=== PATIENT | male | born 1935 | race Caucasian/White ===

== ENCOUNTER → 2016-09-22 | Outpatient (CLI) | payer MEDICARE ==
[~2016-09-22] MED LIST: AMOX500C2 PO; COLE1TAB PO; ENAL10TA PO; GLIP5TAB26 PO; HCT25T PO; HYDR-2856 PO; HYDR-3812 PO; INSU100I14 BC; INSU100I14 SC; INSU100I29 SC; INSU100I29 SQ; INSU100I5 SQ; LORA10TA76 PO; METF-380 PO; MULT-35 PO; NAPR220T66 PO; PGLT30T PO; TR1C15 TOP
--- NOTE | 2016-09-22 14:14 | Diagnostic Imaging Report ---
EXAMINATION: PET-CT TECHNIQUE: Serum glucose level at the time of the study is: 99 mg/dL. 11.8 mCi of FDG was administered intravenously followed by obtaining PET images with corresponding noncontrast CT scan images. The CT scan was performed for anatomic correlation and attenuation correction and was not performed according to the diagnostic protocol of the areas covered. The scan was performed from the head to mid thighs. INDICATION: Esophageal cancer. FINDINGS: There is symmetric FDG uptake seen in the brain. There is no significant hypermetabolic activity noted in the neck. No suspicious mass. Deformities in the upper left chest wall seen. There is a hypermetabolic mass noted in the distal esophagus with maximum SUV of 14.5. This appears to involve a segment, about 5 cm in length in the distal aspect of the esophagus just proximal to the gastroesophageal junction. No hypermetabolic mediastinal lymph nodes are seen. A nonspecific mildly enlarged infracarinal lymph node and right paraesophageal mildly prominent lymph node is also seen higher than the level of the esophageal mass of uncertain etiology. IN THE ABDOMEN AND PELVIS: There is expected urinary tract excretion and some nonspecific bowel activity likely physiologic. IMPRESSION: Intensely hypermetabolic distal esophageal mass is seen with associated mildly prominent infracarinal and right paraesophageal lymph nodes higher than the level of the primary esophageal mass of uncertain etiology. No PET evidence of distant metastasis. Dictated by: Dictated on workstation # [id number]
== END ==
LOC: RAD 08:36
PROVIDERS: ATTEND Internal Medicine Gastroenterology
DX: C15.9 Malignant neoplasm of esophagus, unspecified (principal); R59.0 Localized enlarged lymph nodes

== ENCOUNTER → 2016-09-22 | Outpatient (CLI) | payer MEDICARE ==
--- NOTE | 2016-09-22 12:35 | Diagnostic Imaging Report ---
PROCEDURE: CT chest without contrast. TECHNIQUE: Multiple contiguous axial images were obtained through the chest without the use of intravenous contrast. INDICATION: Dyspnea. Lung nodules followup. COMPARISON: 03/11/16 FINDINGS: When compared to 03/11/2016, there is internal near complete resolution of multiple irregular nodular densities that were seen on the previous exam with morphology favored to be related to an atypical pneumonitis. At this point, there is minimal residual interstitial thickening in a scattered pattern likely related to post pneumonitis scarring. There is no significant consolidation or mass seen. There is evidence of old rib fractures in the upper left rib cage with deformities noted. There are mild centrilobular emphysema changes seen in the apices. The heart size is normal. Coronary artery calcifications are seen. The thoracic aorta is normal in caliber. There is no lymphadenopathy in the axilla. There is a nonspecific mildly prominent infracarinal lymph node measuring 1.3 cm in short axis similar to the previous exam. Sections in the upper abdomen surgical clips near the common bile duct probably related to prior cholecystectomy. The osseous structures demonstrate degenerative changes with an old mid thoracic spine compression fracture. IMPRESSION: No acute process. Dictated by: Dictated on workstation # [id number]
== END ==
LOC: RAD 08:40
PROVIDERS: ATTEND Nurse Practitioner Family
DX: R06.00 Dyspnea, unspecified (principal); R91.1 Solitary pulmonary nodule
CPT/HCPCS: 71250

== ENCOUNTER 2016-10-01 05:36 | Outpatient (CLI) | payer MEDICARE ==
[~2016-10-01] VITALS: Ht 188 cm; Wt 108.9 kg
[~2016-10-01 05:36] MED LIST changes: -ENAL10TA PO; -HYDR-3812 PO
[2016-10-01] MEDS ORDERED: ENAL10TA PO (12:40)
[2016-10-02] MEDS ORDERED: HYDR-3812 PO (13:59)
== END 2016-10-01 12:41 ==
LOC: PREOP 05:36
PROVIDERS: ATTEND Surgery
DX: Z01.818 Encounter for other preprocedural examination (principal); C16.0 Malignant neoplasm of cardia

== ENCOUNTER 2016-10-02 12:19 | Day surgery (SDC) | payer MEDICARE ==
[~2016-10-02] VITALS: Ht 188 cm; Wt 108.9 kg
[~2016-10-02 12:19] MED LIST changes: +ENAL10TA PO
[2016-10-02] MEDS ORDERED: HEParin (CENTRAL IV FLUSH) 500 UNIT/5 ML SYR ONE (12:24)
[2016-10-02] MEDS ORDERED: BUP/EPI 0.25% 1:200,000 (MARCAINE) 30 ML VIAL ONE (12:24)
--- OUTSIDE RECORDS SUMMARY | 2016-10-02 12:24 | XMS REPORT | Continuity of Care Document ---
Author Author [facility] Organization [facility] Address Unknown Phone Unavailable Care Team Providers Care Painter And Paperhanger Apprentice Name Role Phone DARYL BURKETT MD PCP Insurance Providers Payer Name Policy Number Subscriber Name Relationship [employer] Gold Choice [id number] Alexis Carpio V 18 Self / Same As Patient Advance Directives Directive Response Recorded Date/Time Advance Directives No 10/01/16 12:22pm Health Care Power of Distribution Superintendent No 10/01/16 12:22pm Organ Donor Yes 10/01/16 12:22pm Resuscitation Status Full Code 10/01/16 12:22pm Problems Active Problems Medical Problem Onset Date Status Pneumonia Unknown Acute Medications Current Home Medications Medication Dose Units Route Directions Days/Qty Instructions Start Date Insulin Detemir 100 Unit/1 Ml 25 Unit Sub-Q Bedtime 01/29/16 Insulin Aspart 300 Units/3 Ml Subcutaneously Before Meals for Sliding Scale 01/29/16 Insulin Detemir 100 Unit/1 Ml 17 Units Subcutaneously Daily 01/29/16 Enalapril Maleate 10 Mg 10 Mg Oral Daily 10/01/16 Past Home Medications Medication Directions Ordered Status Metformin Hcl (Glucophage) 1,000 Mg Tablet, 1 Each Oral Twice A Day 10/27/10 Discontinued Hydrochlorothiazide 25 Mg Tablet, 1 Each Oral Daily 10/27/10 Discontinued Glipizide 5 Mg Tab.er.24, 10 Mg Oral Daily 10/27/10 Discontinued Pioglitazone Hcl 30 Mg Tab, 30 Mg Oral Daily 10/27/10 Discontinued Hydroxyzine Hcl 25 Mg Tablet, 25 Mg Oral Bedtime 10/27/10 Discontinued Colestipol Hcl 1 Gm Tablet, 1 Gm Oral Bedtime as needed 10/27/10 Discontinued Insulin Determir 100 Unit/1 Ml Insuln.pen, 12 Unit Sub-Q Bedtime 10/30/10 Discontinued Insulin Aspart 100 Unit/1 Ml Insuln.pen, 100 Unit Buccal After Meals Discontinued Multivitamin 1 Each Tablet, 1 Tab Oral Daily 01/29/16 Discontinued Naproxen Sodium 220 Mg Tablet, 220 Mg Oral Daily 01/29/16 Discontinued Loratadine 10 Mg Tablet, 10 Mg Oral Bedtime 01/29/16 Discontinued Amoxicillin 500 Mg Capsule, 500 Mg Oral Three Times A Day 01/29/16 Discontinued Triamcinolone Acet 15 Gm Cr, Topically Bedtime 01/29/16 Discontinued Social History Social History Problem Response Recorded Date/Time Alcohol Use Denies Use 01/29/2016 1:22pm Recreational Drug Use No 01/29/2016 1:22pm Recent Foreign Travel No 10/01/2016 12:21pm Recent Infectious Disease Exposure No 10/01/2016 12:21pm Smoking Status Former Smoker 10/01/2016 12:22pm Type Used Cigarettes 10/01/2016 12:22pm Recent Hopitalizations No 10/01/2016 12:22pm Query Response Start Date Stop Date Smoking Status Former Smoker Hospital Discharge Instructions No hospital discharge instructions. Plan of Care Discharge Date 10/01/16 12:41pm Prescriptions See Medication Section Functional Status No functional status results. Allergies, Adverse Reactions, Alerts Allergen Type Severity Reaction Status Last Updated NKANo Known Allergies Allergy Unknown Active 07/26/06 Immunizations No immunization records. Vital Signs Acute Vital Signs Vital Response Date/Time Height (Feet) 6 feet 10/01/2016 12:16pm Height (Inches) 2.00 inches 10/01/2016 12:16pm Height (Calculated Centimeters) 187.592095 cm 10/01/2016 12:16pm Weight (Pounds) 240 pounds 10/01/2016 12:16pm Weight (Ounces) 3.0 oz 10/01/2016 12:16pm Weight (Calculated Grams) 218967.22 gm 10/01/2016 12:16pm Weight (Calculated Kilograms) 108.394812 kilograms 10/01/2016 12:16pm Calculated BMI 30.8 10/01/2016 12:16pm Results Pending Laboratory Results Test Name Collection Date/Time Procedures No known history of procedures. Encounters Encounter Location Arrival/Admit Date Discharge/Depart Date Attending Provider Departed Clinic [facility] 10/01/16 5:36am 10/01/16 12: 41pm JOHN AHUMADA MD Registered Recurring [facility] 09/30/16 1:01pm CLEVE JOHNSON Registered Clinic [facility] 09/22/16 11:19am NIKOLAS MOLINA APRN Registered Clinic [facility] 09/22/16 8:36am LILLIAN POLLOCK MD
--- OUTSIDE RECORDS SUMMARY | 2016-10-02 12:24 | XMS REPORT | Continuity of Care Document ---
Author Author [facility] Organization [facility] Address Unknown Phone Unavailable Care Team Providers Care Peoplesoft Taleo Manager Name Role Phone DARYL BURKETT MD PCP Insurance Providers Payer Name Policy Number Subscriber Name Relationship [employer] Gold Choice [id number] Alexis Carpio V 18 Self / Same As Patient Advance Directives Directive Response Recorded Date/Time Advance Directives No 10/01/16 12:22pm Health Care Power of Retail Store Assistant No 10/01/16 12:22pm Organ Donor Yes 10/01/16 [...] 2.00 inches 10/01/2016 12:16pm Height (Calculated Centimeters) 187.828591 cm 10/01/2016 12:16pm Weight (Pounds) 240 pounds 10/01/2016 12:16pm Weight (Ounces) 3.0 oz 10/01/2016 12:16pm Weight (Calculated Grams) 560562.22 gm 10/01/2016 12:16pm Weight (Calculated Kilograms) 108.184550 kilograms 10/01/2016 12:16pm Calculated BMI 30.8 10/01/2016 12:16pm Results Pending Laboratory Results Test Name Collection Date/Time Procedures No known history of procedures. Encounters Encounter Location Arrival/Admit Date Discharge/Depart Date Attending Provider Departed Clinic [facility] 10/01/16 5:36am 10/01/16 12: 41pm JOHN AHUMADA MD Registered Recurring [facility] 09/30/16 1:01pm CLEVE JOHNSON Registered Clinic [facility] 09/22/16 11:19am NIKOLAS MOLINA APRN Registered Clinic [facility] 09/22/16 8:36am LILLIAN POLLOCK MD
--- NOTE | 2016-10-02 12:36 | Progress Note-Pre Operative ---
Pre-Operative Progress Note H&P Reviewed The H&P was reviewed, patient examined and no changes noted. 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
[2016-10-02] MEDS ORDERED: fentaNYL INJECTION 100 MCG/2 ML AMP ONE (12:39)
[2016-10-02] MEDS ORDERED: MIDAZOLAM 2 MG/2 ML (VERSED) VIAL ONE (12:39)
[2016-10-02] MEDS ORDERED: ROCURONIUM 50 MG/5 ML (ZEMURON) VIAL IV ONE (12:39)
[2016-10-02] MEDS ORDERED: ONDANSETRON 4 MG/2 ML (SDV) Z0FRAN ONE (12:39)
[2016-10-02] MEDS ORDERED: proPOfol 200 MG/20 ML (DIPRIVAN) VIAL IV ONE (12:39)
[2016-10-02] MEDS ORDERED: LIDOCAINE PF 2% 10 ML (XYLOCAINE) AMP ONE (12:39)
[2016-10-02] MEDS ORDERED: LIDOCAINE JELLY 2% (XYLOCAINE) 5 ML TUBE ONE (12:39)
[2016-10-02] MEDS ORDERED: LACTATED RINGERS 1,000 ML IV ONE ×2 (12:39→14:07)
[2016-10-02] MEDS ORDERED: ceFAZolin 2 GM IV (SDC ONLY) 50 ML ONE (12:42)
[2016-10-02] MEDS ORDERED: LACTATED RINGERS 1,000 ML IV PRN (12:44)
[2016-10-02] MEDS ORDERED: FAMOTIDINE 20MG/2ML IV (PEPCID) IV ONE (12:45)
[2016-10-02] MEDS ORDERED: ceFAZolin 2 GM/NS 50 ML IVPB IV ONE ×2 (13:00)
[2016-10-02 13:10] VITALS: BP 179/96
[2016-10-02] MEDS ORDERED: HYDR-3812 PO (13:59)
[2016-10-02] MEDS ORDERED: SEVOFLURANE (ULTANE) 15 ML INHAL SOLN ONE (13:59)
--- NOTE | 2016-10-02 13:59 | Progress Note-Post Operative ---
Post-Operative Progess Note Pre-Operative Diagnosis carcinoma of the GE junction Post-Operative Diagnosis Same Post-Op Procedure Note Date of Procedure: Oct 02, 2016 Name of Procedure: Zajbbp-o-Rdoh placement PEG tube placed Anesthesia Type Gen. Estimated blood loss (mL): Minimal JOHN AHUMADA MD Oct 02, 2016 1:59 pm
--- NOTE | 2016-10-02 14:00 | Discharge Inst-Simple/Standard ---
Discharge Inst-Standard Discharge Medications New, Converted or Re-Newed RX: RX on Chart Patient Instructions/Follow Up Plan of Care/Instructions/FU: Dressings off in 48 hours. Incentive spirometry. May use the port. Flush the PEG tube with 10 mL of water 3 times a day starting tomorrow Activity as Tolerated: Yes Discharge Diet: No Restrictions JOHN AHUMADA MD Oct 02, 2016 2:00 pm
[2016-10-02] MEDS ORDERED: ONDANSETRON 4 MG/2 ML (SDV) Z0FRAN IVP PRN (14:15)
[2016-10-02] MEDS ORDERED: MEPERIDINE (DEMEROL) INJ 50 MG/ML IVP PRN (14:15)
[2016-10-02] MEDS ORDERED: morphine INJ 10 MG/ML 1ML (SYR OR VIAL) IVP PRN (14:15)
[2016-10-02 15:05] VITALS: BP 176/85
[2016-10-02 15:35] VITALS: BP 183/91
--- NOTE | 2016-10-02 16:45 | Diagnostic Imaging Report ---
INDICATION: Need for central venous access. DISCUSSION: Fluoroscopic support was provided during intraoperative placement of a right-sided chest central venous catheter. Please see the operative report for full detail. Fluoroscopy time: 35 seconds. IMPRESSION: 1. Intraoperative central venous catheter placement. Dictated by: Dictated on workstation # [id number]
[2016-10-02 17:10] VITALS: BP 183/91
--- NOTE | 2016-10-03 22:19 | OPERATIVE REPORT ---
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 POSTOPERATIVE DIAGNOSIS: Adenocarcinoma of gastroesophageal junction. OPERATION: 1. Ultrasound localization of right internal jugular vein. 2. Intraoperative fluoroscopy. 3. Ukmqwl-b-Houw placement. 4. PEG tube placement. SURGEON: Dr. Ahumada. ANESTHESIA: General anesthesia. BLOOD LOSS: Minimal. FLUIDS: 1200 mL of crystalloids. TYPE OF WOUND: 1. Nqcuqg-f-Bowm - clean wound. 2. PEG tube type III (contaminant wound) INDICATIONS FOR THE PROCEDURE: This gentleman is due to receive chemoradiation to manage an inoperable carcinoma of the gastroesophageal junction. In anticipation of this, an Ndmslo-j-Dxmv and PEG tube were felt to be appropriate. Informed consent was obtained after reviewing the operative details and complications of bacteremia, malfunction of catheter requiring replacement and displacement of the PEG tube. DESCRIPTION OF PROCEDURE: XSFFVC-[id number]-[id number] PLACEMENT: He was placed supine on the operating table and general anesthesia induced using an endotracheal tube. 2 grams of Ancef were administered intravenously as prophylaxis against wound infection. Sequential compression devices were placed around his legs, to minimize the risk of venous thrombosis. His neck and upper chest were prepared and draped in the usual sterile manner. Right internal jugular vein was localized using a 10 MHz ultrasound probe and a floppy guidewire introduced into the heart, under fluoroscopy. A subcutaneous pocket was created over the infraclavicular fossa and the Albert catheter brought into the neck, in a retrograde fashion. It was then advanced into the heart, under fluoroscopy using the peel-away sheath. The catheter was then pulled back to the superior vena cava and connected to the Fbohhz-a-Qvex, that had been primed with heparinized saline. I was able to aspirate and flush the system without difficulty. The port was then secured to the pectoralis muscle using 2-0 Prolene sutures. The incision was closed using 3-0 Vicryl for the subcutaneous tissue and 4-0 Vicryl for skin, in a subcuticular fashion. Preemptive analgesia was established using 0.25% Marcaine with epinephrine. PEG TUBE PLACEMENT: Anterior abdominal wall was prepared and draped in the usual sterile manner. The flexible gastroscope was introduced into the stomach and by transillumination on the anterior abdominal wall, the area below the left costal margin was identified. A guidewire was introduced into the stomach under direct view using an access needle. This was then snared using standard technique and the wire brought out of the oral cavity. A 20-Mohawk standard PEG tube was connected to the guidewire and rail-roaded back into the stomach. Gastroscopy was repeated to conform satisfactory position of the flange of the device. The connecting devices were attached to the PEG tube and a dressing applied. He tolerated both procedures well, was extubated in the operating room and taken to the recovery room in a stable condition. Hawkeye, sponges, and instruments were correct at the end of the operation. Job ID: [id number] Dictated Date: 10/02/2016 13:58:39 Auto Repair Shop Manager Date: 10/03/2016 22:11:05 / coby PAIGE
== END 2016-10-02 17:10 | disposition home or self-care (01) ==
LOC: SDC 12:19
PROVIDERS: ATTEND Surgery
DX: C16.0 Malignant neoplasm of cardia (principal); E11.9 Type 2 diabetes mellitus without complications; Z79.4 Long term (current) use of insulin
CPT/HCPCS: 82962; 87081; 94664

== ENCOUNTER → 2016-12-24 | Outpatient (RCR) | payer MEDICARE ==
[2016-09-25 12:11] LABS: BASOPHILS % (AUTO) 0 % (0-10); EOSINOPHILS # (AUTO) 0.2 10^3/uL (0.0-0.3); EOSINOPHILS % (AUTO) 3 % (0-10); LYMPHOCYTES # (AUTO) 1.9 X 10^3 (1.0-4.0); LYMPHOCYTES % (AUTO) 27 % (12-44); MEAN CORPUSCULAR HEMOGLOBIN 31 PG (25-34); MEAN CORPUSCULAR HGB CONC 35 G/DL (32-36); MEAN CORPUSCULAR VOLUME 90 FL (80-99); MEAN PLATELET VOLUME 10.4 FL (7.4-10.4); MONOCYTES # (AUTO) 0.5 X 10^3 (0.0-1.0); MONOCYTES % (AUTO) 8 % (0-12); NEUTROPHILS # (AUTO) 4.5 X 10^3 (1.8-7.8); NEUTROPHILS % (AUTO) 62 % (42-75); PLATELET COUNT 263 10^3/uL (130-400); RED BLOOD COUNT 5.09 10^6/uL (4.35-5.85); RED CELL DISTRIBUTION WIDTH 12.7 % (10.0-14.5); WHITE BLOOD COUNT 7.2 10^3/uL (4.3-11.0)
[2016-09-25 12:29] LABS: ALANINE AMINOTRANSFERASE 31 U/L (0-55); ALBUMIN 3.9 G/DL (3.2-4.5); ANION GAP 9 MMOL/L (5-14); ASPARTATE AMINO TRANSFERASE 18 U/L (5-34); BILIRUBIN,TOTAL 0.7 MG/DL (0.1-1.0); BLOOD UREA NITROGEN 17 MG/DL (7-18); BUN/CREATININE RATIO 15; CALCIUM 9.3 MG/DL (8.5-10.1); CARBON DIOXIDE 25 MMOL/L (21-32); CHLORIDE 108 MMOL/L (98-107); CREATININE SERUM 1.15 MG/DL (0.60-1.30); GFR ESTIMATED > 60; GLUCOSE 120 MG/DL (70-105); POTASSIUM 4.2 MMOL/L (3.6-5.0); SODIUM 142 MMOL/L (135-145); TOTAL PROTEIN 6.3 G/DL (6.4-8.2)
[2016-10-06 13:33] LABS: BASOPHILS % (AUTO) 0 % (0-10); EOSINOPHILS # (AUTO) 0.2 10^3/uL (0.0-0.3); EOSINOPHILS % (AUTO) 4 % (0-10); LYMPHOCYTES # (AUTO) 1.4 X 10^3 (1.0-4.0); LYMPHOCYTES % (AUTO) 23 % (12-44); MEAN CORPUSCULAR HEMOGLOBIN 31 PG (25-34); MEAN CORPUSCULAR HGB CONC 34 G/DL (32-36); MEAN CORPUSCULAR VOLUME 90 FL (80-99); MEAN PLATELET VOLUME 10.3 FL (7.4-10.4); MONOCYTES # (AUTO) 0.4 X 10^3 (0.0-1.0); MONOCYTES % (AUTO) 7 % (0-12); NEUTROPHILS % (AUTO) 66 % (42-75); PLATELET COUNT 230 10^3/uL (130-400); RED BLOOD COUNT 4.56 10^6/uL (4.35-5.85); RED CELL DISTRIBUTION WIDTH 12.8 % (10.0-14.5); WHITE BLOOD COUNT 6.1 10^3/uL (4.3-11.0)
[2016-10-06 13:54] LABS: ALBUMIN 3.5 G/DL (3.2-4.5); BILIRUBIN,TOTAL 0.6 MG/DL (0.1-1.0); CALCIUM 8.6 MG/DL (8.5-10.1); CREATININE SERUM 1.19 MG/DL (0.60-1.30); POTASSIUM 4.1 MMOL/L (3.6-5.0); TOTAL PROTEIN 5.7 G/DL (6.4-8.2)
[2016-10-12 13:26] LABS: BASOPHILS % (AUTO) 0 % (0-10); EOSINOPHILS # (AUTO) 0.4 10^3/uL (0.0-0.3); EOSINOPHILS % (AUTO) 6 % (0-10); LYMPHOCYTES # (AUTO) 1.5 X 10^3 (1.0-4.0); LYMPHOCYTES % (AUTO) 21 % (12-44); MEAN CORPUSCULAR HEMOGLOBIN 31 PG (25-34); MEAN CORPUSCULAR HGB CONC 34 G/DL (32-36); MEAN CORPUSCULAR VOLUME 90 FL (80-99); MEAN PLATELET VOLUME 10.1 FL (7.4-10.4); MONOCYTES # (AUTO) 0.5 X 10^3 (0.0-1.0); MONOCYTES % (AUTO) 6 % (0-12); NEUTROPHILS # (AUTO) 4.7 X 10^3 (1.8-7.8); NEUTROPHILS % (AUTO) 67 % (42-75); PLATELET COUNT 259 10^3/uL (130-400); RED BLOOD COUNT 4.98 10^6/uL (4.35-5.85); RED CELL DISTRIBUTION WIDTH 12.7 % (10.0-14.5); WHITE BLOOD COUNT 7.1 10^3/uL (4.3-11.0)
[2016-10-12 14:25] LABS: CREATININE SERUM 1.39 MG/DL (0.60-1.30); POTASSIUM 4.4 MMOL/L (3.6-5.0)
[2016-10-20 13:16] LABS: BASOPHILS % (AUTO) 1 % (0-10); EOSINOPHILS # (AUTO) 0.3 10^3/uL (0.0-0.3); EOSINOPHILS % (AUTO) 4 % (0-10); LYMPHOCYTES # (AUTO) 0.9 X 10^3 (1.0-4.0); LYMPHOCYTES % (AUTO) 16 % (12-44); MEAN CORPUSCULAR HEMOGLOBIN 31 PG (25-34); MEAN CORPUSCULAR HGB CONC 34 G/DL (32-36); MEAN CORPUSCULAR VOLUME 91 FL (80-99); MEAN PLATELET VOLUME 9.5 FL (7.4-10.4); MONOCYTES # (AUTO) 0.7 X 10^3 (0.0-1.0); MONOCYTES % (AUTO) 12 % (0-12); NEUTROPHILS # (AUTO) 3.8 X 10^3 (1.8-7.8); NEUTROPHILS % (AUTO) 67 % (42-75); PLATELET COUNT 232 10^3/uL (130-400); RED BLOOD COUNT 4.74 10^6/uL (4.35-5.85); WHITE BLOOD COUNT 5.7 10^3/uL (4.3-11.0)
[2016-10-20 13:46] LABS: ALBUMIN 3.7 G/DL (3.2-4.5); BILIRUBIN,TOTAL 0.9 MG/DL (0.1-1.0); CALCIUM 8.8 MG/DL (8.5-10.1); CREATININE SERUM 1.18 MG/DL (0.60-1.30); POTASSIUM 4.1 MMOL/L (3.6-5.0)
[2016-10-26 13:10] LABS: BASOPHILS % (AUTO) 0 % (0-10); EOSINOPHILS # (AUTO) 0.3 10^3/uL (0.0-0.3); EOSINOPHILS % (AUTO) 7 % (0-10); LYMPHOCYTES # (AUTO) 0.6 X 10^3 (1.0-4.0); LYMPHOCYTES % (AUTO) 13 % (12-44); MEAN CORPUSCULAR HEMOGLOBIN 31 PG (25-34); MEAN CORPUSCULAR HGB CONC 34 G/DL (32-36); MEAN CORPUSCULAR VOLUME 90 FL (80-99); MONOCYTES # (AUTO) 0.5 X 10^3 (0.0-1.0); MONOCYTES % (AUTO) 11 % (0-12); NEUTROPHILS # (AUTO) 3.4 X 10^3 (1.8-7.8); NEUTROPHILS % (AUTO) 69 % (42-75); PLATELET COUNT 215 10^3/uL (130-400); RED BLOOD COUNT 4.88 10^6/uL (4.35-5.85); RED CELL DISTRIBUTION WIDTH 12.6 % (10.0-14.5); WHITE BLOOD COUNT 4.8 10^3/uL (4.3-11.0)
[2016-10-26 13:38] LABS: CALCIUM 9.1 MG/DL (8.5-10.1); CREATININE SERUM 1.22 MG/DL (0.60-1.30); POTASSIUM 3.8 MMOL/L (3.6-5.0)
[2016-11-02 11:11] LABS: BASOPHILS % (AUTO) 0 % (0-10); EOSINOPHILS # (AUTO) 0.2 10^3/uL (0.0-0.3); EOSINOPHILS % (AUTO) 2 % (0-10); LYMPHOCYTES # (AUTO) 0.5 X 10^3 (1.0-4.0); LYMPHOCYTES % (AUTO) 8 % (12-44); MEAN CORPUSCULAR HEMOGLOBIN 31 PG (25-34); MEAN CORPUSCULAR HGB CONC 34 G/DL (32-36); MEAN CORPUSCULAR VOLUME 90 FL (80-99); MEAN PLATELET VOLUME 10.4 FL (7.4-10.4); MONOCYTES # (AUTO) 0.8 X 10^3 (0.0-1.0); MONOCYTES % (AUTO) 11 % (0-12); NEUTROPHILS # (AUTO) 5.4 X 10^3 (1.8-7.8); NEUTROPHILS % (AUTO) 79 % (42-75); PLATELET COUNT 148 10^3/uL (130-400); RED CELL DISTRIBUTION WIDTH 13.3 % (10.0-14.5); WHITE BLOOD COUNT 6.8 10^3/uL (4.3-11.0)
[2016-11-02 11:41] LABS: ALBUMIN 3.6 G/DL (3.2-4.5); BILIRUBIN,TOTAL 0.8 MG/DL (0.1-1.0); CALCIUM 8.8 MG/DL (8.5-10.1); CREATININE SERUM 1.21 MG/DL (0.60-1.30); MAGNESIUM 2.2 MG/DL (1.8-2.4); POTASSIUM 3.8 MMOL/L (3.6-5.0); TOTAL PROTEIN 6.1 G/DL (6.4-8.2)
[2016-11-09 13:08] LABS: BASOPHILS % (AUTO) 1 % (0-10); EOSINOPHILS # (AUTO) 0.4 10^3/uL (0.0-0.3); EOSINOPHILS % (AUTO) 10 % (0-10); LYMPHOCYTES # (AUTO) 0.4 X 10^3 (1.0-4.0); LYMPHOCYTES % (AUTO) 9 % (12-44); MEAN CORPUSCULAR HEMOGLOBIN 31 PG (25-34); MEAN CORPUSCULAR HGB CONC 34 G/DL (32-36); MEAN CORPUSCULAR VOLUME 90 FL (80-99); MEAN PLATELET VOLUME 9.7 FL (7.4-10.4); MONOCYTES # (AUTO) 0.8 X 10^3 (0.0-1.0); MONOCYTES % (AUTO) 18 % (0-12); NEUTROPHILS # (AUTO) 2.8 X 10^3 (1.8-7.8); NEUTROPHILS % (AUTO) 63 % (42-75); PLATELET COUNT 138 10^3/uL (130-400); RED BLOOD COUNT 4.83 10^6/uL (4.35-5.85); RED CELL DISTRIBUTION WIDTH 13.1 % (10.0-14.5); WHITE BLOOD COUNT 4.4 10^3/uL (4.3-11.0)
[2016-11-09 13:40] LABS: ANION GAP 12 MMOL/L (5-14); BLOOD UREA NITROGEN 17 MG/DL (7-18); BUN/CREATININE RATIO 15; CALCIUM 8.9 MG/DL (8.5-10.1); CARBON DIOXIDE 24 MMOL/L (21-32); CHLORIDE 105 MMOL/L (98-107); CREATININE SERUM 1.16 MG/DL (0.60-1.30); GFR ESTIMATED > 60; GLUCOSE 114 MG/DL (70-105); POTASSIUM 4.2 MMOL/L (3.6-5.0); SODIUM 141 MMOL/L (135-145)
[2016-11-16 10:42] LABS: BASOPHILS % (AUTO) 1 % (0-10); EOSINOPHILS # (AUTO) 0.1 10^3/uL (0.0-0.3); EOSINOPHILS % (AUTO) 2 % (0-10); LYMPHOCYTES # (AUTO) 0.3 X 10^3 (1.0-4.0); LYMPHOCYTES % (AUTO) 7 % (12-44); MEAN CORPUSCULAR HEMOGLOBIN 31 PG (25-34); MEAN CORPUSCULAR HGB CONC 35 G/DL (32-36); MEAN CORPUSCULAR VOLUME 90 FL (80-99); MEAN PLATELET VOLUME 9.4 FL (7.4-10.4); MONOCYTES # (AUTO) 1.1 X 10^3 (0.0-1.0); MONOCYTES % (AUTO) 28 % (0-12); NEUTROPHILS # (AUTO) 2.4 X 10^3 (1.8-7.8); NEUTROPHILS % (AUTO) 63 % (42-75); PLATELET COUNT 133 10^3/uL (130-400); RED BLOOD COUNT 4.72 10^6/uL (4.35-5.85); RED CELL DISTRIBUTION WIDTH 14.4 % (10.0-14.5); WHITE BLOOD COUNT 3.9 10^3/uL (4.3-11.0)
[2016-11-16 11:09] LABS: ALBUMIN 3.4 G/DL (3.2-4.5); BILIRUBIN,TOTAL 0.6 MG/DL (0.1-1.0); CALCIUM 8.7 MG/DL (8.5-10.1); CREATININE SERUM 1.18 MG/DL (0.60-1.30); MAGNESIUM 2.1 MG/DL (1.8-2.4); POTASSIUM 4.5 MMOL/L (3.6-5.0); TOTAL PROTEIN 5.7 G/DL (6.4-8.2)
[2016-12-08 15:05] LABS: BASOPHILS % (AUTO) 0 % (0-10); EOSINOPHILS # (AUTO) 0.1 10^3/uL (0.0-0.3); EOSINOPHILS % (AUTO) 2 % (0-10); LYMPHOCYTES # (AUTO) 1.9 X 10^3 (1.0-4.0); LYMPHOCYTES % (AUTO) 35 % (12-44); MEAN CORPUSCULAR HEMOGLOBIN 32 PG (25-34); MEAN CORPUSCULAR HGB CONC 35 G/DL (32-36); MEAN CORPUSCULAR VOLUME 91 FL (80-99); MEAN PLATELET VOLUME 9.1 FL (7.4-10.4); MONOCYTES % (AUTO) 18 % (0-12); NEUTROPHILS # (AUTO) 2.4 X 10^3 (1.8-7.8); NEUTROPHILS % (AUTO) 44 % (42-75); PLATELET COUNT 210 10^3/uL (130-400); RED BLOOD COUNT 4.49 10^6/uL (4.35-5.85); RED CELL DISTRIBUTION WIDTH 14.9 % (10.0-14.5); WHITE BLOOD COUNT 5.3 10^3/uL (4.3-11.0)
[2016-12-08 15:31] LABS: ALANINE AMINOTRANSFERASE 40 U/L (0-55); ALBUMIN 3.3 G/DL (3.2-4.5); ANION GAP 8 MMOL/L (5-14); ASPARTATE AMINO TRANSFERASE 50 U/L (5-34); BILIRUBIN,TOTAL 0.5 MG/DL (0.1-1.0); BLOOD UREA NITROGEN 15 MG/DL (7-18); BUN/CREATININE RATIO 16; CALCIUM 8.9 MG/DL (8.5-10.1); CARBON DIOXIDE 26 MMOL/L (21-32); CHLORIDE 108 MMOL/L (98-107); CREATININE SERUM 0.94 MG/DL (0.60-1.30); GFR ESTIMATED > 60; MAGNESIUM 2.2 MG/DL (1.8-2.4); POTASSIUM 3.9 MMOL/L (3.6-5.0); SODIUM 142 MMOL/L (135-145); TOTAL PROTEIN 5.9 G/DL (6.4-8.2)
[2016-12-08 15:33] LABS: GLUCOSE 46 MG/DL (70-105)
[~2016-12-24] VITALS: Ht 182.9 cm; Wt 105.7 kg
[~2016-12-24] MED LIST changes: +D5W 500 ML IV (CANCER CTR) 500 ML IV SCH; +FAMOTIDINE 20MG/2ML IV (CANCER CTR) IV SCH; +FLUOROURACIL 400 MG in SYRINGE-IVPB 1 SYRINGE IV SCH; +FOSAPREPITANT 150 MG/NS 150 MG IVPB (CANCER CTR) IV PRN; +HYDR-3812 PO; +LEUCOVORIN CALCIUM 350 MG, LEUCOVORIN CALCIUM 50 MG in D5W 250 ML IVPB (CANCER CTR) 250 ML IV SCH; +NS (IVPB) CANCER CENTER 250 ML IV SCH; +NS IV 1000 ML (CANCER CTR) 1,000 ML ONE; +OXALIPLATIN 100 MG, OXALIPLATIN (GENERIC) 30 MG in D5W 250 ML IVPB (CANCER CTR) 250 ML IV SCH; +PALONOSETRON 0.25 MG, DEXAMETHASONE 10 MG/NS 50 ML IVPB IV PRN
== END | disposition home or self-care (01) ==
LOC: ONC 09-25 10:07
PROVIDERS: ATTEND Internal Medicine Hematology & Oncology
DX: Z51.0 Encounter for antineoplastic radiation therapy (principal); Z51.11 Encounter for antineoplastic chemotherapy; C16.0 Malignant neoplasm of cardia; R91.1 Solitary pulmonary nodule; E11.319 Type 2 diabetes mellitus with unspecified diabetic retinopathy without macular edema; I10 Essential (primary) hypertension; Z87.891 Personal history of nicotine dependence; Z79.4 Long term (current) use of insulin; Z79.899 Other long term (current) drug therapy
CPT/HCPCS: 36415; 36591; 77300; 77301; 77332; 77334; 77336; 77338; 77386; 77470; 80048; 80053; 82378; 83735; 85025; 96360; 96361; 96367; 96368; 96375; 96411; 96413; 96416; 96521; 99213; 99214

== ENCOUNTER → 2017-02-04 | Outpatient (CLI) | payer MEDICARE ==
[~2017-02-04] MED LIST changes: +BARIUM SUSPENSION 2.1% (VANILLA SILQ) 450 ML PO ONE; +CATHETER FLUSH 10 ML SYR IV PRN; -D5W 500 ML IV (CANCER CTR) 500 ML IV SCH; -FAMOTIDINE 20MG/2ML IV (CANCER CTR) IV SCH; -FLUOROURACIL 400 MG in SYRINGE-IVPB 1 SYRINGE IV SCH; -FOSAPREPITANT 150 MG/NS 150 MG IVPB (CANCER CTR) IV PRN; +IOHEXOL 350 MG/ML 100 ML (OMNIPAQUE 350) VIAL IV ONE; -LEUCOVORIN CALCIUM 350 MG, LEUCOVORIN CALCIUM 50 MG in D5W 250 ML IVPB (CANCER CTR) 250 ML IV SCH; -NS (IVPB) CANCER CENTER 250 ML IV SCH; +NS 100 ML (IVPB) BAG IV ONE; -NS IV 1000 ML (CANCER CTR) 1,000 ML ONE; -OXALIPLATIN 100 MG, OXALIPLATIN (GENERIC) 30 MG in D5W 250 ML IVPB (CANCER CTR) 250 ML IV SCH; -PALONOSETRON 0.25 MG, DEXAMETHASONE 10 MG/NS 50 ML IVPB IV PRN
--- NOTE | 2017-02-04 15:27 | Diagnostic Imaging Report ---
PROCEDURE: CT chest and abdomen with contrast. TECHNIQUE: Multiple contiguous axial images were obtained through the chest and abdomen after the administration of intravenous contrast. INDICATION: Esophageal cancer. CONTRAST: 100 mL of Omnipaque 350 was administered. COMPARISON: Correlation is made with the PET/CT and CT scan of 09/22/2016. FINDINGS: CT CHEST: There is focal thickening in the distal aspect of the esophagus which may correlate with the known esophageal cancer and is similar to 09/22/2016. There is an infracarinal lymph node measuring 1.3 cm abutting the right side aspect of the esophagus. This is similar to the prior exam. There is no new lymphadenopathy in the elaine, mediastinum, or axilla. The pulmonary arteries demonstrate large filling defects, nearly occlusive, at the distal aspect of the right main pulmonary artery extending to the upper, lower, and middle lobes. There is nonocclusive embolus seen in the left main pulmonary artery and bifurcation of the pulmonary trunk with nonocclusive thrombus also in the lobar and several segmental branches. The heart size is normal. No pericardial or pleural effusion. The lungs demonstrate emphysematous changes. There is no significant consolidation, mass, or suspicious nodule. There are areas of scarring seen. There is also deformity along the left rib cage related to an old injury. This is unchanged from the previous study. No suspicious osseous lesion is seen otherwise to suggest metastasis. There is a right internal jugular port with the tip in the upper SVC. CT ABDOMEN: There is a gastrostomy tube in place within the proximal antrum. The filling defect in the stomach surrounded by oral contrast is probably related to luminal feeding contents rather than a gastric mass. The liver demonstrates mild intrahepatic biliary dilatation and mild CBD dilatation is also seen, similar to the prior study, probably related to prior cholecystectomy. No hepatic mass is identified. The spleen is not enlarged. The pancreas and adrenal glands appear unremarkable. The abdominal aorta is normal in caliber. No periaortic significantly enlarged lymph node is seen. There is a tiny fat-containing umbilical hernia. Moderate amounts of fecal material in the colon is seen. The osseous structures demonstrate a sclerotic focus measuring 1.1 cm in the L2 vertebral body. The correlating bone scan demonstrates no associated increased uptake and this appears unchanged from the localizer CT of the PET from 2017, suggestive of a bony island. IMPRESSION: CT CHEST: 1. There is a relatively large burden of pulmonary embolism, mostly on the right side, along the branch point of the main right pulmonary artery with nonocclusive emboli involving the left pulmonary artery branches as well. 2. Nonspecific stable thickening in the distal esophagus, probably correlating with the known primary esophageal carcinoma. 3. Nonspecific infracarinal 1.3 cm lymph node abutting the right side of the esophagus. This is unchanged from the previous exam. The etiology is indeterminate. CT ABDOMEN: 1. Tiny fat-containing umbilical hernia. 2. A 1.1 cm sclerotic focus in the L2 vertebral body is stable from the prior exam and is favored to be a bony island. The findings of pulmonary embolism were discussed with Dr. Valera at the time of dictation. Dictated by: Dictated on workstation # [id number]
--- NOTE | 2017-02-04 16:02 | Diagnostic Imaging Report ---
EXAMINATION: Whole body bone scan. TECHNIQUE: After the intravenous administration of 27 mCi of Technetium 99m MDP, whole body delayed phase bone scan images were obtained with lateral views of the head and neck and the chest regions. INDICATION: Esophageal cancer FINDINGS: There is no intense increased radiotracer uptake seen, in the axial skeleton in particular, to suggest metastasis. Degenerative pattern of increased activity is seen in joints including the shoulders, sternoclavicular joints and the knees, more on the left side. Urinary tract activity related to excretion is seen. IMPRESSION: No scintigraphic evidence of osseous metastasis. Dictated by: Dictated on workstation # [id number]
== END ==
LOC: CARD 10:34
PROVIDERS: ATTEND Internal Medicine Hematology & Oncology
DX: Z01.89 Encounter for other specified special examinations (principal); C15.5 Malignant neoplasm of lower third of esophagus; K42.9 Umbilical hernia without obstruction or gangrene; I26.99 Other pulmonary embolism without acute cor pulmonale
CPT/HCPCS: 71260; 74160; 78306

== ENCOUNTER 2017-03-18 13:46 | Outpatient (RCR) | payer MEDICARE ==
[2016-12-29 13:56] LABS: BASOPHILS % (AUTO) 1 % (0-10); EOSINOPHILS # (AUTO) 0.4 10^3/uL (0.0-0.3); EOSINOPHILS % (AUTO) 7 % (0-10); LYMPHOCYTES # (AUTO) 1.5 X 10^3 (1.0-4.0); LYMPHOCYTES % (AUTO) 26 % (12-44); MEAN CORPUSCULAR HEMOGLOBIN 32 PG (25-34); MEAN CORPUSCULAR HGB CONC 34 G/DL (32-36); MEAN CORPUSCULAR VOLUME 92 FL (80-99); MEAN PLATELET VOLUME 9.2 FL (7.4-10.4); MONOCYTES # (AUTO) 0.4 X 10^3 (0.0-1.0); MONOCYTES % (AUTO) 7 % (0-12); NEUTROPHILS # (AUTO) 3.4 X 10^3 (1.8-7.8); NEUTROPHILS % (AUTO) 60 % (42-75); PLATELET COUNT 171 10^3/uL (130-400); RED BLOOD COUNT 4.35 10^6/uL (4.35-5.85); RED CELL DISTRIBUTION WIDTH 13.3 % (10.0-14.5); WHITE BLOOD COUNT 5.7 10^3/uL (4.3-11.0)
[2016-12-29 14:29] LABS: ANION GAP 10 MMOL/L (5-14); BLOOD UREA NITROGEN 17 MG/DL (7-18); BUN/CREATININE RATIO 17; CALCIUM 8.9 MG/DL (8.5-10.1); CARBON DIOXIDE 25 MMOL/L (21-32); CHLORIDE 105 MMOL/L (98-107); CREATININE SERUM 1.03 MG/DL (0.60-1.30); GFR ESTIMATED > 60; GLUCOSE 175 MG/DL (70-105); POTASSIUM 3.8 MMOL/L (3.6-5.0); SODIUM 140 MMOL/L (135-145)
[2017-01-06 13:50] LABS: BASOPHILS % (AUTO) 0 % (0-10); EOSINOPHILS # (AUTO) 0.4 10^3/uL (0.0-0.3); EOSINOPHILS % (AUTO) 9 % (0-10); LYMPHOCYTES # (AUTO) 2.4 X 10^3 (1.0-4.0); LYMPHOCYTES % (AUTO) 50 % (12-44); MEAN CORPUSCULAR HEMOGLOBIN 31 PG (25-34); MEAN CORPUSCULAR HGB CONC 34 G/DL (32-36); MEAN CORPUSCULAR VOLUME 91 FL (80-99); MEAN PLATELET VOLUME 9.7 FL (7.4-10.4); MONOCYTES % (AUTO) 21 % (0-12); NEUTROPHILS % (AUTO) 20 % (42-75); PLATELET COUNT 199 10^3/uL (130-400); RED BLOOD COUNT 4.43 10^6/uL (4.35-5.85); RED CELL DISTRIBUTION WIDTH 13.5 % (10.0-14.5); WHITE BLOOD COUNT 4.8 10^3/uL (4.3-11.0)
[2017-01-06 14:14] LABS: ALANINE AMINOTRANSFERASE 31 U/L (0-55); ALBUMIN 3.4 G/DL (3.2-4.5); ANION GAP 10 MMOL/L (5-14); ASPARTATE AMINO TRANSFERASE 31 U/L (5-34); BILIRUBIN,TOTAL 0.8 MG/DL (0.1-1.0); BLOOD UREA NITROGEN 11 MG/DL (7-18); BUN/CREATININE RATIO 11; CARBON DIOXIDE 24 MMOL/L (21-32); CHLORIDE 107 MMOL/L (98-107); CREATININE SERUM 0.97 MG/DL (0.60-1.30); GFR ESTIMATED > 60; GLUCOSE 130 MG/DL (70-105); POTASSIUM 3.9 MMOL/L (3.6-5.0); SODIUM 141 MMOL/L (135-145); TOTAL PROTEIN 6.1 G/DL (6.4-8.2)
[2017-01-13 14:16] LABS: BASOPHILS % (AUTO) 0 % (0-10); EOSINOPHILS # (AUTO) 0.3 10^3/uL (0.0-0.3); EOSINOPHILS % (AUTO) 6 % (0-10); LYMPHOCYTES # (AUTO) 1.5 X 10^3 (1.0-4.0); LYMPHOCYTES % (AUTO) 30 % (12-44); MEAN CORPUSCULAR HEMOGLOBIN 31 PG (25-34); MEAN CORPUSCULAR HGB CONC 34 G/DL (32-36); MEAN CORPUSCULAR VOLUME 91 FL (80-99); MEAN PLATELET VOLUME 8.7 FL (7.4-10.4); MONOCYTES # (AUTO) 0.4 X 10^3 (0.0-1.0); MONOCYTES % (AUTO) 8 % (0-12); NEUTROPHILS # (AUTO) 2.9 X 10^3 (1.8-7.8); NEUTROPHILS % (AUTO) 56 % (42-75); PLATELET COUNT 199 10^3/uL (130-400); RED BLOOD COUNT 4.33 10^6/uL (4.35-5.85); RED CELL DISTRIBUTION WIDTH 13.2 % (10.0-14.5); WHITE BLOOD COUNT 5.2 10^3/uL (4.3-11.0)
[2017-01-13 14:58] LABS: ANION GAP 9 MMOL/L (5-14); BLOOD UREA NITROGEN 10 MG/DL (7-18); BUN/CREATININE RATIO 10; CALCIUM 9.1 MG/DL (8.5-10.1); CARBON DIOXIDE 26 MMOL/L (21-32); CHLORIDE 107 MMOL/L (98-107); CREATININE SERUM 0.97 MG/DL (0.60-1.30); GFR ESTIMATED > 60; GLUCOSE 154 MG/DL (70-105); POTASSIUM 3.8 MMOL/L (3.6-5.0); SODIUM 142 MMOL/L (135-145)
[2017-01-20 13:06] LABS: BASOPHILS % (AUTO) 1 % (0-10); EOSINOPHILS # (AUTO) 0.2 10^3/uL (0.0-0.3); EOSINOPHILS % (AUTO) 5 % (0-10); LYMPHOCYTES # (AUTO) 1.1 X 10^3 (1.0-4.0); LYMPHOCYTES % (AUTO) 31 % (12-44); MEAN CORPUSCULAR HEMOGLOBIN 32 PG (25-34); MEAN CORPUSCULAR HGB CONC 34 G/DL (32-36); MEAN CORPUSCULAR VOLUME 92 FL (80-99); MEAN PLATELET VOLUME 9.9 FL (7.4-10.4); MONOCYTES # (AUTO) 0.7 X 10^3 (0.0-1.0); MONOCYTES % (AUTO) 20 % (0-12); NEUTROPHILS # (AUTO) 1.5 X 10^3 (1.8-7.8); NEUTROPHILS % (AUTO) 44 % (42-75); PLATELET COUNT 147 10^3/uL (130-400); RED BLOOD COUNT 4.14 10^6/uL (4.35-5.85); RED CELL DISTRIBUTION WIDTH 14.3 % (10.0-14.5); WHITE BLOOD COUNT 3.5 10^3/uL (4.3-11.0)
[2017-01-20 13:25] LABS: ALANINE AMINOTRANSFERASE 35 U/L (0-55); ALBUMIN 3.4 G/DL (3.2-4.5); ANION GAP 9 MMOL/L (5-14); ASPARTATE AMINO TRANSFERASE 28 U/L (5-34); BILIRUBIN,TOTAL 0.7 MG/DL (0.1-1.0); BLOOD UREA NITROGEN 12 MG/DL (7-18); BUN/CREATININE RATIO 13; CALCIUM 8.9 MG/DL (8.5-10.1); CARBON DIOXIDE 25 MMOL/L (21-32); CHLORIDE 110 MMOL/L (98-107); CREATININE SERUM 0.95 MG/DL (0.60-1.30); GFR ESTIMATED > 60; GLUCOSE 199 MG/DL (70-105); MAGNESIUM 1.7 MG/DL (1.8-2.4); POTASSIUM 3.5 MMOL/L (3.6-5.0); SODIUM 144 MMOL/L (135-145); TOTAL PROTEIN 5.9 G/DL (6.4-8.2)
[2017-02-03 13:34] LABS: BASOPHILS % (AUTO) 1 % (0-10); EOSINOPHILS # (AUTO) 0.1 10^3/uL (0.0-0.3); EOSINOPHILS % (AUTO) 3 % (0-10); LYMPHOCYTES # (AUTO) 1.2 X 10^3 (1.0-4.0); LYMPHOCYTES % (AUTO) 30 % (12-44); MEAN CORPUSCULAR HEMOGLOBIN 32 PG (25-34); MEAN CORPUSCULAR HGB CONC 34 G/DL (32-36); MEAN CORPUSCULAR VOLUME 95 FL (80-99); MEAN PLATELET VOLUME 9.5 FL (7.4-10.4); MONOCYTES # (AUTO) 0.9 X 10^3 (0.0-1.0); MONOCYTES % (AUTO) 21 % (0-12); NEUTROPHILS # (AUTO) 1.8 X 10^3 (1.8-7.8); NEUTROPHILS % (AUTO) 45 % (42-75); PLATELET COUNT 182 10^3/uL (130-400); RED BLOOD COUNT 4.09 10^6/uL (4.35-5.85); RED CELL DISTRIBUTION WIDTH 15.4 % (10.0-14.5); WHITE BLOOD COUNT 4.1 10^3/uL (4.3-11.0)
[2017-02-03 13:59] LABS: ANION GAP 8 MMOL/L (5-14); BLOOD UREA NITROGEN 16 MG/DL (7-18); BUN/CREATININE RATIO 16; CALCIUM 8.9 MG/DL (8.5-10.1); CARBON DIOXIDE 24 MMOL/L (21-32); CHLORIDE 111 MMOL/L (98-107); CREATININE SERUM 1.02 MG/DL (0.60-1.30); GFR ESTIMATED > 60; GLUCOSE 122 MG/DL (70-105); POTASSIUM 4.1 MMOL/L (3.6-5.0); SODIUM 143 MMOL/L (135-145)
[2017-02-10 13:11] LABS: BASOPHILS % (AUTO) 1 % (0-10); EOSINOPHILS # (AUTO) 0.1 10^3/uL (0.0-0.3); EOSINOPHILS % (AUTO) 2 % (0-10); LYMPHOCYTES # (AUTO) 1.3 X 10^3 (1.0-4.0); LYMPHOCYTES % (AUTO) 31 % (12-44); MEAN CORPUSCULAR HEMOGLOBIN 33 PG (25-34); MEAN CORPUSCULAR HGB CONC 34 G/DL (32-36); MEAN CORPUSCULAR VOLUME 96 FL (80-99); MEAN PLATELET VOLUME 9.1 FL (7.4-10.4); MONOCYTES # (AUTO) 0.9 X 10^3 (0.0-1.0); MONOCYTES % (AUTO) 21 % (0-12); NEUTROPHILS # (AUTO) 1.9 X 10^3 (1.8-7.8); NEUTROPHILS % (AUTO) 46 % (42-75); PLATELET COUNT 271 10^3/uL (130-400); RED BLOOD COUNT 4.02 10^6/uL (4.35-5.85); RED CELL DISTRIBUTION WIDTH 15.7 % (10.0-14.5); WHITE BLOOD COUNT 4.2 10^3/uL (4.3-11.0)
[2017-02-10 13:51] LABS: ALANINE AMINOTRANSFERASE 31 U/L (0-55); ALBUMIN 3.3 G/DL (3.2-4.5); ANION GAP 8 MMOL/L (5-14); ASPARTATE AMINO TRANSFERASE 27 U/L (5-34); BILIRUBIN,TOTAL 0.4 MG/DL (0.1-1.0); BLOOD UREA NITROGEN 14 MG/DL (7-18); BUN/CREATININE RATIO 17; CALCIUM 8.8 MG/DL (8.5-10.1); CARBON DIOXIDE 21 MMOL/L (21-32); CHLORIDE 112 MMOL/L (98-107); CREATININE SERUM 0.84 MG/DL (0.60-1.30); GFR ESTIMATED > 60; GLUCOSE 163 MG/DL (70-105); MAGNESIUM 1.7 MG/DL (1.8-2.4); POTASSIUM 4.1 MMOL/L (3.6-5.0); SODIUM 141 MMOL/L (135-145)
[~2017-03-18] VITALS: Ht 182.9 cm; Wt 93.9 kg
[~2017-03-18 13:46] MED LIST changes: -BARIUM SUSPENSION 2.1% (VANILLA SILQ) 450 ML PO ONE; -CATHETER FLUSH 10 ML SYR IV PRN; +D5W 500 ML IV (CANCER CTR) 500 ML IV SCH; +ENOXAPARIN 100 MG/1 ML (LOVENOX) SYR SC ONE; +FAMOTIDINE 20MG/2ML IV (CANCER CTR) IV SCH; +FLUOROURACIL 400 MG in SYRINGE-IVPB 1 SYRINGE IV SCH; +FOSAPREPITANT 150 MG/NS 150 MG IVPB (CANCER CTR) IV PRN; -IOHEXOL 350 MG/ML 100 ML (OMNIPAQUE 350) VIAL IV ONE; +LEUCOVORIN CALCIUM 350 MG, LEUCOVORIN CALCIUM 50 MG in D5W 250 ML IVPB (CANCER CTR) 250 ML IV SCH; -NS 100 ML (IVPB) BAG IV ONE; +OXALIPLATIN 100 MG, OXALIPLATIN (GENERIC) 30 MG in D5W 250 ML IVPB (CANCER CTR) 250 ML IV SCH; +PALONOSETRON 0.25 MG, DEXAMETHASONE 10 MG/NS 50 ML IVPB IV PRN
== END 2017-03-29 | disposition home or self-care (01) ==
LOC: ONC 13:46
PROVIDERS: ATTEND Internal Medicine Hematology & Oncology
DX: C16.0 Malignant neoplasm of cardia (principal); R91.1 Solitary pulmonary nodule; E11.319 Type 2 diabetes mellitus with unspecified diabetic retinopathy without macular edema; I10 Essential (primary) hypertension; Z87.891 Personal history of nicotine dependence; Z79.4 Long term (current) use of insulin; Z79.899 Other long term (current) drug therapy
CPT/HCPCS: 36415; 36591; 80048; 80053; 83735; 85025; 96367; 96368; 96372; 96375; 96411; 96413; 96521; 96523; 99213

== ENCOUNTER → 2017-05-18 | Outpatient (CLI) | payer MEDICARE ==
[~2017-05-18] MED LIST changes: -D5W 500 ML IV (CANCER CTR) 500 ML IV SCH; -ENOXAPARIN 100 MG/1 ML (LOVENOX) SYR SC ONE; -FAMOTIDINE 20MG/2ML IV (CANCER CTR) IV SCH; -FLUOROURACIL 400 MG in SYRINGE-IVPB 1 SYRINGE IV SCH; -FOSAPREPITANT 150 MG/NS 150 MG IVPB (CANCER CTR) IV PRN; -LEUCOVORIN CALCIUM 350 MG, LEUCOVORIN CALCIUM 50 MG in D5W 250 ML IVPB (CANCER CTR) 250 ML IV SCH; -OXALIPLATIN 100 MG, OXALIPLATIN (GENERIC) 30 MG in D5W 250 ML IVPB (CANCER CTR) 250 ML IV SCH; -PALONOSETRON 0.25 MG, DEXAMETHASONE 10 MG/NS 50 ML IVPB IV PRN
--- NOTE | 2017-05-19 09:40 | Diagnostic Imaging Report ---
PET/CT esophageal, subsequent. INDICATION: Esophageal carcinoma. TECHNIQUE: PET/CT imaging was obtained from the base of the skull through the pelvis after the administration of 13.34 mCi of F-[address] imaging was utilized for localization and attenuation correction purposes. The low energy CT utilized for attenuation correction is not considered to be of high enough spatial resolution to allow in and of itself a separate anatomical analysis. The previous PET/CT exam performed on 09/22/2016, noted an intensely hypermetabolic distal esophageal mass. This mass had a maximum SUV of 14.45 and was felt to be related to the patient's diagnosis of esophageal carcinoma. On this exam there is only slightly increased metabolic activity involving the distal esophagus. The maximum SUV in this area is now only 3.3. The previous exam also noted nonspecific mildly enlarged infracarinal lymph nodes and a right paraesophageal lymph node. Those lymph nodes did not seem to show any significant hypermetabolic activity however. On this exam the lymph nodes are still present on the CT images and do not appear to have changed significantly in size. They are still not hypermetabolic. In the interval since the prior study a small focal area of increased hypermetabolic activity has developed in the pectoralis muscle on the left near its attachment to the left shoulder. This has a maximum SUV of 8.2 and consequently is worrisome for neoplasm. There is no other hypermetabolic activity to suggest metastatic disease. The CT images do show that in the interval since the prior study a small right pleural effusion has developed. The effusion measures 2.5 cm in depth. There is no acute abnormality identified otherwise. The prostate gland is enlarged but stable when compared to the prior study. IMPRESSION: 1. There are mixed results. The area of increased hypermetabolic activity involving the distal esophagus seen previously has diminished significantly. There is no hypermetabolic activity evident in this area. 2. In the interval since the prior study, however, a small focus of hypermetabolic activity has developed in the pectoralis muscle on the left. This finding has an elevated SUV and consequently is worrisome for metastatic disease. 3. There is no other hypermetabolic activity to suggest the presence of neoplasm. 4. A small right pleural effusion has developed in the interval since the prior exam. There is no acute cardiopulmonary abnormality noted otherwise. 5. These results were discussed with Hilah Valencia, AIRFIELD MANAGER. Dictated by: Dictated on workstation # [id number]
== END ==
LOC: RAD 08:13
PROVIDERS: ATTEND Nurse Practitioner Adult Health
DX: C15.5 Malignant neoplasm of lower third of esophagus (principal); J90 Pleural effusion, not elsewhere classified; M62.9 Disorder of muscle, unspecified

== ENCOUNTER 2017-05-20 12:50 | Outpatient (RCR) | payer MEDICARE ==
[2017-05-13 14:28] LABS: BASOPHILS % (AUTO) 0 % (0-10); EOSINOPHILS # (AUTO) 0.1 10^3/uL (0.0-0.3); EOSINOPHILS % (AUTO) 1 % (0-10); LYMPHOCYTES # (AUTO) 1.3 X 10^3 (1.0-4.0); LYMPHOCYTES % (AUTO) 21 % (12-44); MEAN CORPUSCULAR HEMOGLOBIN 31 PG (25-34); MEAN CORPUSCULAR HGB CONC 34 G/DL (32-36); MEAN CORPUSCULAR VOLUME 91 FL (80-99); MONOCYTES # (AUTO) 0.5 X 10^3 (0.0-1.0); MONOCYTES % (AUTO) 9 % (0-12); NEUTROPHILS % (AUTO) 68 % (42-75); PLATELET COUNT 209 10^3/uL (130-400); RED BLOOD COUNT 4.54 10^6/uL (4.35-5.85); WHITE BLOOD COUNT 5.9 10^3/uL (4.3-11.0)
[2017-05-13 14:50] LABS: ALANINE AMINOTRANSFERASE 25 U/L (0-55); ALBUMIN 3.3 GM/DL (3.2-4.5); ANION GAP 8 MMOL/L (5-14); ASPARTATE AMINO TRANSFERASE 18 U/L (5-34); BILIRUBIN,TOTAL 0.5 MG/DL (0.1-1.0); BLOOD UREA NITROGEN 22 MG/DL (7-18); BUN/CREATININE RATIO 20; CALCIUM 8.5 MG/DL (8.5-10.1); CARBON DIOXIDE 24 MMOL/L (21-32); CHLORIDE 108 MMOL/L (98-107); CREATININE SERUM 1.12 MG/DL (0.60-1.30); GFR ESTIMATED > 60; GLUCOSE 245 MG/DL (70-105); MAGNESIUM 1.8 MG/DL (1.8-2.4); POTASSIUM 4.3 MMOL/L (3.6-5.0); SODIUM 140 MMOL/L (135-145); TOTAL PROTEIN 5.9 GM/DL (6.4-8.2)
== END 2017-06-12 | disposition home or self-care (01) ==
LOC: ONC 12:50
PROVIDERS: ATTEND Internal Medicine Hematology & Oncology
DX: C16.0 Malignant neoplasm of cardia (principal); R91.1 Solitary pulmonary nodule; E11.319 Type 2 diabetes mellitus with unspecified diabetic retinopathy without macular edema; I10 Essential (primary) hypertension; Z87.891 Personal history of nicotine dependence; Z79.4 Long term (current) use of insulin; Z79.899 Other long term (current) drug therapy; Z45.2 Encounter for adjustment and management of vascular access device; R82.99 Other abnormal findings in urine
CPT/HCPCS: 36591; 80053; 83735; 85025; 96523; 99213

== ENCOUNTER → 2017-08-10 | Outpatient (CLI) | payer MEDICARE ==
[~2017-08-10] MED LIST changes: +BARIUM SUSPENSION 2.1% (VANILLA SILQ) 450 ML PO ONE; +CATHETER FLUSH 10 ML SYR IV PRN; +IOHEXOL 350 MG/ML 100 ML (OMNIPAQUE 350) VIAL IV ONE; +NS 100 ML (IVPB) BAG IV ONE
--- NOTE | 2017-08-10 17:22 | Diagnostic Imaging Report ---
PROCEDURE: CT chest with contrast, CT abdomen with and without contrast. TECHNIQUE: Precontrast acquisitions were acquired through the abdomen. Multiple contiguous axial images were obtained through the chest and abdomen after administration of intravenous contrast. INDICATION: History of esophageal cancer. COMPARISON: PET/CT of 05/18/2017 and 02/04/2017 CT scan are evaluated. FINDINGS: CT CHEST: There are generally mild fibrotic changes seen in the lungs and mild upper lobe predominant emphysema is seen. No significant consolidation or mass are noted. No suspicious pulmonary nodule. No significant pleural or pericardial effusion is seen at this time. Infracarinal lymph nodes measuring 1.1 cm in short axis is similar to previous exam with no change or significant lymphadenopathy seen in the mediastinum, elaine or axilla otherwise. On the PET/CT from 05/18/2017, a hypermetabolic focus seen along the upper lateral aspect of the left pectoralis major muscle demonstrates no definitive correlating lesion on this study. The upper lateral aspect of the pectoralis major however is not fully included on this exam as this area is higher than the pshbv-yr-tryz on routine protocol CT chest with the arm positioned above the head. Nonspecific thickening in the distal esophagus is again noted. The osseous structures demonstrate degenerative changes with an old compression fracture involving T7 vertebra. There is also evidence of old rib fractures mostly involving the upper left ribs. CT ABDOMEN: The liver demonstrates minimal intrahepatic biliary dilatation similar to the prior exams. There is evidence of prior cholecystectomy. The spleen, the adrenal glands, and the pancreas appear unremarkable. The unenhanced phase demonstrates no kidney stones. There is symmetric renal parenchymal enhancement and contrast excretion. The abdominal aorta is normal in caliber. No paraaortic significantly enlarged lymph nodes seen. Tiny fat-containing umbilical hernia is noted. There is a gastrostomy tube seen in the body/antrum junction. The osseous structures demonstrate degenerative changes and a 7 mm sclerotic focus in L2 vertebral body similar to previous exam probably an incidental bony island. IMPRESSION: CT CHEST: 1. Stable nonspecific thickening in the distal esophagus. 2. Stable 1.1 cm nonspecific infracarinal lymph node. 3. The previously seen area of hypermetabolic focus along the upper lateral aspect of the left pectoralis major demonstrates no definite abnormality on the current exam within the [id number]. If there is clinical concern of an intramuscular metastasis at this location, then MRI of the shoulder would be helpful. CT ABDOMEN: Tiny fat-containing umbilical hernia. No evidence of metastasis. Dictated by: Dictated on workstation # [id number]
== END ==
LOC: RAD 08:57
PROVIDERS: ATTEND Internal Medicine Hematology & Oncology
DX: C15.9 Malignant neoplasm of esophagus, unspecified (principal); K42.9 Umbilical hernia without obstruction or gangrene; R59.0 Localized enlarged lymph nodes
CPT/HCPCS: 71260; 74170

== ENCOUNTER 2017-09-09 10:56 | Outpatient (RCR) | payer MEDICARE ==
[2017-06-23 13:01] LABS: BASOPHILS % (AUTO) 0 % (0-10); EOSINOPHILS # (AUTO) 0.2 10^3/uL (0.0-0.3); EOSINOPHILS % (AUTO) 3 % (0-10); HEMATOCRIT 42 % (40-54); LYMPHOCYTES # (AUTO) 1.4 X 10^3 (1.0-4.0); LYMPHOCYTES % (AUTO) 25 % (12-44); MEAN CORPUSCULAR HEMOGLOBIN 31 PG (25-34); MEAN CORPUSCULAR HGB CONC 34 G/DL (32-36); MEAN CORPUSCULAR VOLUME 91 FL (80-99); MEAN PLATELET VOLUME 9.9 FL (7.4-10.4); MONOCYTES # (AUTO) 0.4 X 10^3 (0.0-1.0); MONOCYTES % (AUTO) 8 % (0-12); NEUTROPHILS # (AUTO) 3.5 X 10^3 (1.8-7.8); NEUTROPHILS % (AUTO) 64 % (42-75); PLATELET COUNT 201 10^3/uL (130-400); RED BLOOD COUNT 4.59 10^6/uL (4.35-5.85); RED CELL DISTRIBUTION WIDTH 12.7 % (10.0-14.5); WHITE BLOOD COUNT 5.5 10^3/uL (4.3-11.0)
[2017-06-23 13:16] LABS: CALCIUM 8.4 MG/DL (8.5-10.1); CREATININE SERUM 1.21 MG/DL (0.60-1.30)
[2017-07-29 11:15] LABS: BASOPHILS % (AUTO) 0 % (0-10); EOSINOPHILS # (AUTO) 0.2 10^3/uL (0.0-0.3); EOSINOPHILS % (AUTO) 3 % (0-10); HEMATOCRIT 43 % (40-54); HEMOGLOBIN 14.8 G/DL (13.3-17.7); LYMPHOCYTES # (AUTO) 1.5 X 10^3 (1.0-4.0); LYMPHOCYTES % (AUTO) 23 % (12-44); MEAN CORPUSCULAR HEMOGLOBIN 31 PG (25-34); MEAN CORPUSCULAR HGB CONC 34 G/DL (32-36); MEAN CORPUSCULAR VOLUME 89 FL (80-99); MEAN PLATELET VOLUME 9.6 FL (7.4-10.4); MONOCYTES # (AUTO) 0.6 X 10^3 (0.0-1.0); MONOCYTES % (AUTO) 9 % (0-12); NEUTROPHILS # (AUTO) 4.4 X 10^3 (1.8-7.8); NEUTROPHILS % (AUTO) 65 % (42-75); PLATELET COUNT 204 10^3/uL (130-400); RED BLOOD COUNT 4.83 10^6/uL (4.35-5.85); WHITE BLOOD COUNT 6.8 10^3/uL (4.3-11.0)
[2017-07-29 11:29] LABS: ALBUMIN 3.3 GM/DL (3.2-4.5); BILIRUBIN,TOTAL 0.5 MG/DL (0.1-1.0); CALCIUM 8.9 MG/DL (8.5-10.1); CREATININE SERUM 1.34 MG/DL (0.60-1.30); MAGNESIUM 1.8 MG/DL (1.8-2.4); POTASSIUM 3.9 MMOL/L (3.6-5.0)
[~2017-09-09 10:56] MED LIST changes: +ACHD5005 PO; -BARIUM SUSPENSION 2.1% (VANILLA SILQ) 450 ML PO ONE; -CATHETER FLUSH 10 ML SYR IV PRN; -HYDR-3812 PO; -IOHEXOL 350 MG/ML 100 ML (OMNIPAQUE 350) VIAL IV ONE; -NS 100 ML (IVPB) BAG IV ONE
[2017-09-15] MEDS ORDERED: CETI10TA17 PO (11:11)
== END 2017-09-21 | disposition home or self-care (01) ==
LOC: ONC 10:56
PROVIDERS: ATTEND Internal Medicine Hematology & Oncology
DX: C15.5 Malignant neoplasm of lower third of esophagus (principal); J90 Pleural effusion, not elsewhere classified; R91.1 Solitary pulmonary nodule; E11.319 Type 2 diabetes mellitus with unspecified diabetic retinopathy without macular edema; I10 Essential (primary) hypertension; Z87.891 Personal history of nicotine dependence; Z79.4 Long term (current) use of insulin; Z79.899 Other long term (current) drug therapy; Z45.2 Encounter for adjustment and management of vascular access device
CPT/HCPCS: 36591; 80048; 80053; 83735; 85025; 96523; 99213

== ENCOUNTER 2017-09-15 11:00 | Outpatient (CLI) | payer MEDICARE ==
[~2017-09-15] VITALS: Ht 188 cm; Wt 108.9 kg
[2017-09-15] MEDS ORDERED: CETI10TA17 PO (11:11)
== END 2017-09-15 12:32 ==
LOC: PREOP 11:00
PROVIDERS: ATTEND Surgery
DX: Z01.818 Encounter for other preprocedural examination (principal); C16.0 Malignant neoplasm of cardia

== ENCOUNTER 2017-09-20 06:55 | Day surgery (SDC) | payer MEDICARE ==
[~2017-09-20] VITALS: Ht 188 cm; Wt 108.9 kg
[~2017-09-20 06:55] MED LIST changes: +CETI10TA17 PO
[2017-09-20] MEDS ORDERED: NS IV 500 ML 500 ML ONE (07:14)
[2017-09-20] MEDS ORDERED: NS IV 500 ML 500 ML IV PRN (07:46)
[2017-09-20 07:52] VITALS: BP 195/94
[2017-09-20] MEDS ORDERED: HURRICAINE EXT TUBE (BENZOCAINE) XX PRN (08:00)
[2017-09-20] MEDS ORDERED: HURRICAINE EXT TUBE (BENZOCAINE) ONE (08:17)
[2017-09-20] MEDS ORDERED: fentaNYL INJECTION 100 MCG/2 ML AMP ONE (08:17)
[2017-09-20] MEDS ORDERED: MIDAZOLAM 2 MG/2 ML (VERSED) VIAL ONE ×2 (08:17→08:50)
[2017-09-20] MEDS: fentaNYL INJECTION 100 MCG/2 ML AMP IVP PRN ×2 (08:35→08:45)
--- NOTE | 2017-09-20 08:36 | Conscious Sedation/ASA ---
Conscious Sedation Pre-Proced Time Reviewed: 08:36 ASA Class: 3 Airway Mallampati Classification: ([place] appropriate class) I. II. III, IV Lungs Heart ASA score ASA 1: a normal healthy patient ASA 2: a patient with a mild systemic disease (mid diabetes, controlled hypertension, obesity ASA 3: a patient with a severe systemic disease that limits activity (angina , COPD, prior Myocardial infarction) ASA 4: a patient with an incapacitating disease that is a constant threat to life (CHF, renal failure) ASA 5: a moribund patient not expected to survive 24 hrs. (ruptured aneurysm) ASA 6: a declared brain patient whose organs are being harvested. For emergent operations, add the letter E after the classification Grade 2 Sedation Plan: Discussed options with patient/fam Note The patient is an appropriate candidate to undergo the planned procedure, sedation, and anesthesia. The patient immediately re-assessed prior to indication. JOHN AHUMADA MD Sep 20, 2017 8:36 am
--- NOTE | 2017-09-20 08:36 | History & Physicial ---
History of Present Illness History of Present Illness Reason for visit/HPI to undergo endoscopic removal of the PEG tube, that is not being used. 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 Date of Admission 09/20/17 Date Seen by Provider: Sep 20, 2017 Time Seen by Provider: 08:33 I consulted on this patient on 09/20/17 08:33 Attending Physician John Ahumada MD Admitting Physician Olman Carrillo MD Consult Allergies and Home Medications Allergies Coded Allergies: NKANo Known Allergies (Verified Allergy, Unknown, 07/26/06) Home Medications Cetirizine HCl 10 Mg Tablet, 10 MG PO HS, (Reported) Enalapril Maleate 10 Mg Tablet, 10 MG PO DAILY, (Reported) Insulin Aspart 300 Units/3 Ml Solution, SC AC, (Reported) Insulin Detemir 100 Unit/1 Ml Insuln.pen, 25 UNIT SQ HS, (Reported) Insulin Detemir 100 Unit/1 Ml Insuln.pen, 17 UNITS SC DAILY, (Reported) Past Fyoaunj-Xasnhb-Stwuyo Hx Patient Social History Marrital Status: Employed/Student: retired Alcohol Use: Denies Use Recreational Drug Use: No Smoking Status: Former Smoker Former Smoker, Quit: Sep 13, 2004 Type Used: Cigarettes Recent Foreign Travel: No Contact w/other who traveled: No Recent Hopitalizations: No Immunizations Up To Date Tetanus Booster (TDap): Unknown Date of Pneumonia Vaccine: Nov 01, 2014 Date of Influenza Vaccine: Jul 14, 2017 Seasonal Allergies Seasonal Allergies: No Respiratory Currently Using CPAP: No Currently Using BIPAP: No Cardiovascular Yes Hypertension Reproductive System Hx Reproductive Disorders: No Gastrointestinal Yes Gastroesophageal Reflux Musculoskeletal Yes Arthritis Endocrine History of Endocrine Disorders: Yes Endocrine Disorders: Diabetes, Insulin dep HEENT History of HEENT Disorders: Yes HEENT Disorders: Cataract Hearing Impairment: Hard of Hearing, Bilateral Hearing Aide Cancer Yes Esophageal Psychosocial History of Psychiatric Problem: No Family Medical History Family Hx: FH: lung cancer 19 FATHER, Onset:60 years & older Constitutional: no symptoms reported EENTM: no symptoms reported Respiratory: no symptoms reported Cardiovascular: no symptoms reported Gastrointestinal: no symptoms reported Genitourinary: no symptoms reported Musculoskeletal: no symptoms reported, joint pain Skin: no symptoms reported Psychiatric/Neurological: No Symptoms Reported Physical Exam Vital Signs Vital Sign - Last 12Hours 09/20/17 07:52 Temp 97.8 Pulse 72 Resp 18 B/P (MAP) 195/94 (127) Pulse Ox 98 O2 Delivery Room Air Capillary Refill : General Appearance: No Apparent Distress HEENT: Normal ENT Inspection Neck: Normal Inspection Respiratory: Lungs Clear Cardiovascular: Regular Rate, Rhythm Gastrointestinal: Non Tender Back: Normal Inspection Extremity: Normal Inspection Neurologic/Psychiatric: Alert, Oriented x3 Skin: Warm/Dry Assessment/Plan Assessment and Plan gentleman with adenocarcinoma of the gastroesophageal junction. Chemoradiation completed. PEG tube that is not being used. 4 endoscopic removal Problems: JOHN AHUMADA MD Sep 20, 2017 8:36 am
[2017-09-20] MEDS: MIDAZOLAM 2 MG/2 ML (VERSED) VIAL IVP PRN ×2 (08:40→08:50)
--- NOTE | 2017-09-20 09:06 | Endo Procedure Record ---
Endo Procedure Report Date of Procedure Sep 20, 2017 Surgeon (s) JOHN AHUMADA MD Post Procedure/Op Diagnosis No macroscopic tumor identified Procedure Performed EGD with removal of PEG tube Description of Procedure Anesthesia Type: Conscious Sedation Specimen(s) collected/removed none Description of the Procedure indication for the procedure: This gentleman has completed chemoradiation to manage adenocarcinoma the gastroesophageal junction. He has been able to eat normally and therefore the existing tube has become nonfunctional. He came in to have this removed endoscopically. Informed consent was obtained after reviewing the procedure in detail. Description of procedure: He was placed supine on the gurney and conscious sedation achieved using Versed and fentanyl. The flexible gastroscope was introduced down the esophagus into the stomach. The flange of the PEG tube was snared and the tube itself was excised outside the abdominal wall, being removed subsequently. There is no microscopic evidence of tumor at the gastroesophageal junction. He tolerated the procedure well and was taken back to the nursing area in a stable condition. Impression: Clinical response to chemoradiation regarding adenocarcinoma of the gastroesophageal junction. Endoscopic removal of PEG tube completed. Copies To: DARYL BURKETT MD Copies To: CLEVE JOHNSON XAVIER M MD Sep 20, 2017 9:05 am
--- NOTE | 2017-09-20 09:07 | Discharge Inst-Simple/Standard ---
Discharge Inst-Standard Discharge Medications New, Converted or Re-Newed RX: Other Patient Instructions/Follow Up Plan of Care/Instructions/FU: Follow-up with his oncologist Activity as Tolerated: Yes Discharge Diet: ADA Diet JOHN AHUMADA MD Sep 20, 2017 9:06 am
[2017-09-20 09:10] VITALS: BP 189/78
[2017-09-20 09:35] VITALS: BP 164/78
[2017-09-20] MEDS ORDERED: HEParin (CENTRAL IV FLUSH) 500 UNIT/5 ML SYR ONE (09:38)
[2017-09-20] MEDS ORDERED: HEParin (CENTRAL IV FLUSH) 500 UNIT/5 ML SYR IV ONE (10:00)
[2017-09-20 14:04] VITALS: BP 195/94
== END 2017-09-20 10:05 | disposition home or self-care (01) ==
LOC: ENDO 06:55
PROVIDERS: ATTEND Surgery
DX: Z43.1 Encounter for attention to gastrostomy (principal); C16.0 Malignant neoplasm of cardia; I10 Essential (primary) hypertension; E11.9 Type 2 diabetes mellitus without complications; K21.9 Gastro-esophageal reflux disease without esophagitis; Z79.899 Other long term (current) drug therapy; Z79.4 Long term (current) use of insulin; Z87.891 Personal history of nicotine dependence

== ENCOUNTER 2018-01-10 15:06 | Outpatient (RCR) | payer MEDICARE ==
[2017-11-23 10:55] LABS: BASOPHILS % (AUTO) 1 % (0-10); EOSINOPHILS # (AUTO) 0.4 10^3/uL (0.0-0.3); EOSINOPHILS % (AUTO) 6 % (0-10); HEMATOCRIT 43 % (40-54); LYMPHOCYTES # (AUTO) 1.5 X 10^3 (1.0-4.0); LYMPHOCYTES % (AUTO) 23 % (12-44); MEAN CORPUSCULAR HEMOGLOBIN 32 PG (25-34); MEAN CORPUSCULAR HGB CONC 35 G/DL (32-36); MEAN CORPUSCULAR VOLUME 91 FL (80-99); MEAN PLATELET VOLUME 9.4 FL (7.4-10.4); MONOCYTES # (AUTO) 0.8 X 10^3 (0.0-1.0); MONOCYTES % (AUTO) 12 % (0-12); NEUTROPHILS # (AUTO) 3.9 X 10^3 (1.8-7.8); NEUTROPHILS % (AUTO) 59 % (42-75); PLATELET COUNT 227 10^3/uL (130-400); RED BLOOD COUNT 4.76 10^6/uL (4.35-5.85); RED CELL DISTRIBUTION WIDTH 12.8 % (10.0-14.5); WHITE BLOOD COUNT 6.6 10^3/uL (4.3-11.0)
[2017-11-23 11:13] LABS: ALBUMIN 3.3 GM/DL (3.2-4.5); BILIRUBIN,TOTAL 0.6 MG/DL (0.1-1.0); CALCIUM 8.6 MG/DL (8.5-10.1); CREATININE SERUM 1.2 MG/DL (0.60-1.30); TOTAL PROTEIN 6.1 GM/DL (6.4-8.2)
[2018-01-10 15:47] LABS: BASOPHILS % (AUTO) 0 % (0-10); EOSINOPHILS # (AUTO) 0.2 10^3/uL (0.0-0.3); EOSINOPHILS % (AUTO) 3 % (0-10); HEMATOCRIT 44 % (40-54); HEMOGLOBIN 15.3 G/DL (13.3-17.7); LYMPHOCYTES # (AUTO) 1.2 X 10^3 (1.0-4.0); LYMPHOCYTES % (AUTO) 17 % (12-44); MEAN CORPUSCULAR HEMOGLOBIN 31 PG (25-34); MEAN CORPUSCULAR HGB CONC 35 G/DL (32-36); MEAN CORPUSCULAR VOLUME 90 FL (80-99); MONOCYTES # (AUTO) 0.8 X 10^3 (0.0-1.0); MONOCYTES % (AUTO) 11 % (0-12); NEUTROPHILS % (AUTO) 69 % (42-75); PLATELET COUNT 260 10^3/uL (130-400); RED BLOOD COUNT 4.91 10^6/uL (4.35-5.85); RED CELL DISTRIBUTION WIDTH 13.3 % (10.0-14.5); WHITE BLOOD COUNT 7.3 10^3/uL (4.3-11.0)
[2018-01-10 16:06] LABS: ALBUMIN 3.1 GM/DL (3.2-4.5); BILIRUBIN,TOTAL 0.5 MG/DL (0.1-1.0); CALCIUM 8.8 MG/DL (8.5-10.1); CREATININE SERUM 1.34 MG/DL (0.60-1.30); POTASSIUM 3.7 MMOL/L (3.6-5.0); TOTAL PROTEIN 6.1 GM/DL (6.4-8.2)
== END 2018-01-19 | disposition home or self-care (01) ==
LOC: ONC 15:06
PROVIDERS: ATTEND Internal Medicine Hematology & Oncology
DX: C15.5 Malignant neoplasm of lower third of esophagus (principal); Z45.2 Encounter for adjustment and management of vascular access device
CPT/HCPCS: 36591; 80053; 85025; 96523

== ENCOUNTER → 2018-02-08 | Outpatient (CLI) | payer MEDICARE ==
[~2018-02-08] MED LIST changes: +BARIUM SUSPENSION 2.1% (VANILLA SILQ) 450 ML PO ONE; +IOHEXOL 350 MG/ML 100 ML (OMNIPAQUE 350) VIAL IV ONE; +NS 250 ML (IVPB) BAG IV ONE
--- NOTE | 2018-02-08 10:15 | Diagnostic Imaging Report ---
PROCEDURE: CT chest and abdomen with contrast. TECHNIQUE: Multiple contiguous axial images were obtained through the chest and abdomen after the administration of intravenous contrast. INDICATION: Esophageal cancer. COMPARISON: Today's study compared with 08/10/2017. Exam also interpreted in correlation with CT fusion PET performed 05/18/2017. FINDINGS: Chest: Slight thickening of the garcia of the distal thoracic esophagus is less conspicuous than on previous exams. No proximal dilatation or obstruction. Elongated subcarinal lymph node has a short axis/AP thickness of 10 mm, previously 11 mm. Some tiny shotty subcentimeter AP window lymph nodes stable and benign. No new mass. No lung nodule. There is a tiny right pleural effusion not substantially changed. No abnormal pleural nodularity. No suspicious soft tissue or osseous chest wall abnormality. Old healed rib deformities chronic on the left. Abdomen: Liver is unremarkable. The gallbladder is surgically absent. The spleen is negative. The adrenals negative. The pancreas unremarkable. Kidneys unremarkable, a few tiny parapelvic cysts stable simple and benign unchanged. There is no adrenal mass. There is no mesenteric or retroperitoneal adenopathy. There is no ascites. No suspicious lytic or sclerotic bone lesion. IMPRESSION: Distal esophageal thickening improved, tiny right pleural effusion nonloculated and stable, subcarinal mediastinal node measures slightly smaller with no convincing evidence for metastatic disease. No adverse change. Abdomen: Stable abdomen. No evidence for abdominal metastasis. Dictated by: Dictated on workstation # [id number]
== END ==
LOC: RAD 09:01
PROVIDERS: ATTEND Nurse Practitioner Adult Health
DX: C15.5 Malignant neoplasm of lower third of esophagus (principal)
CPT/HCPCS: 71260; 74160

== ENCOUNTER 2018-03-28 14:34 | Outpatient (RCR) | payer MEDICARE ==
[2018-02-14 09:19] LABS: BASOPHILS % (AUTO) 1 % (0-10); EOSINOPHILS # (AUTO) 0.3 10^3/uL (0.0-0.3); EOSINOPHILS % (AUTO) 4 % (0-10); HEMATOCRIT 46 % (40-54); HEMOGLOBIN 16.2 G/DL (13.3-17.7); LYMPHOCYTES # (AUTO) 1.9 X 10^3 (1.0-4.0); LYMPHOCYTES % (AUTO) 28 % (12-44); MEAN CORPUSCULAR HEMOGLOBIN 31 PG (25-34); MEAN CORPUSCULAR HGB CONC 35 G/DL (32-36); MEAN CORPUSCULAR VOLUME 89 FL (80-99); MEAN PLATELET VOLUME 10.6 FL (7.4-10.4); MONOCYTES # (AUTO) 0.8 X 10^3 (0.0-1.0); MONOCYTES % (AUTO) 11 % (0-12); NEUTROPHILS # (AUTO) 3.9 X 10^3 (1.8-7.8); NEUTROPHILS % (AUTO) 57 % (42-75); PLATELET COUNT 230 10^3/uL (130-400); RED BLOOD COUNT 5.16 10^6/uL (4.35-5.85); RED CELL DISTRIBUTION WIDTH 13.1 % (10.0-14.5); WHITE BLOOD COUNT 6.9 10^3/uL (4.3-11.0)
[2018-02-14 09:39] LABS: ALBUMIN 3.2 GM/DL (3.2-4.5); BILIRUBIN,TOTAL 0.7 MG/DL (0.1-1.0); CALCIUM 8.8 MG/DL (8.5-10.1); CREATININE SERUM 1.31 MG/DL (0.60-1.30); POTASSIUM 3.9 MMOL/L (3.6-5.0)
[2018-02-14 09:57] LABS: SMEAR SCAN COMMENT YES
[~2018-03-28 14:34] MED LIST changes: -BARIUM SUSPENSION 2.1% (VANILLA SILQ) 450 ML PO ONE; -IOHEXOL 350 MG/ML 100 ML (OMNIPAQUE 350) VIAL IV ONE; -NS 250 ML (IVPB) BAG IV ONE
[2018-05-05] MEDS ORDERED: NAPR220T66 PO (17:06)
[2018-05-05] MEDS ORDERED: TR1C15 TOP (17:07)
[2018-05-06] MEDS ORDERED: OXYC-464 PO (13:36)
== END 2018-05-15 | disposition home or self-care (01) ==
LOC: ONC 14:34
PROVIDERS: ATTEND Internal Medicine Hematology & Oncology
DX: C15.5 Malignant neoplasm of lower third of esophagus (principal); Z45.2 Encounter for adjustment and management of vascular access device
CPT/HCPCS: 36591; 80053; 85025; 96523

== ENCOUNTER 2018-06-06 13:28 | Outpatient (RCR) | payer MEDICARE ==
[~2018-06-06 13:28] MED LIST changes: +OXYC-464 PO
[2018-06-06 13:57] LABS: BASOPHILS % (AUTO) 1 % (0-10); EOSINOPHILS # (AUTO) 0.2 10^3/uL (0.0-0.3); EOSINOPHILS % (AUTO) 3 % (0-10); HEMATOCRIT 40 % (40-54); LYMPHOCYTES # (AUTO) 1.6 X 10^3 (1.0-4.0); LYMPHOCYTES % (AUTO) 26 % (12-44); MEAN CORPUSCULAR HEMOGLOBIN 32 PG (25-34); MEAN CORPUSCULAR HGB CONC 35 G/DL (32-36); MEAN CORPUSCULAR VOLUME 91 FL (80-99); MEAN PLATELET VOLUME 10.1 FL (7.4-10.4); MONOCYTES # (AUTO) 0.6 X 10^3 (0.0-1.0); MONOCYTES % (AUTO) 9 % (0-12); NEUTROPHILS # (AUTO) 3.7 X 10^3 (1.8-7.8); NEUTROPHILS % (AUTO) 61 % (42-75); PLATELET COUNT 232 10^3/uL (130-400); RED BLOOD COUNT 4.38 10^6/uL (4.35-5.85); RED CELL DISTRIBUTION WIDTH 12.9 % (10.0-14.5)
[2018-06-06 14:21] LABS: ALBUMIN 2.9 GM/DL (3.2-4.5); BILIRUBIN,TOTAL 0.6 MG/DL (0.1-1.0); CALCIUM 8.5 MG/DL (8.5-10.1); CREATININE SERUM 1.24 MG/DL (0.60-1.30); POTASSIUM 4.4 MMOL/L (3.6-5.0); TOTAL PROTEIN 5.5 GM/DL (6.4-8.2)
== END 2018-06-12 | disposition home or self-care (01) ==
LOC: ONC 13:28
PROVIDERS: ATTEND Internal Medicine Hematology & Oncology
DX: C15.5 Malignant neoplasm of lower third of esophagus (principal); J90 Pleural effusion, not elsewhere classified; R91.1 Solitary pulmonary nodule; E11.319 Type 2 diabetes mellitus with unspecified diabetic retinopathy without macular edema; I10 Essential (primary) hypertension; Z87.891 Personal history of nicotine dependence; Z79.4 Long term (current) use of insulin; Z79.899 Other long term (current) drug therapy
CPT/HCPCS: 80053; 85025

== ENCOUNTER 2018-07-21 16:15 | Outpatient (RCR) | payer MEDICARE | END 2018-08-01 13:54 | disposition home or self-care (01) | PROVIDERS: ATTEND Orthopaedic Surgery | DX: S82.55XD Nondisplaced fracture of medial malleolus of left tibia, subsequent encounter for closed fracture with routine healing (principal) ==

== ENCOUNTER 2018-09-07 08:44 | Day surgery (SDC) | payer MEDICARE ==
[2018-09-07] VITALS (10 sets, daily range): BP systolic 126–183; BP diastolic 73–93
[~2018-09-07] VITALS: Ht 188 cm; Wt 107.1 kg
[2018-09-07] MEDS ORDERED: LIDOCAINE 1% INJ 20 ML 20 ML VIAL ONE (09:14)
[2018-09-07] MEDS ORDERED: NS IV 1000 ML 1,000 ML ONE (09:14)
[2018-09-07] MEDS ORDERED: HEParin (CATH LAB) 2,000 ML IV ONE (09:14)
[2018-09-07] MEDS ORDERED: NS IV 1000 ML 1,000 ML IV SCH (09:22)
[2018-09-07 09:55] LABS: HEMOGLOBIN 15.5 G/DL (13.3-17.7); MEAN PLATELET VOLUME 10.5 FL (7.4-10.4); RED BLOOD COUNT 5.07 10^6/uL (4.35-5.85); RED CELL DISTRIBUTION WIDTH 13.6 % (10.0-14.5); WHITE BLOOD COUNT 6.7 10^3/uL (4.3-11.0)
[2018-09-07 10:09] LABS: PROTHROMBIN TIME PATIENT 13.6 SEC (12.2-14.7)
--- NOTE | 2018-09-07 10:12 | Diagnostic Imaging Report ---
INDICATION: Peripheral vascular disease, hypertension. COMPARISON: 02/01/2016. FINDINGS: A single view of the chest demonstrates stable cardiac enlargement. The lungs are clear. There is no pneumothorax. There is a right IJ Port-A-Cath in place. IMPRESSION: Stable cardiac enlargement without pulmonary edema or infiltrate. Dictated by: Dictated on workstation # [id number]
[2018-09-07] MEDS ORDERED: FLU QUADRIvalent (5+ YOA) 2018-2019 (AFLURIA) 0.5 ML IM ONE (10:15)
[2018-09-07 10:19] LABS: ALANINE AMINOTRANSFERASE 28 U/L (0-55); ALKALINE PHOSPHATASE 113 U/L (40-136); BILIRUBIN,TOTAL 0.5 MG/DL (0.1-1.0); BUN/CREATININE RATIO 20; CALCIUM 8.5 MG/DL (8.5-10.1); CARBON DIOXIDE 24 MMOL/L (21-32); CHLORIDE 110 MMOL/L (98-107); CHOLESTEROL 265 MG/DL (< 200); CREATININE SERUM 1.03 MG/DL (0.60-1.30); GFR ESTIMATED > 60; GLUCOSE 146 MG/DL (70-105); HDL CHOLESTEROL 53 MG/DL (40-60); SODIUM 141 MMOL/L (135-145); TOTAL PROTEIN 5.7 GM/DL (6.4-8.2); TRIGLYCERIDES 139 MG/DL (<150); VLDL CHOLESTEROL 28 MG/DL (5-40)
--- NOTE | 2018-09-07 10:23 | Cardiac Procedure Note-CS/ASA ---
Pre-Procedure Note Pre-Op Procedure Note H&P Reviewed The H&P was reviewed, patient examined and no changes noted. Date H&P Reviewed: Sep 07, 2018 Time H&P Reviewed: 10:23 Conscious Sedation Pre-Proced Time 10:23 ASA Score 3 For ASA 3 and 4: Consider anesthesia and medical clearance. Also, for patients with a history of failed moderate sedation consider anesthesia. Airway Lungs Heart ASA score ASA 1: a normal healthy patient ASA 2: a patient with a mild systemic disease (mid diabetes, controlled hypertension, obesity x ASA 3: a patient with a severe systemic disease that limits activity (angina , COPD, prior Myocardial infarction) ASA 4: a patient with an incapacitating disease that is a constant threat to life (CHF, renal failure) ASA 5: a moribund patient not expected to survive 24 hrs. (ruptured aneurysm) ASA 6: a declared brain patient whose organs are being harvested. For emergent operations, add the letter E after the classification Mallampati Classification Grade 3 Sedation Plan Analgesia, Amnesia, Plan communicated to team members, Discussed options with patient/fam, Discussed risks with patient/fam The patient is an appropriate candidate to undergo the planned procedure, sedation, and anesthesia. The patient immediately re-assessed prior to indication. SAMANTHA CRAWLEY MD Sep 07, 2018 10:23
[2018-09-07] MEDS ORDERED: INSU100V16 SQ (10:26)
[2018-09-07] MEDS ORDERED: DIPH25CA79 PO (10:26)
[2018-09-07] MEDS ORDERED: NAPR220C11 PO (10:26)
[2018-09-07] MEDS ORDERED: ASPI-808 PO (10:28)
[2018-09-07] MEDS ORDERED: AMLO5TAB4 PO (10:28)
[2018-09-07] MEDS ORDERED: fentaNYL INJECTION 100 MCG/2 ML AMP ONE (10:32)
[2018-09-07] MEDS ORDERED: MIDAZOLAM 5 MG/5 ML (VERSED) VIAL ONE (10:32)
[2018-09-07] MEDS ORDERED: HEParin 1000 UNIT/ML (10ML VIAL) FOR BOLUS ONE (10:32)
[2018-09-07] MEDS ORDERED: NITRO DRIP 25000 MCG/D5W 250 ML IV ONE (11:28)
[2018-09-07] MEDS ORDERED: CLOPIDOGREL 300 MG (PLAVIX) TABLET PO ONE (13:02)
[2018-09-07] MEDS ORDERED: ASPIRIN 325 MG (5 GR) TABLET ONE (13:02)
[2018-09-07] MEDS ORDERED: TRIAMCINOLONE 0.1% CR (KENALOG) 15 GM TUBE TOP PRN (13:15)
[2018-09-07] MEDS ORDERED: PATIENT MAY USE OWN MEDS, ALL PO SCH (13:15)
--- NOTE | 2018-09-07 13:25 | Peripheral Report ---
Peripheral Report Physician (s)/Final Inspector Motorcyles (s) Physician SAMANTHA CRAWLEY MD Pre-Procedure Diagnosis Pre-Procedure Diagnosis: Peripheral arterial disease, non healing wound Post-Procedure Note Procedure Start Date: Sep 07, 2018 Name of Procedure: Abdominal aortogram Bilateral runoff Stent to left SFA Balloon angioplasty to the left tibial peroneal trunk and peroneal artery Findings/Procedure Note PROCEDURE NOTE: After explaining the procedure to the patient, all pros and cons were explained , all questions were answered. The patient signed the consent and then he was placed on the cardiac catheterization laboratory. The patient was placed on the cardiac catheterization laboratory. Groin was prepped SL fashion local anesthesia was used. Sheath placed in the right femoral artery. 5 rim catheter was advanced to the bifurcation, angiogram was done then stork wire was advanced and the rim catheter was advanced then exchanged into a straight catheter was placed at the common femoral artery and runoff to the left lower extremity was done at that point patient was noted to have severe stenosis at multiple segment of the SFA and popliteal and occlusion below the trifurcation. Patient was given heparin boluses then I exchanged the sheath into 6 [place] sheath 45, proceeded with balloon angioplasty to the left SFA and popliteal artery I used initially 5200 balloon with multiple inflation then used [place] 6 x 50 balloon with multiple inflation, then I advanced a straight catheter down to the distal popliteal artery and angiogram was done to the trifurcation I was able to advance command wire, I exchanged the catheter into a mini catheter and with the support of the mini catheter I was able to cross the total occlusion of the tibial peroneal trunk then advanced the wire to the peroneal artery and advanced mini catheter to the peroneal artery removed the wire and injected manually and the peroneal artery angiogram showed that the catheter is within the true lumen I proceeded with balloon angioplasty using 3 x 120 [place] 35 with multiple inflation then angiogram showed improvement in the peroneal artery but severe stenosis at the tibial peroneal trunk I proceeded with balloon angioplasty using 4 x 100 . Angiogram showed improvement , repeat angiogram showed recoil distal peroneal artery which was ballooned with a 30 balloon again with good results then there was significant recoiling in the SFA after prepping the artery with 60 balloon I proceeded with deployment of Supera 5.5 x 100 at the SFA artery just above the Chris canal, then in the mid SFA I used Supera 6 x 150 then postdilated with a 60 balloon at the overlap area. Excellent results. The recoil at the popliteal artery was ballooned with a 30 balloon again then patient was given nitroglycerin and angiogram showed excellent result down to the foot. The posterior tibial artery was occluded and getting collaterals, the anterior tibial artery has distal disease and receiving collaterals. Then the sheath was pulled up to the common iliac artery and runoff was done then exchanged into short 6 [place] sheath and pigtail catheter was advanced the abdominal aorta and abdominal aortogram was done. Then I did runoff through the pigtail catheter placed in the right common iliac artery down to the trifurcation. Sheath was removed, closure device was used, no complication noted FINDINGS: Abdominal aortogram was done pre-and postprocedure showed mild atherosclerotic disease in the abdominal aorta above the renal arteries appeared normal, the inferior mesenteric artery is normal, bifurcation is normal. Nonobstructive disease Left lower extremity: Complex disease, severe stenosis at multiple segment of the left SFA at the mid and distal portion balloon angioplasty with multiple balloon inflation then deployment of 2 SUPERA stents midportion 6 X 150 overlapping with 5.5 X 100 with excellent results. Total occlusion of the tibial peroneal trunk with successful balloon angioplasty using 4 time 100 balloon, total occlusion of the anterior tibial artery distally, occlusion of the origin of the peroneal artery and posterior tibial artery, successful balloon angioplasty to the peroneal artery using 3 x 120 with excellent results , the posterior tibial artery was getting filled by collateral from the peroneal artery. Right lower extremity: Mild to moderate disease diffusely, couplets segment at the mid SFA showed moderate to severe stenosis. Below the trifurcation the artery was not well visualized. CONCLUSIONS: 1. Total occlusion of the tibial peroneal trunk on the left with successful balloon angioplasty and reestablishing flow down through the peroneal artery to the foot, the posterior tibial artery is receiving collaterals from the peroneal artery and anterior tibial artery has severe disease distally receiving collaterals. 2. Severe stenosis at multiple segment with heavy calcification at the SFA successful balloon angioplasty then deployment of 2 overlapping SUPERA 6 X150 and 5.5 X 100 with excellent results 3. Moderate to moderately severe stenosis at multiple segment of the right SFA , below the trifurcation arteries were not well visualized 4. Atherosclerotic disease in the abdominal aorta with no dissection or aneurysm DISCUSSION AND RECOMMENDATIONS: Continue to maximize medical therapy, Start Aspirin and Plavix, continue to monitor, will consider intervention on the posterior tibial artery and anterior tibial artery if needed in the future Anesthesia Type: Conscious Sedation Estimated blood loss (mL): 25 ml Contrast Amount: 120 ml Total Radiation Dose: 294 mGy Post-Procedure Diagnosis Post-operative diagnosis: Ischemic foot ulcer Peripheral arterial disease Hypertension Hyperlipidemia SAMANTHA CRAWLEY MD Sep 07, 2018 13:25
--- OUTSIDE RECORDS SUMMARY | 2018-09-07 13:48 | XMS REPORT | Continuity of Care Document ---
Author Author [facility] Organization [facility] Address Unknown Phone Unavailable Allergies Active Description Code Type Severity Reaction Onset Reported/Identified Relationship to Patient Clinical Status Yes NKANo Known Allergies NKA Miscellaneous Allergy Unknown N/A 05/05/2018 Medications There is no data. 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 [place], 10/30/2010 Ot 250.02 DIAB [place] WO COMPL, TYPE II OR UNSPEC TY 10/30/2010 Ot 401.9 HYPERTENSION NOS 06/09/2013 HUNTER DO NARENDRA K Ot 250.80 DIAB W OTH SPEC MANIFEST, TYPE II OR UNS 06/09/2013 HUNTER WHITMORE NARENDRA K Ot V58.67 LONG-TERM (CURRENT) USE OF INSULIN 03/20/2015 DEISI CARTER MD Ot 784.99 03/20/2015 DEISI CARTER MD Ot 787.20 04/02/2015 DEISI CARTER MD Ot 784.99 04/02/2015 DEISI CARTER MD Ot 787.20 01/29/2016 DEISI CARTER MD Ot 784.99 OTHER SYMPTOMS INVOLVING HEAD AND NECK 01/29/2016 DEISI CARTER MD Ot 787.20 DYSPHAGIA, UNSPECIFIED 01/31/2016 DEISI CARTER MD Ot 784.99 OTHER SYMPTOMS INVOLVING HEAD AND NECK 01/31/2016 DEISI CARTER MD Ot 787.20 DYSPHAGIA, UNSPECIFIED 02/03/2016 KWADWO MORAN, DARYL R Ot E11.9 TYPE 2 DIABETES MELLITUS WITHOUT COMPLIC 02/03/2016 KWADWO MORAN, DARYL Alicea Ot J18.9 PNEUMONIA, UNSPECIFIED ORGANISM 02/03/2016 KWADWO MORAN, DARYL R Ot R91.8 OTHER NONSPECIFIC ABNORMAL FINDING OF FREYA 02/03/2016 DARYL BURKETT MD Ot Z79.4 CORRECTION (CURRENT) USE OF INSULIN 02/03/2016 KWADWO MORAN, DARYL R Ot Z86.718 PERSONAL HISTORY OF OTHER VENOUS THROMBO 02/03/2016 KWADWO MORAN, DARYL R Ot 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 HISTORY OF NICOTINE DEPENDENCE 03/12/2016 RAJNI MARINELLI DO Ot J18.1 LOBAR PNEUMONIA, UNSPECIFIED ORGANISM 03/12/2016 RAJNI MARINELLI DO M Ot R06.00 DYSPNEA, UNSPECIFIED 03/17/2016 RAJNI MARINELLI DO Ot J18.1 LOBAR PNEUMONIA, UNSPECIFIED ORGANISM 03/17/2016 RAJNI MARINELLI DO M Ot R06.00 DYSPNEA, UNSPECIFIED 03/23/2016 RAJNI MARINELLI DO M Ot J18.1 LOBAR PNEUMONIA, UNSPECIFIED ORGANISM 03/23/2016 RAJNI MARINELLI DO M Ot R06.00 DYSPNEA, UNSPECIFIED 05/29/2016 ZITA MORAN, JOHN Grier Ot R13.10 DYSPHAGIA, UNSPECIFIED 05/29/2016 ZITA MORAN, JOHN M Ot Z01.818 ENCOUNTER FOR OTHER PREPROCEDURAL EXAMIN 05/29/2016 ZITA MORAN, JOHN M Ot R13.10 DYSPHAGIA, UNSPECIFIED 05/29/2016 ZITA MORAN, JOHN M Ot Z01.818 ENCOUNTER FOR OTHER PREPROCEDURAL EXAMIN 06/02/2016 ZITA MORAN, JOHN M Ot I85.00 ESOPHAGEAL VARICES WITHOUT BLEEDING 06/02/2016 ZITA MORAN, JOHN M Ot R13.10 DYSPHAGIA, UNSPECIFIED 06/09/2016 ZITA MORAN, JOHN M Ot I85.00 ESOPHAGEAL VARICES WITHOUT BLEEDING 06/09/2016 ZITA MORAN, JOHN M Ot R13.10 DYSPHAGIA, UNSPECIFIED 06/12/2016 ZITA MORAN, JOHN M Ot I85.00 ESOPHAGEAL VARICES WITHOUT BLEEDING 06/12/2016 ZITA MORAN, JOHN M Ot R13.10 DYSPHAGIA, UNSPECIFIED 09/22/2016 RAUL MORAN, DEISI P Ot 784.99 OTHER SYMPTOMS INVOLVING HEAD AND NECK 09/22/2016 RAUL MORAN, DEISI Shafer Ot 787.20 DYSPHAGIA, UNSPECIFIED 09/22/2016 RAJNI MARINELLI DO M Ot J18.1 LOBAR PNEUMONIA, UNSPECIFIED ORGANISM 09/22/2016 RAJNI MARINELLI DO M Ot R06.00 DYSPNEA, UNSPECIFIED 09/22/2016 ZITA MORAN, JOHN Grier Ot I85.00 ESOPHAGEAL VARICES WITHOUT BLEEDING 09/22/2016 ZITA MORAN, JOHN Grier Ot R13.10 DYSPHAGIA, UNSPECIFIED 09/22/2016 RAUL MORAN, DEISI Shafer Ot 784.99 OTHER SYMPTOMS INVOLVING HEAD AND NECK 09/22/2016 DEISI CARTER MD Ot 787.20 DYSPHAGIA, UNSPECIFIED 09/22/2016 RAJNI MARINELLI DO Ot J18.1 LOBAR PNEUMONIA, UNSPECIFIED ORGANISM 09/22/2016 RAJNI MARINELLI DO Ot R06.00 DYSPNEA, UNSPECIFIED 09/22/2016 ZITA MORAN, JOHN Grier Ot I85.00 ESOPHAGEAL VARICES WITHOUT BLEEDING 09/22/2016 ZITA MORAN, JOHN Grier Ot R13.10 DYSPHAGIA, UNSPECIFIED 09/22/2016 PHILL MORAN, LILLIAN P Ot 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, UNSPECI 09/23/2016 PHILL MORAN, LILLIAN P Ot 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, UNSPECI 09/23/2016 LILLIAN POLLOCK MD P Ot R59.0 LOCALIZED ENLARGED LYMPH NODES 09/23/2016 NIKOLAS MOLINA ACCOUNTS PAYABLE PAYROLL COORDINATOR Ot R06.00 DYSPNEA, UNSPECIFIED 09/23/2016 NIKOLAS MOLINA ACCOUNTS PAYABLE PAYROLL COORDINATOR Ot R91.1 SOLITARY PULMONARY NODULE 09/25/2016 RAUL MORAN, DEISI Shafer Ot 784.99 OTHER SYMPTOMS INVOLVING HEAD AND NECK 09/25/2016 RAUL MORAN, DEISI Shafer Ot 787.20 DYSPHAGIA, UNSPECIFIED 09/25/2016 RAJNI MARINELLI DO Ot J18.1 LOBAR PNEUMONIA, UNSPECIFIED ORGANISM 09/25/2016 RAJNI MARINELLI DO Ot R06.00 DYSPNEA, UNSPECIFIED 09/25/2016 NIKOLAS MOLINA ACCOUNTS PAYABLE PAYROLL COORDINATOR Ot R06.00 DYSPNEA, UNSPECIFIED 09/25/2016 NIKOLAS MOLINA ACCOUNTS PAYABLE PAYROLL COORDINATOR Ot R91.1 SOLITARY PULMONARY NODULE 09/25/2016 ZITA MORAN, JOHN Grier Ot I85.00 ESOPHAGEAL VARICES WITHOUT BLEEDING 09/25/2016 JOHN AHUMADA MD Ot R13.10 DYSPHAGIA, UNSPECIFIED 09/25/2016 LILLIAN POLLOCK MD P Ot 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, UNSPECI 09/25/2016 LILLIAN POLLOCK MD P Ot R59.0 LOCALIZED ENLARGED LYMPH NODES 09/28/2016 LILLIAN POLLOCK MD P Ot 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, UNSPECI 09/28/2016 PHILL MORAN, LILLIAN P Ot R59.0 LOCALIZED ENLARGED LYMPH NODES 10/01/2016 ZITA MORAN, JOHN M Ot C16.0 MALIGNANT NEOPLASM OF CARDIA 10/01/2016 ZITA MORAN, JOHN M Ot Z01.818 ENCOUNTER FOR OTHER PREPROCEDURAL EXAMIN 10/01/2016 CLEVE JOHNSON N Ot C16.0 MALIGNANT NEOPLASM OF CARDIA 10/01/2016 ALEX BOBAN N Ot 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 W10/01/2016 ALEX BOBAN N Ot I10 ESSENTIAL (PRIMARY) HYPERTENSION 10/01/2016 ALEX, BOBAN N Ot R91.1 SOLITARY PULMONARY NODULE 10/01/2016 ALEX, BOBAN N Ot Z79.4 SECURITY 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 10/01/2016 ALEX BOBAN N Ot Z79.899 OTHER SECURITY SYSTEMS ENGINEER (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 THERAPY 10/01/2016 ALEX BOBAN N Ot 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 HISTORY OF NICOTINE DEPENDENCE 10/01/2016 ALEX BOBAN N Ot C16.0 MALIGNANT NEOPLASM OF CARDIA 10/01/2016 ALEX BOBAN N Ot 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 W10/01/2016 ALEX BOBAN N Ot I10 ESSENTIAL (PRIMARY) HYPERTENSION 10/01/2016 ALEX BOBAN N Ot R91.1 SOLITARY PULMONARY NODULE 10/01/2016 ALEX BOBAN N Ot Z79.4 SECURITY 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 10/01/2016 ALFREDA JOHNSONAN N Ot Z79.899 OTHER CORRECTION (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 THERAPY 10/01/2016 ALEX BOBAN N Ot 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 HISTORY OF NICOTINE DEPENDENCE 10/02/2016 ZITA MORAN, JOHN M Ot C16.0 MALIGNANT NEOPLASM OF CARDIA 10/02/2016 ZITA MORAN, JOHN M Ot Z01.818 ENCOUNTER FOR OTHER PREPROCEDURAL EXAMIN 10/02/2016 JOHN AHUMADA MD M Ot C16.0 MALIGNANT NEOPLASM OF CARDIA 10/02/2016 ZITA MORAN, JOHN M Ot E11.9 TYPE 2 DIABETES MELLITUS WITHOUT COMPLIC 10/02/2016 ZITA MORAN, JOHN Grier Ot Z79.4 SECURITY 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 10/09/2016 NIKOLAS MOLINA APRN Ot R06.00 DYSPNEA, UNSPECIFIED 10/09/2016 NIKOLAS MOLINA APRN Ot R91.1 SOLITARY PULMONARY NODULE 10/09/2016 PHILL MORAN, LILLIAN Shafer Ot 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, UNSPECI 10/09/2016 LILLIAN POLLOCK MD Ot R59.0 LOCALIZED ENLARGED LYMPH NODES 10/20/2016 CLEVE JOHNSON Ot C16.0 MALIGNANT NEOPLASM OF CARDIA 10/20/2016 CLEVE JOHNSON Ot 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 W/ 10/20/2016 CLEVE JOHNSON Ot I10 ESSENTIAL (PRIMARY) HYPERTENSION 10/20/2016 CLEVE JOHNSON Ot R91.1 SOLITARY PULMONARY NODULE 10/20/2016 CLEVE JOHNSON Ot Z79.4 SECURITY 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 10/20/2016 CLEVE JOHNSON Ot Z79.899 OTHER CORRECTION (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 THERAPY 10/20/2016 CLEVE JOHNSON Ot 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 HISTORY OF NICOTINE DEPENDENCE 11/09/2016 RAUL MORAN, DEISI P Ot 784.99 OTHER SYMPTOMS INVOLVING HEAD AND NECK 11/09/2016 RAUL MORAN, DEISI P Ot 787.20 DYSPHAGIA, UNSPECIFIED 11/09/2016 RAJNI MARINELLI DO Ot J18.1 LOBAR PNEUMONIA, UNSPECIFIED ORGANISM 11/09/2016 RAJNI MARINELLI DO Ot R06.00 DYSPNEA, UNSPECIFIED 11/09/2016 NIKOLAS MOLINA APRN Ot R06.00 DYSPNEA, UNSPECIFIED 11/09/2016 NIKOLAS MOLINA APRN Ot R91.1 SOLITARY PULMONARY NODULE 11/09/2016 ZITA MORAN, JOHN Grier Ot I85.00 ESOPHAGEAL VARICES WITHOUT BLEEDING 11/09/2016 ZITA MORAN, JOHN Grier Ot R13.10 DYSPHAGIA, UNSPECIFIED 11/09/2016 PHILL MORAN, LILLIAN Shafer Ot 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, UNSPECI 11/09/2016 PHILL MORAN, LILLIAN Shafer Ot R59.0 LOCALIZED ENLARGED LYMPH NODES 11/09/2016 CLEVE JOHNSON Ot C16.0 MALIGNANT NEOPLASM OF CARDIA 11/09/2016 ALEX, BOBAN N Ot 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 W11/09/2016 CLEVE JOHNSON N Ot I10 ESSENTIAL (PRIMARY) HYPERTENSION 11/09/2016 CLEVE JOHNSON N Ot R91.1 SOLITARY PULMONARY NODULE 11/09/2016 CLEVE JOHNSON N Ot Z79.4 CORRECTION (CURRENT) USE OF INSULIN 11/09/2016 ALEX ALFREDAMARY ANN N Ot Z79.899 OTHER CORRECTION (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 THERAPY 11/09/2016 ALEX ALFREDAMARY ANN N Ot 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 HISTORY OF NICOTINE DEPENDENCE 11/10/2016 CLEVE JOHNSON N Ot C16.0 MALIGNANT NEOPLASM OF CARDIA 11/10/2016 CLEVE JOHNSON N Ot 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 11/10/2016 CLEVE JOHNSON N Ot I10 ESSENTIAL (PRIMARY) HYPERTENSION 11/10/2016 CLEVE JOHNSON N Ot R91.1 SOLITARY PULMONARY NODULE 11/10/2016 ALEX ALFREDAMARY ANN N Ot Z79.4 SECURITY 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 11/10/2016 CLEVE JOHNSON N Ot Z79.899 OTHER CORRECTION (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 THERAPY 11/10/2016 CLEVE JOHNSON N Ot 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 HISTORY OF NICOTINE DEPENDENCE 12/10/2016 ALEX ALFREDAMARY ANN N Ot C16.0 MALIGNANT NEOPLASM OF CARDIA 12/10/2016 CLEVE JOHNSON N Ot 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 W12/10/2016 ALEX CLEVE N Ot I10 ESSENTIAL (PRIMARY) HYPERTENSION 12/10/2016 ALEX CLEVE N Ot R91.1 SOLITARY PULMONARY NODULE 12/10/2016 CLEVE JOHNSON N Ot Z79.4 CORRECTION (CURRENT) USE OF INSULIN 12/10/2016 CLEVE JOHNSON N Ot Z79.899 OTHER CORRECTION (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 THERAPY 12/10/2016 ALEX CLEVE N Ot 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 HISTORY OF NICOTINE DEPENDENCE 12/24/2016 ALEX ALFREDAMARY ANN N Ot C16.0 MALIGNANT NEOPLASM OF CARDIA 12/24/2016 CLEVE JOHNSON N Ot 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 W12/24/2016 ALEX CLEVE N Ot I10 ESSENTIAL (PRIMARY) HYPERTENSION 12/24/2016 CLEVE JOHNSON N Ot R91.1 SOLITARY PULMONARY NODULE 12/24/2016 CLEVE JOHNSON Sade Ot Z51.0 ENCOUNTER FOR ANTINEOPLASTIC RADIATION T 12/24/2016 CLEVE JOHNSON Sade Ot Z51.11 ENCOUNTER FOR ANTINEOPLASTIC CHEMOTHERAP 12/24/2016 CLEEV JOHNSON N Ot Z79.4 SECURITY 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 12/24/2016 ALEX CLEVE N Ot Z79.899 OTHER CORRECTION (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 THERAPY 12/24/2016 CLEVE JOHNSON N Ot 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 HISTORY OF NICOTINE DEPENDENCE 12/30/2016 ALEX ALFREDAMARY ANN N Ot C16.0 MALIGNANT NEOPLASM OF CARDIA 12/30/2016 ALEX CLEVE N Ot 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 W12/30/2016 ALEX ALFREDAMARY ANN N Ot I10 ESSENTIAL (PRIMARY) HYPERTENSION 12/30/2016 ALEX ALFREDAMARY ANN Sade Ot R91.1 SOLITARY PULMONARY NODULE 12/30/2016 ALEX ALFREDAMARY ANN N Ot Z79.4 CORRECTION (CURRENT) USE OF INSULIN 12/30/2016 CLEVE JOHNSON N Ot Z79.899 OTHER CORRECTION (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 THERAPY 12/30/2016 ALEX ALFREDAMARY ANN N Ot 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 HISTORY OF NICOTINE DEPENDENCE 01/20/2017 ALEX ALFREDAMARY ANN N Ot C16.0 MALIGNANT NEOPLASM OF CARDIA 01/20/2017 ALEX CLEVE N Ot 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 01/20/2017 ALEX CLEVE Stuart Ot I10 ESSENTIAL (PRIMARY) HYPERTENSION 01/20/2017 ALEX ALFREDAMARY ANN N Ot R91.1 SOLITARY PULMONARY NODULE 01/20/2017 ALEX ALFREDAMARY ANN N Ot Z79.4 SECURITY 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 01/20/2017 ALEX CLEVE N Ot Z79.899 OTHER SECURITY SYSTEMS ENGINEER (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 THERAPY 01/20/2017 ALEX CLEVE N Ot 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 HISTORY OF NICOTINE DEPENDENCE 01/22/2017 ALEX CLEVE N Ot C16.0 MALIGNANT NEOPLASM OF CARDIA 01/22/2017 ALEXCLEVE N Ot 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 01/22/2017 CLEVE JOHNSON Ot I10 ESSENTIAL (PRIMARY) HYPERTENSION 01/22/2017 ALEXCLEVE Ot R91.1 SOLITARY PULMONARY NODULE 01/22/2017 CLEVE JOHNSON Ot Z79.4 SECURITY 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 01/22/2017 ALEXCLEVE Ot Z79.899 OTHER SECURITY SYSTEMS ENGINEER (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 THERAPY 01/22/2017 ALEXCLEVE Ot 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 HISTORY OF NICOTINE DEPENDENCE 01/28/2017 RAUL MORAN, DEISI Shafer Ot 784.99 OTHER SYMPTOMS INVOLVING HEAD AND NECK 01/28/2017 RAUL MORAN, DEISI Shafer Ot 787.20 DYSPHAGIA, UNSPECIFIED 01/28/2017 RAJNI MARINELLI DO Ot J18.1 LOBAR PNEUMONIA, UNSPECIFIED ORGANISM 01/28/2017 RAJNI MARINELLI DO Ot R06.00 DYSPNEA, UNSPECIFIED 01/28/2017 NIKOLAS MOLINA APRN Ot R06.00 DYSPNEA, UNSPECIFIED 01/28/2017 NIKOLAS MOLINA APRN Ot R91.1 SOLITARY PULMONARY NODULE 01/28/2017 ZITA MORAN, JOHN Grier Ot I85.00 ESOPHAGEAL VARICES WITHOUT BLEEDING 01/28/2017 ZITA MORAN, JOHN Grier Ot R13.10 DYSPHAGIA, UNSPECIFIED 01/28/2017 PHILL MORAN, LILLIAN Shafer Ot 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, UNSPECI 01/28/2017 PHILL MORAN, LILLIAN Shafer Ot R59.0 LOCALIZED ENLARGED LYMPH NODES 01/28/2017 CLEVE JOHNSON Ot C16.0 MALIGNANT NEOPLASM OF CARDIA 01/28/2017 CLEVE JOHNSON Ot 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 W/ 01/28/2017 CLEVE JOHNSON Ot I10 ESSENTIAL (PRIMARY) HYPERTENSION 01/28/2017 CLEVE JOHNSON Ot R91.1 SOLITARY PULMONARY NODULE 01/28/2017 CLEVE JOHNSON Ot Z79.4 SECURITY 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 01/28/2017 CLEVE JOHNSON Ot Z79.899 OTHER CORRECTION (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 THERAPY 01/28/2017 CLEVE JOHNSON Ot 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 HISTORY OF NICOTINE DEPENDENCE 02/05/2017 CLEVE JOHNSON Ot 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 02/05/2017 ALEXCLEVE Ot I26.99 OTHER PULMONARY EMBOLISM WITHOUT ACUTE C 02/05/2017 ALEXCLEVE Ot K42.9 UMBILICAL HERNIA WITHOUT OBSTRUCTION OR 02/05/2017 CLEVE JOHNSON Ot Z01.89 ENCOUNTER FOR OTHER SPECIFIED SPECIAL EX 02/16/2017 CLEVE JOHNSON Ot 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 02/16/2017 CLEVE JOHNSON Ot I26.99 OTHER PULMONARY EMBOLISM WITHOUT ACUTE C 02/16/2017 ALEXCLEVE Ot K42.9 UMBILICAL HERNIA WITHOUT OBSTRUCTION OR 02/16/2017 CLEVE JOHNSON Ot Z01.89 ENCOUNTER FOR OTHER SPECIFIED SPECIAL EX 03/05/2017 CLEVE JOHNSON Ot C16.0 MALIGNANT NEOPLASM OF CARDIA 03/05/2017 CLEVE JOHNSON Ot 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 W03/05/2017 CLEVE JOHNSON Ot I10 ESSENTIAL (PRIMARY) HYPERTENSION 03/05/2017 CLEVE JOHNSON Ot R91.1 SOLITARY PULMONARY NODULE 03/05/2017 CLEVE JOHNSON Ot Z51.0 ENCOUNTER FOR ANTINEOPLASTIC RADIATION T 03/05/2017 CLEVE JOHNSON Ot Z51.11 ENCOUNTER FOR ANTINEOPLASTIC CHEMOTHERAP 03/05/2017 CLEVE JOHNSON Ot Z79.4 SECURITY 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 03/05/2017 CLEVE JOHNSON Ot Z79.899 OTHER CORRECTION (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 THERAPY 03/05/2017 CLEVE JOHNSON Ot 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 HISTORY OF NICOTINE DEPENDENCE 03/17/2017 CLEVE JOHNSON Ot C16.0 MALIGNANT NEOPLASM OF CARDIA 03/17/2017 CLEVE JOHNSON Ot 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 W/ 03/17/2017 CLEVE JOHNSON Ot I10 ESSENTIAL (PRIMARY) HYPERTENSION 03/17/2017 CLEVE JOHNSON Ot R91.1 SOLITARY PULMONARY NODULE 03/17/2017 CLEVE JOHNSON Ot Z79.4 SECURITY 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 03/17/2017 CLEVE JOHNSON Ot Z79.899 OTHER CORRECTION (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 THERAPY 03/17/2017 ALEX, BOBAN N Ot 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 HISTORY OF NICOTINE DEPENDENCE 03/29/2017 CLEVE JOHNSON Sade Ot C16.0 MALIGNANT NEOPLASM OF CARDIA 03/29/2017 CLEVE JOHNSON Sade Ot 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 W03/29/2017 CLEVE JOHNSON N Ot I10 ESSENTIAL (PRIMARY) HYPERTENSION 03/29/2017 CLEVE JOHNSON N Ot R91.1 SOLITARY PULMONARY NODULE 03/29/2017 CLEVE JOHNSON Sade Ot Z79.4 CORRECTION (CURRENT) USE OF INSULIN 03/29/2017 CLEVE JOHNSON N Ot Z79.899 OTHER SECURITY SYSTEMS ENGINEER (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 THERAPY 03/29/2017 CLEVE JOHNSON N Ot 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 HISTORY OF NICOTINE DEPENDENCE 04/16/2017 ALEX ALFREDAMARY ANN Sade Ot C16.0 MALIGNANT NEOPLASM OF CARDIA 04/16/2017 CLEVE JOHNSON N Ot 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 04/16/2017 ALEX ALFREDAMARY ANN Sade Ot I10 ESSENTIAL (PRIMARY) HYPERTENSION 04/16/2017 ALEX ALFREDAMARY ANN Sade Ot R91.1 SOLITARY PULMONARY NODULE 04/16/2017 CLEVE JOHNSON Sade Ot Z45.2 ENCOUNTER FOR ADJUSTMENT AND MANAGEMENT 04/16/2017 CLEVE JOHNSON Sade Ot Z79.4 SECURITY 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 04/16/2017 CLEVE JOHNSON N Ot Z79.899 OTHER CORRECTION (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 THERAPY 04/16/2017 CLEVE JOHNSON N Ot 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 HISTORY OF NICOTINE DEPENDENCE 05/24/2017 SEYMOUR DONOHUE DOUGH SCALER AND MIXER Ot 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 05/24/2017 SEYMOUR DONOHUE DOUGH SCALER AND MIXER Ot J90 PLEURAL EFFUSION, NOT ELSEWHERE CLASSIFI 05/24/2017 SEYMOUR DONOHUE DOUGH SCALER AND MIXER Ot M62.9 DISORDER OF MUSCLE, UNSPECIFIED 05/24/2017 ALEX CLEVE N Ot C16.0 MALIGNANT NEOPLASM OF CARDIA 05/24/2017 CLEVE JOHNSON N Ot 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 W05/24/2017 ALEX CLEVE N Ot I10 ESSENTIAL (PRIMARY) HYPERTENSION 05/24/2017 ALEX CLEVE N Ot R91.1 SOLITARY PULMONARY NODULE 05/24/2017 CLEVE JOHNSON N Ot Z45.2 ENCOUNTER FOR ADJUSTMENT AND MANAGEMENT 05/24/2017 CLEVE JOHNSON N Ot Z79.4 CORRECTION (CURRENT) USE OF INSULIN 05/24/2017 CLEVE JOHNSON N Ot Z79.899 OTHER SECURITY SYSTEMS ENGINEER (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 THERAPY 05/24/2017 CLEVE JOHNSON N Ot 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 HISTORY OF NICOTINE DEPENDENCE 05/31/2017 DONOHUEJUNOMERLENE Lopez DOUGH SCALER AND MIXER Ot 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 05/31/2017 JUNO DONOHUEMERLENE Lopez DOUGH SCALER AND MIXER Ot J90 PLEURAL EFFUSION, NOT ELSEWHERE CLASSIFI 05/31/2017 JUNO DONOHUEMERLENE Lopez DOUGH SCALER AND MIXER Ot M62.9 DISORDER OF MUSCLE, UNSPECIFIED 06/12/2017 CLEVE JOHNSON N Ot C16.0 MALIGNANT NEOPLASM OF CARDIA 06/12/2017 CLEVE JOHNSON N Ot 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 W/ 06/12/2017 ALEX ALFREDAMARY ANN N Ot I10 ESSENTIAL (PRIMARY) HYPERTENSION 06/12/2017 CLEVE JOHNSON N Ot R82.99 OTHER ABNORMAL FINDINGS IN URINE 06/12/2017 CLEVE JOHNSON N Ot R91.1 SOLITARY PULMONARY NODULE 06/12/2017 CLEVE JOHNSON Sade Ot Z45.2 ENCOUNTER FOR ADJUSTMENT AND MANAGEMENT 06/12/2017 CLEVE JOHNSON N Ot Z79.4 CORRECTION (CURRENT) USE OF INSULIN 06/12/2017 CLEVE JOHNSON N Ot Z79.899 OTHER CORRECTION (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 THERAPY 06/12/2017 CLEVE JOHNSON N Ot 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 HISTORY OF NICOTINE DEPENDENCE 06/24/2017 CLEVE JOHNSON N Ot 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 06/24/2017 ALEX ALFREDAMARY ANN N Ot 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 W06/24/2017 ALEX CLEVE N Ot I10 ESSENTIAL (PRIMARY) HYPERTENSION 06/24/2017 CLEVE JOHNSON N Ot J90 PLEURAL EFFUSION, NOT ELSEWHERE CLASSIFI 06/24/2017 CLEVE JOHNSON N Ot R91.1 SOLITARY PULMONARY NODULE 06/24/2017 ALEX ALFREDAMARY ANN N Ot Z79.4 SECURITY 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 06/24/2017 CLEVE JOHNSON Ot Z79.899 OTHER CORRECTION (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 THERAPY 06/24/2017 CLEVE JOHNSON Sade Ot 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 HISTORY OF NICOTINE DEPENDENCE 07/26/2017 CLEVE JOHNSON Ot 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 07/26/2017 CLEVE JOHNSNO Sade Ot 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 W/ 07/26/2017 CLEVE JOHNSON Sade Ot I10 ESSENTIAL (PRIMARY) HYPERTENSION 07/26/2017 CLEVE JOHNSON Ot J90 PLEURAL EFFUSION, NOT ELSEWHERE CLASSIFI 07/26/2017 CLEVE JOHNSON Sade Ot R91.1 SOLITARY PULMONARY NODULE 07/26/2017 CLEVE JOHNSON Sade Ot Z79.4 SECURITY 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 07/26/2017 CLEVE JOHNSON N Ot Z79.899 OTHER CORRECTION (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 THERAPY 07/26/2017 CLEVE JOHNSON Sade Ot 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 HISTORY OF NICOTINE DEPENDENCE 08/20/2017 CLEVE JOHNSON Ot 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, UNSPECI 08/20/2017 CLEVE JOHNSON Sade Ot K42.9 UMBILICAL HERNIA WITHOUT OBSTRUCTION OR 08/20/2017 CLEVE JOHNSON Ot R59.0 LOCALIZED ENLARGED LYMPH NODES 09/15/2017 ZITA MORAN, JOHN Grier Ot C16.0 MALIGNANT NEOPLASM OF CARDIA 09/15/2017 ZITA MORAN, JOHN Grier Ot Z01.818 ENCOUNTER FOR OTHER PREPROCEDURAL EXAMIN 09/20/2017 ZITA MORAN, JOHN Grier Ot C16.0 MALIGNANT NEOPLASM OF CARDIA 09/20/2017 ZITA MORAN, JOHN Grier Ot E11.9 TYPE 2 DIABETES MELLITUS WITHOUT COMPLIC 09/20/2017 ZITA MORAN, JOHN Grier Ot I10 ESSENTIAL (PRIMARY) HYPERTENSION 09/20/2017 ZITA MORAN, JOHN Grier Ot K21.9 GASTRO-ESOPHAGEAL REFLUX DISEASE WITHOUT 09/20/2017 ZITA MORAN, JOHN Greir Ot Z43.1 ENCOUNTER FOR ATTENTION TO GASTROSTOMY 09/20/2017 ZITA MORAN, JOHN Grier Ot Z79.4 CORRECTION (CURRENT) USE OF INSULIN 09/20/2017 JOHN AHUMADA MD Ot Z79.899 OTHER CORRECTION (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 THERAPY 09/20/2017 ZITA MORAN, JOHN Grier Ot 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 HISTORY OF NICOTINE DEPENDENCE 09/21/2017 CLEVE JOHNSON Sade Ot 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 09/21/2017 ALEX ALFREDAMARY ANN Sade Ot 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 W/ 09/21/2017 ALEXALFREDAMARY ANN N Ot I10 ESSENTIAL (PRIMARY) HYPERTENSION 09/21/2017 ALEX CLEVE Stuart Ot J90 PLEURAL EFFUSION, NOT ELSEWHERE CLASSIFI 09/21/2017 ALEXCLEVE N Ot R91.1 SOLITARY PULMONARY NODULE 09/21/2017 ALEX ALFREDAMARY ANN Sade Ot Z45.2 ENCOUNTER FOR ADJUSTMENT AND MANAGEMENT 09/21/2017 ALEXALFREDAMARY ANN Sade Ot Z79.4 SECURITY 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 09/21/2017 ALEXCLEVE N Ot Z79.899 OTHER CORRECTION (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 THERAPY 09/21/2017 ALEXCLEVE N Ot 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 HISTORY OF NICOTINE DEPENDENCE 09/23/2017 ZITA MORAN, JOHN Grier Ot C16.0 MALIGNANT NEOPLASM OF CARDIA 09/23/2017 JOHN AHUMADA MD Ot E11.9 TYPE 2 DIABETES MELLITUS WITHOUT COMPLIC 09/23/2017 JOHN AHUMADA MD Ot I10 ESSENTIAL (PRIMARY) HYPERTENSION 09/23/2017 JOHN AHUMADA MD Ot K21.9 GASTRO-ESOPHAGEAL REFLUX DISEASE WITHOUT 09/23/2017 JOHN AHUMADA MD Ot Z43.1 ENCOUNTER FOR ATTENTION TO GASTROSTOMY 09/23/2017 JOHN AHUMADA MD Ot Z79.4 CORRECTION (CURRENT) USE OF INSULIN 09/23/2017 JOHN AHUMADA MD Ot Z79.899 OTHER SECURITY SYSTEMS ENGINEER (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 THERAPY 09/23/2017 JOHN AHUMADA MD M Ot 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 HISTORY OF NICOTINE DEPENDENCE 11/23/2017 ALEXCLEVE Ot 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 11/23/2017 ALEXCLEVE N Ot Z45.2 ENCOUNTER FOR ADJUSTMENT AND MANAGEMENT 01/19/2018 ALEXCLEVE Ot 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 01/19/2018 LAEXCLEVE N Ot Z45.2 ENCOUNTER FOR ADJUSTMENT AND MANAGEMENT 01/20/2018 CLEVE JOHNSON N Ot 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 01/20/2018 CLEVE JOHNSON N Ot Z45.2 ENCOUNTER FOR ADJUSTMENT AND MANAGEMENT 01/26/2018 CLEVE JOHNSON N Ot 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 01/26/2018 CLEVE JOHNSON Ot I26.99 OTHER PULMONARY EMBOLISM WITHOUT ACUTE C 01/26/2018 CLEVE JOHNSON N Ot K42.9 UMBILICAL HERNIA WITHOUT OBSTRUCTION OR 01/26/2018 CLEVE JOHNOSN N Ot Z01.89 ENCOUNTER FOR OTHER SPECIFIED SPECIAL EX 01/26/2018 DONOHUESEYMOUR DOUGH SCALER AND MIXER Ot 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 01/26/2018 SEYMOUR DONOHUE DOUGH SCALER AND MIXER Ot J90 PLEURAL EFFUSION, NOT ELSEWHERE CLASSIFI 01/26/2018 SEYMOUR DONOHUE DOUGH SCALER AND MIXER Ot M62.9 DISORDER OF MUSCLE, UNSPECIFIED 01/26/2018 CLEVE JOHNSON N Ot 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, UNSPECI 01/26/2018 CLEVE JOHNSON N Ot K42.9 UMBILICAL HERNIA WITHOUT OBSTRUCTION OR 01/26/2018 CLEVE JOHNSON Ot R59.0 LOCALIZED ENLARGED LYMPH NODES 01/26/2018 CLEVE JOHNSON N Ot 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 01/26/2018 CLEVE JOHNSON Ot Z45.2 ENCOUNTER FOR ADJUSTMENT AND MANAGEMENT 02/09/2018 SEYMOUR DONOHUE DOUGH SCALER AND MIXER Ot 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 02/21/2018 SEYMOUR DONOHUE S DOUGH SCALER AND MIXER Ot 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 03/22/2018 CLEVE JOHNSON N Ot 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 05/09/2018 GROVER MORAN, ARTIS Grier Ot B35.3 TINEA PEDIS 05/09/2018 GROVER MORAN, ARTIS Grier Ot E10.649 TYPE 1 DIABETES MELLITUS WITH HYPOGLYCEM 05/09/2018 ARTIS NESS MD Ot E10.9 TYPE 1 DIABETES MELLITUS WITHOUT COMPLIC 05/09/2018 GROVER MORAN, ARTIS Grier Ot F03.90 UNSPECIFIED DEMENTIA WITHOUT BEHAVIORAL 05/09/2018 ARTIS NESS MD Ot H91.93 UNSPECIFIED HEARING LOSS, BILATERAL 05/09/2018 ARTIS NESS MD Ot I10 ESSENTIAL (PRIMARY) HYPERTENSION 05/09/2018 ARTIS NESS MD Ot K21.9 GASTRO-ESOPHAGEAL REFLUX DISEASE WITHOUT 05/09/2018 ARTIS NESS MD, Ot M19.91 PRIMARY OSTEOARTHRITIS, UNSPECIFIED SITE 05/09/2018 ARTIS NESS MD, Ot S00.83XA CONTUSION OF OTHER PART OF HEAD, INITIAL 05/09/2018 ARTIS NESS MD Ot S82.845A NONDISPLACED BIMALLEOLAR FRACTURE OF LEF 05/09/2018 ARTIS NESS MD, Ot W19.XXXA UNSPECIFIED FALL, INITIAL ENCOUNTER 05/09/2018 ARTIS NESS MD Ot Y92.[address] 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 05/18/2018 CLEVE JOHNSON Ot 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 05/18/2018 CLEEV JOHNSON Ot Z45.2 ENCOUNTER FOR ADJUSTMENT AND MANAGEMENT 06/06/2018 CLEVE JOHNSON Ot 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 06/07/2018 CLEVE JOHNSON Ot 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 06/12/2018 CLEVE JOHNSON Ot 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 06/12/2018 CLEVE JOHNSON Ot 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 W/ 06/12/2018 ALEX, BOBAN N Ot I10 ESSENTIAL (PRIMARY) HYPERTENSION 06/12/2018 CLEVE JOHNSON Ot J90 PLEURAL EFFUSION, NOT ELSEWHERE CLASSIFI 06/12/2018 CLEVE JOHNSON Ot R91.1 SOLITARY PULMONARY NODULE 06/12/2018 CLEVE JOHNSON Ot Z79.4 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 06/12/2018 CLEVE JOHNSON Ot Z79.899 OTHER SECURITY SYSTEMS ENGINEER (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 THERAPY 06/12/2018 CLEVE JOHNSON N Ot 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 HISTORY OF NICOTINE DEPENDENCE 06/15/2018 CLEVE JOHNSON Ot 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 06/15/2018 CLEVE JOHNSON Ot 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 W/ 06/15/2018 CLEVE JOHNSON Ot I10 ESSENTIAL (PRIMARY) HYPERTENSION 06/15/2018 CLEVE JOHNSON Ot J90 PLEURAL EFFUSION, NOT ELSEWHERE CLASSIFI 06/15/2018 CLEVE JOHNSON Ot R91.1 SOLITARY PULMONARY NODULE 06/15/2018 CLEVE JOHNSON Ot Z79.4 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 Results Test Result Range Methicillin resistant Staphylococcus aureus (MRSA) screening culture - 12:30 Methicillin resistant Staphylococcus aureus (MRSA) screening culture NEG NRG Capillary blood glucose measurement by glucometer (mass/volume) - 10/02/16 12: 40 Capillary blood glucose measurement by glucometer (mass/volume) 101 mg/dL 70-110 Capillary blood glucose measurement by glucometer (mass/volume) - 05/06/18 11: 18 Capillary blood glucose measurement by glucometer (mass/volume) 225 mg/dL 70-110 Capillary blood glucose measurement by glucometer (mass/volume) - 05/06/18 16: 26 Capillary blood glucose measurement by glucometer (mass/volume) 41 mg/dL 70-110 Capillary blood glucose measurement by glucometer (mass/volume) - 05/06/18 16: 59 Capillary blood glucose measurement by glucometer (mass/volume) 45 mg/dL 70-110 Capillary blood glucose measurement by glucometer (mass/volume) - 05/06/18 17: 17 Capillary blood glucose measurement by glucometer (mass/volume) > mg /dL 70-110 Serum or plasma glucose measurement (mass/volume) - 05/06/18 17:49 Serum or plasma glucose measurement (mass/volume) 67 mg/dL 70-105 Capillary blood glucose measurement by glucometer (mass/volume) - 05/06/18 19: 45 Capillary blood glucose measurement by glucometer (mass/volume) 125 mg/dL 70-110 Capillary blood glucose measurement by glucometer (mass/volume) - 05/06/18 21: 15 Capillary blood glucose measurement by glucometer (mass/volume) 233 mg/dL 70-110 Capillary blood glucose measurement by glucometer (mass/volume) - 05/07/18 06: 02 Capillary blood glucose measurement by glucometer (mass/volume) 216 mg/dL 70-110 Capillary blood glucose measurement by glucometer (mass/volume) - 05/07/18 10: 55 Capillary blood glucose measurement by glucometer (mass/volume) 106 mg/dL 70-110 Capillary blood glucose measurement by glucometer (mass/volume) - 05/07/18 16: 05 Capillary blood glucose measurement by glucometer (mass/volume) 89 mg/dL 70-110 Capillary blood glucose measurement by glucometer (mass/volume) - 05/07/18 20: 39 Capillary blood glucose measurement by glucometer (mass/volume) 213 mg/dL 70-110 Capillary blood glucose measurement by glucometer (mass/volume) - 05/08/18 05: 56 Capillary blood glucose measurement by glucometer (mass/volume) 165 mg/dL 70-110 Capillary blood glucose measurement by glucometer (mass/volume) - 05/08/18 10: 57 Capillary blood glucose measurement by glucometer (mass/volume) 397 mg/dL 70-110 Complete urinalysis with reflex to culture - 05/08/18 14:40 Urine color determination YELLOW NRG Urine clarity determination CLEAR NRG Urine pH measurement by test strip 5 5-9 Specific gravity of urine by test strip 1.020 1.016- 1.022 Urine protein assay by test strip, semi-quantitative 4+ NEGATIVE Urine glucose detection by automated test strip 4+ NEGATIVE Erythrocytes detection in urine sediment by light microscopy 1+ NEGATIVE Urine ketones detection by automated test strip NEGATIVE NEGATIVE Urine nitrite detection by test strip NEGATIVE NEGATIVE Urine total bilirubin detection by test strip NEGATIVE NEGATIVE Urine urobilinogen measurement by automated test strip (mass/volume) 4 mg/dL NORMAL Urine leukocyte esterase detection by dipstick NEGATIVE NEGATIVE Automated urine sediment erythrocyte count by microscopy (number/high power field) NONE NRG Automated urine sediment leukocyte count by microscopy (number/high power field ) RARE NRG Bacteria detection in urine sediment by light microscopy TRACE NRG Squamous epithelial cells detection in urine sediment by light microscopy RARE NRG Crystals detection in urine sediment by light microscopy NONE NRG Casts detection in urine sediment by light microscopy NONE NRG Mucus detection in urine sediment by light microscopy NEGATIVE NRG Complete urinalysis with reflex to culture NO NRG Capillary blood glucose measurement by glucometer (mass/volume) - 05/08/18 15: 38 Capillary blood glucose measurement by glucometer (mass/volume) 363 mg/dL 70-110 Capillary blood glucose measurement by glucometer (mass/volume) - 05/08/18 20: 29 Capillary blood glucose measurement by glucometer (mass/volume) 340 mg/dL 70-110 Capillary blood glucose measurement by glucometer (mass/volume) - 05/09/18 05: 48 Capillary blood glucose measurement by glucometer (mass/volume) 79 mg/dL 70-110 Complete blood count (CBC) with automated white blood cell (WBC) differential - 05/09/18 06:19 Blood leukocytes automated count (number/volume) 9.0 10*3/uL 4.3-11.0 Blood erythrocytes automated count (number/volume) 4.50 10*6/uL 4.35-5.85 Venous blood hemoglobin measurement (mass/volume) 14.1 g/dL 13.3-17.7 Blood hematocrit (volume fraction) 41 % 40-54 Automated erythrocyte mean corpuscular volume 91 [foz_us] 80-99 Automated erythrocyte mean corpuscular hemoglobin (mass per erythrocyte) 31 pg 25-34 Automated erythrocyte mean corpuscular hemoglobin concentration measurement ( mass/volume) 34 g/dL 32-36 Automated erythrocyte distribution width ratio 14.0 % 10.0-14.5 Automated blood platelet count (count/volume) 238 10*3/uL 130-400 Automated blood platelet mean volume measurement 10.4 [foz_us] 7.4-10.4 Automated blood neutrophils/100 leukocytes 63 % 42-75 Automated blood lymphocytes/100 leukocytes 21 % 12-44 Blood monocytes/100 leukocytes 12 % 0-12 Automated blood eosinophils/100 leukocytes 4 % 0-10 Automated blood basophils/100 leukocytes 0 % 0-10 Blood neutrophils automated count (number/volume) 5.6 10*3 1.8-7.8 Blood lymphocytes automated count (number/volume) 1.9 10*3 1.0-4.0 Blood monocytes automated count (number/volume) 1.1 10*3 0.0-1.0 Automated eosinophil count 0.4 10*3/uL 0.0-0.3 Automated blood basophil count (count/volume) 0.0 10*3/uL 0.0-0.1 Whole blood basic metabolic panel - 05/09/18 06:19 Serum or plasma sodium measurement (moles/volume) 141 mmol/L 135-145 Serum or plasma potassium measurement (moles/volume) 4.2 mmol/L 3.6-5.0 Serum or plasma chloride measurement (moles/volume) 109 mmol/L 98-107 Carbon dioxide 24 mmol/L 21-32 Serum or plasma anion gap determination (moles/volume) 8 mmol/L 5-14 Serum or plasma urea nitrogen measurement (mass/volume) 23 mg/dL 7-18 Serum or plasma creatinine measurement (mass/volume) 1.09 mg/dL 0.60-1.30 Serum or plasma urea nitrogen/creatinine mass ratio 21 NRG Serum or plasma creatinine measurement with calculation of estimated glomerular filtration rate > NRG Serum or plasma glucose measurement (mass/volume) 110 mg/dL 70-105 Serum or plasma calcium measurement (mass/volume) 8.8 mg/dL 8.5-10.1 Capillary blood glucose measurement by glucometer (mass/volume) - 05/09/18 11: 12 Capillary blood glucose measurement by glucometer (mass/volume) 223 mg/dL 70-110 Gram stain microscopy - 05/09/18 13:38 Gram stain microscopy No bacteria seen NRG Bacteria identification in wound by culture - 05/09/18 13:38 Bacteria identification in wound by culture SEE COMMEN NRG QUANTITY OF GROWTH . NRG C FUNGUS SPUTUM FLUID TISSUE - 05/09/18 13:38 QUANTITY OF GROWTH Isolated NRG C FUNGUS SPUTUM FLUID TISSUE [id number] NRG Encounters ACCT No. Visit Date/Time Discharge Status Pt. Type Provider Facility Loc./Unit Complaint [id number] 09/01/2018 15:19:00 09/01/2018 23:59:59 CLS Preadmit MISBAH MORAN, SAMANTHA Reeves [facility] RAD INSULIN DEPENDENT DIABETES MELLITUS,FERGUSON [id number] 08/30/2018 14:52:00 08/30/2018 23:59:59 CLS Outpatient CLEVE JOHNSON [facility] ONC [id number] 07/21/2018 16:15:00 08/01/2018 13:54:00 DIS Outpatient TIM MORAN, DEISI Shafer [facility] REHAB L ANKLE FX [id number] 06/06/2018 13:28:00 06/12/2018 00:01:00 DIS Outpatient CLEVE JOHNSON [facility] ONC [id number] 03/28/2018 14:34:00 05/15/2018 00:01:00 DIS Outpatient CLEVE JOHNSON [facility] ONC [id number] 05/05/2018 15:45:00 05/09/2018 15:49:00 DIS Inpatient GROVER MORAN, ARTIS Grier [facility] 4TH BIMALLEOLAR ANKLE FRACTURE; INABILITY TO BEAR- [id number] 02/08/2018 09:01:00 02/08/2018 23:59:59 CLS Outpatient SEYMOUR DONOHUE [facility] RAD PRIMARY CA OF ESOPHAGUS [id number] 01/10/2018 15:06:00 01/19/2018 00:01:00 DIS Outpatient LCEVE JOHNSON [facility] ONC [id number] 09/09/2017 10:56:00 09/21/2017 00:01:00 DIS Outpatient CLEVE JOHNSON [facility] ONC [id number] 09/20/2017 06:55:00 09/20/2017 10:05:00 DIS Outpatient JOHN AHUMADA MD [facility] ENDO GE JUNCTION ADENOCARCINOMA [id number] 09/15/2017 11:00:00 09/15/2017 12:32:00 DIS Outpatient OJHN AHUMADA MD [facility] PREOP EGD [id number] 08/10/2017 08:57:00 08/10/2017 23:59:59 CLS Outpatient CLEVE JOHNSON [facility] RAD PRIMARY CANCER OF ESOPHAGUS C15.5 [id number] 05/20/2017 12:50:00 06/12/2017 00:01:00 DIS Outpatient CLEVE JOHNSON N [facility] ONC [id number] 05/18/2017 08:13:00 05/18/2017 23:59:59 CLS Outpatient SEYMOUR DONOHUE [facility] RAD PRIMARY CANCER OF ESOPHAGUS [id number] 03/18/2017 13:46:00 03/29/2017 00:01:00 DIS Outpatient CLEVE JOHNSON N [facility] ONC [id number] 02/04/2017 10:34:00 02/04/2017 23:59:59 CLS Outpatient CLEVE JOHNSON N [facility] CARD Z01.89,C15.5 [id number] 12/24/2016 13:07:00 12/24/2016 00:01:00 DIS Outpatient CLEVE JOHNSON [facility] ONC [id number] 10/02/2016 12:19:00 10/02/2016 17:10:00 DIS Outpatient JOHN AHUMADA MD [facility] SDC GASTRO CARCINOMA [id number] 10/01/2016 05:36:00 10/01/2016 12:41:00 DIS Outpatient JOHN AHUMADA MD [facility] PREOP GASTRO CARCINOMA [id number] 09/22/2016 11:19:00 09/22/2016 23:59:59 CLS Outpatient NIKOLAS MOLINA APRN [facility] RAD DYSPNEA,LUNG NODULE [id number] 09/22/2016 08:36:00 09/22/2016 23:59:59 CLS Outpatient PHILL MORAN, LILLIAN Shafer [facility] RAD ESOPHAGIAL CANCER [id number] 06/01/2016 06:48:00 06/01/2016 23:59:59 CLS Outpatient JOHN AHUMADA MD [facility] SDC DYSPHAGIA [id number] 05/28/2016 05:55:00 05/29/2016 09:16:00 DIS Outpatient JOHN AHUMADA MD [facility] PREOP DYSPHAGIA [id number] 03/11/2016 09:58:00 03/11/2016 23:59:59 CLS Outpatient RAJNI MARINELLI DO [facility] RAD DYSPNEA,OBESITY [id number] 01/29/2016 16:47:00 02/03/2016 13:40:00 DIS Inpatient KWADWO MORAN, DARYL R [facility] 4TH CONFUSION [id number] 03/18/2015 08:59:00 03/18/2015 23:59:59 CLS Outpatient RAUL MORAN, DEISI Shafer [facility] RAD GLOBIS SENSATION, TROUBLE SWALLOWING [id number] 06/09/2013 17:35:00 06/09/2013 20:00:00 DIS Emergency HUNTER NARENDRA WHITMORE K [facility] ER LOC [id number] 09/07/2018 11:00:00 PEN Preadmit MISBAH MORAN, SAMANTHA Reeves [facility] CATH PVD,ABN FROY,HTN [id number] 01/29/2016 10:19:00 Document Registration [id number] 10/27/2010 11:33:00 Document Registration [id number] 02/06/2016 13:37:48 02/06/2016 23:59:59 CLS Outpatient [id number] 03/18/2015 09:00:33 ACT Document Registration
[2018-09-07] MEDS: NS IV 1000 ML 1,000 ML IV SCH (16:00)
[2018-09-07] MEDS: inSUlin ASPART (NovoLOG) 1 UNIT/0.01 ML (CHARGE PER UNIT) SC SCH (19:33)
[2018-09-07] MEDS ORDERED: inSUlin DETERMIR 1 UNIT/0.01 ML (LEVEMIR) CHARGE PER UNIT SQ SCH (21:00)
[2018-09-07] MEDS ORDERED: diphenhydrAMINE 25 MG TAB (BENADRYL) PO PRN (21:00)
[2018-09-08 00:56] VITALS: BP 198/98
[2018-09-08] MEDS ORDERED: amLODIPine 5 MG (NORVASC) TAB ONE (01:25)
[2018-09-08] MEDS ORDERED: ENALAPRIL 10 MG (VASOTEC) TAB ONE (01:26)
[2018-09-08] MEDS: NS IV 1000 ML 1,000 ML IV SCH (01:31)
[2018-09-08 03:59] VITALS: BP 169/88
[2018-09-08 04:09] VITALS: BP 168/59
[2018-09-08 04:18] LABS: HEMOGLOBIN 14.9 G/DL (13.3-17.7); MEAN PLATELET VOLUME 10.7 FL (7.4-10.4); RED BLOOD COUNT 4.8 10^6/uL (4.35-5.85); RED CELL DISTRIBUTION WIDTH 13.6 % (10.0-14.5); WHITE BLOOD COUNT 8.4 10^3/uL (4.3-11.0)
[2018-09-08 05:00] LABS: BUN/CREATININE RATIO 16; CALCIUM 8.4 MG/DL (8.5-10.1); CARBON DIOXIDE 19 MMOL/L (21-32); CHLORIDE 109 MMOL/L (98-107); CREATININE SERUM 1.04 MG/DL (0.60-1.30); GFR ESTIMATED > 60; GLUCOSE 107 MG/DL (70-105); SODIUM 138 MMOL/L (135-145)
[2018-09-08] MEDS: inSUlin ASPART (NovoLOG) 1 UNIT/0.01 ML (CHARGE PER UNIT) SC SCH (06:30)
[2018-09-08 08:00] VITALS: BP 146/76
--- NOTE | 2018-09-08 08:24 | Cardiology Progress Note ---
Subjective Date Seen by Provider: Sep 08, 2018 Time Seen by Provider: 08:21 Subjective/Events-last exam Patient is sitting in bed, feeling better. Groin is healing well. Pedal pulse is palpable. Review of Systems General: No Chills, No Night Sweats, No Fatigue, No Malaise, No Appetite, No Other HEENT: No Head Aches, No Visual Changes, No Eye Pain, No Ear Pain, No Dysphasia , No Sinus Congestion, No Post Nasal Drip, No Sore Throat, No Other Pulmonary: No Dyspnea, No Cough, No Pleuritic Chest Pain, No Other Cardiovascular: No: Chest Pain, Palpitations, Orthopnea, Paroxysmal Noc. Dyspnea, Edema, Lt Headedness, Other Objective-Cardiology Exam Last Set of Vital Signs Vital Signs 09/08/18 09/08/18 09/08/18 03:59 04:00 04:09 Temp 97.7 Pulse 62 Resp 16 B/P (MAP) 168/59 (95) Pulse Ox 95 O2 Delivery Room Air Capillary Refill : Less Than 3 SecondsLess Than 3 Seconds I&O Intake and Output 09/08/18 00:00 Output Total 600 ml Balance -600 ml Output Urine Total 600 ml General: Alert, Oriented X3, Cooperative HEENT: Atraumatic, PERRLA Neck: Supple, No JVD, No Thyromegaly Lungs: Clear to Auscultation, Normal Air Movement Heart: Normal S1, Normal S2, No Murmurs, Other (irregular) Abdomen: Normal Bowel Sounds, Soft, No Tenderness, No Hepatosplenomegaly, No Masses Extremities: No Cyanosis, No Edema, No Tenderness/Swelling, Other (diminished pulse) Skin: No Rashes, No Breakdown, No Significant Lesion Neuro: Normal Gait, Normal Speech, Strength at 5/5 X4 Ext, Normal Tone, Sensation Intact Psych/Mental Status: Mental Status NL, Mood NL Results Lab Laboratory Tests 09/07/18 09:45 09/08/18 03:50 A/P-Cardiology Admission Diagnosis Peripheral arterial disease Nonhealing foot ulcer Paroxysmal atrial fibrillation Hypertension Hyperlipidemia Assessment/Plan Peripheral arterial disease status post angiogram 1. Total occlusion of the tibial peroneal trunk on the left with successful balloon angioplasty and reestablishing flow down through the peroneal artery to the foot, the posterior tibial artery is receiving collaterals from the peroneal artery and anterior tibial artery has severe disease distally receiving collaterals. 2. Severe stenosis at multiple segment with heavy calcification at the SFA successful balloon angioplasty then deployment of 2 overlapping SUPERA 6 X150 and 5.5 X 100 with excellent results 3. Moderate to moderately severe stenosis at multiple segment of the right SFA , below the trifurcation arteries were not well visualized 4. 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 Hypertension, on multiple medication, continue to monitor blood pressure Hyperlipidemia, LDL 191, started on Lipitor. Nonhealing foot ulcer. 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 Gonzalez Diabetes mellitus. SAMANTHA CRAWLEY MD Sep 08, 2018 08:24
[2018-09-08] MEDS ORDERED: ATOR10TA PO (08:27)
[2018-09-08] MEDS ORDERED: CLOP75TA28 PO (08:27)
[2018-09-08] MEDS ORDERED: METO-351 PO (08:27)
[2018-09-08] MEDS ORDERED: PANT40SU PO (08:27)
[2018-09-08] MEDS ORDERED: RIVA20TA PO (08:27)
[2018-09-08] MEDS ORDERED: ASPIRIN E.C. 81 MG (ECOTRIN) TAB PO ONE (08:27)
--- NOTE | 2018-09-08 08:28 | Discharge Inst-Post CATH ---
Discharge Inst-CATH/EP Post Cardiac Cath/EP D/C Inst Follow Up/Plan Appointment with Dr Paula's office in 2 weeks CARDIAC CATH DISCHARGE INSTRUCTIONS *Hold Metformin for 48 hours post heart cath. ACTIVITY * Go Home directly and rest. * Limit activity of the leg (or wrist if it was used) for 7 days including aerobics, swimming, jogging, bicycling, etc. * Restrict stair-climbing for 7 days if possible, if not, climb up with your non -cath leg, then bring together on the same step. * Avoid lifting, pushing, pulling or excessive movement of the affected extremity for 7 days. * Customary sexual activity may be resumed after 2 days-use caution not to use a position that strains or causes pain to the affected extremity. * No driving for 24 hours. * NO SMOKING. * Avoid straining for bowel movements for 7 days. * Gentle walking on level ground is allowed. * Returning to work will depend on the type of procedure and the results. Your doctor will discuss this with you. CALL YOUR DOCTOR FOR ANY OF THE FOLLOWING: *If bleeding from the puncture site occurs- Apply gentle pressure to site with clean cloth and call your doctor or EMS. * If a knot or lump forms under the skin, increases in size, or causes pain. * If bruising appears to be worsening or moving further down your leg instead of disappearing. * Temperature above 101 F. CARE OF YOUR GROIN INCISION; * Bruising or purple discoloration of the skin near the puncture site is common. * You may shower only, no bathtub bathing for 5 days. Be careful to avoid slipping as your leg may feel stiff. * If a closure device was used on your femoral artery, please see the attached guide regarding care of the device and your leg. * Leave the dressing on, until removed by office staff. CARE OF YOUR WRIST INCISION; * Bruising or purple discoloration of the skin near the puncture site is common. * You may shower. * DO NOT submerge wrist. * Leave dressing on, until removed by office staff.. SAMANTHA PAULA MD Sep 08, 2018 08:28
[2018-09-08 09:00] VITALS: BP 146/76
[2018-09-08] MEDS ORDERED: ENALAPRIL 10 MG (VASOTEC) TAB PO SCH (09:00)
[2018-09-08] MEDS ORDERED: amLODIPine 5 MG (NORVASC) TAB PO SCH (09:00)
[2018-09-08] MEDS ORDERED: CLOPIDOGREL 75 MG (PLAVIX) TABLET PO SCH (09:00)
[2018-09-08] MEDS ORDERED: ASPIRIN E.C. 81 MG (ECOTRIN) TAB PO SCH (09:00)
[2018-09-08] MEDS ORDERED: HEParin (CENTRAL IV FLUSH) 500 UNIT/5 ML SYR ONE (09:05)
[2018-09-08] MEDS ORDERED: FLU QUADRIvalent (5+ YOA) 2018-2019 (AFLURIA) 0.5 ML IM ONE (09:06)
[2018-09-08] MEDS ORDERED: RIVAROXABAN 20 MG TABLET (XARELTO) PO SCH (17:00)
== END 2018-09-08 09:50 ==
LOC: CATH 08:44 → ICU 13:32 → CATH 09-08 09:50
PROVIDERS: ATTEND Internal Medicine Cardiovascular Disease
DX: I70.232 Atherosclerosis of native arteries of right leg with ulceration of calf (principal); L97.219 Non-pressure chronic ulcer of right calf with unspecified severity; I70.242 Atherosclerosis of native arteries of left leg with ulceration of calf; L97.229 Non-pressure chronic ulcer of left calf with unspecified severity; I70.245 Atherosclerosis of native arteries of left leg with ulceration of other part of foot; L97.529 Non-pressure chronic ulcer of other part of left foot with unspecified severity; E11.621 Type 2 diabetes mellitus with foot ulcer; E11.622 Type 2 diabetes mellitus with other skin ulcer; I70.92 Chronic total occlusion of artery of the extremities; I70.0 Atherosclerosis of aorta; I10 Essential (primary) hypertension; E78.5 Hyperlipidemia, unspecified; E11.319 Type 2 diabetes mellitus with unspecified diabetic retinopathy without macular edema; C16.0 Malignant neoplasm of cardia; R91.1 Solitary pulmonary nodule; E66.9 Obesity, unspecified; Z68.30 Body mass index [BMI] 30.0-30.9, adult; Z79.4 Long term (current) use of insulin; Z92.21 Personal history of antineoplastic chemotherapy; Z92.3 Personal history of irradiation; Z87.891 Personal history of nicotine dependence
CPT/HCPCS: 36415; 37226; 71045; 75625; 75716; 80048; 80053; 80061; 82962; 85027; 85347; 85610; 85730; 87081; 90686; 93005

== ENCOUNTER 2018-09-15 12:21 | Outpatient (RCR) | payer MEDICARE ==
[~2018-09-15 12:21] MED LIST changes: +AMLO5TAB4 PO; +ASPI-808 PO; +ATOR10TA PO; +CLOP75TA28 PO; +DIPH25CA79 PO; +INSU100V16 SQ; +METO-351 PO; +NAPR220C11 PO; +PANT40SU PO; +RIVA20TA PO
[2018-09-15 13:03] LABS: BASOPHILS % (AUTO) 0 % (0-10); EOSINOPHILS # (AUTO) 0.3 10^3/uL (0.0-0.3); EOSINOPHILS % (AUTO) 3 % (0-10); HEMATOCRIT 45 % (40-54); HEMOGLOBIN 15.2 G/DL (13.3-17.7); LYMPHOCYTES % (AUTO) 24 % (12-44); MEAN CORPUSCULAR HEMOGLOBIN 31 PG (25-34); MEAN CORPUSCULAR HGB CONC 34 G/DL (32-36); MEAN CORPUSCULAR VOLUME 90 FL (80-99); MEAN PLATELET VOLUME 10.2 FL (7.4-10.4); MONOCYTES # (AUTO) 0.8 X 10^3 (0.0-1.0); MONOCYTES % (AUTO) 9 % (0-12); NEUTROPHILS # (AUTO) 5.3 X 10^3 (1.8-7.8); NEUTROPHILS % (AUTO) 63 % (42-75); PLATELET COUNT 282 10^3/uL (130-400); RED CELL DISTRIBUTION WIDTH 13.3 % (10.0-14.5); WHITE BLOOD COUNT 8.4 10^3/uL (4.3-11.0)
[2018-09-15 13:20] LABS: ALBUMIN 2.9 GM/DL (3.2-4.5); BILIRUBIN,TOTAL 0.5 MG/DL (0.1-1.0); CALCIUM 8.4 MG/DL (8.5-10.1); CREATININE SERUM 1.31 MG/DL (0.60-1.30); POTASSIUM 4.2 MMOL/L (3.6-5.0); TOTAL PROTEIN 5.8 GM/DL (6.4-8.2)
== END 2018-10-16 | disposition home or self-care (01) ==
LOC: ONC 12:21
PROVIDERS: ATTEND Internal Medicine Hematology & Oncology
DX: C15.5 Malignant neoplasm of lower third of esophagus (principal); J90 Pleural effusion, not elsewhere classified; R91.1 Solitary pulmonary nodule; E11.319 Type 2 diabetes mellitus with unspecified diabetic retinopathy without macular edema; I10 Essential (primary) hypertension; Z87.891 Personal history of nicotine dependence; Z79.4 Long term (current) use of insulin; Z79.899 Other long term (current) drug therapy; Z45.2 Encounter for adjustment and management of vascular access device
CPT/HCPCS: 36591; 80053; 82378; 85025; 96523

== ENCOUNTER → 2018-10-10 | Outpatient (CLI) | payer MEDICARE | LOC: WOUNDCARE 13:38 | PROVIDERS: ATTEND Surgery | DX: E11.622 Type 2 diabetes mellitus with other skin ulcer (principal); I70.242 Atherosclerosis of native arteries of left leg with ulceration of calf; L97.221 Non-pressure chronic ulcer of left calf limited to breakdown of skin; I87.332 Chronic venous hypertension (idiopathic) with ulcer and inflammation of left lower extremity | CPT/HCPCS: 99213 ==

== ENCOUNTER → 2018-10-12 | Outpatient (CLI) | payer MEDICARE ==
[~2018-10-12] VITALS: Ht 188 cm; Wt 106.6 kg
[~2018-10-12] MED LIST changes: +CATHETER FLUSH 10 ML SYR IV PRN; +REGADENOSON 0.4 MG/5 ML SYR (LEXISCAN) IV ONE
[2018-10-12 09:42] VITALS: BP 159/87
--- NOTE | 2018-10-12 15:07 | STRESS TEST ---
DATE OF SERVICE: 10/12/2018 LEXISCAN MYOVIEW STRESS TEST REPORT REFERRING PHYSICIAN: Dr. Carrillo. Baseline heart rate is 62, baseline blood pressure 159/87. Baseline EKG is atrial fibrillation with right bundle branch block. In summary, the patient was injected with 10.72 mCi of technetium-99 Myoview and the resting images were obtained. Then, the patient received 0.4 mg of Lexiscan followed by 32.0 mCi of technetium-99 Myoview. Throughout the test, there were no EKG changes. The resting and stress images were reviewed and compared in the short axis, horizontal long axis, and vertical long axis views. Review of the images showed increased intestinal uptake affecting the quality of the images with questionable ischemia involving the mid to apical inferior wall and inferolateral wall. SSS is 7, SDS 3, and TID value 1.05. On the gated images, the left ventricle appeared to be in normal size with normal contractility. Calculated ejection fraction is 57%. CONCLUSION: 1. The patient tolerated Lexiscan well. 2. Baseline atrial fibrillation with right bundle branch block. 3. Increased intestinal uptake with questionable ischemia involving the mid to apical inferior wall and inferolateral wall. 4. Normal left ventricular size with normal contractility. Calculated ejection fraction is 57%, gated images are unreliable due to underlying atrial fibrillation. Job ID: [id number] DocumentID: [id number] Dictated Date: 10/12/2018 14:30:23 Score Caller Date: 10/12/2018 15:06:38 Dictated By: SAMANTHA CRAWLEY MD
== END ==
LOC: CARD 07:48
PROVIDERS: ATTEND Internal Medicine Cardiovascular Disease
DX: R06.09 Other forms of dyspnea (principal); I73.9 Peripheral vascular disease, unspecified; I10 Essential (primary) hypertension; I26.99 Other pulmonary embolism without acute cor pulmonale; E11.9 Type 2 diabetes mellitus without complications
CPT/HCPCS: 78452; 93017

== ENCOUNTER 2018-10-19 06:55 | Day surgery (SDC) | payer MEDICARE ==
[2018-10-19] VITALS (13 sets, daily range): BP systolic 129–184; BP diastolic 59–104
[~2018-10-19] VITALS: Ht 188 cm; Wt 108.9 kg
[~2018-10-19 06:55] MED LIST changes: -CATHETER FLUSH 10 ML SYR IV PRN; -REGADENOSON 0.4 MG/5 ML SYR (LEXISCAN) IV ONE
[2018-10-19] MEDS ORDERED: HEParin (CATH LAB) 2,000 ML IV ONE (06:59)
[2018-10-19] MEDS ORDERED: LIDOCAINE 1% INJ 20 ML 20 ML VIAL ONE (06:59)
[2018-10-19] MEDS ORDERED: NS IV 1000 ML 1,000 ML IV SCH (07:00)
--- NOTE | 2018-10-19 07:37 | Diagnostic Imaging Report ---
INDICATION: Preop screening. Comparison with 09/07/2018. FINDINGS: Portable chest. The lungs are well-aerated and clear. Heart is upper limits of normal. There is no evidence of pulmonary edema. Port-A-Cath on the right remains in good position. No pneumothorax or pleural effusions. IMPRESSION: No acute changes have occurred since previous exam. Dictated by: Dictated on workstation # [id number]
[2018-10-19 07:47] LABS: HEMOGLOBIN 14.2 G/DL (13.3-17.7); MEAN PLATELET VOLUME 9.9 FL (7.4-10.4); RED CELL DISTRIBUTION WIDTH 13.1 % (10.0-14.5); WHITE BLOOD COUNT 7.4 10^3/uL (4.3-11.0)
[2018-10-19] MEDS ORDERED: CLOP75TA69 PO (07:49)
[2018-10-19] MEDS ORDERED: ATOR10TA PO (07:49)
[2018-10-19] MEDS ORDERED: PANT40TA2 PO (07:49)
[2018-10-19] MEDS ORDERED: RIVA20TA PO (07:49)
[2018-10-19] MEDS ORDERED: METO-351 PO (07:49)
[2018-10-19 07:57] LABS: INR 1.2 (0.8-1.4); PROTHROMBIN TIME PATIENT 14.7 SEC (12.2-14.7)
[2018-10-19 08:06] LABS: ALBUMIN 3.1 GM/DL (3.2-4.5); BILIRUBIN,TOTAL 0.4 MG/DL (0.1-1.0); CALCIUM 8.7 MG/DL (8.5-10.1); CREATININE SERUM 1.42 MG/DL (0.60-1.30); POTASSIUM 4.3 MMOL/L (3.6-5.0); TOTAL PROTEIN 5.8 GM/DL (6.4-8.2)
[2018-10-19] MEDS ORDERED: MIDAZOLAM 5 MG/5 ML (VERSED) VIAL ONE (08:49)
[2018-10-19] MEDS ORDERED: fentaNYL INJECTION 100 MCG/2 ML AMP ONE (08:49)
[2018-10-19] MEDS ORDERED: FLU QUADRIvalent (5+ YOA) 2018-2019 (AFLURIA) 0.5 ML IM ONE (09:00)
--- NOTE | 2018-10-19 09:06 | Cardiac Procedure Note-CS/ASA ---
Pre-Procedure Note Pre-Op Procedure Note H&P Reviewed The H&P was reviewed, patient examined and no changes noted. Date H&P Reviewed: Oct 19, 2018 Time H&P Reviewed: 09:06 Conscious Sedation Pre-Proced Time 09:06 ASA Score 3 For ASA 3 and 4: Consider anesthesia and medical clearance. Also, for patients with a history of failed moderate sedation consider anesthesia. Airway Lungs Heart ASA score ASA 1: a normal healthy patient ASA 2: a patient with a mild systemic disease (mid diabetes, controlled hypertension, obesity X ASA 3: a patient with a severe systemic disease that limits activity (angina , COPD, prior Myocardial infarction) ASA 4: a patient with an incapacitating disease that is a constant threat to life (CHF, renal failure) ASA 5: a moribund patient not expected to survive 24 hrs. (ruptured aneurysm) ASA 6: a declared brain- patient whose organs are being harvested. For emergent operations, add the letter E after the classification Mallampati Classification Grade 3 Sedation Plan Analgesia, Amnesia, Plan communicated to team members, Discussed options with patient/fam, Discussed risks with patient/fam The patient is an appropriate candidate to undergo the planned procedure, sedation, and anesthesia. The patient immediately re-assessed prior to indication. SAMANTHA CRAWLEY MD Oct 19, 2018 09:06
[2018-10-19] MEDS ORDERED: PATIENT MAY USE OWN MEDS, ALL PO SCH (10:00)
[2018-10-19] MEDS ORDERED: TRIAMCINOLONE 0.1% CR (KENALOG) 15 GM TUBE TOP PRN (10:00)
--- NOTE | 2018-10-19 10:02 | Cardiac Cath Report ---
Cardiac Cath Report Physician (s)/Transmission Operator (s) Physician SAMANTHA CRAWLEY MD Pre-Procedure Diagnosis Pre-Procedure Diagnosis: coronary artery disease, peripheral arterial disease Post-Procedure Note Procedure Start Date: Oct 19, 2018 Name of Procedure: left heart catheterization Right lower extremity runoff Findings/Procedure Note PROCEDURE NOTE: 82 years old gentleman with extensive peripheral arterial disease, had an abnormal stress test, scheduled for cardiac catheterization possible PTCA. Patient has been complaining of claudication and cramps in his right calf, known to have extensive disease and stent in the past. After doing his coronary angiogram I did runoff through the sheath with 5 mL contrast and identified significant lesions in the right SFA. After explaining the procedure to the patient, all pros and cons were explained , all questions were answered. The patient signed the consent and then he was placed on the cardiac catheterization laboratory. Groin was prepped SL fashion local anesthesia was used. Sheath placed in the right femoral artery. Jordin right and left catheter were used to access the coronary system. Pigtail was used to access the left ventricular cavity. Left ventriculogram was not done, pressure was measured Pullback LV to aorta was done Runoff through this sheath using 5 mm of contrast to the right lower extremity was done. At the end of the procedure the sheath was removed. Closure device was used FINDINGS: Hemodynamics LV 147/14, end-diastolic pressure of 15 Aorta 153/57 mean of 89 ANATOMY: Left Main is free of obstructive disease Left Anterior Descending has 50 percent stenosis proximally, 60-70 percent stenosis at the midportion about 2 mm diameter artery at that point, 70 percent stenosis distally. Left Circumflex it is moderate in size, the second obtuse marginal branch has severe disease distally, fairly small artery not amendable to intervention Right Coronory Artery is moderate in size with 60 percent stenosis at the midportion, severe stenosis distally at the right PDA, fairly small artery LV Gram was not done, pressure was measured Right lower extremity runoff showed severe disease at multiple segment at the proximal and midright SFA, severe stenosis at the trifurcation with very slow flow below the trifurcation CONCLUSION: 1. Multivessel coronary artery disease including calcified arteries with moderate to severe stenosis at the mid LAD, moderate to severe so that the distal LAD, severe stenosis at the distal circumflex artery and moderate stenosis at the midright coronary artery with severe stenosis at the distal right coronary artery 2. Normal left ventricular end-diastolic pressure 3. Severe stenosis at multiple segment of the right SFA, total occlusion below the trifurcation with some trickling of contrast below the trifurcation DISCUSSION AND RECOMMENDATION: Regarding his coronaries I recommend medical therapy due to the extensive multivessel coronary artery disease, continue to monitor the LAD and consideration for intervention to the mid LAD if needed, I will hydrate him well and perform angioplasty and stenting to the right SFA due to the claudication Anesthesia Type: Conscious Sedation Estimated blood loss (mL): 15 ml Contrast Amount: 37 ml Total Radiation Dose: 664 mGy Post-Procedure Diagnosis Post-operative diagnosis: Coronary artery disease Claudication Peripheral arterial disease Hypertension Hyperlipidemia SAMANTHA CRAWLEY MD Oct 19, 2018 10:02
[2018-10-19] MEDS ORDERED: CLOPIDOGREL 75 MG (PLAVIX) TABLET ONE (10:12)
[2018-10-19] MEDS ORDERED: ASPIRIN 81 MG CHEW (CHILDREN'S ASA) ONE (10:13)
[2018-10-19] MEDS: NS IV 1000 ML 1,000 ML IV SCH ×2 (11:31→20:43)
[2018-10-19] MEDS: inSUlin ASPART (NovoLOG) 1 UNIT/0.01 ML (CHARGE PER UNIT) SC SCH (18:17)
[2018-10-19] MEDS ORDERED: inSUlin DETERMIR 1 UNIT/0.01 ML (LEVEMIR) CHARGE PER UNIT SQ SCH (21:00)
[2018-10-19] MEDS ORDERED: diphenhydrAMINE 25 MG TAB (BENADRYL) PO PRN (21:00)
[2018-10-20] VITALS (12 sets, daily range): BP systolic 137–196; BP diastolic 63–103
[2018-10-20 04:29] LABS: HEMOGLOBIN 13.6 G/DL (13.3-17.7); MEAN PLATELET VOLUME 10.1 FL (7.4-10.4); RED CELL DISTRIBUTION WIDTH 13.4 % (10.0-14.5); WHITE BLOOD COUNT 11.2 10^3/uL (4.3-11.0)
[2018-10-20 04:59] LABS: BUN/CREATININE RATIO 17; CALCIUM 8.3 MG/DL (8.5-10.1); CARBON DIOXIDE 19 MMOL/L (21-32); CHLORIDE 112 MMOL/L (98-107); CREATININE SERUM 1.15 MG/DL (0.60-1.30); GFR ESTIMATED > 60; POTASSIUM 3.4 MMOL/L (3.6-5.0); SODIUM 141 MMOL/L (135-145)
[2018-10-20 05:05] LABS: GLUCOSE 44 MG/DL (70-105)
[2018-10-20] MEDS: inSUlin ASPART (NovoLOG) 1 UNIT/0.01 ML (CHARGE PER UNIT) SC SCH ×3 (05:23→15:43)
[2018-10-20] MEDS ORDERED: DEXTROSE 50% 50 ML (IMS) SYR ONE (05:49)
--- NOTE | 2018-10-20 05:50 | NUR ---
Pt with hypoglycemia at 44 per a.m. labs. 240 mL orange juice et protein snack administered per hypoglycemia protocol. Pt rechecked; blood sugar 49. This RN administered 25 mL d 50 IV per hypoglycemia protocol.
[2018-10-20] MEDS ORDERED: DEXTROSE 50% 50 ML (IMS) SYR IV ONE (06:00)
--- NOTE | 2018-10-20 07:43 | NUR ---
NOTE THAT DR CRAWLEY WAS CALLED ABOUT AM MEDS -- YES GIVE AND FEED THE LIGHT BKFT -- GAVE AM MEDS AND HAD NA ORDER BKFT FOR PT --
--- NOTE | 2018-10-20 08:39 | Cardiology History & Physical ---
HPI-Cardiology Cardiology Consultation Date of Consultation 10/20/18 Date of Admission Time Seen by Provider: 08:37 Indication: coronary artery disease HPI 82 years old gentleman with history of nonhealing foot ulcer underwent intervention late in August 2018, the ulcer is healed well, had an abnormal stress test and was scheduled for cardiac catheterization yesterday, procedure was carried out showing small vessel disease at the distal right coronary artery and circumflex artery, medical therapy is recommended due to the small arteries, he has been having claudication has severe stenosis in the right SFA, severe disease below the trifurcation, I decided to proceed with intervention while patient is holding Xarelto, I hydrated him overnight and renal function appeared to be significantly better, planning to proceed with the procedure today. 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) Gastroesophageal Reflux Musculoskeletal Yes Arthritis Endocrine Yes Diabetes, Insulin dep HEENT Yes Cataract Hearing Impairment: Hard of Hearing, Bilateral Hearing Aide Cancer Yes Stomach Did You Recieve Any Treatments: Yes Type of Treatment: Chemotherapy, Radiation Psychosocial No Integumentary No Blood Transfusions No Adverse Rxn to Transfusion: No Social History Patient Social History Marrital Status: Employed/Student: retired Alcohol Use: Occasionally Uses Recreational Drug Use: No Smoking: Former smoker Recent Foreign Travel: No Contact w/other who traveled: No Recent Infectious Disease Expo: No Family Hx Family History: BONE CAN 19 FATHER Completed stroke 19 MOTHER G8 SISTER Dementia 19 MOTHER FH: lung cancer FH: malignant neoplasm of bone Myocardial infarction G8 BROTHER ROS-Cardiology Review of Systems General: Chills; No Night Sweats; Fatigue, Malaise; No Appetite HEENT: No Head Aches, No Visual Changes, No Eye Pain, No Ear Pain, No Dysphasia , No Sinus Congestion, No Post Nasal Drip, No Sore Throat Pulmonary: Dyspnea; No Cough, No Pleuritic Chest Pain Cardiovascular: Edema; No: Chest Pain, Palpitations, Orthopnea, Paroxysmal Noc. Dyspnea, Lt Headedness Gastrointestinal: No: Nausea, Vomiting, Abdominal Pain, Diarrhea, Constipation , Melena, Hematochezia Genitourinary: Dysuria; No Frequency, No Incontinence, No Hematuria, No Retention Musculoskeletal: No: neck pain, shoulder pain, arm pain, back pain, hand pain, leg pain, foot pain Neurological: No: Weakness, Numbness, Incoordination, Change in speech, Confusion, Seizures Home Medications & Allergies Allergies: Coded Allergies: latex (Verified Allergy, Unknown, 10/19/18) oxycodone (Verified Allergy, Unknown, 10/19/18) Home Medication List Reviewed: Yes Exam-Cardiology Vital Signs Vital Signs Date Time Temp Pulse Resp B/P (MAP) Pulse Ox O2 Delivery O2 Flow Rate FiO2 10/20/18 07:00 56 10/20/18 04:00 98.3 20 138/63 (88) 95 Room Air Exam General Appearance: Alert, Oriented X3, Cooperative, No Acute Distress HEENT: Atraumatic, PERRLA Respiratory: Clear to Auscultation, Normal Air Movement Cardiovascular: Normal S1, Normal S2, No Murmurs, Other (irregular, S3 is present) Abdominal: Normal Bowel Sounds, Soft, No Tenderness, No Hepatosplenomegaly, No Masses Extremities: No Clubbing, No Cyanosis, No Tenderness/Swelling, Other ( diminished pulse) Skin: No Rashes, No Breakdown, No Significant Lesion Neuro: Normal Gait, Normal Speech, Strength at 5/5 X4 Ext, Normal Tone, Sensation Intact Psych/Mental Status: Mental Status NL, Mood NL Results Labs Labs Laboratory Tests 10/20/18 04:15: White Blood Count 11.2H, Red Blood Count 4.38, Hemoglobin 13.6, Hematocrit 39L, Mean Corpuscular Volume 90, Mean Corpuscular Hemoglobin 31, Mean Corpuscular Hemoglobin Concent 35, Red Cell Distribution Width 13.4, Platelet Count 264, Mean Platelet Volume 10.1, Sodium Level 141, Potassium Level 3.4L, Chloride Level 112H, Carbon Dioxide Level 19L, Anion Gap 10, Blood Urea Nitrogen 20H, Creatinine 1.15, Estimat Glomerular Filtration Rate > 60, BUN/Creatinine Ratio 17, Glucose Level 44*L, Calcium Level 8.3L 10/20/18 05:49: Glucometer 49*L 10/20/18 06:40: Glucometer 106 10/20/18 08:19: A/P-Cardiology Admission Diagnosis coronary artery disease Peripheral arterial disease Chronic renal insufficiency Chronic atrial fibrillation Admission Status: Observation Assessment/Plan Coronary artery disease, status post cardiac catheterization done yesterday showed multivessel coronary artery disease, small vessel disease, had significant stenosis and smaller branches, medical therapy is recommended at this time. 1. Multivessel coronary artery disease including calcified arteries with moderate to severe stenosis at the mid LAD, moderate to severe so that the distal LAD, severe stenosis at the distal circumflex artery and moderate stenosis at the midright coronary artery with severe stenosis at the distal right coronary artery 2. Normal left ventricular end-diastolic pressure 3. Severe stenosis at multiple segment of the right SFA, total occlusion below the trifurcation with some trickling of contrast below the trifurcation Extensive peripheral arterial disease, had nonhealing foot ulcer and angiogram done in September 07, 2018 with intervention to the left lower extremity, having claudication on the right lower extremity and appear to have severe stenosis in the right SFA, staged intervention due to underlying renal insufficiency, received IV fluid and creatinine is better today, planning to proceed with intervention today Paroxysmal atrial fibrillation noted during hospitalization in August 2018 and started on Xarelto and tolerating it well, will restart Xarelto after the intervention Hypertension, continue to monitor blood pressure Hyperlipidemia, LDL 191, started on Lipitor 10 mg daily. Continue to monitor Dyspnea on exertion, history of syncope secondary to hypoglycemia, multiple risk factors for coronary artery disease. No recent chronic workup was done. Bilateral carotid stenosis, ultrasound showed mild bilateral disease nonobstructive disease in August 2018. 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 Gonzalez. Diabetes mellitus, labile blood sugar and history of syncope secondary to hypoglycemia. SAMANTHA CRAWLEY MD Oct 20, 2018 08:39
--- NOTE | 2018-10-20 08:55 | Cardiac Procedure Note-CS/ASA ---
Pre-Procedure Note Pre-Op Procedure Note H&P Reviewed The H&P was reviewed, patient examined and no changes noted. Date H&P Reviewed: Oct 20, 2018 Time H&P Reviewed: 08:54 Conscious Sedation Pre-Proced Time 08:55 ASA Score 3 For ASA 3 and 4: Consider anesthesia and medical clearance. Also, for patients with a history of failed moderate sedation consider anesthesia. Airway Lungs Heart ASA score ASA 1: a normal healthy patient ASA 2: a patient with a mild systemic disease (mid diabetes, controlled hypertension, obesity x ASA 3: a patient with a severe systemic disease that limits activity (angina , COPD, prior Myocardial infarction) ASA 4: a patient with an incapacitating disease that is a constant threat to life (CHF, renal failure) ASA 5: a moribund patient not expected to survive 24 hrs. (ruptured aneurysm) ASA 6: a declared brain- patient whose organs are being harvested. For emergent operations, add the letter E after the classification Mallampati Classification Grade 3 Sedation Plan Analgesia, Amnesia, Plan communicated to team members, Discussed options with patient/fam, Discussed risks with patient/fam The patient is an appropriate candidate to undergo the planned procedure, sedation, and anesthesia. The patient immediately re-assessed prior to indication. SAMANTHA CRAWLEY MD Oct 20, 2018 08:55
[2018-10-20] MEDS ORDERED: CLOPIDOGREL 75 MG (PLAVIX) TABLET PO SCH (09:00)
[2018-10-20] MEDS ORDERED: ATORVASTATIN 10 MG (LIPITOR) TABLET PO SCH ×2 (09:00→21:00)
[2018-10-20] MEDS ORDERED: amLODIPine 10 MG (NORVASC) TAB PO SCH (09:00)
[2018-10-20] MEDS ORDERED: ENALAPRIL 10 MG (VASOTEC) TAB PO SCH (09:00)
[2018-10-20] MEDS ORDERED: PANTOPRAZOLE 40 MG (PROTONIX) TAB PO SCH (09:00)
[2018-10-20] MEDS ORDERED: LIDOCAINE 1% INJ 20 ML 20 ML VIAL ONE (09:31)
[2018-10-20] MEDS ORDERED: HEParin (CATH LAB) 2,000 ML IV ONE (09:32)
[2018-10-20] MEDS ORDERED: MIDAZOLAM 5 MG/5 ML (VERSED) VIAL ONE (10:17)
[2018-10-20] MEDS ORDERED: fentaNYL INJECTION 100 MCG/2 ML AMP ONE (10:18)
[2018-10-20] MEDS ORDERED: HEParin 1000 UNIT/ML (10ML VIAL) FOR BOLUS ONE (10:18)
[2018-10-20] MEDS ORDERED: NITRO DRIP 25000 MCG/D5W 250 ML IV ONE (10:18)
[2018-10-20] MEDS ORDERED: PATIENT MAY USE OWN MEDS, ALL PO SCH (11:45)
--- NOTE | 2018-10-20 11:51 | Peripheral Report ---
Peripheral Report Physician (s)/Supervisor Dock (s) Physician SAMANTHA CRAWLEY MD Pre-Procedure Diagnosis Pre-Procedure Diagnosis: coronary artery disease, peripheral arterial disease Post-Procedure Note Procedure Start Date: Oct 20, 2018 Name of Procedure: Bilateral lower extremity runoff Balloon angioplasty to the right SFA Findings/Procedure Note PROCEDURE NOTE: 82 years old gentleman with known extensive peripheral arterial disease, had stents to the left SFA and balloon angioplasty below the knee due to nonhealing foot ulcer which has healed, has been having claudication and pain in his right leg, had a cardiac catheterization yesterday showed severe stenosis in the SFA and occlusion below the trifurcation, scheduled for bilateral angiogram and angioplasty possible stent to the right SFA After explaining the procedure to the patient, all pros and cons were explained , all questions were answered. The patient signed the consent and then he was placed on the cardiac catheterization laboratory. The patient was placed on the cardiac catheterization laboratory. Groin was prepped SL fashion local anesthesia was used. Sheath placed in the left femoral artery, using a rim catheter I crossed over then advanced this straight catheter to the right SFA and did angiogram to the right lower extremity then advanced the catheter down to the popliteal artery and did angiogram to the trifurcation and evaluated the trifurcation then patient was given 5000 units of heparin I advanced a stork wire and remove the straight catheter exchanged the sheath into 6 Armenian 45 mm sheath, advanced command 18 wire then did balloon angioplasty to the SFA at multiple segment using Hodges 5 time 100 then I upgraded to Hodges 6 x 150 , angiogram showed significant improvement, patient has total occlusion of the arteries below the trifurcation, reconstructed by collaterals. Decision was made to treated conservatively due to the fact that he does not have any acute ischemic foot FINDINGS: Right lower extremity: severe stenosis at multiple segment of the right SFA successful balloon angioplasty using our mod 5 time 100 then six-time 150 with excellent results, total occlusion below the trifurcation of all 3 arteries reconstructed by collaterals with slow flow that improved after the balloon angioplasty to the SFA. Left lower extremity: patent stents in the left SFA with good flow down to the trifurcation, single artery ran below the trifurcation CONCLUSIONS: 1. Successful balloon angioplasty for the right SFA using Hodges 5 x100 and 6 x150 with excellent results 2. Total occlusion of the right popliteal artery at the trifurcation, reconstruction by collaterals with slow flow that improved after nitroglycerin injection 3. Angiogram to the left leg showed patent stents in the SFA with single- vessel flow below the trifurcation DISCUSSION AND RECOMMENDATIONS: Continue to maximize medical therapy, I did not do intervention below the trifurcation on the right lower extremity due to the fact that the restenosis rate is really high and patient has no ischemic ulcers or gangrene, flow has improved after the balloon angioplasty and I will keep monitoring him closely, I will consider placement of a stent in the right SFA if needed in the future Anesthesia Type: Conscious Sedation Estimated blood loss (mL): 15 ml Contrast Amount: 42 ml Total Radiation Dose: 2791 mGy Post-Procedure Diagnosis Post-operative diagnosis: claudication Peripheral arterial disease Coronary artery disease Hypertension SAMANTHA CRAWLEY MD Oct 20, 2018 11:51
--- NOTE | 2018-10-20 11:55 | NUR ---
PT TRANSFERRED TO [facility] VIA BED W/ LOGISTICS SUPERVISOR STAFF. VSS. LEFT GROIN DRESSING C/D/I. CALL LIGHT W/IN REACH. WILL CONT TO MONITOR.
--- NOTE | 2018-10-20 11:55 | NUR ---
NOTE THAT [facility] CALLED AND PT HAD INTERVENTIONS AND WILL BE GOING TO ICU
--- NOTE | 2018-10-20 12:21 | Consultation-Hospitalist ---
HPI History of Present Illness: HPI/Chief Complaint CC: Hypoglycemia HPI: This is an 82-year-old white male with history of peripheral vascular disease along with coronary artery disease that underwent a cardiac catheterization for diagnostic purposes showing multivessel disease and medical treatment was recommended but needed a procedure on the right SFA due to claudication symptoms he was admitted to the ICU following the procedure. He had a hypoglycemic episode this morning of 44 of which she reports that happens about once a week. He takes a dose of Levemir and rapid acting before meals. I updated him on the need to hold the long-acting to allow his body to recover from a hypoglycemic episode and decrease the amount of rapid acting before meals in order to aid that recovery. I will follow along and monitor blood sugar closely. Source: patient, RN/MD Exam Limitations: no limitations Date Seen 10/20/18 Attending Physician Leonard Paula MD PCP Olman Carrillo MD Referring Physician Date of Admission Home Medications & Allergies Home Medications Reviewed patient Home Medication Reconciliation performed by pharmacy medication reconciliations hazardous waste material technician and/or nursing. Patients Allergies have been reviewed. Allergies Allergies Coded Allergies latex (Verified Allergy, Unknown, 10/19/18) oxycodone (Verified Allergy, Unknown, 10/19/18) Past Csaloml-Lnlfpm-Jdlpnx Hx Past Med/Social Hx: Reviewed Nursing Past Med/Soc Hx, Reviewed and Corrections made Patient Social History Marrital Status: Employed/Student: retired ([employer]) Alcohol Use: Occasionally Uses Recreational Drug Use: No Smoking Status: Former Smoker Former Smoker, Quit: Sep 07, 1984 Type Used: Cigarettes 2nd Hand Smoke Exposure: No Recent Foreign Travel: No Contact w/other who traveled: No Recent Hopitalizations: No Recent Infectious Disease Expo: No Immunizations Up To Date Tetanus Booster (TDap): Unknown Date of Pneumonia Vaccine: Nov 01, 2014 Date of Influenza Vaccine: Jul 14, 2017 Seasonal Allergies Seasonal Allergies: No Past Medical History port Currently Using CPAP: No Currently Using BIPAP: No Cardiac: Hypertension, Peripheral Vascular Reproductive: No Sexually Transmitted Disease: No HIV/AIDS: No Genitourinary: Kidney Stones Gastrointestinal: Gastroesophageal Reflux Musculoskeletal: Arthritis Endocrine: Diabetes, Insulin dep HEENT: Cataract Hearing Impairment: Hard of Hearing, Bilateral Hearing Aide Cancer: Stomach Did You Recieve Any Treatments: Yes What Type of Treatment Did You: Chemotherapy, Radiation History of Blood Disorders: No Adverse Reaction to Blood Ace: No Family History BONE CAN 19 FATHER Completed stroke 19 MOTHER G8 SISTER Dementia 19 MOTHER FH: lung cancer FH: malignant neoplasm of bone Myocardial infarction G8 BROTHER Review of Systems Constitutional: see HPI, diaphoresis (during hypoglycemia) EENTM: no symptoms reported Respiratory: no symptoms reported Cardiovascular: no symptoms reported Gastrointestinal: no symptoms reported Genitourinary: no symptoms reported Musculoskeletal: no symptoms reported Skin: no symptoms reported Psychiatric/Neurological: No Symptoms Reported All Other Systems Reviewed Negative Unless Noted: Yes Physical Exam Physical Exam Vital Signs Vital Signs - First Documented 10/19/18 07:24 Temp 98.6 Pulse 57 Resp 16 B/P (MAP) 183/104 (130) Pulse Ox 100 O2 Delivery Room Air Capillary Refill : Less Than 3 Seconds Height, Weight, BMI Height: 6'2.00" Weight: 240lbs. 0.0oz. 108.020539xq; 30.8 BMI Method:Stated General Appearance: No Apparent Distress, WD/WN, Chronically ill, Obese Eyes: Bilateral Eye Normal Inspection, Bilateral Eye PERRL HEENT: PERRL/EOMI, Normal ENT Inspection, Pharynx Normal Neck: Full Range of Motion, Normal Inspection, Non Tender, Supple, Carotid Bruit Respiratory: Chest Non Tender, Lungs Clear, Normal Breath Sounds, No Accessory Muscle Use, No Respiratory Distress Cardiovascular: Regular Rate, Rhythm, No Edema, No Gallop, No JVD, No Murmur, Normal Peripheral Pulses Gastrointestinal: Normal Bowel Sounds, No Organomegaly, No Pulsatile Mass, Non Tender, Soft Back: Normal Inspection, No CVA Tenderness, No Vertebral Tenderness Extremity: Normal Capillary Refill, Normal Inspection, Normal Range of Motion, Non Tender, No Calf Tenderness, Pedal Edema Neurologic/Psychiatric: Alert, Oriented x3, No Motor/Sensory Deficits, Normal Mood/Affect Skin: Normal Color, Warm/Dry Lymphatic: No Adenopathy Results Results/Procedures Labs Laboratory Tests 10/19/18 07:38 10/20/18 04:15 Patient resulted labs reviewed. Assessment/Plan Assessment and Plan Assess & Plan/Chief Complaint Assessment: Hypoglycemia due to insulin administration but occurs once weekly at home CAD multivessel disease Claudication in need of vascular procedure Hypertension Plan: Hold long-acting insulin Lower dose of rapid acting before meals to allow glycogen store recovery Monitor closely Diagnosis/Problems Diagnosis/Problems (1) Hypoglycemia Status: Acute (2) Essential (primary) hypertension Status: Chronic (3) PVD (peripheral vascular disease) Status: Chronic (4) Insulin dependent diabetes mellitus Status: Chronic KADY PAZ DO Oct 20, 2018 12:21
[2018-10-20] MEDS: NS IV 1000 ML 1,000 ML IV SCH ×3 (12:22→14:44)
--- NOTE | 2018-10-20 16:32 | NUR ---
Initial visit with pt and his . Pt is from [facility]. 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 Raised in a [employer] household, he attended [facility] later in life. Pt said, "I never did become a [employer], but I do enjoy Mass." Pt expressed respect for Fr. Dimitri Martinez, whom he came to know while visiting [facility]. Pt and his began attending [facility] because the people were warm and receptive. Pt shared about the struggles of his health in the past year, about his brief stay at [facility] from a foot injury, and the challenges of managing Diabetes.
[2018-10-20] MEDS ORDERED: ATORVASTATIN 20 MG (LIPITOR) TABLET PO SCH (21:00)
[2018-10-21] VITALS: BP 183/77
[2018-10-21] MEDS: NS IV 1000 ML 1,000 ML IV SCH ×3 (00:39→05:54)
--- NOTE | 2018-10-21 01:30 | NUR ---
ASSUMED CARE OF PT AT THIS TIME. PT TRANSFERRED FROM [facility] VIA BED W/ HOUSE SUP. VSS. LEFT GROIN DRESSING C/D/I. CALL LIGHT W/IN REACH. WILL CONT TO MONITOR.
[2018-10-21 04:00] VITALS: BP 182/70
[2018-10-21 05:02] LABS: HEMOGLOBIN 12.8 G/DL (13.3-17.7); MEAN PLATELET VOLUME 10.1 FL (7.4-10.4); RED CELL DISTRIBUTION WIDTH 13.4 % (10.0-14.5); WHITE BLOOD COUNT 8.2 10^3/uL (4.3-11.0)
[2018-10-21 05:32] LABS: CALCIUM 8.3 MG/DL (8.5-10.1); CREATININE SERUM 1.16 MG/DL (0.60-1.30); POTASSIUM 4.2 MMOL/L (3.6-5.0)
[2018-10-21] MEDS: inSUlin ASPART (NovoLOG) 1 UNIT/0.01 ML (CHARGE PER UNIT) SC SCH (06:26)
[2018-10-21] MEDS ORDERED: PANTOPRAZOLE 40 MG (PROTONIX) TAB PO SCH (07:00)
[2018-10-21 08:46] VITALS: BP 170/63
[2018-10-21] MEDS ORDERED: ENALAPRIL 10 MG (VASOTEC) TAB PO SCH (09:00)
[2018-10-21] MEDS ORDERED: CLOPIDOGREL 75 MG (PLAVIX) TABLET PO SCH (09:00)
[2018-10-21] MEDS ORDERED: RIVAROXABAN 20 MG TABLET (XARELTO) PO SCH (09:00)
[2018-10-21] MEDS ORDERED: amLODIPine 5 MG (NORVASC) TAB PO SCH (09:00)
--- NOTE | 2018-10-21 09:29 | Cardiology Discharge Summary ---
Diagnosis/Chief Complaint Date of Admission October 19, 2018 Date of Discharge October 21, 2018 Admission Diagnosis coronary artery disease Peripheral arterial disease Chronic renal insufficiency Chronic atrial fibrillation Discharge Diagnosis Coronary artery disease Peripheral arterial disease Chronic atrial fibrillation Chronic kidney disease stage III Chief Complaint/HPI Chief Complaint/HPI 82 years old gentleman with history of peripheral arterial disease, had an abnormal stress test, admitted for cardiac catheterization, had an abnormal creatinine level, procedure was carried out, he has been having claudication and had significant stenosis in the right femoral artery, had a recent stent to the left SFA. I kept him overnight and hydrated him well then proceeded with intervention with the left groin access to the right SFA with limited amount of contrast, balloon angioplasty was done with excellent results, had total occlusion below the trifurcation which was treated conservatively due to the extensive disease. This morning is feeling well. Planning to discharge Discharge Summary Hospital Course Hospital Course Coronary artery disease, status post cardiac catheterization done yesterday showed multivessel coronary artery disease, small vessel disease, had significant stenosis and smaller branches, medical therapy is recommended at this time. 1. Multivessel coronary artery disease including calcified arteries with moderate to severe stenosis at the mid LAD, moderate to severe so that the distal LAD, severe stenosis at the distal circumflex artery and moderate stenosis at the midright coronary artery with severe stenosis at the distal right coronary artery 2. Normal left ventricular end-diastolic pressure 3. Severe stenosis at multiple segment of the right SFA, total occlusion below the trifurcation with some trickling of contrast below the trifurcation Extensive peripheral arterial disease, had nonhealing foot ulcer and angiogram done in September 07, 2018 with intervention to the left lower extremity, having claudication on the right lower extremity and appear to have severe stenosis in the right SFA, staged intervention due to underlying renal insufficiency, received IV fluid and creatinine is better today, then balloon angioplasty to the right SFA was done with excellent results 1. Successful balloon angioplasty for the right SFA using [place] 5 x100 and 6 x150 with excellent results 2. Total occlusion of the right popliteal artery at the trifurcation, reconstruction by collaterals with slow flow that improved after nitroglycerin injection 3. Angiogram to the left leg showed patent stents in the SFA with single- vessel flow below the trifurcation Paroxysmal atrial fibrillation noted during hospitalization in August 2018 and started on Xarelto and tolerating it well, will restart Xarelto after the intervention Hypertension, continue to monitor blood pressure Hyperlipidemia, LDL 191, started on Lipitor 10 mg daily. Continue to monitor Dyspnea on exertion, history of syncope secondary to hypoglycemia, multiple risk factors for coronary artery disease. No recent chronic workup was done. Bilateral carotid stenosis, ultrasound showed mild bilateral disease nonobstructive disease in August 2018. 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 Gonzalez. Diabetes mellitus, labile blood sugar and history of syncope secondary to hypoglycemia, Dr. Hylton was consulted for diabetic management, I instructed him to called Dr. Carrillo to adjust his diabetic medication Labs Laboratory Tests 10/19/18 07:38: Activated Partial Thromboplast Time 74H, Chloride Level 109H, Blood Urea Nitrogen 25H, Creatinine 1.42H, Glucose Level 204H, Alkaline Phosphatase 138H, Total Protein 5.8L, Albumin 3.1L 10/20/18 04:15: Chloride Level 112H, Blood Urea Nitrogen 20H, Glucose Level 44*L, White Blood Count 11.2H, Hematocrit 39L, Potassium Level 3.4L, Carbon Dioxide Level 19L, Calcium Level 8.3L 10/20/18 05:49: Glucometer 49*L 10/20/18 06:40: 10/20/18 08:19: Glucometer 148H 10/20/18 15:42: Glucometer 220H 10/21/18 04:54: Glucometer 221H 10/21/18 04:55: Red Blood Count 4.16L, Hemoglobin 12.8L, Hematocrit 38L, Chloride Level 111H, Carbon Dioxide Level 19L, Blood Urea Nitrogen 20H, Glucose Level 250H, Calcium Level 8.3L Procedures None. Discharge Physical Examination Allergies: Coded Allergies: latex (Verified Allergy, Unknown, 10/19/18) oxycodone (Verified Allergy, Unknown, 10/19/18) Vitals & I&Os Vital Signs Date Time Temp Pulse Resp B/P (MAP) Pulse Ox O2 Delivery O2 Flow Rate FiO2 10/21/18 08:46 98.0 54 20 170/63 (98) 96 Room Air General Appearance: Alert, Oriented X3, Cooperative, No Acute Distress HEENT: Atraumatic, PERRLA Respiratory: Clear to Auscultation, Normal Air Movement Cardiovascular: Regular Rate, Normal S1, Normal S2, No Murmurs Abdominal: Normal Bowel Sounds, Soft, No Tenderness, No Hepatosplenomegaly, No Masses Extremities: No Clubbing, No Cyanosis, No Edema, Normal Pulses, No Tenderness/ Swelling Skin: No Rashes, No Breakdown, No Significant Lesion Neuro: Normal Gait, Normal Speech, Strength at 5/5 X4 Ext, Normal Tone, Sensation Intact, Cranial Nerves 3-12 NL, Reflexes 2+ Psych/Mental Status: Mental Status NL, Mood NL Discharge Home Medications Reviewed and agree with Discharge Medication list on patient's Discharge Instruction sheet Instructions to Patient/Family Please see electronic discharge instructions given to patient. Clinical Quality Measures Admission Status Admission Status: Observation SAMANTHA CRAWLEY MD Oct 21, 2018 09:29
--- NOTE | 2018-10-21 09:31 | Discharge Inst-Post CATH ---
Discharge Inst-CATH/EP Post Cardiac Cath/EP D/C Inst Follow Up/Plan Appointment with Dr. Carrillo's office next week Appointment with Dr. Castaneda's office in 2 weeks CARDIAC CATH DISCHARGE INSTRUCTIONS *Hold Metformin for 48 hours post heart cath. ACTIVITY * Go Home directly and rest. * Limit activity of the leg (or wrist if it was used) for 7 days including aerobics, swimming, jogging, bicycling, etc. * Restrict stair-climbing for 7 days if possible, if not, climb up with your non -cath leg, then bring together on the same step. * Avoid lifting, pushing, pulling or excessive movement of the affected extremity for 7 days. * Customary sexual activity may be resumed after 2 days-use caution not to use a position that strains or causes pain to the affected extremity. * No driving for 24 hours. * NO SMOKING. * Avoid straining for bowel movements for 7 days. * Gentle walking on level ground is allowed. * Returning to work will depend on the type of procedure and the results. Your doctor will discuss this with you. CALL YOUR DOCTOR FOR ANY OF THE FOLLOWING: *If bleeding from the puncture site occurs- Apply gentle pressure to site with clean cloth and call your doctor or EMS. * If a knot or lump forms under the skin, increases in size, or causes pain. * If bruising appears to be worsening or moving further down your leg instead of disappearing. * Temperature above 101 F. CARE OF YOUR GROIN INCISION; * Bruising or purple discoloration of the skin near the puncture site is common. * You may shower only, no bathtub bathing for 5 days. Be careful to avoid slipping as your leg may feel stiff. * If a closure device was used on your femoral artery, please see the attached guide regarding care of the device and your leg. * Leave the dressing on, until removed by office staff. CARE OF YOUR WRIST INCISION; * Bruising or purple discoloration of the skin near the puncture site is common. * You may shower. * DO NOT submerge wrist. * Leave dressing on, until removed by office staff.. SAMANTHA CRAWLEY MD Oct 21, 2018 09:31
--- NOTE | 2018-10-21 10:29 | NUR ---
CM/SS spoke with patient for any possible discharge needs. He did not know of any discharge needs going home. He discussed how displeased he was with his stay at [facility] and that he is now home and grateful to be there.
[2018-10-21 10:30] VITALS: BP 170/63
--- NOTE | 2018-10-21 10:30 | NUR ---
ALEXIS CARPIO JR demonstrates understanding of discharge instructions and accurately returns instructions upon questioning. Copy of Post-Discharge Instructions given to PT. ALEXIS CARPIO JR is able to manage continuing needs after discharge. Patients belongings returned to PT. Patient discharged from [facility] on 10/21/18 at 1030. ALEXIS CARPIO JR left floor via W/C, accompanied by STAFF AND PER AUTO.
--- NOTE | 2018-10-21 10:37 | Progress Note-Hospitalist ---
Subjective HPI/CC On Admission Date Seen by Provider: Oct 21, 2018 Time Seen by Provider: 10:00 CC: Hypoglycemia HPI: This is an 82-year-old white male with history of peripheral vascular disease along with coronary artery disease that underwent a cardiac catheterization for diagnostic purposes showing multivessel disease and medical treatment was recommended but needed a procedure on the right SFA due to claudication symptoms he was admitted to the ICU following the procedure. He had a hypoglycemic episode this morning of 44 of which she reports that happens about once a week. He takes a dose of Levemir and rapid acting before meals. I updated him on the need to hold the long-acting to allow his body to recover from a hypoglycemic episode and decrease the amount of rapid acting before meals in order to aid that recovery. I will follow along and monitor blood sugar closely. Subjective/Events-last exam Patient had a good night last night Blood sugars were allowed to be elevated to allow glycogen-storage increase Adjusted discharge insulin home meds and he will have close follow-up with primary care provider next week Objective Exam Vital Signs Vital Signs Date Time Temp Pulse Resp B/P (MAP) Pulse Ox O2 Delivery O2 Flow Rate FiO2 10/21/18 08:46 98.0 54 20 170/63 (98) 96 Room Air Capillary Refill : Less Than 3 Seconds General Appearance: No Apparent Distress, WD/WN, Chronically ill, Obese HEENT: PERRL/EOMI, Normal ENT Inspection, Pharynx Normal Neck: Full Range of Motion, Normal Inspection, Non Tender, Supple, Carotid Bruit Respiratory: Chest Non Tender, Lungs Clear, Normal Breath Sounds, No Accessory Muscle Use, No Respiratory Distress Cardiovascular: Regular Rate, Rhythm, No Edema, No Gallop, No JVD, No Murmur, Normal Peripheral Pulses Gastrointestinal: Normal Bowel Sounds, No Organomegaly, No Pulsatile Mass, Non Tender, Soft Back: Normal Inspection, No CVA Tenderness, No Vertebral Tenderness Extremity: Normal Capillary Refill, Normal Inspection, Normal Range of Motion, Non Tender, No Calf Tenderness, Pedal Edema Neurologic/Psychiatric: Alert, Oriented x3, No Motor/Sensory Deficits, Normal Mood/Affect Skin: Normal Color, Warm/Dry Lymphatic: No Adenopathy Results/Procedures Lab Laboratory Tests 10/21/18 04:55 Patient resulted labs reviewed. Assessment/Plan Assessment and Plan Assess & Plan/Chief Complaint Assessment: Hypoglycemia due to insulin administration but occurs once weekly at home now resolved with decreased insulin dose CAD multivessel disease Claudication in need of vascular procedure Hypertension Plan: Restart long-acting insulin at lower dose Lower dose of rapid acting before meals to allow glycogen store recovery Monitor closely Diagnosis/Problems Diagnosis/Problems (1) Hypoglycemia Status: Acute (2) Essential (primary) hypertension Status: Chronic (3) PVD (peripheral vascular disease) Status: Chronic (4) Insulin dependent diabetes mellitus Status: Chronic KADY PAZ DO Oct 21, 2018 10:37
[2018-10-21] MEDS ORDERED: INSU100I29 SQ (10:38)
[2018-10-21] MEDS ORDERED: INSU100V16 SQ (10:38)
== END 2018-10-21 10:30 | disposition home or self-care (01) ==
LOC: CATH 06:55 → 4TH 10:20 → ICU 10-20 11:55 → 4TH 10-21 02:04 → CATH 10-21 10:30
PROVIDERS: ATTEND Internal Medicine Cardiovascular Disease
DX: I70.245 Atherosclerosis of native arteries of left leg with ulceration of other part of foot (principal); E11.621 Type 2 diabetes mellitus with foot ulcer; L97.529 Non-pressure chronic ulcer of other part of left foot with unspecified severity; I70.232 Atherosclerosis of native arteries of right leg with ulceration of calf; E11.622 Type 2 diabetes mellitus with other skin ulcer; L97.219 Non-pressure chronic ulcer of right calf with unspecified severity; I70.242 Atherosclerosis of native arteries of left leg with ulceration of calf; L97.229 Non-pressure chronic ulcer of left calf with unspecified severity; E11.319 Type 2 diabetes mellitus with unspecified diabetic retinopathy without macular edema; I70.213 Atherosclerosis of native arteries of extremities with intermittent claudication, bilateral legs; I25.10 Atherosclerotic heart disease of native coronary artery without angina pectoris; I25.82 Chronic total occlusion of coronary artery; E11.649 Type 2 diabetes mellitus with hypoglycemia without coma; I48.0 Paroxysmal atrial fibrillation; I10 Essential (primary) hypertension; E78.5 Hyperlipidemia, unspecified; I65.23 Occlusion and stenosis of bilateral carotid arteries; C16.0 Malignant neoplasm of cardia; E66.9 Obesity, unspecified; Z68.30 Body mass index [BMI] 30.0-30.9, adult; Z79.01 Long term (current) use of anticoagulants; Z79.4 Long term (current) use of insulin; Z79.899 Other long term (current) drug therapy
CPT/HCPCS: 36415; 71045; 80048; 80053; 80061; 82962; 85027; 85610; 85730; 87081; 93458

== ENCOUNTER → 2018-10-26 | Outpatient (CLI) | payer MEDICARE ==
[~2018-10-26] MED LIST changes: +CLOP75TA69 PO; +PANT40TA2 PO
== END ==
LOC: WOUNDCARE 14:03
PROVIDERS: ATTEND Surgery
DX: E11.622 Type 2 diabetes mellitus with other skin ulcer (principal); I70.242 Atherosclerosis of native arteries of left leg with ulceration of calf; I87.332 Chronic venous hypertension (idiopathic) with ulcer and inflammation of left lower extremity; L97.221 Non-pressure chronic ulcer of left calf limited to breakdown of skin
CPT/HCPCS: 99212

== ENCOUNTER → 2018-11-02 | Outpatient (CLI) | payer MEDICARE | LOC: WOUNDCARE 14:21 | PROVIDERS: ATTEND Surgery | DX: E11.622 Type 2 diabetes mellitus with other skin ulcer (principal); I70.242 Atherosclerosis of native arteries of left leg with ulceration of calf; I87.332 Chronic venous hypertension (idiopathic) with ulcer and inflammation of left lower extremity; L97.221 Non-pressure chronic ulcer of left calf limited to breakdown of skin | CPT/HCPCS: 99212 ==

== ENCOUNTER 2018-12-19 12:56 | Outpatient (RCR) | payer MEDICARE ==
[~2018-12-19 12:56] MED LIST changes: -RIVA20TA PO; +RIVA20TA2 PO
[2018-12-19 13:39] LABS: BASOPHILS % (AUTO) 0 % (0-10); EOSINOPHILS # (AUTO) 0.3 10^3/uL (0.0-0.3); EOSINOPHILS % (AUTO) 4 % (0-10); HEMATOCRIT 40 % (40-54); HEMOGLOBIN 13.6 G/DL (13.3-17.7); LYMPHOCYTES % (AUTO) 26 % (12-44); MEAN CORPUSCULAR HEMOGLOBIN 31 PG (25-34); MEAN CORPUSCULAR HGB CONC 34 G/DL (32-36); MEAN CORPUSCULAR VOLUME 91 FL (80-99); MEAN PLATELET VOLUME 10.3 FL (7.4-10.4); MONOCYTES # (AUTO) 0.9 X 10^3 (0.0-1.0); MONOCYTES % (AUTO) 12 % (0-12); NEUTROPHILS # (AUTO) 4.4 X 10^3 (1.8-7.8); NEUTROPHILS % (AUTO) 58 % (42-75); PLATELET COUNT 247 10^3/uL (130-400); RED CELL DISTRIBUTION WIDTH 13.4 % (10.0-14.5); WHITE BLOOD COUNT 7.5 10^3/uL (4.3-11.0)
[2018-12-19 14:05] LABS: ALBUMIN 3.2 GM/DL (3.2-4.5); BILIRUBIN,TOTAL 0.5 MG/DL (0.1-1.0); CALCIUM 8.7 MG/DL (8.5-10.1); CREATININE SERUM 1.35 MG/DL (0.60-1.30); POTASSIUM 4.2 MMOL/L (3.6-5.0); TOTAL PROTEIN 5.9 GM/DL (6.4-8.2)
== END 2019-01-25 | disposition home or self-care (01) ==
LOC: ONC 12:56
PROVIDERS: ATTEND Internal Medicine Hematology & Oncology
DX: Z45.2 Encounter for adjustment and management of vascular access device (principal); C15.5 Malignant neoplasm of lower third of esophagus; J90 Pleural effusion, not elsewhere classified; R91.1 Solitary pulmonary nodule; E11.319 Type 2 diabetes mellitus with unspecified diabetic retinopathy without macular edema; I10 Essential (primary) hypertension; Z87.891 Personal history of nicotine dependence; Z79.4 Long term (current) use of insulin; Z79.899 Other long term (current) drug therapy
CPT/HCPCS: 36591; 80053; 82378; 85025; 96523

== ENCOUNTER → 2018-12-23 | Outpatient (CLI) | payer MEDICARE ==
[~2018-12-23] MED LIST changes: +BARIUM SUSPENSION 2.1% (VANILLA SILQ) 450 ML PO ONE; +CATHETER FLUSH 10 ML SYR IV PRN; +HOLD METFORMIN - RECEIVED CONTRAST 20 ML VIAL IV SCH; +IOHEXOL 350 MG/ML 100 ML (OMNIPAQUE 350) VIAL IV ONE
--- NOTE | 2018-12-23 13:59 | Diagnostic Imaging Report ---
PROCEDURE: CT chest and abdomen with contrast. TECHNIQUE: Multiple contiguous axial images were obtained through the chest and abdomen after the administration of intravenous contrast. Auto Exposure Controls were utilized during the CT exam to meet ALARA standards for radiation dose reduction. INDICATION: Esophageal cancer. COMPARISON: Study compared to 08/10/2017. FINDINGS: Chest: A new unilateral right-sided pleural effusion is nonloculated layering to a depth of 3.5 cm. No appreciable pleural nodularity or thickening. Left pleural space negative. There is no pneumothorax. Changes of centrilobular emphysema with some subpleural scarring, greatest in the apices and upper lobes, are chronic. An old left rib traumatic deformity is chronic. No acute bony pathology. Upper limits sized subcarinal lymph node, chronic. No new or suspicious hilar or mediastinal lymph nodes found. No soft tissue density lung mass. No evidence for esophageal obstruction or perforation. There is a small hiatal hernia associated with some mild thickening of the esophagus just above, unchanged. No discrete or measurable mass. Abdomen and pelvis: The liver is stable and negative. There is no bile duct dilatation in this patient with previous cholecystectomy. Spleen, adrenals, and pancreas are unremarkable. The kidneys are nonacute with some left renal scarring, chronic, and few chronic left-sided parapelvic cysts. No periaortic or other retroperitoneal adenopathy. No mesenteric mass or omental infiltration. There is no evidence for an ileus or bowel obstruction. No ascites, abscess, hematoma, or fluid collection. No adenopathy or mass. The osseous structures appeared nonacute. IMPRESSION: 1. Chest: New unilateral right pleural effusion without loculation or pleural nodularity. 2. No lung mass. Stable infracarinal lymph node. No suspicious baudilio mass. Background COPD, chronic. 3. Abdomen: No evidence for abdominal metastatic disease, small hiatal hernia, and slight thickening of the distal thoracic esophagus, stable. Benign renal cysts, chronic. No acute finding. Dictated by: Dictated on workstation # [id number]
--- NOTE | 2018-12-23 16:22 | Diagnostic Imaging Report ---
INDICATION: Esophageal cancer. COMPARISON: Bone scan from 02/04/[address] chest, abdomen and pelvis from 12/23/2018. TECHNIQUE: Anterior and posterior scintigraphic images of the whole body were obtained 3 hours after the intravenous injection of 27 mCi of Tc-99m MDP. FINDINGS: There is normal distribution of tracer throughout the skeleton. No abnormal focal area of increased or decreased tracer accumulation is present that would suggest metastatic disease. Mild increased uptake within the cervical spine is likely degenerative in nature. Normal activity within the kidneys and urinary bladder is identified. IMPRESSION: No features of skeletal metastases. Dictated by: Dictated on workstation # [id number]
== END ==
LOC: CARD 10:53
PROVIDERS: ATTEND Internal Medicine Hematology & Oncology
DX: Z01.89 Encounter for other specified special examinations (principal); C15.5 Malignant neoplasm of lower third of esophagus; J90 Pleural effusion, not elsewhere classified; J44.9 Chronic obstructive pulmonary disease, unspecified; K44.9 Diaphragmatic hernia without obstruction or gangrene; N28.1 Cyst of kidney, acquired
CPT/HCPCS: 71260; 74160; 78306

== ENCOUNTER 2019-04-24 14:12 | Outpatient (RCR) | payer MEDICARE ==
[2019-03-13 15:31] LABS: BASOPHILS % (AUTO) 0 % (0-10); EOSINOPHILS # (AUTO) 0.2 10^3/uL (0.0-0.3); EOSINOPHILS % (AUTO) 2 % (0-10); HEMATOCRIT 42 % (40-54); HEMOGLOBIN 14.1 G/DL (13.3-17.7); LYMPHOCYTES # (AUTO) 2.3 X 10^3 (1.0-4.0); LYMPHOCYTES % (AUTO) 27 % (12-44); MEAN CORPUSCULAR HEMOGLOBIN 30 PG (25-34); MEAN CORPUSCULAR HGB CONC 34 G/DL (32-36); MEAN CORPUSCULAR VOLUME 89 FL (80-99); MEAN PLATELET VOLUME 10.6 FL (7.4-10.4); MONOCYTES # (AUTO) 0.7 X 10^3 (0.0-1.0); MONOCYTES % (AUTO) 9 % (0-12); NEUTROPHILS # (AUTO) 5.2 X 10^3 (1.8-7.8); NEUTROPHILS % (AUTO) 62 % (42-75); PLATELET COUNT 253 10^3/uL (130-400); RED CELL DISTRIBUTION WIDTH 13.5 % (10.0-14.5); WHITE BLOOD COUNT 8.4 10^3/uL (4.3-11.0)
[2019-03-13 15:45] LABS: ALBUMIN 3.1 GM/DL (3.2-4.5); BILIRUBIN,TOTAL 0.5 MG/DL (0.1-1.0); CALCIUM 8.3 MG/DL (8.5-10.1); CREATININE SERUM 1.36 MG/DL (0.60-1.30); POTASSIUM 4.4 MMOL/L (3.6-5.0); TOTAL PROTEIN 5.9 GM/DL (6.4-8.2)
[~2019-04-24 14:12] MED LIST changes: -BARIUM SUSPENSION 2.1% (VANILLA SILQ) 450 ML PO ONE; -CATHETER FLUSH 10 ML SYR IV PRN; -HOLD METFORMIN - RECEIVED CONTRAST 20 ML VIAL IV SCH; -IOHEXOL 350 MG/ML 100 ML (OMNIPAQUE 350) VIAL IV ONE
== END 2019-04-30 | disposition home or self-care (01) ==
LOC: ONC 14:12
PROVIDERS: ATTEND Internal Medicine Hematology & Oncology
DX: C15.5 Malignant neoplasm of lower third of esophagus (principal); J90 Pleural effusion, not elsewhere classified; R91.1 Solitary pulmonary nodule; E11.319 Type 2 diabetes mellitus with unspecified diabetic retinopathy without macular edema; I10 Essential (primary) hypertension; Z87.891 Personal history of nicotine dependence; Z79.4 Long term (current) use of insulin; Z79.899 Other long term (current) drug therapy; Z45.2 Encounter for adjustment and management of vascular access device
CPT/HCPCS: 36591; 80053; 82378; 85025; 96523

== ENCOUNTER 2019-08-30 15:17 | Outpatient (RCR) | payer MEDICARE ==
[2019-06-05 13:08] LABS: BASOPHILS % (AUTO) 0 % (0-10); EOSINOPHILS # (AUTO) 0.2 10^3/uL (0.0-0.3); EOSINOPHILS % (AUTO) 3 % (0-10); HEMATOCRIT 39 % (40-54); HEMOGLOBIN 13.1 G/DL (13.3-17.7); LYMPHOCYTES # (AUTO) 2.2 X 10^3 (1.0-4.0); LYMPHOCYTES % (AUTO) 27 % (12-44); MEAN CORPUSCULAR HEMOGLOBIN 30 PG (25-34); MEAN CORPUSCULAR HGB CONC 33 G/DL (32-36); MEAN CORPUSCULAR VOLUME 91 FL (80-99); MEAN PLATELET VOLUME 10.3 FL (7.4-10.4); MONOCYTES % (AUTO) 13 % (0-12); NEUTROPHILS # (AUTO) 4.6 X 10^3 (1.8-7.8); NEUTROPHILS % (AUTO) 57 % (42-75); PLATELET COUNT 261 10^3/uL (130-400); RED CELL DISTRIBUTION WIDTH 14.2 % (10.0-14.5)
[2019-06-05 13:35] LABS: ALBUMIN 3.3 GM/DL (3.2-4.5); CALCIUM 8.3 MG/DL (8.5-10.1); CREATININE SERUM 1.32 MG/DL (0.60-1.30); POTASSIUM 3.9 MMOL/L (3.6-5.0); TOTAL PROTEIN 6.2 GM/DL (6.4-8.2)
== END 2019-09-03 | disposition home or self-care (01) ==
LOC: ONC 15:17
PROVIDERS: ATTEND Internal Medicine Hematology & Oncology
DX: C15.5 Malignant neoplasm of lower third of esophagus (principal); J90 Pleural effusion, not elsewhere classified; R91.1 Solitary pulmonary nodule; E11.319 Type 2 diabetes mellitus with unspecified diabetic retinopathy without macular edema; I10 Essential (primary) hypertension; Z87.891 Personal history of nicotine dependence; Z79.4 Long term (current) use of insulin; Z79.899 Other long term (current) drug therapy; Z45.2 Encounter for adjustment and management of vascular access device
CPT/HCPCS: 36591; 80053; 82378; 85025; 96523

== ENCOUNTER 2019-11-20 15:39 | Outpatient (RCR) | payer MEDICARE ==
[2019-11-20 15:35] LABS: BASOPHILS % (AUTO) 0 % (0-10); EOSINOPHILS # (AUTO) 0.2 10^3/uL (0.0-0.3); EOSINOPHILS % (AUTO) 2 % (0-10); HEMATOCRIT 45 % (40-54); HEMOGLOBIN 14.9 G/DL (13.3-17.7); LYMPHOCYTES # (AUTO) 2.4 X 10^3 (1.0-4.0); LYMPHOCYTES % (AUTO) 28 % (12-44); MEAN CORPUSCULAR HEMOGLOBIN 30 PG (25-34); MEAN CORPUSCULAR HGB CONC 33 G/DL (32-36); MEAN CORPUSCULAR VOLUME 89 FL (80-99); MEAN PLATELET VOLUME 10.7 FL (7.4-10.4); MONOCYTES # (AUTO) 0.9 X 10^3 (0.0-1.0); MONOCYTES % (AUTO) 10 % (0-12); NEUTROPHILS # (AUTO) 5.1 X 10^3 (1.8-7.8); NEUTROPHILS % (AUTO) 59 % (42-75); PLATELET COUNT 259 10^3/uL (130-400); RED CELL DISTRIBUTION WIDTH 14.2 % (10.0-14.5); WHITE BLOOD COUNT 8.6 10^3/uL (4.3-11.0)
[2019-11-20 15:56] LABS: ALBUMIN 3.1 GM/DL (3.2-4.5); BILIRUBIN,TOTAL 0.6 MG/DL (0.1-1.0); CALCIUM 8.2 MG/DL (8.5-10.1); CREATININE SERUM 1.46 MG/DL (0.60-1.30); TOTAL PROTEIN 6.2 GM/DL (6.4-8.2)
[2020-01-08 13:57] LABS: BASOPHILS % (AUTO) 0 % (0-10); EOSINOPHILS # (AUTO) 0.8 10^3/uL (0.0-0.3); EOSINOPHILS % (AUTO) 8 % (0-10); HEMATOCRIT 45 % (40-54); LYMPHOCYTES # (AUTO) 2.2 X 10^3 (1.0-4.0); LYMPHOCYTES % (AUTO) 25 % (12-44); MEAN CORPUSCULAR HEMOGLOBIN 30 PG (25-34); MEAN CORPUSCULAR HGB CONC 34 G/DL (32-36); MEAN CORPUSCULAR VOLUME 90 FL (80-99); MEAN PLATELET VOLUME 9.9 FL (7.4-10.4); MONOCYTES # (AUTO) 0.7 X 10^3 (0.0-1.0); MONOCYTES % (AUTO) 8 % (0-12); NEUTROPHILS # (AUTO) 5.3 X 10^3 (1.8-7.8); NEUTROPHILS % (AUTO) 59 % (42-75); PLATELET COUNT 351 10^3/uL (130-400); RED CELL DISTRIBUTION WIDTH 13.5 % (10.0-14.5)
[2020-01-08 14:20] LABS: ALBUMIN 2.6 GM/DL (3.2-4.5); BILIRUBIN,TOTAL 0.5 MG/DL (0.1-1.0); CREATININE SERUM 1.22 MG/DL (0.60-1.30); POTASSIUM 4.1 MMOL/L (3.6-5.0); TOTAL PROTEIN 5.6 GM/DL (6.4-8.2)
== END 2020-01-07 | disposition home or self-care (01) ==
LOC: ONC 15:39
PROVIDERS: ATTEND Internal Medicine Hematology & Oncology
DX: Z45.2 Encounter for adjustment and management of vascular access device (principal); C15.5 Malignant neoplasm of lower third of esophagus; R91.1 Solitary pulmonary nodule; E11.319 Type 2 diabetes mellitus with unspecified diabetic retinopathy without macular edema; I10 Essential (primary) hypertension; Z87.891 Personal history of nicotine dependence; Z79.4 Long term (current) use of insulin; Z79.899 Other long term (current) drug therapy; J90 Pleural effusion, not elsewhere classified
CPT/HCPCS: 36591; 80053; 85025; 96523; 99213

== ENCOUNTER → 2020-01-15 | Outpatient (CLI) | payer MEDICARE ==
[~2020-01-15] MED LIST changes: +CATHETER FLUSH 10 ML SYR IV PRN; +HOLD METFORMIN - RECEIVED CONTRAST 20 ML VIAL IV SCH; +IOHEXOL 350 MG/ML 100 ML (OMNIPAQUE 350) VIAL IV ONE; +NS 100 ML (IVPB) BAG IV ONE
--- NOTE | 2020-01-15 12:20 | Diagnostic Imaging Report ---
PROCEDURE: CT head with and without contrast. TECHNIQUE: Multiple contiguous axial images were obtained through the brain before and after the administration of intravenous contrast. Auto Exposure Controls were utilized during the CT exam to meet ALARA standards for radiation dose reduction. DATE: January 15, 2020. COMPARISON: CT head and cervical spine May 05, 2018. INDICATION: 84-year-old male, dizziness. History of esophageal cancer. FINDINGS: MRI brain without and with intravenous contrast is more sensitive for detection of metastatic disease to brain and should be considered if there are no contraindications to MRI. The ventricles and cerebral spinal fluid spaces are of normal size and configuration for the patient's age. There is no mass effect or midline shift. There is no acute intracranial hemorrhage. There is no abnormal extra-axial fluid collection. There is no identified abnormal intracranial enhancement. There is partial opacification in the left maxillary sinus. IMPRESSION: 1. No identified acute intracranial abnormality. 2. MRI brain without and with intravenous contrast would be more sensitive for detection of brain metastasis if there are no contraindications to MRI. Dictated by: Dictated on workstation # [id number]
--- NOTE | 2020-01-15 12:20 | Diagnostic Imaging Report ---
PROCEDURE: CT chest with contrast, CT abdomen with and without contrast. TECHNIQUE: Precontrast acquisitions were acquired through the abdomen. Multiple contiguous axial images were obtained through the chest and abdomen after administration of intravenous contrast. Auto Exposure Controls were utilized during the CT exam to meet ALARA standards for radiation dose reduction. INDICATION: Primary cancer of the esophagus. COMPARISON: December 23, 2018. FINDINGS: Right-sided Port-A-Cath is again identified. No significant adenopathy within the chest. Scattered vascular calcifications without aneurysmal dilatation of the thoracic aorta. The heart is within normal limits in size. No significant pericardial effusion. No left pleural effusion. Moderate-sized right-sided pleural effusion is present, increased in size since the prior examination. This is associated with mild adjacent atelectasis. Mild background emphysematous changes are again noted, particularly paraseptal in nature. Mild scarring and/or atelectasis within the right lung base. The lungs are otherwise clear. No pneumothorax. Chronic ununited left mid clavicular shaft fracture. Chronic left-sided rib fractures. Scattered osseous degenerative changes without acute osseous abnormality within the chest. The liver is unremarkable. Cholecystectomy. The spleen is unremarkable. The adrenal glands are unremarkable. The pancreas is unremarkable. Scarring within the left mid kidney. The kidneys are otherwise unremarkable. Advanced vascular calcifications within the abdominal aorta and its branch vessels without aneurysmal dilatation of the abdominal aorta. The appendix is unremarkable. No evidence of bowel obstruction within the [id number]. Moderate amount of stool throughout the visualized colon. No pneumatosis. Tiny fat-containing umbilical hernia. No significant adenopathy, free air, or free fluid within the abdomen. Scattered osseous degenerative changes without acute osseous abnormality. IMPRESSION: 1. Moderate-sized dependently layering right-sided pleural effusion with adjacent minimal atelectasis. The pleural effusion has significantly increased since exam one year prior. 2. Background chronic obstructive pulmonary disease. 3. Moderate amount of stool throughout the colon, which can be seen with constipation. 4. Additional stable findings as described above without new suspicious mass lesion or adenopathy. Dictated by: Dictated on workstation # [id number]
--- NOTE | 2020-01-15 14:20 | Diagnostic Imaging Report ---
INDICATION: Carcinoma of the esophagus This patient received 26.2 mCi technetium 99 MDP 3 hours after injection. Whole-body planar imaging performed FINDINGS: There were no findings felt suggestive of bone scan evidence for a pattern of bony metastasis. Left paramedian mandibular uptake is likely on an odontogenic bases. Faint uptake in the distal left lower rib is most likely posttraumatic. No suspicious distribution of the radiopharmacy. IMPRESSION: No suspicious sonographic findings. Dictated by: Dictated on workstation # [id number]
== END ==
LOC: CARD 11:11
PROVIDERS: ATTEND Nurse Practitioner Adult Health
DX: C15.5 Malignant neoplasm of lower third of esophagus (principal); R42 Dizziness and giddiness; J90 Pleural effusion, not elsewhere classified; J44.9 Chronic obstructive pulmonary disease, unspecified
CPT/HCPCS: 70470; 71260; 74170; 78306

== ENCOUNTER 2020-01-17 14:54 | Outpatient (RCR) | payer MEDICARE ==
[2020-01-08 13:57] LABS: BASOPHILS % (AUTO) 0 % (0-10); EOSINOPHILS # (AUTO) 0.8 10^3/uL (0.0-0.3); EOSINOPHILS % (AUTO) 8 % (0-10); HEMATOCRIT 45 % (40-54); LYMPHOCYTES # (AUTO) 2.2 X 10^3 (1.0-4.0); LYMPHOCYTES % (AUTO) 25 % (12-44); MEAN CORPUSCULAR HEMOGLOBIN 30 PG (25-34); MEAN CORPUSCULAR HGB CONC 34 G/DL (32-36); MEAN CORPUSCULAR VOLUME 90 FL (80-99); MEAN PLATELET VOLUME 9.9 FL (7.4-10.4); MONOCYTES # (AUTO) 0.7 X 10^3 (0.0-1.0); MONOCYTES % (AUTO) 8 % (0-12); NEUTROPHILS # (AUTO) 5.3 X 10^3 (1.8-7.8); NEUTROPHILS % (AUTO) 59 % (42-75); PLATELET COUNT 351 10^3/uL (130-400); RED CELL DISTRIBUTION WIDTH 13.5 % (10.0-14.5)
[2020-01-08 14:20] LABS: ALBUMIN 2.6 GM/DL (3.2-4.5); BILIRUBIN,TOTAL 0.5 MG/DL (0.1-1.0); CREATININE SERUM 1.22 MG/DL (0.60-1.30); POTASSIUM 4.1 MMOL/L (3.6-5.0); TOTAL PROTEIN 5.6 GM/DL (6.4-8.2)
[~2020-01-17 14:54] MED LIST changes: -CATHETER FLUSH 10 ML SYR IV PRN; -HOLD METFORMIN - RECEIVED CONTRAST 20 ML VIAL IV SCH; -IOHEXOL 350 MG/ML 100 ML (OMNIPAQUE 350) VIAL IV ONE; -NS 100 ML (IVPB) BAG IV ONE
[2020-01-22] MEDS ORDERED: AMLO10TA7 PO (15:41)
[2020-01-22] MEDS ORDERED: LOSA25TA41 PO (15:41)
[2020-01-22] MEDS ORDERED: ATOR10TA66 PO (15:41)
[2020-01-22] MEDS ORDERED: RIVA20TA PO (15:41)
[2020-01-22] MEDS ORDERED: BETA15OI3 TOP (15:41)
[2020-01-22] MEDS ORDERED: INSU100I14 SC (15:41)
[2020-01-22] MEDS ORDERED: INSU100I29 SQ (15:42)
[2020-01-27] MEDS ORDERED: CEFU500T63 PO (10:03)
[2020-01-27] MEDS ORDERED: METO-351 PO (10:03)
[2020-01-31] MEDS ORDERED: POTA10TA6 PO (08:47)
[2020-01-31] MEDS ORDERED: FURO-125 PO (08:47)
[2020-01-31] MEDS ORDERED: MTP25TSR PO (08:47)
[2020-01-31] MEDS ORDERED: FAMO20TA5 PO (08:47)
[2020-01-31] MEDS ORDERED: ONDA4TAB11 PO (08:47)
== END 2020-04-07 | disposition home or self-care (01) ==
LOC: ONC 14:54
PROVIDERS: ATTEND Internal Medicine Hematology & Oncology
DX: C15.5 Malignant neoplasm of lower third of esophagus (principal); R91.1 Solitary pulmonary nodule; E11.319 Type 2 diabetes mellitus with unspecified diabetic retinopathy without macular edema; I10 Essential (primary) hypertension; Z87.891 Personal history of nicotine dependence; Z79.4 Long term (current) use of insulin; Z79.899 Other long term (current) drug therapy; J90 Pleural effusion, not elsewhere classified
CPT/HCPCS: 36591; 80053; 85025; 99213

== ENCOUNTER 2020-01-22 14:10 | Inpatient (IN) | payer MEDICARE ==
[~2020-01-22] VITALS: Ht 185.4 cm; Wt 99.2 kg
--- NOTE | 2020-01-22 14:32 | History & Physical ---
History of Present Illness History of Present Illness Reason for visit/HPI PT IS AN 84 Y/O MALE WHO IS A NEW PATIENT IN MY PRACTICE. HE HAS HISTORY OF ESOPHAGEAL CARCINOMA, HAS BEEN TREATED BY DR. JOHNSON. THE PATIENT PRESENTED TO CLINIC TODAY WITH SIGNIFICANT SHORTNESS OF BREATH - HE HAD A CT SCAN WHICH SHOWED PLEURAL EFFUSION - MODERATE PER RADIOLOGY REPORT ON 01/15/2020. THE PT REPORTS PROGRESSIVE SHORTNESS OF BREATH. ON EVAL IN THE OFFICE, NOTE WAS MADE OF SEVERE BRADYCARDIA WELL DOWN IN THE 30'S. PT WAS ADMITTED FOR SHORTNESS OF BREATH DUE TO PLEURAL EFFUSION, BRADYCARDIA. Date of Admission 01/22/2020 Date Seen by a Provider: January 22, 2020 Time Seen by a Provider: 13:00 Attending Physician Lillian Santacruz MD Admitting Physician Lillian Santacruz MD Consult DR. CRAWLEY RADIOLOGY Allergies and Home Medications Allergies Coded Allergies: latex (Verified Allergy, Unknown, 10/19/18) oxycodone (Verified Allergy, Unknown, 10/19/18) Home Medications Amlodipine Besylate 10 Mg Tablet, 10 MG PO DAILY, (Reported) Betamethasone Dipropionate 15 Gm Oint...g., 1 APPLIC TOP TID PRN for ITCHING, (Reported) Insulin Aspart 300 Units/3 Ml Solution, 5 UNITS SC TIDAC, (Reported) Insulin Detemir 100 Unit/1 Ml Insuln.pen, 15 UNIT SQ HS, (Reported) Losartan Potassium 25 Mg Tablet, 25 MG PO DAILY, (Reported) Rivaroxaban 20 Mg Tablet, 20 MG PO DAILY W/ DINNER, (Reported) TAKES IN THE EVENING WITH A MEAL Patient Home Medication List Home Medication List Reviewed: Yes Past Uampgyx-Bjgtuv-Vyslls Hx Past Med/Social Hx: Reviewed Nursing Past Med/Soc Hx, Reviewed and Corrections made Patient Social History Marrital Status: Living Status: LIVES AT HOME WITH SPOUSE Employed/Student: retired (WORKED IN [employer]) Alcohol Use: Occasionally Uses Recreational Drug Use: No Smoking Status: Former Smoker Former Smoker, Quit: Sep 07, 1984 Type Used: Cigarettes 2nd Hand Smoke Exposure: No Physical Abuse Screen: No Sexual Abuse: No Recent Foreign Travel: No Contact w/other who traveled: No Recent Hopitalizations: No Recent Infectious Disease Expo: No Immunizations Up To Date Tetanus Booster (TDap): Unknown Date of Pneumonia Vaccine: Nov 01, 2014 Date of Influenza Vaccine: Jul 14, 2017 Seasonal Allergies Seasonal Allergies: No Past Medical History port Currently Using CPAP: No Currently Using BIPAP: No Cardiac: Hypertension, Peripheral Vascular Reproductive: No Sexually Transmitted Disease: No HIV/AIDS: No Genitourinary: Kidney Stones Gastrointestinal: Gastroesophageal Reflux Musculoskeletal: Arthritis Endocrine: Diabetes, Insulin dep HEENT: Cataract Hearing Impairment: Hard of Hearing, Bilateral Hearing Aide Cancer: Esophageal Did You Recieve Any Treatments: Yes What Type of Treatment Did You: Chemotherapy, Radiation History of Blood Disorders: No Adverse Reaction to Blood Ace: No Family History Reviewed Nursing Family Hx BONE CAN 19 FATHER Completed stroke 19 MOTHER G8 SISTER Dementia 19 MOTHER FH: lung cancer FH: malignant neoplasm of bone Myocardial infarction G8 BROTHER Heart Disease, Cancer, CAD Over 55 Years Old, Stroke Review of Systems Constitutional: No chills, No fever; malaise, weakness EENTM: hearing loss; No hoarseness, No throat pain Respiratory: cough, dyspnea on exertion, short of breath; No wheezing Cardiovascular: No chest pain, No edema, No palpitations, No syncope Gastrointestinal: No abdominal pain, No constipation, No diarrhea, No nausea, No vomiting Genitourinary: no symptoms reported Musculoskeletal: muscle weakness Skin: no symptoms reported Psychiatric/Neurological: Denies Anxiety, Denies Depressed; Weakness All Other Systems Reviewed Negative Unless Noted: Yes Physical Exam Vital Signs Vital Signs - First Documented 01/22/20 01/22/20 15:00 16:00 Temp 36.8 Pulse 39 Resp 20 B/P (MAP) 132/59 (83) Pulse Ox 99 O2 Delivery Nasal Cannula O2 Flow Rate 2.00 Capillary Refill : Height, Weight, BMI Height: 6'2.00" Weight: 240lbs. 0.0oz. [id number]; 30.8 BMI Method:Stated General Appearance: WD/WN, Moderate Distress (ON AMBULATION PT VERY SHORT OF BREATH) HEENT: PERRL/EOMI, Normal ENT Inspection, Pharynx Normal Neck: Full Range of Motion, Non Tender, Supple Respiratory: Chest Non Tender, Decreased Breath Sounds (NO BREATH SOUNDS ON RIGHT, NORMAL ON LEFT); No Wheezing Cardiovascular: Bradycardia Gastrointestinal: Normal Bowel Sounds, No Pulsatile Mass, Non Tender, Soft Rectal: Deferred Back: Normal Inspection, No Vertebral Tenderness Extremity: Normal Capillary Refill, Normal Range of Motion, Non Tender, No Calf Tenderness, No Pedal Edema Neurologic/Psychiatric: Alert, Oriented x3, No Motor/Sensory Deficits, Normal Mood/Affect, client care consultant II-XII Norm as Tested Skin: Normal Color, Warm/Dry Lymphatic: No Adenopathy Assessment/Plan Assessment and Plan MODERATE TO LARGE RIGHT PLEURAL EFFUSION BRADYCARDIA ATRIAL FIBRILLATION HX OF ESOPHAGEAL CARCINOMA HYPERTENSION DIABETES MELLITUS MODERATE TO LARGE RIGHT PLEURAL EFFUSION WITH HX OF ESOPHAGEAL CARCINOMA - DISCUSSED WITH PATIENT AND HIS - WE WILL CONSULT DR. DALEY IN RADIOLOGY FOR THORACENTESIS AND WILL SEND FLUID FOR CHEMISTRIES WELL MICRO FOR BACTERIA, FUNGAL ORGANISMS AND ALSO FOR CYTOLOGICAL EVALUATION. - OXYGEN VIA NASAL CANNULA BRADYCARDIA NEW ONSET WITH CHRONIC ATRIAL FIBRILLATION AND HYPERTENSION - CONSULT TO DR. CRAWLEY - MEDICATIONS WILL NEED ADJUSTED WELL MAY NEED PACEMAKER PLACEMENT. DIABETES MELLITUS - RESTARTED LEVEMIR - INCREASE NEEDED AND STARTED SLIDING SCALE B ADVANCED AGE - PT REPORTED IN THE OFFICE THAT HE WANTS TO BE FULL CODE STATUS. DVT PROPHYLAXIS WITH LOVENOX AND SCD'S GI PROPHYLAXIS WITH PEPCID Admission Diagnosis MODERATE TO LARGE RIGHT PLEURAL EFFUSION BRADYCARDIA ATRIAL FIBRILLATION HX OF ESOPHAGEAL CARCINOMA HYPERTENSION DIABETES MELLITUS Admission Status: Inpatient Order (span 2 midnights) Reason for Inpatient Admission: INPATIENT ADMISSION FOR PLEURAL EFFUSION AND BRADYCARDIA - WILL NEED AT LEAST 72+ HOURS IN HOSPITAL FOR STABILIZATION AND FURTHER PROCEDURES Clinical Quality Measures DVT/VTE Risk/Contraindication: Contraindications-Pharm: Other *list below* Other: planning on procedure on 01/23/2020 - holding lovenox until after procedure is done scd's have been ordered LILLIAN SANTACRUZ MD January 22, 2020 14:32
[2020-01-22 15:00] VITALS: BP 132/59
--- NOTE | 2020-01-22 15:28 | NUR ---
PATIENT ADMITTED TO ICU 9 CSD STATUS. PATIENT ORIENTED TO ROOM. CHEST PORT ACCESSED BY RICHARDSON RN WITH GOOD BLOOD RETURN. PATIENT PERSONAL BELONGINGS SET ASIDE, ON COUNTER. NO QUESTIONS AT THIS TIME FROM PATIENT. ASSESSMENTS COMPLETED. PATIENT CALL LIGHT IN REACH.
[2020-01-22 15:31] LABS: BASOPHILS % (AUTO) 0 % (0-10); EOSINOPHILS # (AUTO) 0.3 10^3/uL (0.0-0.3); EOSINOPHILS % (AUTO) 3 % (0-10); HEMATOCRIT 42 % (40-54); HEMOGLOBIN 14.4 G/DL (13.3-17.7); LYMPHOCYTES # (AUTO) 1.5 X 10^3 (1.0-4.0); LYMPHOCYTES % (AUTO) 16 % (12-44); MEAN CORPUSCULAR HEMOGLOBIN 31 PG (25-34); MEAN CORPUSCULAR HGB CONC 35 G/DL (32-36); MEAN CORPUSCULAR VOLUME 89 FL (80-99); MEAN PLATELET VOLUME 10.2 FL (7.4-10.4); MONOCYTES % (AUTO) 10 % (0-12); NEUTROPHILS # (AUTO) 6.6 X 10^3 (1.8-7.8); NEUTROPHILS % (AUTO) 71 % (42-75); PLATELET COUNT 265 10^3/uL (130-400); RED CELL DISTRIBUTION WIDTH 14.2 % (10.0-14.5); WHITE BLOOD COUNT 9.4 10^3/uL (4.3-11.0)
[2020-01-22 15:38] LABS: ALBUMIN 2.8 GM/DL (3.2-4.5); POTASSIUM 4.2 MMOL/L (3.6-5.0)
[2020-01-22 15:39] LABS: CALCIUM 8.1 MG/DL (8.5-10.1)
[2020-01-22 15:40] LABS: TOTAL PROTEIN 5.6 GM/DL (6.4-8.2)
[2020-01-22 15:41] LABS: INR 2.5 (0.8-1.4); PROTHROMBIN TIME PATIENT 27.9 SEC (12.2-14.7)
[2020-01-22] MEDS ORDERED: RIVA20TA PO (15:41)
[2020-01-22] MEDS ORDERED: BETA15OI3 TOP (15:41)
[2020-01-22] MEDS ORDERED: INSU100I14 SC (15:41)
[2020-01-22] MEDS ORDERED: LOSA25TA41 PO (15:41)
[2020-01-22] MEDS ORDERED: AMLO10TA7 PO (15:41)
[2020-01-22] MEDS ORDERED: ATOR10TA66 PO (15:41)
[2020-01-22 15:42] LABS: BILIRUBIN,TOTAL 0.5 MG/DL (0.1-1.0)
[2020-01-22] MEDS ORDERED: INSU100I29 SQ (15:42)
--- NOTE | 2020-01-22 15:43 | NUR ---
SPOKE WITH THE PT- HE RECOMMENDED THAT I CALL HIS DAVIS TO GET A MED LIST HE WAS NOT SURE WHAT HE TAKES. I SPOKE WITH DAVIS AND WENT THRU THE EXT MED HISTORY TO COMPLETE THE MED REC METOPROLOL HAS BEEN DISCONTINUED AND SWITCHED TO LOSARTAN 25MG ALL OTHER MEDICATIONS ARE LISTED ON THE EXT MED HISTORY OTC MEDS: NONE
[2020-01-22 15:44] LABS: CREATININE SERUM 1.37 MG/DL (0.60-1.30)
--- NOTE | 2020-01-22 15:46 | NUR ---
responded to referral related to Advance Directives. He has no yarsanism preference. When asked who he would want making decisions for him if he could not make them he responded, "Dr Santacruz". We talked a little more about the role of his and his own desired related to healthcare. educated pt on 2 forms of Advance Directives, DPOA and Living Will. He is not ready right now to appoint a DPOA. Materials were left with him for his review. Prayer and blessing were provided and pt expressed appreciation.
--- NOTE | 2020-01-22 15:49 | Consultation-Cardiology ---
HPI-Cardiology Cardiology Consultation Date of Consultation 01/22/20 Date of Admission Time Seen by Provider: 17:00 Indication: Bradycardia HPI 84 years old male with history of atrial fibrillation, peripheral vascular disease and stage IIIa GE cancer, admitted directly from Dr Santacruz office for increasing fatigue and dyspnea, loss of energy, bradycardia and pleural effusion. he is in bed, complaining of fatigue, no chest pain, no syncope, noted to have HR as low as 30, his blood pressure is stable Home Medications & Allergies Allergies: Coded Allergies: latex (Verified Allergy, Unknown, 10/19/18) oxycodone (Verified Allergy, Unknown, 10/19/18) Home Medication List Reviewed: Yes FLG-Divlcp-Ldxarj Hx Patient Social History Employed/Student: retired Alcohol Use: Denies Use Recreational Drug Use: No Smoking Status: Former Smoker Type Used: Cigarettes 2nd Hand Smoke Exposure: No Recent Foreign Travel: No Recent Infectious Disease Expo: No Recent Hopitalizations: No Physical Abuse Screen: No Sexual Abuse: No Immunizations Up To Date Tetanus Booster (TDap): Unknown Date of Pneumonia Vaccine: Nov 01, 2014 Date of Influenza Vaccine: Jul 14, 2017 Past Medical History Discussed below Family Medical History Family History: BONE CAN 19 FATHER Completed stroke 19 MOTHER G8 SISTER Dementia 19 MOTHER FH: lung cancer FH: malignant neoplasm of bone Myocardial infarction G8 BROTHER Review of Systems-General Review of Systems Constitutional: see HPI, dizziness, malaise, weakness EENTM: see HPI, no symptoms reported Respiratory: see HPI, dyspnea on exertion, phlegm, short of breath Cardiovascular: see HPI; No chest pain; edema; No Hx of Intervention, No palpitations, No syncope, No vascular heart diseas, No other Gastrointestinal: no symptoms reported, see HPI Genitourinary: no symptoms reported, see HPI Musculoskeletal: no symptoms reported, see HPI Skin: no symptoms reported, see HPI Psychiatric/Neurological: No Symptoms Reported, See HPI Reviewed Test Results Reviewed Test Results Lab Laboratory Tests Test 01/22/20 15:20 01/22/20 15:33 Range/Units White Blood Count 9.4 4.3-11.0 10^3/uL Red Blood Count 4.70 4.35-5.85 10^6/uL Hemoglobin 14.4 13.3-17.7 G/DL Hematocrit 42 40-54 % Mean Corpuscular Volume 89 80-99 FL Mean Corpuscular Hemoglobin 31 25-34 PG Mean Corpuscular Hemoglobin Concent 35 32-36 G/DL Red Cell Distribution Width 14.2 10.0-14.5 % Platelet Count 265 130-400 10^3/uL Mean Platelet Volume 10.2 7.4-10.4 FL Neutrophils (%) (Auto) 71 42-75 % Lymphocytes (%) (Auto) 16 12-44 % Monocytes (%) (Auto) 10 0-12 % Eosinophils (%) (Auto) 3 0-10 % Basophils (%) (Auto) 0 0-10 % Neutrophils # (Auto) 6.6 1.8-7.8 X 10^3 Lymphocytes # (Auto) 1.5 1.0-4.0 X 10^3 Monocytes # (Auto) 1.0 0.0-1.0 X 10^3 Eosinophils # (Auto) 0.3 0.0-0.3 10^3/uL Basophils # (Auto) 0.0 0.0-0.1 10^3/uL Prothrombin Time 27.9 H 12.2-14.7 SEC INR Comment 2.5 H 0.8-1.4 Sodium Level 140 135-145 MMOL/L Potassium Level 4.2 3.6-5.0 MMOL/L Chloride Level 113 H 98-107 MMOL/L Carbon Dioxide Level 18 L 21-32 MMOL/L Anion Gap 9 5-14 MMOL/L Blood Urea Nitrogen 24 H 7-18 MG/DL Creatinine 1.37 H 0.60-1.30 MG/DL Estimat Glomerular Filtration Rate 50 BUN/Creatinine Ratio 18 Glucose Level 182 H 70-105 MG/DL Calcium Level 8.1 L 8.5-10.1 MG/DL Corrected Calcium 9.1 8.5-10.1 MG/DL Total Bilirubin 0.5 0.1-1.0 MG/DL Aspartate Amino Transf (AST/SGOT) 23 5-34 U/L Alanine Aminotransferase (ALT/SGPT) 19 0-55 U/L Alkaline Phosphatase 145 H 40-136 U/L Total Protein 5.6 L 6.4-8.2 GM/DL Albumin 2.8 L 3.2-4.5 GM/DL Glucometer 187 H 70-110 MG/DL Physical Exam Physical Exam Vital Signs Vital Signs - First Documented 01/22/20 01/22/20 15:00 16:00 Temp 36.8 Pulse 39 Resp 20 B/P (MAP) 132/59 (83) Pulse Ox 99 O2 Delivery Nasal Cannula O2 Flow Rate 2.00 Capillary Refill : Height, Weight, BMI Height: 6'2.00" Weight: 240lbs. 0.0oz. 108.115435fm; 28.80 BMI Method:Stated General Appearance: No Apparent Distress, WD/WN Eyes: Bilateral Eye Normal Inspection, Bilateral Eye PERRL, Bilateral Eye EOMI HEENT: PERRL/EOMI, TMs Normal, Normal ENT Inspection, Pharynx Normal, Moist Mucous Membranes Neck: Full Range of Motion, Normal Inspection, Non Tender, Supple, Carotid Bruit Respiratory: Chest Non Tender, Normal Breath Sounds, No Accessory Muscle Use, Crackles, Decreased Breath Sounds Cardiovascular: Normal Peripheral Pulses, Bradycardia, Systolic Murmur, Irregularly Irregular Gastrointestinal: Normal Bowel Sounds, No Organomegaly, No Pulsatile Mass, Non Tender, Soft Back: Normal Inspection, No CVA Tenderness, No Vertebral Tenderness Extremity: Normal Capillary Refill, Normal Inspection, Normal Range of Motion, Non Tender, No Calf Tenderness, Pedal Edema Neurologic/Psychiatric: Alert, Oriented x3, No Motor/Sensory Deficits, Normal Mood/Affect Skin: Normal Color, Warm/Dry Lymphatic: No Adenopathy A/P-Cardiology Admission Diagnosis Bradycardia Chronic atrial fibrillation Hypertension Peripheral arterial disease Assessment/Plan Bradycardia, asymptomatic, underlying atrial fibrillation, I will stop Norvasc, monitor HR and will consider pacemaker if needed Dyspnea, fatigue, pleural effusion, for possible thoracenthesis History of Peripheral arterial disease, currently asymptomatic, angiogram was done on September 07, 2018 showed total occlusion of the tibial peroneal trunk on the left with successful balloon angioplasty and reestablishing flow through the peroneal artery down to the foot, the posterior tibial artery is receiving collaterals and the anterior tibial artery has severe disease distally also receiving collateral from the peroneal artery. The SFA has severe stenosis at multiple segment underwent deployment of 2 overlapping SUPERA 6 x 150 and 5.5 x 100 with excellent results and excellent flow. Patient was noted to have on the right SFA multiple segment of moderate to moderately severe stenosis and disease below the trifurcation. Repeat FROY showed normal FROY on the right abnormal TBI. On the left FROY was abnormal and TBI was nondiagnostic, angiogram was done on October 20, 2018 and balloon angioplasty to the right SFA with [place] 5 and 6 mm balloon with excellent results, the right popliteal artery is totally occluded at the trifurcation with reconstruction by collateral with slow flow that improved after nitroglycerin injection, the wound has healed, his legs are feeling better, I will repeat FROY Cardiac catheterization done on October 19, 2018 showing multivessel coronary artery disease including calcified artery with moderate to severe stenosis at the mid LAD, moderate to severe stenosis at the distal LAD with severe stenosis at the distal circumflex artery and moderate stenosis at the midright coronary artery with severe stenosis at the distal right coronary artery, normal left ventricular size, he is currently asymptomatic. I will continue monitoring with consideration for high risk intervention on the LAD if needed in the future Paroxysmal atrial fibrillation, asymptomatic, still in atrial fibrillation, EKG was done today showing atrial fibrillation with occasional PVCs and right bundle branch block. Continue on Xarelto and continue to monitor Hypertension, blood pressure is stable. I am holding Norvasc and losartan at this time and monitor blood pressure Hyperlipidemia, continue to monitor lipids Exercise ability is limited using a walker Bilateral carotid stenosis, ultrasound showed mild bilateral disease nonobstructive disease in August 2018. 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 Gonzalez. Diabetes mellitus, labile blood sugar and history of syncope secondary to hypoglycemia. Clinical Quality Measures DVT/VTE Risk/Contraindication: Risk Factor Score Per Nursin RFS Level Per Nursing on Admit: 3=High Contraindications-Pharm: Other *list below* Other: planning on procedure on 01/23/2020 - holding lovenox until after procedure is done scd's have been ordered SAMANTHA CRAWLEY MD January 22, 2020 3:49 pm
[2020-01-22 16:00] VITALS: BP 156/59
--- NOTE | 2020-01-22 16:08 | NUR ---
DR. CRAWLEY TO SEE PATIENT AT THIS TIME. ORDER TO HOLD AMLODIPINE, HOLD XARLETO, HOLD LOSARTIN ET D/C LIPITOR AT THIS TIME. UPDATED PT MED REC SHEET PER PHYSICIAN REQUEST.
[2020-01-22] MEDS: NS IV 1000 ML 1,000 ML IV SCH (17:10)
--- NOTE | 2020-01-22 17:19 | NUR ---
SPOKE WITH DR. LISA AT THIS TIME, NEW MEDICATIONS ORDERS RECEIVED, SEE EMAR.
--- NOTE | 2020-01-22 17:23 | NUR ---
THIS RN NOTIFIED DR. CRAWLEY OF PATIENT HR GETTING TO 30 ET 32. PATIENT IS ASYMPTOMATIC AT THIS TIME. DR STATED TO CONTINUE TO WATCH PATIENT, NO NEW ORDERS RECEIVED.
[2020-01-22] MEDS ORDERED: CATHETER FLUSH 10 ML SYR IV PRN (17:30)
--- OUTSIDE RECORDS SUMMARY | 2020-01-22 18:49 | XMS REPORT | Continuity of Care Document ---
Author Organization Unknown Address Unknown Phone Unavailable Allergies Active Description Code Type Severity Reaction Onset Reported/Identified Relationship to Patient Clinical Status Yes NKANo Known Allergies NKA Miscellaneous Allergy Unknown N/A 05/05/2018 Yes latex [id number] Drug Allergy Unknown N/A 10/19/2018 Yes oxycodone [id number] Drug Allergy Unknown N/A 10/19/2018 Medications There is no data. 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 9 TYPE 2 DIABETES MELLITUS WITHOUT COMPLIC 02/03/2016 KWADWO MORAN, DARYL R Ot J18. 9 PNEUMONIA, UNSPECIFIED ORGANISM 02/03/2016 KWADWO MORAN, DARYL R Ot R91. 8 OTHER NONSPECIFIC ABNORMAL FINDING OF FREYA 02/03/2016 KWADWO MORAN, DARYL Alicea Ot Z79. 4 [facility] (CURRENT) USE OF INSULIN 02/03/2016 KWADWO MORAN, DARYL Alicea Ot Z86.718 PERSONAL HISTORY OF OTHER VENOUS THROMBO 02/03/2016 DARYL BURKETT MD Ot 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 HISTORY OF NICOTINE DEPENDENCE 03/12/2016 RAJNI MARINELLI DO Ot J18. 1 LOBAR PNEUMONIA, UNSPECIFIED ORGANISM 03/12/2016 RAJNI MARINELLI DO M Ot R06. 00 DYSPNEA, UNSPECIFIED 03/17/2016 RAJNI MARINELLI DO M Ot J18. 1 LOBAR PNEUMONIA, UNSPECIFIED ORGANISM 03/17/2016 RAJNI MARINELLI DO Ot R06. 00 DYSPNEA, UNSPECIFIED 03/23/2016 RAJNI MARINELLI DO Ot J18. 1 LOBAR PNEUMONIA, UNSPECIFIED ORGANISM 03/23/2016 RAJNI MARINELLI DO M Ot R06. 00 DYSPNEA, UNSPECIFIED 05/29/2016 ZITA MORAN, JOHN Grier Ot R13.10 DYSPHAGIA, UNSPECIFIED 05/29/2016 ZITA MORAN, JOHN M Ot Z01.818 ENCOUNTER FOR OTHER PREPROCEDURAL EXAMIN 05/29/2016 ZITA MORAN, JOHN Grier Ot R13.10 [...] DYSPHAGIA, UNSPECIFIED 09/22/2016 RAJNI MARINELLI DO Ot J18. 1 LOBAR PNEUMONIA, UNSPECIFIED ORGANISM 09/22/2016 RAJNI MARINELLI DO Ot R06. 00 DYSPNEA, UNSPECIFIED 09/22/2016 ZITA MORAN, JOHN Grier Ot I85.00 ESOPHAGEAL VARICES WITHOUT BLEEDING 09/22/2016 ZITA MORAN, JOHN Grier Ot R13.10 DYSPHAGIA, UNSPECIFIED 09/22/2016 RAUL MORAN, DEISI P Ot 784.99 OTHER SYMPTOMS INVOLVING HEAD AND NECK 09/22/2016 RAUL MORAN, DEISI Shafer Ot 787.20 DYSPHAGIA, UNSPECIFIED 09/22/2016 RAJNI MARINELLI DO Ot J18. 1 LOBAR PNEUMONIA, UNSPECIFIED ORGANISM 09/22/2016 RAJNI MARINELLI DO Ot R06. 00 DYSPNEA, UNSPECIFIED 09/22/2016 ZITA MORAN, JOHN Grier Ot I85.00 ESOPHAGEAL VARICES WITHOUT BLEEDING 09/22/2016 ZITA MORAN, JOHN Grier Ot R13.10 DYSPHAGIA, UNSPECIFIED 09/22/2016 PHILL MORAN, LILLIAN P Ot C15. 9 MALIGNANT NEOPLASM OF ESOPHAGUS, UNSPECI 09/23/2016 PHILL MORAN, LILLIAN P Ot C15. 9 MALIGNANT NEOPLASM OF ESOPHAGUS, UNSPECI 09/23/2016 PHILL MORAN, LILLIAN P Ot R59. 0 LOCALIZED ENLARGED LYMPH NODES 09/23/2016 NIKOLAS MOLINA OCCUPATIONAL THERAPY SUPERVISOR Ot R06.00 DYSPNEA, UNSPECIFIED 09/23/2016 NIKOLAS MOLINA OCCUPATIONAL THERAPY SUPERVISOR Ot R91.1 SOLITARY PULMONARY NODULE 09/25/2016 RAUL MORAN, DEISI Shafer Ot 784.99 OTHER SYMPTOMS INVOLVING HEAD AND NECK 09/25/2016 RAUL MORAN, DEISI Shafer Ot 787.20 DYSPHAGIA, UNSPECIFIED 09/25/2016 RAJNI MARINELLI DO Ot J18. 1 LOBAR PNEUMONIA, UNSPECIFIED ORGANISM 09/25/2016 RAJNI MARINELLI DO Ot R06. 00 DYSPNEA, UNSPECIFIED 09/25/2016 NIKOLAS MOLINA OCCUPATIONAL THERAPY SUPERVISOR Ot R06.00 DYSPNEA, UNSPECIFIED 09/25/2016 NIKOLAS MOLINA OCCUPATIONAL THERAPY SUPERVISOR Ot R91.1 SOLITARY PULMONARY NODULE 09/25/2016 ZITA MORAN, JOHN Grier Ot I85.00 ESOPHAGEAL VARICES WITHOUT BLEEDING 09/25/2016 ZITA MORAN, JOHN Grier Ot R13.10 DYSPHAGIA, UNSPECIFIED 09/25/2016 PHILL MORAN, LILLIAN P Ot C15. 9 MALIGNANT NEOPLASM OF ESOPHAGUS, UNSPECI 09/25/2016 PHILL MORAN, LILLIAN P Ot R59. 0 LOCALIZED ENLARGED LYMPH NODES 09/28/2016 PHILL MORAN, LILLIAN P Ot C15. 9 MALIGNANT NEOPLASM OF ESOPHAGUS, UNSPECI 09/28/2016 PHILL MORAN, LILLIAN P Ot R59. 0 LOCALIZED ENLARGED LYMPH NODES 10/01/2016 ZITA MORAN, JOHN M Ot C16.0 MALIGNANT NEOPLASM OF CARDIA 10/01/2016 ZITA MORAN, JOHN M Ot Z01.818 ENCOUNTER FOR OTHER PREPROCEDURAL EXAMIN 10/01/2016 ALFREDA JOHNSONAN N Ot C16.0 MALIGNANT NEOPLASM OF CARDIA 10/01/2016 ALEX, BOBAN N Ot 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 W10/01/2016 ALEX, BOBAN N Ot I10 ESSENTIAL (PRIMARY) HYPERTENSION 10/01/2016 ALEX, BOBAN N Ot R91.1 SOLITARY PULMONARY NODULE 10/01/2016 ALEX, BOBAN N Ot 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 10/01/2016 ALEX BOBAN N Ot 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 10/01/2016 ALEX BOBAN N Ot 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 HISTORY OF NICOTINE DEPENDENCE 10/01/2016 ALEX BOBAN N Ot C16.0 MALIGNANT NEOPLASM OF CARDIA 10/01/2016 ALEX BOBAN N Ot 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 W10/01/2016 ALEX BOBAN N Ot I10 ESSENTIAL (PRIMARY) HYPERTENSION 10/01/2016 ALEX BOBAN N Ot R91.1 SOLITARY PULMONARY NODULE 10/01/2016 ALEXALFREDAAN N Ot 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 10/01/2016 ALEX BOBAN N Ot 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 10/01/2016 ALEX, BOBAN N Ot 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 HISTORY OF NICOTINE DEPENDENCE 10/02/2016 ZITA MORAN, JOHN M Ot C16.0 MALIGNANT NEOPLASM OF CARDIA 10/02/2016 ZITA MORAN, JOHN M Ot Z01.818 ENCOUNTER FOR OTHER PREPROCEDURAL EXAMIN 10/02/2016 ZITA MORAN, JOHN M Ot C16.0 MALIGNANT NEOPLASM OF CARDIA 10/02/2016 ZITA MORAN, JOHN M Ot E11.9 TYPE 2 DIABETES MELLITUS WITHOUT COMPLIC 10/02/2016 ZITA MORAN, JOHN Grier Ot 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 10/09/2016 NIKOLAS MOLINA OCCUPATIONAL THERAPY SUPERVISOR Ot R06.00 DYSPNEA, UNSPECIFIED 10/09/2016 NIKOLAS MOLINA APRN Ot R91.1 SOLITARY PULMONARY NODULE 10/09/2016 PHILL MORAN, LILLIAN Shafer Ot C15. 9 MALIGNANT NEOPLASM OF ESOPHAGUS, UNSPECI 10/09/2016 LILLIAN POLLOCK MD Ot R59. 0 LOCALIZED ENLARGED LYMPH NODES 10/20/2016 CLEVE JOHNSON Ot C16.0 MALIGNANT NEOPLASM OF CARDIA 10/20/2016 CLEVE JOHNSON Ot 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 W/ 10/20/2016 CLEVE JOHNSON Ot I10 ESSENTIAL (PRIMARY) HYPERTENSION 10/20/2016 CLEVE JOHNSON Ot R91.1 SOLITARY PULMONARY NODULE 10/20/2016 CLEVE JOHNSON Ot Z79.4 [facility] (CURRENT) USE OF INSULIN 10/20/2016 CLEVE JOHNSON Ot Z79.899 OTHER [facility] (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 THERAPY 10/20/2016 CLEVE JOHNSON Ot 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 HISTORY OF NICOTINE DEPENDENCE 11/09/2016 RAUL MORAN, DEISI P Ot 784.99 OTHER SYMPTOMS INVOLVING HEAD AND NECK 11/09/2016 RAUL MORAN, DEISI Shafer Ot 787.20 DYSPHAGIA, UNSPECIFIED 11/09/2016 RAJNI MARINELLI DO Ot J18. 1 LOBAR PNEUMONIA, UNSPECIFIED ORGANISM 11/09/2016 RAJNI MARINELLI DO Ot R06. 00 DYSPNEA, UNSPECIFIED 11/09/2016 NIKOLAS MOLINA APRN Ot R06.00 DYSPNEA, UNSPECIFIED 11/09/2016 NIKOLAS MOLINA APRN Ot R91.1 SOLITARY PULMONARY NODULE 11/09/2016 ZITA MORAN, JOHN Grier Ot I85.00 ESOPHAGEAL VARICES WITHOUT BLEEDING 11/09/2016 ZITA MORAN, JOHN Grier Ot R13.10 DYSPHAGIA, UNSPECIFIED 11/09/2016 LILLIAN POLLOCK MD Ot C15. 9 MALIGNANT NEOPLASM OF ESOPHAGUS, UNSPECI 11/09/2016 LILLIAN POLLOCK MD Ot R59. 0 LOCALIZED ENLARGED LYMPH NODES 11/09/2016 ALEX, BOBAN N Ot C16.0 MALIGNANT NEOPLASM OF CARDIA 11/09/2016 CLEVE JOHNSON N Ot 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 W11/09/2016 ALEX ALFREDAMARY ANN N Ot I10 ESSENTIAL (PRIMARY) HYPERTENSION 11/09/2016 CLEVE JOHNSON N Ot R91.1 SOLITARY PULMONARY NODULE 11/09/2016 ALEX ALFREDAMARY ANN N Ot Z79.4 [facility] (CURRENT) USE OF INSULIN 11/09/2016 ALEX CLEVE N Ot 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 11/09/2016 CLEVE JOHNSON N Ot 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 HISTORY OF NICOTINE DEPENDENCE 11/10/2016 ALEX ALFREDAMARY ANN N Ot C16.0 MALIGNANT NEOPLASM OF CARDIA 11/10/2016 CLEVE JOHNSON N Ot 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 W11/10/2016 ALEX ALFREDAMARY ANN N Ot I10 ESSENTIAL (PRIMARY) HYPERTENSION 11/10/2016 ALEX ALFREDAMARY ANN N Ot R91.1 SOLITARY PULMONARY NODULE 11/10/2016 CLEVE JOHNSON N Ot Z79.4 [facility] (CURRENT) USE OF INSULIN 11/10/2016 CLEVE JOHNSON N Ot Z79.899 OTHER [facility] (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 THERAPY 11/10/2016 ALEX CLEVE N Ot 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 HISTORY OF NICOTINE DEPENDENCE 12/10/2016 CLEVE JOHNSON N Ot C16.0 MALIGNANT NEOPLASM OF CARDIA 12/10/2016 ALEX ALFREDAMARY ANN N Ot 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 W12/10/2016 ALEX CLEVE N Ot I10 ESSENTIAL (PRIMARY) HYPERTENSION 12/10/2016 CLEVE JOHNSON N Ot R91.1 SOLITARY PULMONARY NODULE 12/10/2016 ALEX CLEVE N Ot 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 12/10/2016 ALEX CLEVE N Ot Z79.899 OTHER [facility] (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 THERAPY 12/10/2016 ALEX CLEVE N Ot 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 HISTORY OF NICOTINE DEPENDENCE 12/24/2016 ALEX CLEVE N Ot C16.0 MALIGNANT NEOPLASM OF CARDIA 12/24/2016 ALEX CLEVE N Ot 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 W12/24/2016 CLEVE JOHNSON N Ot I10 ESSENTIAL (PRIMARY) HYPERTENSION 12/24/2016 CLEVE JOHNSON N Ot R91.1 SOLITARY PULMONARY NODULE 12/24/2016 CLEVE JOHNSON N Ot Z51.0 ENCOUNTER FOR ANTINEOPLASTIC RADIATION T 12/24/2016 CLEVE JOHNSON N Ot Z51.11 ENCOUNTER FOR ANTINEOPLASTIC CHEMOTHERAP 12/24/2016 CLEVE JOHNSON N Ot Z79.4 [facility] (CURRENT) USE OF INSULIN 12/24/2016 CLEVE JOHNSON N Ot Z79.899 OTHER [facility] (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 THERAPY 12/24/2016 CLEVE JOHNSON N Ot 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 HISTORY OF NICOTINE DEPENDENCE 12/30/2016 ALEX ALFREDAMARY ANN N Ot C16.0 MALIGNANT NEOPLASM OF CARDIA 12/30/2016 CLEVE JOHNSON N Ot 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/30/2016 CLEVE JOHNSON N Ot I10 ESSENTIAL (PRIMARY) HYPERTENSION 12/30/2016 CLEVE JOHNSON N Ot R91.1 SOLITARY PULMONARY NODULE 12/30/2016 CLEVE JOHNSON N Ot Z79.4 [facility] (CURRENT) USE OF INSULIN 12/30/2016 CLEVE JOHNSON N Ot 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 12/30/2016 CLEVE JOHNSON N Ot 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 HISTORY OF NICOTINE DEPENDENCE 01/20/2017 CLEVE JOHNSON N Ot C16.0 MALIGNANT NEOPLASM OF CARDIA 01/20/2017 CLEVE JOHNSON N Ot 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 W/ 01/20/2017 CLEVE JOHNSON N Ot I10 ESSENTIAL (PRIMARY) HYPERTENSION 01/20/2017 CLEVE JOHNSON N Ot R91.1 SOLITARY PULMONARY NODULE 01/20/2017 CLEVE JOHNSON N Ot Z79.4 [facility] (CURRENT) USE OF INSULIN 01/20/2017 CLEVE JOHNSON N Ot 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 01/20/2017 CLEVE JOHNSON N Ot 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 HISTORY OF NICOTINE DEPENDENCE 01/22/2017 ALEX CLEVE N Ot C16.0 MALIGNANT NEOPLASM OF CARDIA 01/22/2017 ALEXCLEVE Ot 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 W/ 01/22/2017 ALEXCLEVE N Ot I10 ESSENTIAL (PRIMARY) HYPERTENSION 01/22/2017 ALEXCLEVE Ot R91.1 SOLITARY PULMONARY NODULE 01/22/2017 ALEX CLEVE Stuart Ot 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 01/22/2017 ALEXCLEVE Ot Z79.899 OTHER [facility] (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 THERAPY 01/22/2017 ALEXCLEVE Ot 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 HISTORY OF NICOTINE DEPENDENCE 01/28/2017 RAUL MORAN, DEISI Shafer Ot 784.99 OTHER SYMPTOMS INVOLVING HEAD AND NECK 01/28/2017 RAUL MORAN, DEISI Shafer Ot 787.20 DYSPHAGIA, UNSPECIFIED 01/28/2017 RAJNI MARINELLI DO Ot J18. 1 LOBAR PNEUMONIA, UNSPECIFIED ORGANISM 01/28/2017 RAJNI MARINELLI DO Ot R06. 00 DYSPNEA, UNSPECIFIED 01/28/2017 NIKOLAS MOLINA APRN Ot R06.00 DYSPNEA, UNSPECIFIED 01/28/2017 NIKOLAS MOLINA APRN Ot R91.1 SOLITARY PULMONARY NODULE 01/28/2017 ZITA MORAN, JOHN Grier Ot I85.00 ESOPHAGEAL VARICES WITHOUT BLEEDING 01/28/2017 ZITA MORAN, JOHN Grier Ot R13.10 DYSPHAGIA, UNSPECIFIED 01/28/2017 PHILL MORAN, LILLIAN Shafer Ot C15. 9 MALIGNANT NEOPLASM OF ESOPHAGUS, UNSPECI 01/28/2017 PHILL MORAN, LILLIAN Shafer Ot R59. 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 02/05/2017 CLEVE JOHNSON N Ot I26.99 OTHER PULMONARY EMBOLISM WITHOUT ACUTE C 02/05/2017 CLEVE JOHNSON N Ot K42.9 UMBILICAL HERNIA WITHOUT OBSTRUCTION OR 02/05/2017 CLEVE JOHNSON N Ot Z01.89 ENCOUNTER FOR OTHER SPECIFIED SPECIAL EX 02/16/2017 CLEVE JOHNSON Sade Ot 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 02/16/2017 CLEVE JOHNSON N Ot I26.99 OTHER PULMONARY EMBOLISM WITHOUT ACUTE C 02/16/2017 CLEVE JOHNSON N Ot K42.9 UMBILICAL HERNIA WITHOUT OBSTRUCTION OR 02/16/2017 ALEX ALFREDAMARY ANN N Ot Z01.89 ENCOUNTER FOR OTHER SPECIFIED SPECIAL EX 03/05/2017 CLEVE JOHNSON Sade Ot C16.0 MALIGNANT NEOPLASM OF CARDIA 03/05/2017 ALEX CLEVE N Ot 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 W03/05/2017 ALEXCLEVE N Ot I10 ESSENTIAL (PRIMARY) HYPERTENSION 03/05/2017 ALEXCLEVE N Ot R91.1 SOLITARY PULMONARY NODULE 03/05/2017 ALEXCLEVE Ot Z51.0 ENCOUNTER FOR ANTINEOPLASTIC RADIATION T 03/05/2017 ALEXCLEVE Ot Z51.11 ENCOUNTER FOR ANTINEOPLASTIC CHEMOTHERAP 03/05/2017 ALEXCLEVE N Ot Z79.4 [facility] (CURRENT) USE OF INSULIN 03/05/2017 CLEVE JOHNSON N Ot Z79.899 OTHER [facility] (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 THERAPY 03/05/2017 CLEVE JOHNSON Ot 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 HISTORY OF NICOTINE DEPENDENCE 03/17/2017 ALEX CLEVE Stuart Ot C16.0 MALIGNANT NEOPLASM OF CARDIA 03/17/2017 ALEXCLEVE N Ot 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 W/ 03/17/2017 CLEVE JOHNSON N Ot I10 ESSENTIAL (PRIMARY) HYPERTENSION 03/17/2017 ALEXCLEVE N Ot R91.1 SOLITARY PULMONARY NODULE 03/17/2017 CLEVE JOHNSON N Ot 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 03/17/2017 CLEVE JOHNSON N Ot Z79.899 OTHER [facility] (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 THERAPY 03/17/2017 CLEVE JOHNSON N Ot 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 HISTORY OF NICOTINE DEPENDENCE 03/29/2017 ALEX ALFREDAMARY ANN Sade Ot C16.0 MALIGNANT NEOPLASM OF CARDIA 03/29/2017 ALEX CLEVE N Ot 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 03/29/2017 ALEX CLEVE N Ot I10 ESSENTIAL (PRIMARY) HYPERTENSION 03/29/2017 ALEX ALFREDAMARY ANN N Ot R91.1 SOLITARY PULMONARY NODULE 03/29/2017 ALEX ALFREDAMARY ANN N Ot Z79.4 [facility] (CURRENT) USE OF INSULIN 03/29/2017 CLEVE JOHNSON N Ot Z79.899 OTHER [facility] (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 THERAPY 03/29/2017 CLEVE JOHNSON N Ot 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 HISTORY OF NICOTINE DEPENDENCE 04/16/2017 ALEX CLEVE Stuart Ot C16.0 MALIGNANT NEOPLASM OF CARDIA 04/16/2017 ALEX CLEVE Stuart Ot 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 04/16/2017 ALEX CLEVE N Ot I10 ESSENTIAL (PRIMARY) HYPERTENSION 04/16/2017 ALEX ALFREDAMARY ANN N Ot R91.1 SOLITARY PULMONARY NODULE 04/16/2017 ALEX ALFREDAMARY ANN Sade Ot Z45.2 ENCOUNTER FOR ADJUSTMENT AND MANAGEMENT 04/16/2017 CLEVE JOHNSON N Ot Z79.4 [facility] (CURRENT) USE OF INSULIN 04/16/2017 ALEX ALFREDAMARY ANN N Ot 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 04/16/2017 ALEX ALFREDAMARY ANN N Ot 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 HISTORY OF NICOTINE DEPENDENCE 05/24/2017 SEYMOUR DONOHUE Ot 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 05/24/2017 SEYMOUR DONOHUE Ot J 90 PLEURAL EFFUSION, NOT ELSEWHERE CLASSIFI 05/24/2017 SEYMOUR DONOHUE STEEL CHECKER Ot M62.9 DISORDER OF MUSCLE, UNSPECIFIED 05/24/2017 ALEX CLEVE N Ot C16.0 MALIGNANT NEOPLASM OF CARDIA 05/24/2017 ALEX, CLEVE N Ot 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 W05/24/2017 ALEXCLEVE N Ot I10 ESSENTIAL (PRIMARY) HYPERTENSION 05/24/2017 CLEVE JOHNSON N Ot R91.1 SOLITARY PULMONARY NODULE 05/24/2017 CLEVE JOHNSON N Ot Z45.2 ENCOUNTER FOR ADJUSTMENT AND MANAGEMENT 05/24/2017 CLEVE JOHNSON N Ot Z79.4 [facility] (CURRENT) USE OF INSULIN 05/24/2017 CLEVE JOHNSON N Ot Z79.899 OTHER [facility] (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 THERAPY 05/24/2017 CLEVE JOHNSON N Ot 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 HISTORY OF NICOTINE DEPENDENCE 05/31/2017 SEYMOUR DONOHUE STEEL CHECKER Ot 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 05/31/2017 SEYMOUR DONOHUE STEEL CHECKER Ot J 90 PLEURAL EFFUSION, NOT ELSEWHERE CLASSIFI 05/31/2017 SEYMOUR DONOHUE STEEL CHECKER Ot M62.9 DISORDER OF MUSCLE, UNSPECIFIED 06/12/2017 CLEVE JOHNSON N Ot C16.0 MALIGNANT NEOPLASM OF CARDIA 06/12/2017 CLEVE JOHNSON N Ot 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 W/ 06/12/2017 CLEVE JOHNSON N Ot I10 ESSENTIAL (PRIMARY) HYPERTENSION 06/12/2017 CLEVE JOHNSON N Ot R82.99 OTHER ABNORMAL FINDINGS IN URINE 06/12/2017 CLEVE JOHNSON N Ot R91.1 SOLITARY PULMONARY NODULE 06/12/2017 CLEVE JOHNSON N Ot Z45.2 ENCOUNTER FOR ADJUSTMENT AND MANAGEMENT 06/12/2017 CLEVE JOHNSON N Ot Z79.4 [facility] (CURRENT) USE OF INSULIN 06/12/2017 CLEVE JOHNSON N Ot Z79.899 OTHER [facility] (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 THERAPY 06/12/2017 CLEVE JOHNSON N Ot 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 HISTORY OF NICOTINE DEPENDENCE 06/24/2017 CLEVE JOHNSON N Ot 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 07/26/2017 CLEVE JOHNSON Sade Ot 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 W/ 07/26/2017 CLEVE JOHNSON N Ot I10 ESSENTIAL (PRIMARY) HYPERTENSION 07/26/2017 CLEVE JOHNSON N Ot J90 PLEURAL EFFUSION, NOT ELSEWHERE CLASSIFI 07/26/2017 CLEVE JOHNSON N Ot R91.1 SOLITARY PULMONARY NODULE 07/26/2017 CLEVE JOHNSON N Ot 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 07/26/2017 CLEVE OJHNSON N Ot 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 07/26/2017 CLEVE JOHNSON Ot 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 HISTORY OF NICOTINE DEPENDENCE 08/20/2017 CLEVE JOHNSON Ot 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, UNSPECI 08/20/2017 CLEVE JOHNSON N Ot K42.9 UMBILICAL HERNIA WITHOUT OBSTRUCTION OR 08/20/2017 CLEVE JOHNSON N Ot R59.0 LOCALIZED ENLARGED LYMPH NODES 09/15/2017 ZITA MORAN, JOHN Grier Ot C16.0 MALIGNANT NEOPLASM OF CARDIA 09/15/2017 ZITA MORAN, JOHN Grier Ot Z01.818 ENCOUNTER FOR OTHER PREPROCEDURAL EXAMIN 09/20/2017 ZITA MORAN, JOHN Grier Ot C16.0 MALIGNANT NEOPLASM OF CARDIA 09/20/2017 ZITA MORAN, JOHN Grier Ot E11.9 TYPE 2 DIABETES MELLITUS WITHOUT COMPLIC 09/20/2017 ZITA MORAN, JOHN Grier Ot I1 0 ESSENTIAL (PRIMARY) HYPERTENSION 09/20/2017 ZITA MORAN, JOHN Grier Ot K21.9 GASTRO-ESOPHAGEAL REFLUX DISEASE WITHOUT 09/20/2017 ZITA MORAN, JOHN Grier Ot Z43.1 ENCOUNTER FOR ATTENTION TO GASTROSTOMY 09/20/2017 ZITA MORAN, JOHN Grier Ot 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 09/20/2017 ZITA MORAN, JOHN Grier Ot Z79.899 OTHER [facility] (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 THERAPY 09/20/2017 JOHN AHUMADA MD Ot 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 HISTORY OF NICOTINE DEPENDENCE 09/21/2017 CLEVE JOHNSON Sade Ot 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 09/21/2017 ALEX ALFREDAMARY ANN Sade Ot 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 W/ 09/21/2017 ALEXCLEVE N Ot I10 ESSENTIAL (PRIMARY) HYPERTENSION 09/21/2017 ALEXCLEVE Ot J90 PLEURAL EFFUSION, NOT ELSEWHERE CLASSIFI 09/21/2017 ALEXCLEVE N Ot R91.1 SOLITARY PULMONARY NODULE 09/21/2017 ALEXCLEVE Ot Z45.2 ENCOUNTER FOR ADJUSTMENT AND MANAGEMENT 09/21/2017 ALEXCLEVE Ot Z79.4 [facility] (CURRENT) USE OF INSULIN 09/21/2017 ALEXCLEVE Ot Z79.899 OTHER [facility] (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 THERAPY 09/21/2017 ALEXCLEVE Ot 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 HISTORY OF NICOTINE DEPENDENCE 09/23/2017 ZITA MORAN, JOHN Grier Ot C16.0 MALIGNANT NEOPLASM OF CARDIA 09/23/2017 JOHN AHUMADA MD Ot E11.9 TYPE 2 DIABETES MELLITUS WITHOUT COMPLIC 09/23/2017 JOHN AHUMADA MD Ot I1 0 ESSENTIAL (PRIMARY) HYPERTENSION 09/23/2017 JOHN AHUMADA MD Ot K21.9 GASTRO-ESOPHAGEAL REFLUX DISEASE WITHOUT 09/23/2017 JOHN AHUMADA MD Ot Z43.1 ENCOUNTER FOR ATTENTION TO GASTROSTOMY 09/23/2017 JOHN AHUMADA MD Ot 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 09/23/2017 JOHN AHUMADA MD Ot 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 09/23/2017 JOHN AHUMADA MD Ot 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 HISTORY OF NICOTINE DEPENDENCE 11/23/2017 CLEVE JOHNSON Ot 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 11/23/2017 ALEXCLEVE Ot Z45.2 ENCOUNTER FOR ADJUSTMENT AND MANAGEMENT 01/19/2018 ALEXCLEVE Ot 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 01/19/2018 CLEVE JOHNSON N Ot Z45.2 ENCOUNTER FOR [...] HERNIA WITHOUT OBSTRUCTION OR 01/26/2018 CLEVE JOHNSON N Ot Z01.89 ENCOUNTER FOR OTHER SPECIFIED SPECIAL EX 01/26/2018 SEYMOUR DONOHUE STEEL CHECKER Ot 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 01/26/2018 SEYMOUR DONOHUE STEEL CHECKER Ot J 90 PLEURAL EFFUSION, NOT ELSEWHERE CLASSIFI 01/26/2018 SEYMOUR DONOHUE STEEL CHECKER Ot M62.9 DISORDER OF MUSCLE, UNSPECIFIED 01/26/2018 CLEVE JOHNSON N Ot 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, UNSPECI 01/26/2018 CLEVE JOHNSON N Ot K42.9 UMBILICAL HERNIA WITHOUT OBSTRUCTION OR 01/26/2018 CLEVE JOHNSON Ot R59.0 LOCALIZED ENLARGED LYMPH NODES 01/26/2018 CLEVE JOHNSON N Ot 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 01/26/2018 CLEVE JOHNSON Ot Z45.2 ENCOUNTER FOR ADJUSTMENT AND MANAGEMENT 02/09/2018 SEYMOUR DONOHUE STEEL CHECKER Ot 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 02/21/2018 SEYMOUR DONOHUE STEEL CHECKER Ot 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 03/22/2018 CLEVE JOHNSON N Ot 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 05/09/2018 GROVER MORAN, ARTIS Grier Ot B35. 3 TINEA PEDIS 05/09/2018 GROVER MORAN, ARTIS Grier Ot E10.649 TYPE 1 DIABETES MELLITUS WITH HYPOGLYCEM 05/09/2018 ARTIS NESS MD Ot E10. 9 TYPE 1 DIABETES MELLITUS WITHOUT COMPLIC 05/09/2018 GROVER MORAN, ARTIS Grier Ot F03. 90 UNSPECIFIED DEMENTIA WITHOUT BEHAVIORAL 05/09/2018 ARTIS NESS MD Ot H91. 93 UNSPECIFIED HEARING LOSS, BILATERAL 05/09/2018 ARTIS NESS MD Ot I10 ESSENTIAL (PRIMARY) HYPERTENSION 05/09/2018 ARTIS NESS MD Ot K21. 9 GASTRO-ESOPHAGEAL REFLUX DISEASE WITHOUT 05/09/2018 ARTIS NESS MD Ot M19. 91 PRIMARY OSTEOARTHRITIS, UNSPECIFIED SITE 05/09/2018 ARTIS NESS MD Ot S00.83XA CONTUSION OF OTHER PART OF HEAD, INITIAL 05/09/2018 ARTIS NESS MD, Ot S82.845A NONDISPLACED BIMALLEOLAR FRACTURE OF LEF 05/09/2018 ARTIS NESS MD, Ot W19.XXXA UNSPECIFIED FALL, INITIAL ENCOUNTER 05/09/2018 ARTIS NESS MD, Ot Y92.[address] IN [facility] NON-[facility] (PRIVATE 05/09/2018 ARTIS NESS MD, Ot Z79. 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 05/09/2018 ARTIS NESS MD Ot Z85. 01 PERSONAL HISTORY OF MALIGNANT NEOPLASM O 05/09/2018 ARTIS NESS MD, Ot 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 HISTORY OF NICOTINE DEPENDENCE 05/09/2018 ARTIS NESS MD Ot Z92. 21 PERSONAL HISTORY OF ANTINEOPLASTIC CHEMO 05/09/2018 ARTIS NESS MD Ot Z92. 3 PERSONAL HISTORY OF IRRADIATION 05/09/2018 ARTIS NESS MD Ot Z97. 4 PRESENCE OF EXTERNAL HEARING-AID 05/15/2018 CLEVE JOHNSON Ot 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 05/15/2018 CLEVE JOHNSON Ot Z45.2 ENCOUNTER FOR ADJUSTMENT AND MANAGEMENT 05/18/2018 CLEVE JOHNSON Ot 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 05/18/2018 CLEVE JOHNSON Ot Z45.2 ENCOUNTER FOR ADJUSTMENT AND MANAGEMENT 06/06/2018 CLEVE JOHNSON Ot 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 06/07/2018 CLEVE JOHNSON Ot 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 06/12/2018 ALEX, BOBAN N Ot 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 06/12/2018 CLEVE JOHNSON N Ot 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 W/ 06/12/2018 CLEVE JOHNSON N Ot I10 ESSENTIAL (PRIMARY) HYPERTENSION 06/12/2018 CLEVE JOHNSON N Ot J90 PLEURAL EFFUSION, NOT ELSEWHERE CLASSIFI 06/12/2018 CLEVE JOHNSON N Ot R91.1 SOLITARY PULMONARY NODULE 06/12/2018 CLEVE JOHNSON N Ot Z79.4 [facility] (CURRENT) USE OF INSULIN 06/12/2018 CLEVE JOHNSON N Ot 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 06/12/2018 CLEVE JOHNSON N Ot 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 HISTORY OF NICOTINE DEPENDENCE 06/15/2018 CLEVE JOHNSON N Ot 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 06/15/2018 CLEVE JOHNSON N Ot 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 W/ 06/15/2018 CLEVE JOHNSON N Ot I10 ESSENTIAL (PRIMARY) HYPERTENSION 06/15/2018 CLEVE JOHNSON N Ot J90 PLEURAL EFFUSION, NOT ELSEWHERE CLASSIFI 06/15/2018 CLEVE JOHNSON N Ot R91.1 SOLITARY PULMONARY NODULE 06/15/2018 CLEVE JOHNSON N Ot Z79.4 [facility] (CURRENT) USE OF INSULIN 06/15/2018 CLEVE JOHNSON N Ot Z79.899 OTHER [facility] (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 THERAPY 06/15/2018 CLEVE JOHNSON N Ot 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 HISTORY OF NICOTINE DEPENDENCE 07/26/2018 DEISI DUMONT MD Ot 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 0 MALIGNANT NEOPLASM OF CARDIA 09/08/2018 SAMANTHA CRAWLEY MD Ot 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 W09/08/2018 SAMANTHA CRAWLEY MD Ot E11.621 TYPE 2 DIABETES MELLITUS WITH FOOT ULCER 09/08/2018 SAMANTHA CRAWLEY MD Ot E11.622 TYPE 2 DIABETES MELLITUS WITH OTHER SKIN 09/08/2018 SAMANTHA CRAWLEY MD Ot E66. 9 OBESITY, UNSPECIFIED 09/08/2018 SAMANTHA CRAWLEY MD Ot E78. 5 HYPERLIPIDEMIA, UNSPECIFIED 09/08/2018 SAMANTHA CRAWLEY MD Ot I10 ESSENTIAL (PRIMARY) HYPERTENSION 09/08/2018 SAMANTHA CRAWLEY MD Ot I70. 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 1 SOLITARY PULMONARY NODULE 09/08/2018 SAMANTHA CRAWLEY MD Ot Z68. 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 21 PERSONAL HISTORY OF ANTINEOPLASTIC CHEMO 09/08/2018 SAMANTHA CRAWLEY MD Ot Z92. 3 PERSONAL HISTORY OF IRRADIATION 09/09/2018 SAMANTHA CRAWLEY MD Ot C16. 0 MALIGNANT NEOPLASM OF CARDIA 09/09/2018 SAMANTHA CRAWLEY MD Ot 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 W/ 09/09/2018 SAMANTHA CRAWLEY MD Ot E11.621 TYPE 2 DIABETES MELLITUS WITH FOOT ULCER 09/09/2018 SAMANTHA CRAWLEY MD Ot E11.622 TYPE 2 DIABETES MELLITUS WITH OTHER SKIN 09/09/2018 SAMANTHA CRAWLEY MD Ot E66. 9 OBESITY, UNSPECIFIED 09/09/2018 SAMANTHA CRAWLEY MD Ot E78. 5 HYPERLIPIDEMIA, UNSPECIFIED 09/09/2018 SAMANTHA CRAWLEY MD Ot I10 ESSENTIAL (PRIMARY) HYPERTENSION 09/09/2018 SAMANTHA CRAWLEY MD Ot I70. 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 1 SOLITARY PULMONARY NODULE 09/09/2018 SAMANTHA CRAWLEY MD Ot Z68. 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 21 PERSONAL HISTORY OF ANTINEOPLASTIC CHEMO 09/09/2018 SAMANTHA CRAWLEY MD, Ot Z92. 3 PERSONAL HISTORY OF IRRADIATION 09/13/2018 SAMANTHA CRAWLEY MD Ot C16. 0 MALIGNANT NEOPLASM OF CARDIA 09/13/2018 SAMANTHA CRAWLEY MD Ot 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 W/ 09/13/2018 SAMANTHA CRAWLEY MD Ot E11.621 TYPE 2 DIABETES MELLITUS WITH FOOT ULCER 09/13/2018 SAMANTHA CRAWLEY MD Ot E11.622 TYPE 2 DIABETES MELLITUS WITH OTHER SKIN 09/13/2018 SAMANTHA CRAWLEY MD, Ot E66. 9 OBESITY, UNSPECIFIED 09/13/2018 SAMANTHA CRAWLEY MD, Ot E78. 5 HYPERLIPIDEMIA, UNSPECIFIED 09/13/2018 SAMANTHA CRAWLEY MD Ot I10 ESSENTIAL (PRIMARY) HYPERTENSION 09/13/2018 SAMANTHA CRAWLEY MD Ot I70. 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 1 SOLITARY PULMONARY NODULE 09/13/2018 SAMANTHA CRAWLEY MD, Ot Z68. 30 BODY MASS INDEX (BMI) 30.0-30.9, ADULT 09/13/2018 SAMANTHA CRAWLEY MD, Ot Z79. 4 [facility] (CURRENT) USE OF INSULIN 09/13/2018 SAMANTHA CRAWLEY MD, Ot 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 HISTORY OF NICOTINE DEPENDENCE 09/13/2018 SAMANTHA CRAWLEY MD, Ot Z92. 21 PERSONAL HISTORY OF ANTINEOPLASTIC CHEMO 09/13/2018 SAMANTHA CRAWLEY MD, Ot Z92. 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 09/26/2018 CLEVE JOHNSON Ot 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 W/ 09/26/2018 CLEVE JOHNSON Ot I10 ESSENTIAL (PRIMARY) HYPERTENSION 09/26/2018 ALEX, CLEVE Stuart Ot J90 PLEURAL EFFUSION, NOT ELSEWHERE CLASSIFI 09/26/2018 ALEX, CLEVE Stuart Ot R91.1 SOLITARY PULMONARY NODULE 09/26/2018 ALEX, CLEVE Stuart Ot Z45.2 ENCOUNTER FOR ADJUSTMENT AND MANAGEMENT 09/26/2018 ALEX, CLEVE Stuart Ot Z79.4 [facility] (CURRENT) USE OF INSULIN 09/26/2018 ALEXCLEVE Ot Z79.899 OTHER [facility] (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 THERAPY 09/26/2018 ALEXCLEVE Ot 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 HISTORY OF NICOTINE DEPENDENCE 10/11/2018 TENISHA MORAN, DEISI [place] Ot E11.622 TYPE 2 DIABETES MELLITUS WITH OTHER SKIN 10/11/2018 DEISI STEVEN MD, Ot I70.242 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 9 TYPE 2 DIABETES MELLITUS WITHOUT COMPLIC 10/13/2018 SAMANTHA CRAWLEY MD Ot I10 ESSENTIAL (PRIMARY) HYPERTENSION 10/13/2018 SAMANTHA CRAWLEY MD Ot I26. 99 OTHER PULMONARY EMBOLISM WITHOUT ACUTE C 10/13/2018 SAMANTHA CRAWLEY MD Ot I73. 9 PERIPHERAL VASCULAR DISEASE, UNSPECIFIED 10/13/2018 SAMANTHA CRAWLEY MD Ot R06. 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 10/16/2018 CLEVE JOHNSON N Ot 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 HISTORY OF NICOTINE DEPENDENCE 10/18/2018 CLEVE JOHNSON N Ot 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 10/18/2018 CLEVE JOHNSON N Ot 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 W/ 10/18/2018 ALEX ALFREDAMARY ANN N Ot I10 ESSENTIAL (PRIMARY) HYPERTENSION 10/18/2018 CLEVE JOHNSON N Ot J90 PLEURAL EFFUSION, NOT ELSEWHERE CLASSIFI 10/18/2018 ALEX, ALFREDAMARY ANN N Ot R91.1 SOLITARY PULMONARY NODULE 10/18/2018 ALEX ALFREDAMARY ANN N Ot Z45.2 ENCOUNTER FOR ADJUSTMENT AND MANAGEMENT 10/18/2018 CLEVE JOHNSON N Ot Z79.4 [facility] (CURRENT) USE OF INSULIN 10/18/2018 CLEVE JOHNSON N Ot Z79.899 OTHER [facility] (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 THERAPY 10/18/2018 CLEVE JOHNSON N Ot 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 HISTORY OF NICOTINE DEPENDENCE 10/19/2018 CLEVE JOHNSON N Ot 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 10/19/2018 CLEVE JOHNSON N Ot 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 W/ 10/19/2018 CLEVE JOHNSON N Ot I10 ESSENTIAL (PRIMARY) HYPERTENSION 10/19/2018 CLEVE JOHNSON N Ot J90 PLEURAL EFFUSION, NOT ELSEWHERE CLASSIFI 10/19/2018 ALEX ALFREDAMARY ANN N Ot R91.1 SOLITARY PULMONARY NODULE 10/19/2018 ALEX ALFREDAMARY ANN N Ot Z45.2 ENCOUNTER FOR ADJUSTMENT AND MANAGEMENT 10/19/2018 CLEVE JOHNSON N Ot Z79.4 [facility] (CURRENT) USE OF INSULIN 10/19/2018 ALEX ALFREDAMARY ANN N Ot 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 10/19/2018 ALEX ALFREDAMARY ANN N Ot 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 HISTORY OF NICOTINE DEPENDENCE 10/20/2018 ALEX ALFREDAMARY ANN N Ot 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 10/20/2018 ALEX CLEVE N Ot 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 W/ 10/20/2018 ALEX, ALFREDAMARY ANN Sade Ot I10 ESSENTIAL (PRIMARY) HYPERTENSION 10/20/2018 ALEX, ALFREDAMARY ANN Sade Ot J90 PLEURAL EFFUSION, NOT ELSEWHERE CLASSIFI 10/20/2018 ALEX CLEVE Stuart Ot R91.1 SOLITARY PULMONARY NODULE 10/20/2018 ALEX, ALFREDAMARY ANN Sade Ot Z45.2 ENCOUNTER FOR ADJUSTMENT AND MANAGEMENT 10/20/2018 ALEX, ALFREDAMARY ANN Sade Ot Z79.4 [facility] (CURRENT) USE OF INSULIN 10/20/2018 ALEX ALFREDAMARY ANN Sade Ot Z79.899 OTHER [facility] (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 THERAPY 10/20/2018 ALEX ALFREDAMARY ANN Sade Ot 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 HISTORY OF NICOTINE DEPENDENCE 10/21/2018 SAMANTHA CRAWLEY MD Ot C16. 0 MALIGNANT NEOPLASM OF CARDIA 10/21/2018 SAMANTHA CRAWLEY MD Ot 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 W10/21/2018 SAMANTHA CRAWLEY MD Ot E11.621 TYPE 2 DIABETES MELLITUS WITH FOOT ULCER 10/21/2018 SAMANTHA CRAWLEY MD Ot E11.622 TYPE 2 DIABETES MELLITUS WITH OTHER SKIN 10/21/2018 SAMANTHA CRAWLEY MD Ot E11.649 TYPE 2 DIABETES MELLITUS WITH HYPOGLYCEM 10/21/2018 SAMANTHA CRAWLEY MD Ot E66. 9 OBESITY, UNSPECIFIED 10/21/2018 SAMANTHA CRAWLEY MD Ot E78. 5 HYPERLIPIDEMIA, UNSPECIFIED 10/21/2018 SAMANTHA CRAWLEY MD Ot I10 ESSENTIAL (PRIMARY) HYPERTENSION 10/21/2018 SAMANTHA CRAWLEY MD Ot I25. 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 [place] 10/21/2018 SAMANTHA CRAWLEY MD Ot I70.213 ATHSCL [place] ARTERIES OF EXTRM W INTRMT 10/21/2018 SAMANTHA CRAWLEY MD Ot I70.232 ATHSCL [place] ARTERIES OF RIGHT LEG W UL 10/21/2018 SAMANTHA CRAWLEY MD Ot I70.242 ATHSCL [place] ARTERIES OF LEFT LEG W C 10/21/2018 SAMANTHA CRAWLEY MD, Ot I70.245 ATHSCL [place] ARTERIES OF LEFT LEG W C 10/21/2018 SAMANTHA CRAWLEY MD, Ot L97.219 NON-PRESSURE CHRONIC ULCER OF RIGHT CALF 10/21/2018 SAMANTHA CRAWLEY MD, Ot L97.229 NON-PRESSURE CHRONIC ULCER OF LEFT CALF 10/21/2018 SAMANTHA CRAWLEY MD, Ot L97.529 NON-PRESSURE CHRONIC ULCER OTH PRT LEFT 10/21/2018 SAMANTHA CRAWLEY MD, Ot Z68. 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 10/22/2018 CLEVE JOHNSON Ot 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 W/ 10/22/2018 CLEVE JOHNSON Ot I10 ESSENTIAL (PRIMARY) HYPERTENSION 10/22/2018 CLEVE JOHNSON Ot J90 PLEURAL EFFUSION, NOT ELSEWHERE CLASSIFI 10/22/2018 CLEVE JOHNSON Ot R91.1 SOLITARY PULMONARY NODULE 10/22/2018 CLEVE JOHNSON Ot Z45.2 ENCOUNTER FOR ADJUSTMENT AND MANAGEMENT 10/22/2018 CLEVE JOHNSON Ot 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 0 MALIGNANT NEOPLASM OF CARDIA 10/24/2018 SAMANTHA CRAWLEY MD Ot 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 W/ 10/24/2018 SAMANTHA CRAWLEY MD Ot E11.621 TYPE 2 DIABETES MELLITUS WITH FOOT ULCER 10/24/2018 SAMANTHA CRAWLEY MD Ot E11.622 TYPE 2 DIABETES MELLITUS WITH OTHER SKIN 10/24/2018 SAMANTHA CRAWLEY MD Ot E11.649 TYPE 2 DIABETES MELLITUS WITH HYPOGLYCEM 10/24/2018 SAMANTHA CRAWLEY MD Ot E66. 9 OBESITY, UNSPECIFIED 10/24/2018 SAMANTHA CRAWLEY MD Ot E78. 5 HYPERLIPIDEMIA, UNSPECIFIED 10/24/2018 SAMANTHA CRAWLEY MD Ot I10 ESSENTIAL (PRIMARY) HYPERTENSION 10/24/2018 SAMANTHA CRAWLEY MD Ot I25. 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 0 PAROXYSMAL ATRIAL FIBRILLATION 10/24/2018 SAMANTHA CRAWLEY MD, Ot I65. 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 9 TYPE 2 DIABETES MELLITUS WITHOUT COMPLIC 10/25/2018 SAMANTHA CRAWLEY MD Ot I10 ESSENTIAL (PRIMARY) HYPERTENSION 10/25/2018 SAMANTHA CRAWLEY MD Ot I26. 99 OTHER PULMONARY EMBOLISM WITHOUT ACUTE C 10/25/2018 SAMANTHA CRAWLEY MD Ot I73. 9 PERIPHERAL VASCULAR DISEASE, UNSPECIFIED 10/25/2018 SAMANTHA CRAWLEY MD Ot R06. 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 9 OBESITY, UNSPECIFIED 10/29/2018 SAMANTHA CRAWLEY MD Ot E78. 5 HYPERLIPIDEMIA, UNSPECIFIED 10/29/2018 SAMANTHA CRAWLEY MD Ot I10 ESSENTIAL (PRIMARY) HYPERTENSION 10/29/2018 SAMANTHA CRAWLEY MD, Ot I25. 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 30 BODY MASS INDEX (BMI) 30.0-30.9, ADULT 10/29/2018 SAMANTHA CRAWLEY MD, Ot Z79. 01 [facility] (CURRENT) USE OF ANTICOAGULANT 10/29/2018 SAMANTHA CRAWLEY MD, Ot Z79. 4 [facility] (CURRENT) USE OF INSULIN 10/29/2018 SAMANTHA CRAWLEY MD, Ot Z79.899 OTHER [facility] (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 THERAPY 11/07/2018 DEISI STEVEN MD, Ot E11.622 TYPE 2 DIABETES MELLITUS WITH OTHER SKIN 11/07/2018 DEISI STEVEN MD, Ot I70.242 ATHSCL [place] ARTERIES OF LEFT LEG W ULC 11/07/2018 DEISI STEVEN MD Ot I87.332 CHRONIC VENOUS HTN W ULCER AND INFLAMMAT 11/07/2018 DEISI STEVEN MD, Ot L97.221 NON-PRS CHRONIC ULCER OF LEFT CALF LIMIT 11/10/2018 DEISI STEVEN MD Ot E11.622 TYPE 2 DIABETES MELLITUS WITH OTHER SKIN 11/10/2018 DEISI STEVEN MD Ot I70.242 ATHSCL [place] ARTERIES OF LEFT LEG [facility] 11/10/2018 DEISI STEVEN MD Ot I87.332 CHRONIC VENOUS HTN W ULCER AND INFLAMMAT 11/10/2018 DEISI STEVEN MD Ot L97.221 NON-PRS CHRONIC ULCER OF LEFT CALF LIMIT 11/16/2018 ALEXCLEVE N Ot 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 11/16/2018 CLEVE JOHNSON N Ot 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 W11/16/2018 CLEVE JOHNSON N Ot I10 ESSENTIAL (PRIMARY) HYPERTENSION 11/16/2018 CLEVE JOHNSON N Ot J90 PLEURAL EFFUSION, NOT ELSEWHERE CLASSIFI 11/16/2018 CLEVE JOHNSON Ot R91.1 SOLITARY PULMONARY NODULE 11/16/2018 CLEVE JOHNSON Ot Z45.2 ENCOUNTER FOR ADJUSTMENT AND MANAGEMENT 11/16/2018 CLEVE JOHNSON Ot 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 11/16/2018 CLEVE JOHNSON Ot 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 11/16/2018 CLEVE JOHNSON Ot 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 HISTORY OF NICOTINE DEPENDENCE 11/17/2018 DEISI STEVEN MD Ot E11.622 TYPE 2 DIABETES MELLITUS WITH OTHER SKIN 11/17/2018 DEISI STEVEN MD Ot I70.242 ATHSCL [place] ARTERIES OF LEFT LEG W [facility] 11/17/2018 DEISI STEVEN MD Ot I87.332 CHRONIC VENOUS HTN W ULCER AND INFLAMMAT 11/17/2018 DEISI STEVEN MD, Ot L97.221 NON-PRS CHRONIC ULCER OF LEFT CALF LIMIT 11/22/2018 CLEVE JOHNSON Ot 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 11/22/2018 CLEVE JOHNSON Ot 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 W11/22/2018 CLEVE JOHNSON N Ot I10 ESSENTIAL (PRIMARY) HYPERTENSION 11/22/2018 ALEXCLEVE CHEN N Ot J90 PLEURAL EFFUSION, NOT ELSEWHERE CLASSIFI 11/22/2018 CLEVE JOHNSON N Ot R91.1 SOLITARY PULMONARY NODULE 11/22/2018 CLEVE JOHNSON Ot Z45.2 ENCOUNTER FOR ADJUSTMENT AND MANAGEMENT 11/22/2018 CLEVE JOHNSON Ot Z79.4 [facility] (CURRENT) USE OF INSULIN 11/22/2018 CLEVE JOHNSON Ot 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 11/22/2018 CLEVE JOHNSON Ot 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 HISTORY OF NICOTINE DEPENDENCE 12/23/2018 CLEVE JOHNSON Ot 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 12/23/2018 CLEVE JOHNSON Ot I26.99 OTHER PULMONARY EMBOLISM WITHOUT ACUTE C 12/23/2018 CLEVE JOHNSON Ot K42.9 UMBILICAL HERNIA WITHOUT OBSTRUCTION OR 12/23/2018 CLEVE OJHNSON Ot Z01.89 ENCOUNTER FOR OTHER SPECIFIED SPECIAL EX 12/23/2018 SEYMOUR DONOHUE STEEL CHECKER Ot 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 12/23/2018 SEYMOUR DONOHUE STEEL CHECKER Ot J 90 PLEURAL EFFUSION, NOT ELSEWHERE CLASSIFI 12/23/2018 SEYMOUR DONOHUE STEEL CHECKER Ot M62.9 DISORDER OF MUSCLE, UNSPECIFIED 12/23/2018 CLEVE JOHNSON Sade Ot 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, UNSPECI 12/23/2018 CLEVE JOHNSON Ot K42.9 UMBILICAL HERNIA WITHOUT OBSTRUCTION OR 12/23/2018 CLEVE JOHNSON Ot R59.0 LOCALIZED ENLARGED LYMPH NODES 12/23/2018 SEYMOUR DONOHUE STEEL CHECKER Ot 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 9 TYPE 2 DIABETES MELLITUS WITHOUT COMPLIC 12/23/2018 SAMANTHA CRAWLEY MD Ot I10 ESSENTIAL (PRIMARY) HYPERTENSION 12/23/2018 SAMANTHA CRAWLEY MD, Ot I26. 99 OTHER PULMONARY EMBOLISM WITHOUT ACUTE C 12/23/2018 SAMANTHA CRAWLEY MD Ot I73. 9 PERIPHERAL VASCULAR DISEASE, UNSPECIFIED 12/23/2018 SAMANTHA CRAWLEY MD Ot R06. 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 12/23/2018 CLEVE JOHNSON Ot Z79.899 OTHER [facility] (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 THERAPY 12/23/2018 CLEVE JOHNSON Ot 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 HISTORY OF NICOTINE DEPENDENCE 12/23/2018 DEISI STEVEN MD Ot E11.622 TYPE 2 DIABETES MELLITUS WITH OTHER SKIN 12/23/2018 DEISI STEVEN MD Ot I70.242 ATHSCL [place] ARTERIES OF LEFT LEG [facility] 12/23/2018 DEISI STEVEN MD Ot I87.332 CHRONIC VENOUS HTN W ULCER AND INFLAMMAT 12/23/2018 DEISI STEVEN MD Ot L97.221 NON-PRS CHRONIC ULCER OF LEFT CALF LIMIT 12/23/2018 DEISI STEVEN MD, Ot E11.622 TYPE 2 DIABETES MELLITUS WITH OTHER SKIN 12/23/2018 DEISI STEVEN MD Ot I70.242 ATHSCL [place] ARTERIES OF LEFT LEG W C 12/23/2018 DEISI STEVEN MD, Ot I87.332 CHRONIC VENOUS HTN W ULCER AND INFLAMMAT 12/23/2018 DEISI STEVEN MD, Ot L97.221 NON-PRS CHRONIC ULCER OF LEFT CALF LIMIT 12/26/2018 CLEVE JOHNSON Ot 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 12/26/2018 CLEVE JOHNSON Ot J44.9 CHRONIC OBSTRUCTIVE PULMONARY DISEASE, U 12/26/2018 CLEVE JOHNSON Ot J90 PLEURAL EFFUSION, NOT ELSEWHERE CLASSIFI 12/26/2018 CLEVE JOHNSON N Ot K44.9 DIAPHRAGMATIC HERNIA WITHOUT OBSTRUCTION 12/26/2018 CLEVE JOHNSON N Ot N28.1 CYST OF KIDNEY, ACQUIRED 12/26/2018 ALEX ALFREDAMARY ANN N Ot Z01.89 ENCOUNTER FOR OTHER SPECIFIED SPECIAL EX 12/29/2018 CLEVE JOHNSON Sade Ot 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 12/29/2018 ALEX CLEVE N Ot J44.9 CHRONIC OBSTRUCTIVE PULMONARY DISEASE, U 12/29/2018 ALEXCLEVE N Ot J90 PLEURAL EFFUSION, NOT ELSEWHERE CLASSIFI 12/29/2018 ALEX ALFREDAMARY ANN N Ot K44.9 DIAPHRAGMATIC HERNIA WITHOUT OBSTRUCTION 12/29/2018 ALEX ALFREDAMARY NAN N Ot N28.1 CYST OF KIDNEY, ACQUIRED 12/29/2018 ALEX CLEVE N Ot Z01.89 ENCOUNTER FOR OTHER SPECIFIED SPECIAL EX 01/03/2019 ALEX ALFREDAMARY ANN Sade Ot 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 01/03/2019 ALEX CLEVE N Ot J44.9 CHRONIC OBSTRUCTIVE PULMONARY DISEASE, U 01/03/2019 CLEVE JOHNSON N Ot J90 PLEURAL EFFUSION, NOT ELSEWHERE CLASSIFI 01/03/2019 ALEX CLEVE Stuart Ot K44.9 DIAPHRAGMATIC HERNIA WITHOUT OBSTRUCTION 01/03/2019 ALEX ALFREDAMARY ANN N Ot N28.1 CYST OF KIDNEY, ACQUIRED 01/03/2019 ALEX CLEVE Stuart Ot Z01.89 ENCOUNTER FOR OTHER SPECIFIED SPECIAL EX 01/24/2019 ALEX CLEVE Stuart Ot 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 01/24/2019 ALEXCLEVE Ot 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 W/ 01/24/2019 CLEVE JOHNSON Ot I10 ESSENTIAL (PRIMARY) HYPERTENSION 01/24/2019 ALEXCLEVE N Ot J90 PLEURAL EFFUSION, NOT ELSEWHERE CLASSIFI 01/24/2019 CLEVE JOHNSON Ot R91.1 SOLITARY PULMONARY NODULE 01/24/2019 CLEVE JOHNSON Ot Z45.2 ENCOUNTER FOR ADJUSTMENT AND MANAGEMENT 01/24/2019 CLEVE JOHNSON Ot 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 01/24/2019 CLEVE JOHNSON Ot 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 01/24/2019 CLEVE JOHNSON N Ot 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 HISTORY OF NICOTINE DEPENDENCE 01/25/2019 CLEVE JOHNSON N Ot 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 01/25/2019 CLEVE JOHNSON N Ot 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 W/ 01/25/2019 CLEVE JOHNSON N Ot I10 ESSENTIAL (PRIMARY) HYPERTENSION 01/25/2019 CLEVE JOHNSON N Ot J90 PLEURAL EFFUSION, NOT ELSEWHERE CLASSIFI 01/25/2019 CLEVE JOHNSON N Ot R91.1 SOLITARY PULMONARY NODULE 01/25/2019 CLEVE JOHNSON N Ot Z45.2 ENCOUNTER FOR ADJUSTMENT AND MANAGEMENT 01/25/2019 CLEVE JOHNSON N Ot 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 01/25/2019 CLEVE JOHNSON N Ot 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 01/25/2019 CLEVE JOHNSON N Ot 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 HISTORY OF NICOTINE DEPENDENCE 01/30/2019 CLEVE JOHNSON N Ot 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 01/30/2019 CLEVE JOHNSON N Ot 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 W/ 01/30/2019 CLEVE JOHNSON N Ot I10 ESSENTIAL (PRIMARY) HYPERTENSION 01/30/2019 CLEVE JOHNSON N Ot J90 PLEURAL EFFUSION, NOT ELSEWHERE CLASSIFI 01/30/2019 CLEVE JOHNSON N Ot R91.1 SOLITARY PULMONARY NODULE 01/30/2019 CLEVE JOHNSON N Ot Z45.2 ENCOUNTER FOR ADJUSTMENT AND MANAGEMENT 01/30/2019 CLEVE JOHNSON N Ot Z79.4 [facility] (CURRENT) USE OF INSULIN 01/30/2019 CLEVE JOHNSON N Ot Z79.899 OTHER [facility] (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 THERAPY 01/30/2019 CLEVE JOHNSON N Ot 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 HISTORY OF NICOTINE DEPENDENCE 03/01/2019 CLEVE JOHNSON N Ot 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 03/01/2019 CLEVE JOHNSON N Ot 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 W03/01/2019 ALEX CLEVE N Ot I10 ESSENTIAL (PRIMARY) HYPERTENSION 03/01/2019 ALEXCLEVE CHEN N Ot J90 PLEURAL EFFUSION, NOT ELSEWHERE CLASSIFI 03/01/2019 ALEXCLEVE CHEN N Ot R91.1 SOLITARY PULMONARY NODULE 03/01/2019 ALEXCLEVE CHEN N Ot Z45.2 ENCOUNTER FOR ADJUSTMENT AND MANAGEMENT 03/01/2019 ALEXCLEVE CHEN N Ot Z79.4 [facility] (CURRENT) USE OF INSULIN 03/01/2019 ALEX, ALFREDAMARY ANN N Ot 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 03/01/2019 CLEVE JOHNSON N Ot 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 HISTORY OF NICOTINE DEPENDENCE 03/07/2019 ALEXCLEVE CHEN N Ot 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 03/07/2019 ALEX BOBMARY ANN N Ot 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 W/ 03/07/2019 CLEVE JOHNSON N Ot I10 ESSENTIAL (PRIMARY) HYPERTENSION 03/07/2019 ALEXCLEVE CHEN N Ot J90 PLEURAL EFFUSION, NOT ELSEWHERE CLASSIFI 03/07/2019 CLEVE JOHNSON N Ot R91.1 SOLITARY PULMONARY NODULE 03/07/2019 CLEVE JOHNSON N Ot Z45.2 ENCOUNTER FOR ADJUSTMENT AND MANAGEMENT 03/07/2019 CLEVE JOHNSON N Ot 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 03/07/2019 CLEVE JOHNSON N Ot Z79.899 OTHER [facility] (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 THERAPY 03/07/2019 CLEVE JOHNSON N Ot 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 HISTORY OF NICOTINE DEPENDENCE 04/30/2019 ALEX ALFREDAMARY ANN N Ot 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 04/30/2019 ALEXALFREDAAN N Ot 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 W04/30/2019 ALEXCLEVE N Ot I10 ESSENTIAL (PRIMARY) HYPERTENSION 04/30/2019 ALEXCLEVE N Ot J90 PLEURAL EFFUSION, NOT ELSEWHERE CLASSIFI 04/30/2019 ALEX BOBAN N Ot R91.1 SOLITARY PULMONARY NODULE 04/30/2019 ALEXCLEVE N Ot Z45.2 ENCOUNTER FOR ADJUSTMENT AND MANAGEMENT 04/30/2019 ALEX ALFREDAMARY ANN N Ot 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 04/30/2019 ALEXCLEVE CHEN N Ot Z79.899 OTHER [facility] (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 THERAPY 04/30/2019 ALEXALFREDA CHENAN N Ot 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 HISTORY OF NICOTINE DEPENDENCE 05/01/2019 ALEX, ALFREDAMARY ANN N Ot 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 05/01/2019 ALEX ALFREDAMARY ANN N Ot 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 W05/01/2019 ALEX BOBAN N Ot I10 ESSENTIAL (PRIMARY) HYPERTENSION 05/01/2019 ALEX BOBAN N Ot J90 PLEURAL EFFUSION, NOT ELSEWHERE CLASSIFI 05/01/2019 ALEX BOBAN N Ot R91.1 SOLITARY PULMONARY NODULE 05/01/2019 ALEX CLEVE N Ot Z45.2 ENCOUNTER FOR ADJUSTMENT AND MANAGEMENT 05/01/2019 ALEXCLEVE N Ot Z79.4 [facility] (CURRENT) USE OF INSULIN 05/01/2019 ALEXALFREDAAN N Ot Z79.899 OTHER [facility] (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 THERAPY 05/01/2019 ALEX CLEVE N Ot 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 HISTORY OF NICOTINE DEPENDENCE 06/21/2019 CLEVE JOHNSON N Ot 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 06/21/2019 ALEX CLEVE N Ot 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 06/21/2019 ALEX BOBMARY ANN N Ot I10 ESSENTIAL (PRIMARY) HYPERTENSION 06/21/2019 ALEXCLEVE N Ot J90 PLEURAL EFFUSION, NOT ELSEWHERE CLASSIFI 06/21/2019 ALEX ALFREDAMARY ANN N Ot R91.1 SOLITARY PULMONARY NODULE 06/21/2019 ALEX CLEVE N Ot Z45.2 ENCOUNTER FOR ADJUSTMENT AND MANAGEMENT 06/21/2019 ALEX CLEVE N Ot 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 06/21/2019 ALEXALFREDAAN N Ot Z79.899 OTHER [facility] (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 THERAPY 06/21/2019 ALEX BOBAN N Ot 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 HISTORY OF NICOTINE DEPENDENCE 07/11/2019 ALEX, ALFREDAMARY ANN N Ot 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 07/11/2019 ALEXCLEVE N Ot 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 07/11/2019 CLEVE JOHNSON N Ot I10 ESSENTIAL (PRIMARY) HYPERTENSION 07/11/2019 ALEX, ALFREDAMARY ANN N Ot J90 PLEURAL EFFUSION, NOT ELSEWHERE CLASSIFI 07/11/2019 ALEX, ALFREDAMARY ANN N Ot R91.1 SOLITARY PULMONARY NODULE 07/11/2019 ALEX, BOBMARY ANN N Ot Z45.2 ENCOUNTER FOR ADJUSTMENT AND MANAGEMENT 07/11/2019 ALEX, ALFREDAMARY ANN N Ot Z79.4 [facility] (CURRENT) USE OF INSULIN 07/11/2019 ALEX, CLEVE N Ot 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 07/11/2019 ALEXALFREDA CHENAN N Ot 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 HISTORY OF NICOTINE DEPENDENCE 09/03/2019 ALEX, CLEVE N Ot 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 09/03/2019 ALEX, CLEVE N Ot 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 W/ 09/03/2019 ALEX, BOBMARY ANN N Ot I10 ESSENTIAL (PRIMARY) HYPERTENSION 09/03/2019 ALEX, ALFREDAMARY ANN N Ot J90 PLEURAL EFFUSION, NOT ELSEWHERE CLASSIFI 09/03/2019 ALEXCLEVE CHEN N Ot R91.1 SOLITARY PULMONARY NODULE 09/03/2019 ALEXCLEVE CHEN N Ot Z45.2 ENCOUNTER FOR ADJUSTMENT AND MANAGEMENT 09/03/2019 ALEXCLEVE CHEN N Ot 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 09/03/2019 ALEX ALFREDAAN N Ot 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 09/03/2019 ALEX ALFREDAMARY ANN N Ot 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 HISTORY OF NICOTINE DEPENDENCE 09/04/2019 ALEXCLEVE N Ot 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 09/04/2019 ALEX CLEVE N Ot 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 W/ 09/04/2019 ALEX CLEVE N Ot I10 ESSENTIAL (PRIMARY) HYPERTENSION 09/04/2019 ALEX CLEVE N Ot J90 PLEURAL EFFUSION, NOT ELSEWHERE CLASSIFI 09/04/2019 ALEX, ALFREDAMARY ANN N Ot R91.1 SOLITARY PULMONARY NODULE 09/04/2019 ALEX, CLEVE N Ot Z45.2 ENCOUNTER FOR ADJUSTMENT AND MANAGEMENT 09/04/2019 ALEXCLEVE N Ot 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 09/04/2019 CLEVE JOHNSON N Ot 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 09/04/2019 ALEX ALFREDAMARY ANN N Ot 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 HISTORY OF NICOTINE DEPENDENCE 10/13/2019 ALEX CLEVE N Ot 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 10/13/2019 ALEX CLEVE N Ot 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 W/ 10/13/2019 ALEXCLEVE N Ot I10 ESSENTIAL (PRIMARY) HYPERTENSION 10/13/2019 ALEX CLEVE N Ot J90 PLEURAL EFFUSION, NOT ELSEWHERE CLASSIFI 10/13/2019 ALEXCLEVE N Ot R91.1 SOLITARY PULMONARY NODULE 10/13/2019 ALEXCLEVE N Ot Z45.2 ENCOUNTER FOR ADJUSTMENT AND MANAGEMENT 10/13/2019 ALEXCLEVE N Ot 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 10/13/2019 ALEXCLEVE N Ot 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 10/13/2019 ALEXCLEVE N Ot 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 HISTORY OF NICOTINE DEPENDENCE 11/01/2019 ALEX CLEVE N Ot 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 11/01/2019 ALEX CLEVE N Ot 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 W/ 11/01/2019 ALEX BOBMARY ANN N Ot I10 ESSENTIAL (PRIMARY) HYPERTENSION 11/01/2019 ALEX CLEVE N Ot J90 PLEURAL EFFUSION, NOT ELSEWHERE CLASSIFI 11/01/2019 ALEXCLEVE N Ot R91.1 SOLITARY PULMONARY NODULE 11/01/2019 ALEXCLEVE N Ot Z45.2 ENCOUNTER FOR ADJUSTMENT AND MANAGEMENT 11/01/2019 ALEXCLEVE N Ot 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 11/01/2019 ALEXCLEVE N Ot Z79.899 OTHER [facility] (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 THERAPY 11/01/2019 ALEX BOBAN N Ot 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 HISTORY OF NICOTINE DEPENDENCE 11/30/2019 ALEX CLEVE N Ot 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 11/30/2019 ALEXCLEVE N Ot 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 W/ 11/30/2019 ALEX, BOBMARY ANN N Ot I10 ESSENTIAL (PRIMARY) HYPERTENSION 11/30/2019 ALEXALFREDAAN N Ot J90 PLEURAL EFFUSION, NOT ELSEWHERE CLASSIFI 11/30/2019 ALEX, BOBAN N Ot R91.1 SOLITARY PULMONARY NODULE 11/30/2019 ALEX BOBAN N Ot Z45.2 ENCOUNTER FOR ADJUSTMENT AND MANAGEMENT 11/30/2019 ALEX ALFREDAMARY ANN N Ot 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 11/30/2019 ALEX BOBAN N Ot 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 11/30/2019 ALEX, BOBAN N Ot 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 HISTORY OF NICOTINE DEPENDENCE 12/25/2019 ALEX, BOBAN N Ot 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 12/25/2019 ALEX, BOBAN N Ot 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 W12/25/2019 ALEXALFREDAMARY ANN N Ot I10 ESSENTIAL (PRIMARY) HYPERTENSION 12/25/2019 ALEX ALFREDAAN N Ot J90 PLEURAL EFFUSION, NOT ELSEWHERE CLASSIFI 12/25/2019 ALEXALFREDAAN N Ot R91.1 SOLITARY PULMONARY NODULE 12/25/2019 ALEXALFREDAMARY ANN N Ot Z45.2 ENCOUNTER FOR ADJUSTMENT AND MANAGEMENT 12/25/2019 ALEXALFREDAMARY ANN N Ot Z79.4 [facility] (CURRENT) USE OF INSULIN 12/25/2019 ALEX ALFREDAMARY ANN N Ot Z79.899 OTHER [facility] (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 THERAPY 12/25/2019 ALEX ALFREDAMARY ANN N Ot 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 HISTORY OF NICOTINE DEPENDENCE 01/07/2020 ALEX, BOBAN N Ot 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 01/07/2020 ALEX, BOBAN N Ot 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 W/ 01/07/2020 ALEX, BOBAN N Ot I10 ESSENTIAL (PRIMARY) HYPERTENSION 01/07/2020 ALEX, BOBAN N Ot J90 PLEURAL EFFUSION, NOT ELSEWHERE CLASSIFI 01/07/2020 ALEX, BOBAN N Ot R91.1 SOLITARY PULMONARY NODULE 01/07/2020 ALEXALFREDAAN N Ot Z45.2 ENCOUNTER FOR ADJUSTMENT AND MANAGEMENT 01/07/2020 ALEX, BOBAN N Ot Z79.4 [facility] (CURRENT) USE OF INSULIN 01/07/2020 ALFREDA JOHNSONAN N Ot Z79.899 OTHER [facility] (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 THERAPY 01/07/2020 ALEX, BOBAN N Ot 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 HISTORY OF NICOTINE DEPENDENCE 01/08/2020 ALEX ALFREDAMARY ANN N Ot 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 01/08/2020 ALEX, BOBAN N Ot 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 W/ 01/08/2020 ALEX BOBAN N Ot I10 ESSENTIAL (PRIMARY) HYPERTENSION 01/08/2020 ALEX, BOBAN N Ot J90 PLEURAL EFFUSION, NOT ELSEWHERE CLASSIFI 01/08/2020 ALEX BOBMARY ANN N Ot R91.1 SOLITARY PULMONARY NODULE 01/08/2020 ALEXCLEVE N Ot Z45.2 ENCOUNTER FOR ADJUSTMENT AND MANAGEMENT 01/08/2020 CLEVE JOHNSON N Ot 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 01/08/2020 CLEVE JOHNSON N Ot Z79.899 OTHER [facility] (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 THERAPY 01/08/2020 CLEVE JOHNSON N Ot 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 HISTORY OF NICOTINE DEPENDENCE 01/08/2020 W 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 [facility] 01/08/2020 W E11.65 Typ e 2 diabetes mellitus with hyperglycemia [facility] 01/08/2020 W E78.2 Mixe d hyperlipidemia [facility] 01/08/2020 W I10 Essent ial (primary) hypertension [facility] 01/08/2020 W L29.9 Prur itic condition [facility] 01/16/2020 ALEXALFREDAMARY ANN N Ot 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 01/16/2020 ALEX CLEVE N Ot 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 W/ 01/16/2020 ALEX BOBMARY ANN N Ot I10 ESSENTIAL (PRIMARY) HYPERTENSION 01/16/2020 ALEX BOBAN N Ot J90 PLEURAL EFFUSION, NOT ELSEWHERE CLASSIFI 01/16/2020 ALFREDA JOHNSONAN N Ot R91.1 SOLITARY PULMONARY NODULE 01/16/2020 ALEX BOBAN N Ot Z45.2 ENCOUNTER FOR ADJUSTMENT AND MANAGEMENT 01/16/2020 CLEVE JOHNSON N Ot Z79.4 [facility] (CURRENT) USE OF INSULIN 01/16/2020 CLEVE JOHNSON N Ot 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 01/16/2020 CLEVE JOHNSON N Ot 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 HISTORY OF NICOTINE DEPENDENCE 01/16/2020 DONOHUE, HILAH S STEEL CHECKER Ot 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 01/16/2020 DONOHUE HILAH S STEEL CHECKER Ot J44.9 CHRONIC OBSTRUCTIVE PULMONARY DISEASE, U 01/16/2020 DONOHUE, HILAH S STEEL CHECKER Ot J 90 PLEURAL EFFUSION, NOT ELSEWHERE CLASSIFI 01/16/2020 DONOHUE HILAH S STEEL CHECKER Ot R 42 DIZZINESS AND GIDDINESS 01/16/2020 DONOHUE, HILAH S STEEL CHECKER Ot 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 01/16/2020 DONOHUE HILAH S STEEL CHECKER Ot J44.9 CHRONIC OBSTRUCTIVE PULMONARY DISEASE, U 01/16/2020 DONOHUE, HILAH S STEEL CHECKER Ot J 90 PLEURAL EFFUSION, NOT ELSEWHERE CLASSIFI 01/16/2020 DONOHUE, HILAH S STEEL CHECKER Ot R 42 DIZZINESS AND GIDDINESS 01/17/2020 CLEVE JOHNSON N Ot 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 01/17/2020 CLEVE JOHNSON Ot 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 W/ 01/17/2020 CLEVE JOHNSON N Ot I10 ESSENTIAL (PRIMARY) HYPERTENSION 01/17/2020 CLEVE JOHNSON N Ot J90 PLEURAL EFFUSION, NOT ELSEWHERE CLASSIFI 01/17/2020 CLEVE JOHNSON N Ot R91.1 SOLITARY PULMONARY NODULE 01/17/2020 CLEVE JOHNSON N Ot Z45.2 ENCOUNTER FOR ADJUSTMENT AND MANAGEMENT 01/17/2020 CLEVE JOHNSON Ot 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 01/17/2020 CLEVE JOHNSON N Ot 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 01/17/2020 CLEVE JOHNSON N Ot 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 HISTORY OF NICOTINE DEPENDENCE 01/22/2020 W R00.1 Lillian Glass Procedures There is no data. Results Test Result Range Methicillin resistant Staphylococcus aur eus (MRSA) screening culture - 10/02/16 12:30 Methicillin resistant Staphylococcus aureus (MRSA) scr eening culture NEG NRG Capillary blood glucose measurement by g lucometer (mass/volume) - 10/02/16 12:40 Capillary blood glucose measurement by glucometer (mas s/volume) 101 mg/dL 70-110 Capillary blood glucose measurement by g lucometer (mass/volume) - 05/06/18 11:18 Capillary blood glucose measurement by glucometer (mas s/volume) 225 mg/dL 70-110 Capillary blood glucose measurement by g lucometer (mass/volume) - 05/06/18 16:26 Capillary blood glucose measurement by glucometer (mas s/volume) 41 mg/dL 70-110 Capillary blood glucose measurement by g lucometer (mass/volume) - 05/06/18 16:59 Capillary blood glucose measurement by glucometer (mas s/volume) 45 mg/dL 70-110 Capillary blood glucose measurement by g lucometer (mass/volume) - 05/06/18 17:17 Capillary blood glucose measurement by glucometer (mas s/volume) > mg/dL 70-110 Serum or plasma glucose measurement (mas s/volume) - 05/06/18 17:49 Serum or plasma glucose measurement (mass/volume) 67 mg/dL 70-105 Capillary blood glucose measurement by g lucometer (mass/volume) - 05/06/18 19:45 Capillary blood glucose measurement by glucometer (mas s/volume) 125 mg/dL 70-110 Capillary blood glucose measurement by g lucometer (mass/volume) - 05/06/18 21:15 Capillary blood glucose measurement by glucometer (mas s/volume) 233 mg/dL 70-110 Capillary blood glucose measurement by g lucometer (mass/volume) - 05/07/18 06:02 Capillary blood glucose measurement by glucometer (mas s/volume) 216 mg/dL 70-110 Capillary blood glucose measurement by g lucometer (mass/volume) - 05/07/18 10:55 Capillary blood glucose measurement by glucometer (mas s/volume) 106 mg/dL 70-110 Capillary blood glucose measurement by g lucometer (mass/volume) - 05/07/18 16:05 Capillary blood glucose measurement by glucometer (mas s/volume) 89 mg/dL 70-110 Capillary blood glucose measurement by g lucometer (mass/volume) - 05/07/18 20:39 Capillary blood glucose measurement by glucometer (mas s/volume) 213 mg/dL 70-110 Capillary blood glucose measurement by g lucometer (mass/volume) - 05/08/18 05:56 Capillary blood glucose measurement by glucometer (mas s/volume) 165 mg/dL 70-110 Capillary blood glucose measurement by g lucometer (mass/volume) - 05/08/18 10:57 Capillary blood glucose measurement by glucometer (mas s/volume) 397 mg/dL 70-110 Complete urinalysis with reflex to cultu re - 05/08/18 14:40 Urine color determination YELLOW NRG Urine clarity determination CLEAR NR G Urine pH measurement by test strip 5 5-9 Specific gravity of urine by test strip 1.020 1.016-1.022 Urine protein assay by test strip, semi-quantitative 4+ NEGATIVE Urine glucose detection by automated test strip 4+ NEGATIVE Erythrocytes detection in urine sediment by light micr oscopy 1+ NEGATIVE Urine ketones detection by automated test strip NE GATIVE NEGATIVE Urine nitrite detection by test strip NEGATIVE NEGATIVE Urine total bilirubin detection by test strip NEGA TIVE NEGATIVE Urine urobilinogen measurement by automated test strip (mass/volume) 4 mg/dL NORMAL Urine leukocyte esterase detection by dipstick NEG ATIVE NEGATIVE Automated urine sediment erythrocyte cou nt by microscopy (number/high power field) NONE NRG Automated urine sediment leukocyte count by microscopy (number/high power field) RARE NRG Bacteria detection in urine sediment by light microsco py TRACE NRG Squamous epithelial cells detection in u rine sediment by light microscopy RARE NRG Crystals detection in urine sediment by light microsco py NONE NRG Casts detection in urine sediment by light microscopy NONE NRG Mucus detection in urine sediment by light microscopy NEGATIVE NRG Complete urinalysis with reflex to culture NO NRG Capillary blood glucose measurement by g lucometer (mass/volume) - 05/08/18 15:38 Capillary blood glucose measurement by glucometer (mas s/volume) 363 mg/dL 70-110 Capillary blood glucose measurement by g lucometer (mass/volume) - 05/08/18 20:29 Capillary blood glucose measurement by glucometer (mas s/volume) 340 mg/dL 70-110 Capillary blood glucose measurement by g lucometer (mass/volume) - 05/09/18 05:48 Capillary blood glucose measurement by glucometer (mas s/volume) 79 mg/dL 70-110 Complete blood count (CBC) with automate d white blood cell (WBC) differential - 05/09/18 06:19 Blood leukocytes automated count (number/volume) 9.0 10*3/uL 4.3-11.0 Blood erythrocytes automated count (number/volume) 4.50 10*6/uL 4.35-5.85 Venous blood hemoglobin measurement (mass/volume) 14.1 g/dL 13.3-17.7 Blood hematocrit (volume fraction) 41 % 40-54 Automated erythrocyte mean corpuscular volume 91 [ foz_us] 80-99 Automated erythrocyte mean corpuscular h emoglobin (mass per erythrocyte) 31 pg 25-34 Automated erythrocyte mean corpuscular h emoglobin concentration measurement (mass/volume) 34 g/dL 32-36 Automated erythrocyte distribution width ratio 14. 0 % 10.0- 14.5 Automated blood platelet count (count/volume) 238 10*3/uL [...] 10*3 1.0-4.0 Blood monocytes automated count (number/volume) 1. 1 10*3 0.0-1.0 Automated eosinophil count 0.4 10*3/uL 0 .0-0.3 Automated blood basophil count (count/volume) 0.0 10*3/uL 0.0-0.1 Whole blood basic metabolic panel - 04/14 03/30 06:19 Serum or plasma sodium measurement (moles/volume) 141 mmol/L 135-145 Serum or plasma potassium measurement (moles/volume) 4.2 mmol/L 3.6-5.0 Serum or plasma chloride measurement (moles/volume) 109 mmol/L 98-107 Carbon dioxide 24 mmol/L 21-32 Serum or plasma anion gap determination (moles/volume) 8 mmol/L 5-14 Serum or plasma urea nitrogen measurement (mass/volume ) 23 mg/dL 7-18 Serum or plasma creatinine measurement (mass/volume) 1.09 mg/dL 0.60-1.30 Serum or plasma urea nitrogen/creatinine mass ratio 21 NRG Serum or plasma creatinine measurement w ith calculation of estimated glomerular filtration rate > NRG Serum or plasma glucose measurement (mass/volume) 110 mg/dL 70-105 Serum or plasma calcium measurement (mass/volume) 8.8 mg/dL 8.5-10.1 Capillary blood glucose measurement by g lucometer (mass/volume) - 05/09/18 11:12 Capillary blood glucose measurement by glucometer (mas s/volume) 223 mg/dL 70-110 Gram stain microscopy - 05/09/18 13:38 Gram stain microscopy No bacteria seen NRG Bacteria identification in wound by cult ure - 05/09/18 13:38 Bacteria identification in wound by culture SEE CO MMEN NRG QUANTITY OF GROWTH . NRG C FUNGUS SPUTUM FLUID TISSUE - 05/09/18 13:38 QUANTITY OF GROWTH Isolated NRG C FUNGUS SPUTUM FLUID TISSUE [id number] N RG Automated blood complete blood count (he mogram) panel - 09/07/18 09:45 Blood leukocytes automated count (number/volume) 6.7 10*3/uL 4.3-11.0 Blood erythrocytes automated count (number/volume) 5.07 10*6/uL 4.35-5.85 Venous blood hemoglobin measurement (mass/volume) 15.5 g/dL 13.3-17.7 Blood hematocrit (volume fraction) 45 % 40-54 Automated erythrocyte mean corpuscular volume 89 [ foz_us] 80-99 Automated erythrocyte mean corpuscular h emoglobin (mass per erythrocyte) 31 pg 25-34 Automated erythrocyte mean corpuscular h emoglobin concentration measurement (mass/volume) 34 g/dL 32-36 Automated erythrocyte distribution width ratio 13. 6 % 10.0- 14.5 Automated blood platelet count (count/volume) 223 10*3/uL 130-400 Automated blood platelet mean volume measurement 10.5 [foz_us] 7.4-10.4 PT panel in platelet poor plasma by coag ulation assay - 09/07/18 09:45 Prothrombin time (PT) in platelet poor plasma by coagu lation assay 13.6 s 12.2-14.7 INR in platelet poor plasma or blood by coagulation as say 1.0 0.8-1.4 Activated partial thromboplastin time (a PTT) in platelet poor plasma bycoagulation assay - 09/07/18 09:45 Activated partial thromboplastin time (a PTT) in platelet poor plasma bycoagulation assay 77 s 24-35 Comprehensive metabolic panel - 09/07/18 09:45 Serum or plasma sodium measurement (moles/volume) 141 mmol/L 135-145 Serum or plasma potassium measurement (moles/volume) 4.0 mmol/L 3.6-5.0 Serum or plasma chloride measurement (moles/volume) 110 mmol/L 98-107 Carbon dioxide 24 mmol/L 21-32 Serum or plasma anion gap determination (moles/volume) 7 mmol/L 5-14 Serum or plasma urea nitrogen measurement (mass/volume ) 21 mg/dL 7-18 Serum or plasma creatinine measurement (mass/volume) 1.03 mg/dL 0.60-1.30 Serum or plasma urea nitrogen/creatinine mass ratio 20 NRG Serum or plasma creatinine measurement w ith calculation of estimated glomerular filtration rate > NRG Serum or plasma glucose measurement (mass/volume) 146 mg/dL 70-105 Serum or plasma calcium measurement (mass/volume) 8.5 mg/dL 8.5-10.1 Serum or plasma total bilirubin measurement (mass/volu me) 0.5 mg/dL 0.1-1.0 Serum or plasma alkaline phosphatase can surement (enzymatic activity/volume) 113 U/L 40-136 Serum or plasma aspartate aminotransfera se measurement (enzymatic activity/volume) 20 U/L 5-34 Serum or plasma alanine aminotransferase measurement (enzymatic activity/volume) 28 U/L 0-55 Serum or plasma protein measurement (mass/volume) 5.7 g/dL 6.4-8.2 Serum or plasma albumin measurement (mass/volume) 3.0 g/dL 3.2-4.5 CALCIUM CORRECTED 9.3 mg/dL 8.5-10.1 Lipid 1996 panel - 09/07/18 09:45 Serum or plasma triglyceride measurement (mass/volume) 139 mg/dL <150 Serum or plasma cholesterol measurement (mass/volume) 265 mg/dL < 200 Serum or plasma cholesterol in HDL measurement (mass/v olume) 53 mg/dL 40-60 Cholesterol in LDL [mass/volume] in serum or plasma by direct assay 191 mg/dL 1-129 Serum or plasma cholesterol in VLDL measurement (mass/ volume) 28 mg/dL 5-40 Methicillin resistant Staphylococcus aur eus (MRSA) screening culture - 09/07/18 09:45 Methicillin resistant Staphylococcus aureus (MRSA) scr eening culture NEG NRG Capillary blood glucose measurement by g lucometer (mass/volume) - 09/07/18 17:00 Capillary blood glucose measurement by glucometer (mas s/volume) 132 mg/dL 70-110 Capillary blood glucose measurement by g lucometer (mass/volume) - 09/07/18 20:46 Capillary blood glucose measurement by glucometer (mas s/volume) 247 mg/dL 70-110 Automated blood complete blood count (he mogram) panel - 09/08/18 03:50 Blood leukocytes automated count (number/volume) 8.4 10*3/uL 4.3-11.0 Blood erythrocytes automated count (number/volume) 4.80 10*6/uL 4.35-5.85 Venous blood hemoglobin measurement (mass/volume) 14.9 g/dL 13.3-17.7 Blood hematocrit (volume fraction) 43 % 40-54 Automated erythrocyte mean corpuscular volume 89 [ foz_us] 80-99 Automated erythrocyte mean corpuscular h emoglobin (mass per erythrocyte) 31 pg 25-34 Automated erythrocyte mean corpuscular h emoglobin concentration measurement (mass/volume) 35 g/dL 32-36 Automated erythrocyte distribution width ratio 13. 6 % 10.0- 14.5 Automated blood platelet count (count/volume) 209 10*3/uL 130-400 Automated blood platelet mean volume measurement 10.7 [foz_us] 7.4-10.4 Whole blood basic metabolic panel - 08/14 03/30 03:50 Serum or plasma sodium measurement (moles/volume) 138 mmol/L 135-145 Serum or plasma potassium measurement (moles/volume) 4.0 mmol/L 3.6-5.0 Serum or plasma chloride measurement (moles/volume) 109 mmol/L 98-107 Carbon dioxide 19 mmol/L 21-32 Serum or plasma anion gap determination (moles/volume) 10 mmol/L 5-14 Serum or plasma urea nitrogen measurement (mass/volume ) 17 mg/dL 7-18 Serum or plasma creatinine measurement (mass/volume) 1.04 mg/dL 0.60-1.30 Serum or plasma urea nitrogen/creatinine mass ratio 16 NRG Serum or plasma creatinine measurement w ith calculation of estimated glomerular filtration rate > NRG Serum or plasma glucose measurement (mass/volume) 107 mg/dL 70-105 Serum or plasma calcium measurement (mass/volume) 8.4 mg/dL 8.5-10.1 Automated blood complete blood count (he mogram) panel - 10/19/18 07:38 Blood leukocytes automated count (number/volume) 7.4 10*3/uL 4.3-11.0 Blood erythrocytes automated count (number/volume) 4.58 10*6/uL 4.35-5.85 Venous blood hemoglobin measurement (mass/volume) 14.2 g/dL 13.3-17.7 Blood hematocrit (volume fraction) 41 % 40-54 Automated erythrocyte mean corpuscular volume 90 [ foz_us] 80-99 Automated erythrocyte mean corpuscular h emoglobin (mass per erythrocyte) 31 pg 25-34 Automated erythrocyte mean corpuscular h emoglobin concentration measurement (mass/volume) 35 g/dL 32-36 Automated erythrocyte distribution width ratio 13. 1 % 10.0- 14.5 Automated blood platelet count (count/volume) 249 10*3/uL 130-400 Automated blood platelet mean volume measurement 9.9 [foz_us] 7.4-10.4 PT panel in platelet poor plasma by coag ulation assay - 10/19/18 07:38 Prothrombin time (PT) in platelet poor plasma by coagu lation assay 14.7 s 12.2-14.7 INR in platelet poor plasma or blood by coagulation as say 1.2 0.8-1.4 Activated partial thromboplastin time (a PTT) in platelet poor plasma bycoagulation assay - 10/19/18 07:38 Activated partial thromboplastin time (a PTT) in platelet poor plasma bycoagulation assay 74 s 24-35 Comprehensive metabolic panel - 10/19/18 07:38 Serum or plasma sodium measurement (moles/volume) 139 mmol/L 135-145 Serum or plasma potassium measurement (moles/volume) 4.3 mmol/L 3.6-5.0 Serum or plasma chloride measurement (moles/volume) 109 mmol/L 98-107 Carbon dioxide 21 mmol/L 21-32 Serum or plasma anion gap determination (moles/volume) 9 mmol/L 5-14 Serum or plasma urea nitrogen measurement (mass/volume ) 25 mg/dL 7-18 Serum or plasma creatinine measurement (mass/volume) 1.42 mg/dL 0.60-1.30 Serum or plasma urea nitrogen/creatinine mass ratio 18 NRG Serum or plasma creatinine measurement w ith calculation of estimated glomerular filtration rate 48 NRG Serum or plasma glucose measurement (mass/volume) 204 mg/dL 70-105 Serum or plasma calcium measurement (mass/volume) 8.7 mg/dL 8.5-10.1 Serum or plasma total bilirubin measurement (mass/volu me) 0.4 mg/dL 0.1-1.0 Serum or plasma alkaline phosphatase can surement (enzymatic activity/volume) 138 U/L 40-136 Serum or plasma aspartate aminotransfera se measurement (enzymatic activity/volume) 26 U/L 5-34 Serum or plasma alanine aminotransferase measurement (enzymatic activity/volume) 31 U/L 0-55 Serum or plasma protein measurement (mass/volume) 5.8 g/dL 6.4-8.2 Serum or plasma albumin measurement (mass/volume) 3.1 g/dL 3.2-4.5 CALCIUM CORRECTED 9.4 mg/dL 8.5-10.1 Lipid 1996 panel - 10/19/18 07:38 Serum or plasma triglyceride measurement (mass/volume) 125 mg/dL <150 Serum or plasma cholesterol measurement (mass/volume) 198 mg/dL < 200 Serum or plasma cholesterol in HDL measurement (mass/v olume) 46 mg/dL 40-60 Cholesterol in LDL [mass/volume] in serum or plasma by direct assay 126 mg/dL 1-129 Serum or plasma cholesterol in VLDL measurement (mass/ volume) 25 mg/dL 5-40 Methicillin resistant Staphylococcus aur eus (MRSA) screening culture - 10/19/18 07:38 Methicillin resistant Staphylococcus aureus (MRSA) scr eening culture NEG NRG Automated blood complete blood count (he mogram) panel - 10/20/18 04:15 Blood leukocytes automated count (number/volume) 11.2 10*3/uL 4.3-11.0 Blood erythrocytes automated count (number/volume) 4.38 10*6/uL 4.35-5.85 Venous blood hemoglobin measurement (mass/volume) 13.6 g/dL 13.3-17.7 Blood hematocrit (volume fraction) 39 % 40-54 Automated erythrocyte mean corpuscular volume 90 [ foz_us] 80-99 Automated erythrocyte mean corpuscular h emoglobin (mass per erythrocyte) 31 pg 25-34 Automated erythrocyte mean corpuscular h emoglobin concentration measurement (mass/volume) 35 g/dL 32-36 Automated erythrocyte distribution width ratio 13. 4 % 10.0- 14.5 Automated blood platelet count (count/volume) 264 10*3/uL 130-400 Automated blood platelet mean volume measurement 10.1 [foz_us] 7.4-10.4 Whole blood basic metabolic panel - 03/31 04:15 Serum or plasma sodium measurement (moles/volume) 141 mmol/L 135-145 Serum or plasma potassium measurement (moles/volume) 3.4 mmol/L 3.6-5.0 Serum or plasma chloride measurement (moles/volume) 112 mmol/L 98-107 Carbon dioxide 19 mmol/L 21-32 Serum or plasma anion gap determination (moles/volume) 10 mmol/L 5-14 Serum or plasma urea nitrogen measurement (mass/volume ) 20 mg/dL 7-18 Serum or plasma creatinine measurement (mass/volume) 1.15 mg/dL 0.60-1.30 Serum or plasma urea nitrogen/creatinine mass ratio 17 NRG Serum or plasma creatinine measurement w ith calculation of estimated glomerular filtration rate > NRG Serum or plasma glucose measurement (mass/volume) 44 mg/dL 70-105 Serum or plasma calcium measurement (mass/volume) 8.3 mg/dL 8.5-10.1 Capillary blood glucose measurement by g lucometer (mass/volume) - 10/20/18 05:49 Capillary blood glucose measurement by glucometer (mas s/volume) 49 mg/dL 70-110 Capillary blood glucose measurement by g lucometer (mass/volume) - 10/20/18 06:40 Capillary blood glucose measurement by glucometer (mas s/volume) 106 mg/dL 70-110 Capillary blood glucose measurement by g lucometer (mass/volume) - 10/20/18 08:19 Capillary blood glucose measurement by glucometer (mas s/volume) 148 mg/dL 70-110 Capillary blood glucose measurement by g lucometer (mass/volume) - 10/20/18 15:42 Capillary blood glucose measurement by glucometer (mas s/volume) 220 mg/dL 70-110 Capillary blood glucose measurement by g lucometer (mass/volume) - 10/21/18 04:54 Capillary blood glucose measurement by glucometer (mas s/volume) 221 mg/dL 70-110 Automated blood complete blood count (he mogram) panel - 10/21/18 04:55 Blood leukocytes automated count (number/volume) 8.2 10*3/uL 4.3-11.0 Blood erythrocytes automated count (number/volume) 4.16 10*6/uL 4.35-5.85 Venous blood hemoglobin measurement (mass/volume) 12.8 g/dL 13.3-17.7 Blood hematocrit (volume fraction) 38 % 40-54 Automated erythrocyte mean corpuscular volume 91 [ foz_us] 80-99 Automated erythrocyte mean corpuscular h emoglobin (mass per erythrocyte) 31 pg 25-34 Automated erythrocyte mean corpuscular h emoglobin concentration measurement (mass/volume) 34 g/dL 32-36 Automated erythrocyte distribution width ratio 13. 4 % 10.0- 14.5 Automated blood platelet count (count/volume) 223 10*3/uL 130-400 Automated blood platelet mean volume measurement 10.1 [foz_us] 7.4-10.4 Whole blood basic metabolic panel - 05/01 04:55 Serum or plasma sodium measurement (moles/volume) 138 mmol/L 135-145 Serum or plasma potassium measurement (moles/volume) 4.2 mmol/L 3.6-5.0 Serum or plasma chloride measurement (moles/volume) 111 mmol/L 98-107 Carbon dioxide 19 mmol/L 21-32 Serum or plasma anion gap determination (moles/volume) 8 mmol/L 5-14 Serum or plasma urea nitrogen measurement (mass/volume ) 20 mg/dL 7-18 Serum or plasma creatinine measurement (mass/volume) 1.16 mg/dL 0.60-1.30 Serum or plasma urea nitrogen/creatinine mass ratio 17 NRG Serum or plasma creatinine measurement w ith calculation of estimated glomerular filtration rate 60 NRG Serum or plasma glucose measurement (mass/volume) 250 mg/dL 70-105 Serum or plasma calcium measurement (mass/volume) 8.3 mg/dL 8.5-10.1 Capillary blood glucose measurement by g lucometer (mass/volume) - 10/21/18 10:57 Capillary blood glucose measurement by glucometer (mas s/volume) 163 mg/dL 70-110 Complete blood count (CBC) with automate d white blood cell (WBC) differential - 01/22/20 15:20 Blood leukocytes automated count (number/volume) 9.4 10*3/uL 4.3-11.0 Blood erythrocytes automated count (number/volume) 4.70 10*6/uL 4.35-5.85 Venous blood hemoglobin measurement (mass/volume) 14.4 g/dL 13.3-17.7 Blood hematocrit (volume fraction) 42 % 40-54 Automated erythrocyte mean corpuscular volume 89 [ foz_us] 80-99 Automated erythrocyte mean corpuscular h emoglobin (mass per erythrocyte) 31 pg 25-34 Automated erythrocyte mean corpuscular h emoglobin concentration measurement (mass/volume) 35 g/dL 32-36 Automated erythrocyte distribution width ratio 14. 2 % 10.0- 14.5 Automated blood platelet count (count/volume) 265 10*3/uL 130-400 Automated blood platelet mean volume measurement 10.2 [foz_us] 7.4-10.4 Automated blood neutrophils/100 leukocytes 71 % 42-75 Automated blood lymphocytes/100 leukocytes 16 % 12-44 Blood monocytes/100 leukocytes 10 % 0-12 Automated blood eosinophils/100 leukocytes 3 % 0-10 Automated blood basophils/100 leukocytes 0 % 0-10 Blood neutrophils automated count (number/volume) 6.6 10*3 1.8-7.8 Blood lymphocytes automated count (number/volume) 1.5 10*3 1.0-4.0 Blood monocytes automated count (number/volume) 1. 0 10*3 0.0-1.0 Automated eosinophil count 0.3 10*3/uL 0 .0-0.3 Automated blood basophil count (count/volume) 0.0 10*3/uL 0.0-0.1 Comprehensive metabolic panel - 01/22/20 15:20 Serum or plasma sodium measurement (moles/volume) 140 mmol/L 135-145 Serum or plasma potassium measurement (moles/volume) 4.2 mmol/L 3.6-5.0 Serum or plasma chloride measurement (moles/volume) 113 mmol/L 98-107 Carbon dioxide 18 mmol/L 21-32 Serum or plasma anion gap determination (moles/volume) 9 mmol/L 5-14 Serum or plasma urea nitrogen measurement (mass/volume ) 24 mg/dL 7-18 Serum or plasma creatinine measurement (mass/volume) 1.37 mg/dL 0.60-1.30 Serum or plasma urea nitrogen/creatinine mass ratio 18 NRG Serum or plasma creatinine measurement w ith calculation of estimated glomerular filtration rate 50 NRG Serum or plasma glucose measurement (mass/volume) 182 mg/dL 70-105 Serum or plasma calcium measurement (mass/volume) 8.1 mg/dL 8.5-10.1 Serum or plasma total bilirubin measurement (mass/volu me) 0.5 mg/dL 0.1-1.0 Serum or plasma alkaline phosphatase can surement (enzymatic activity/volume) 145 U/L 40-136 Serum or plasma aspartate aminotransfera se measurement (enzymatic activity/volume) 23 U/L 5-34 Serum or plasma alanine aminotransferase measurement (enzymatic activity/volume) 19 U/L 0-55 Serum or plasma protein measurement (mass/volume) 5.6 g/dL 6.4-8.2 Serum or plasma albumin measurement (mass/volume) 2.8 g/dL 3.2-4.5 CALCIUM CORRECTED 9.1 mg/dL 8.5-10.1 PT panel in platelet poor plasma by coag ulation assay - 01/22/20 15:20 Prothrombin time (PT) in platelet poor plasma by coagu lation assay 27.9 s 12.2-14.7 INR in platelet poor plasma or blood by coagulation as say 2.5 0.8-1.4 Capillary blood glucose measurement by g lucometer (mass/volume) - 01/22/20 15:33 Capillary blood glucose measurement by glucometer (mas s/volume) 187 mg/dL 70-110 Encounters ACCT No. Visit Date/Time Discharge Status Pt. Type Provider Facility Loc./Unit Complaint [id number] 11/15/2019 15:52:10 11/15/2019 23:59:5 9 CLS Outpatient [id number] 01/17/2020 14:54:00 020 23:59:59 CLS Outpatient CLEVE JOHNSON V [facility] ONC [id number] 01/15/2020 11:11:00 23:59:59 CLS Outpatient SEYMOUR DONOHUE [facility] CARD PRIMARY CANCER OF ESOPHAGUS [id number] 11/20/2019 15:39:00 00:01:00 DIS Outpatient ALEX CLEVE Stuart V [facility] ONC [id number] 08/30/2019 15:17:00 00:01:00 DIS Outpatient ALEX CLEVE N V [facility] ONC [id number] 04/24/2019 14:12:00 00:01:00 DIS Outpatient ALEX CLEVE N V [facility] ONC [id number] 12/19/2018 12:56:00 00:01:00 DIS Outpatient CLEVE JOHNSON V [facility] ONC [id number] 12/23/2018 10:53:00 23:59:59 CLS Outpatient ALEX CLEVE Jordan [facility] CARD PRIMARY CA OF ESOPHAGUS [id number] 11/02/2018 14:21:00 23:59:59 CLS Outpatient DEISI STEVEN MD [facility] WOUNDCARE [id number] 10/26/2018 14:03:00 23:59:59 CLS Outpatient DEISI STEVEN MD [facility] WOUNDCARE [id number] 10/19/2018 06:55:00 10:30:00 DIS Outpatient SAMANTHA CRAWLEY MD [facility] CATH PVD, NON HEALING LOWER EXT ULCERS, ABN STRESS TEST [id number] 09/15/2018 12:21:00 00:01:00 DIS Outpatient CLEVE JOHNSON V [facility] ONC [id number] 10/12/2018 07:48:00 23:59:59 CLS Outpatient SAMANTHA CRAWLEY MD [facility] CARD CAD [id number] 10/10/2018 13:38:00 019 23:59:59 CLS Outpatient TENISHA MORAN, DEISI Vegas [facility] WOUNDCARE [id number] 09/07/2018 08:44:00 018 09:50:00 DIS Outpatient SAMANTHA CRAWLEY MD [facility] CATH PVD,ABN FROY,HTN [id number] 09/01/2018 15:19:00 018 23:59:59 CLS Preadmit SAMANTHA CRAWLEY MD [facility] RAD INSULIN DEPENDENT DIABE BLAYNE MELLITUS,FERGUSON [id number] 07/21/2018 16:15:00 018 13:54:00 DIS Outpatient TIM MORAN, DEISI Shafer [facility] REHAB L ANKLE FX [id number] 06/06/2018 13:28:00 018 00:01:00 DIS Outpatient CLEVE JOHNSON V [facility] ONC [id number] 03/28/2018 14:34:00 018 00:01:00 DIS Outpatient CLEVE JOHNSON V [facility] ONC [id number] 05/05/2018 15:45:00 018 15:49:00 DIS Inpatient GROVER MORAN, ARTIS Grier [facility] 4TH BIMALLEOLAR ANKLE FRACT URE; INABILITY TO BEAR- [id number] 02/08/2018 09:01:00 018 23:59:59 CLS Outpatient SEYMOUR DONOHUE [facility] RAD PRIMARY CA OF E GIANAAGUS [id number] 01/10/2018 15:06:00 018 00:01:00 DIS Outpatient CLEVE JOHNSON [facility] ONC [id number] 09/09/2017 10:56:00 018 00:01:00 DIS Outpatient CLEVE JOHNSON V [facility] ONC [id number] 09/20/2017 06:55:00 018 10:05:00 DIS Outpatient JOHN AHUMADA MD [facility] ENDO GE JUNCTION ADENOCARCI NOMA [id number] 09/15/2017 11:00:00 018 12:32:00 DIS Outpatient JOHN AHUMADA MD [facility] PREOP EGD [id number] 08/10/2017 08:57:00 017 23:59:59 CLS Outpatient CLEVE JOHNSON V [facility] RAD PRIMARY CANCER OF ESOPH CRISTOFER C15.5 [id number] 05/20/2017 12:50:00 017 00:01:00 DIS Outpatient CLEVE JOHNSON V [facility] ONC [id number] 05/18/2017 08:13:00 017 23:59:59 CLS Outpatient SEYMOUR DONOHUE [facility] RAD PRIMARY CANCER OF ESOPHAGUS [id number] 03/18/2017 13:46:00 017 00:01:00 DIS Outpatient CLEVE JOHNSON [facility] ONC [id number] 02/04/2017 10:34:00 017 23:59:59 CLS Outpatient CLEVE JOHNSON V [facility] CARD Z01.89,C15.5 [id number] 12/24/2016 13:07:00 017 00:01:00 DIS Outpatient CLEVE JOHNSON [facility] ONC [id number] 10/02/2016 12:19:00 017 17:10:00 DIS Outpatient JOHN AHUMADA MD [facility] SDC GASTRO CARCINOMA [id number] 10/01/2016 05:36:00 017 12:41:00 DIS Outpatient JOHN AHUMADA MD [facility] PREOP GASTRO CARCINOMA [id number] 09/22/2016 11:19:00 017 23:59:59 CLS Outpatient NIKOLAS MOLINA APRN [facility] RAD DYSPNEA,LUNG NO DULE [id number] 09/22/2016 08:36:00 017 23:59:59 CLS Outpatient PHILL MORAN, LILLIAN Shafer [facility] RAD ESOPHAGIAL CANCER [id number] 06/01/2016 06:48:00 016 23:59:59 CLS Outpatient ZITA MORAN, JOHN Grier [facility] SDC DYSPHAGIA [id number] 05/28/2016 05:55:00 016 09:16:00 DIS Outpatient ZITA MORAN, JOHN Grier [facility] PREOP DYSPHAGIA [id number] 03/11/2016 09:58:00 016 23:59:59 CLS Outpatient RAJNI MARINELLI DO [facility] RAD DYSPNEA,OBESITY [id number] 01/29/2016 16:47:00 016 13:40:00 DIS Inpatient KWADWO MORAN, DARYL R [facility] 4TH CONFUSION [id number] 03/18/2015 08:59:00 015 23:59:59 CLS Outpatient RAUL MORAN, DEISI Shafer [facility] RAD GLOBIS SENSATION, TROUB LE SWALLOWING [id number] 06/09/2013 17:35:00 013 20:00:00 DIS Emergency HUNTER WHITMORE, NARENDRA Dodd a [facility] ER LOC [id number] 01/22/2020 14:41:[address] Inpatient SLOAN MORAN, LILLIAN Yo [facility] ICU RT SIDED PLEURAL EFFUSION,BR ACHYCARDIA [id number] 01/29/2016 10:19:00 Document Registration [id number] 10/27/2010 11:33:00 Document Registration
[2020-01-22 20:00] VITALS: BP 163/69
[2020-01-22] MEDS: inSUlin ASPART (NovoLOG) 1 UNIT/0.01 ML (CHARGE PER UNIT) SC SCH (20:33)
[2020-01-22] MEDS ORDERED: RT-ALBUTEROL/IPRATROPIUM 3 ML (DUONEB) VIAL ONE (21:44)
[2020-01-22 21:51] LABS: ABG BASE EXCESS -6.7 MMOL/L (-2.5-2.5); ABG OXYGEN SATURATION 98 % (94-100); ABG PCO2 33 MMHG (35-45); ABG PH 7.36 (7.37-7.43); ABG PO2 95 MMHG (79-93); ABG TCO2 18.9 MMOL/L (21.0-31.0)
[2020-01-22 21:52] LABS: ALLENS TEST YES-POS; INSPIRED O2 9L NC; PATIENT TEMP 36.6; VENTILATOR NO
--- NOTE | 2020-01-22 22:11 | Diagnostic Imaging Report ---
EXAM: CHEST 1 VIEW, AP/PA ONLY INDICATION: Pleural effusion. COMPARISON: CT chest 01/15/2020. FINDINGS: Large right pleural effusion and atelectasis in the right lung base. Right IJ tunneled port CVC tip is in the mid SVC. The left lung is relatively clear. Normal heart size. Central pulmonary vascularity is obscured. No acute osseous findings. IMPRESSION: Large right pleural effusion and compressive atelectasis in the right lung base, similar to 01/15/2020. Dictated by: Dictated on workstation # [id number]
[2020-01-23] VITALS (9 sets, daily range): BP systolic 134–190; BP diastolic 57–109
[2020-01-23 02:57] LABS: HEMOGLOBIN 13.5 G/DL (13.3-17.7); MEAN PLATELET VOLUME 10.4 FL (7.4-10.4); RED CELL DISTRIBUTION WIDTH 14.3 % (10.0-14.5)
[2020-01-23 03:08] LABS: ALBUMIN 2.7 GM/DL (3.2-4.5); POTASSIUM 4.4 MMOL/L (3.6-5.0)
[2020-01-23 03:09] LABS: CALCIUM 7.7 MG/DL (8.5-10.1)
[2020-01-23 03:11] LABS: TOTAL PROTEIN 5.9 GM/DL (6.4-8.2)
[2020-01-23 03:13] LABS: BILIRUBIN,TOTAL 0.4 MG/DL (0.1-1.0)
[2020-01-23 03:14] LABS: CREATININE SERUM 1.62 MG/DL (0.60-1.30); PHOSPHORUS 3.6 MG/DL (2.3-4.7)
[2020-01-23 03:17] LABS: MAGNESIUM 2.3 MG/DL (1.6-2.4)
[2020-01-23] MEDS: NS IV 1000 ML 1,000 ML IV SCH ×2 (03:40→16:06)
[2020-01-23] MEDS: MAGNESIUM 1 GM/100 ML IVPB 100 ML IV SCH (03:42)
[2020-01-23] MEDS: POTASSIUM CL 10MEQ/50ML IVPB 50 ML IV SCH (03:42)
[2020-01-23] MEDS: KCL 20 MEQ TAB (K-DUR) PO SCH (03:42)
[2020-01-23] MEDS: inSUlin ASPART (NovoLOG) 1 UNIT/0.01 ML (CHARGE PER UNIT) SC SCH ×4 (06:39→20:36)
[2020-01-23] MEDS: ENOXAPARIN 40 MG/0.4 ML (LOVENOX) SYR SC SCH (08:22)
--- NOTE | 2020-01-23 09:20 | Progress Note ---
Subjective Subjective Date Seen by Provider: January 23, 2020 Time Seen by Provider: 08:30 THE PATIENT REPORTS THAT HE IS FEELING A LITTLE BIT BETTER THAN WHEN IN THE OFFICE. HE STATES THAT HE IS NOT HAVING MORE SHORTNESS OF BREATH, HE REPORTS THAT HE DOES NOT WANT TO MAKE DECISIONS WITHOUT TALKING ABOUT THINGS WITH HIS . HE STATES THAT HE IS SHORT OF BREATH WHEN MOVING AROUND. STAFF REPORTS TO ME THIS MORNING THAT COVID-19 TESTING WAS ORDERED BY E-ICU. I WAS NOT INFORMED OF THIS UNTIL I SHOWED UP TO THE ICU THIS MORNING. Review of Systems General: No Chills; Fatigue HEENT: No Visual Changes, No Dysphasia, No Sore Throat Pulmonary: Dyspnea, Cough Cardiovascular: No: Chest Pain, Palpitations Gastrointestinal: No: Nausea, Abdominal Pain Genitourinary: No Dysuria Neurological: Weakness; No: Confusion All Other Systems Reviewed All Other Systems Reviewed: Yes Objective Exam Vital Signs Vital Signs - First Documented 01/22/20 01/22/20 15:00 16:00 Temp 36.8 Pulse 39 Resp 20 B/P (MAP) 132/59 (83) Pulse Ox 99 O2 Delivery Nasal Cannula O2 Flow Rate 2.00 Capillary Refill : Less Than 3 Seconds General Appearance: WD/WN, Mild Distress Eyes: Bilateral Eye Normal Inspection, Bilateral Eye PERRL, Bilateral Eye EOMI HEENT: PERRL/EOMI, Normal ENT Inspection, Pharynx Normal Neck: Full Range of Motion, Non Tender, Supple Respiratory: Chest Non Tender, Decreased Breath Sounds (NO BREATH SOUNDS ON RIGHT, NORMAL ON LEFT); No Wheezing Cardiovascular: Bradycardia Gastrointestinal: Normal Bowel Sounds, No Pulsatile Mass, Non Tender, Soft Rectal: Deferred Back: Normal Inspection Extremity: Normal Capillary Refill, Non Tender, No Calf Tenderness, No Pedal Edema Neurologic/Psychiatric: Alert, Oriented x3, 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 Norm as Tested Skin: Normal Color, Warm/Dry Lymphatic: No Adenopathy Results Lab Laboratory Tests 01/22/20 15:20: White Blood Count 9.4, Red Blood Count 4.70, Hemoglobin 14.4, Hematocrit 42, Mean Corpuscular Volume 89, Mean Corpuscular Hemoglobin 31, Mean Corpuscular Hemoglobin Concent 35, Red Cell Distribution Width 14.2, Platelet Count 265, Mean Platelet Volume 10.2, Neutrophils (%) (Auto) 71, Lymphocytes (%) (Auto) 16, Monocytes (%) (Auto) 10, Eosinophils (%) (Auto) 3, Basophils (%) (Auto) 0, Neutrophils # (Auto) 6.6, Lymphocytes # (Auto) 1.5, Monocytes # (Auto) 1.0, Eosinophils # (Auto) 0.3, Basophils # (Auto) 0.0, Prothrombin Time 27.9H, INR Comment 2.5H, Sodium Level 140, Potassium Level 4.2, Chloride Level 113H, Carbon Dioxide Level 18L, Anion Gap 9, Blood Urea Nitrogen 24H, Creatinine 1.37H, Estimat Glomerular Filtration Rate 50, BUN/Creatinine Ratio 18, Glucose Level 182H, Calcium Level 8.1L, Corrected Calcium 9.1, Total Bilirubin 0.5, Aspartate Amino Transf (AST/SGOT) 23, Alanine Aminotransferase (ALT/SGPT) 19, Alkaline Phosphatase 145H, Total Protein 5.6L, Albumin 2.8L 01/22/20 15:33: Glucometer 187H 01/22/20 20:27: Glucometer 267H 01/22/20 21:45: Blood Gas Puncture Site R RAD, Blood Gas Patient Temperature 36.6, Arterial Blood pH 7.36L, Arterial Blood Partial Pressure CO2 33L, Arterial Blood Partial Pressure O2 95H, Arterial Blood HCO3 18L, Arterial Blood Total CO2 18.9L, Arterial Blood Oxygen Saturation 98, Arterial Blood Base Excess -6.7L, Fox Test YES-POS, Blood Gas Ventilator Setting NO, Blood Gas Inspired Oxygen 9L NC 01/22/20 23:12: 01/23/20 02:40: White Blood Count 9.0, Red Blood Count 4.46, Hemoglobin 13.5, Hematocrit 40, Mean Corpuscular Volume 89, Mean Corpuscular Hemoglobin 30, Mean Corpuscular Hemoglobin Concent 34, Red Cell Distribution Width 14.3, Platelet Count 255, Mean Platelet Volume 10.4, Sodium Level 140, Potassium Level 4.4, Chloride Level 113H, Carbon Dioxide Level 19L, Anion Gap 8, Blood Urea Nitrogen 28H, Creatinine 1.62H, Estimat Glomerular Filtration Rate 41, BUN/Creatinine Ratio 17, Glucose Level 239H, Calcium Level 7.7L, Corrected Calcium 8.7, Phosphorus Level 3.6, Magnesium Level 2.3, Total Bilirubin 0.4, Aspartate Amino Transf (AST/SGOT) 17, Alanine Aminotransferase (ALT/SGPT) 16, Alkaline Phosphatase 132, Total Protein 5.9L, Albumin 2.7L Assessment/Plan Assessment/Plan Admission Dx MODERATE TO LARGE RIGHT PLEURAL EFFUSION BRADYCARDIA ATRIAL FIBRILLATION HX OF ESOPHAGEAL CARCINOMA HYPERTENSION DIABETES MELLITUS MODERATE TO LARGE RIGHT PLEURAL EFFUSION WITH HX OF ESOPHAGEAL CARCINOMA - WORSENING SYMPTOMS OVERNIGHT - AND E-ICU ORDERED A COVID-19 TEST - MODERATE TO LARGE PLEURAL EFFUSION I HAVE DISCUSSED HIS CASE WITH DR. DALEY IN RADIOLOGY, THE PLAN IS THAT ON WEDNESDAY PT WILL GO DOWN TO RADIOLOGY FOR THORACENTESIS AND WILL SEND FLUID FOR CHEMISTRIES WELL MICRO FOR BACTERIA, FUNGAL ORGANISMS AND ALSO FOR CYTOLOGICAL EVALUATION. - OXYGEN VIA NASAL CANNULA BRADYCARDIA NEW ONSET WITH CHRONIC ATRIAL FIBRILLATION AND HYPERTENSION - CONSULT TO DR. CRAWLEY - MEDICATIONS WILL NEED ADJUSTED WELL MAY NEED PACEMAKER PLACEMENT. DIABETES MELLITUS - RESTARTED LEVEMIR - INCREASE NEEDED AND STARTED SLIDING SCALE B ADVANCED AGE - PT REPORTED IN THE OFFICE THAT HE WANTS TO BE FULL CODE STATUS. DVT PROPHYLAXIS WITH LOVENOX AND SCD'S GI PROPHYLAXIS WITH PEPCID Admission Status: Inpatient Order (span 2 midnights) Admission Dx MODERATE TO LARGE RIGHT PLEURAL EFFUSION BRADYCARDIA ATRIAL FIBRILLATION HX OF ESOPHAGEAL CARCINOMA HYPERTENSION DIABETES MELLITUS Clinical Quality Measures Admission Status Admission Dx MODERATE TO LARGE RIGHT PLEURAL EFFUSION BRADYCARDIA ATRIAL FIBRILLATION HX OF ESOPHAGEAL CARCINOMA HYPERTENSION DIABETES MELLITUS DVT/VTE Risk/Contraindication: Risk Factor Score Per Nursin RFS Level Per Nursing on Admit: 3=High Contraindications-Pharm: Other *list below* Other: planning on procedure on 01/23/2020 - holding lovenox until after procedure is done scd's have been ordered LILLIAN LISA MD January 23, 2020 09:20
[2020-01-23] MEDS ORDERED: TRIAMCINOLONE 0.5% CR (KENALOG) 15 GM TUBE TOP PRN (09:30)
[2020-01-23] MEDS: FAMOTIDINE 20MG/2ML IV (PEPCID) IVP SCH (09:33)
--- NOTE | 2020-01-23 17:49 | Cardiology Progress Note ---
Subjective Date Seen by Provider: January 23, 2020 Time Seen by Provider: 09:00 Subjective/Events-last exam Patient was seen, having more dyspnea, scheduled for thoracenthesis later this week COVID was pending this morning Review of Systems General: No Chills, No Night Sweats; Fatigue; No Malaise, No Appetite, No Other HEENT: No Head Aches, No Visual Changes, No Eye Pain, No Ear Pain, No Dysphasia, No Sinus Congestion, No Post Nasal Drip, No Sore Throat, No Other Pulmonary: Dyspnea; No Cough, No Pleuritic Chest Pain, No Other Cardiovascular: No: Chest Pain, Palpitations, Orthopnea, Paroxysmal Noc. Dyspnea, Edema, Lt Headedness, Other Objective-Cardiology Exam Last Set of Vital Signs Vital Signs 01/24/20 01/24/20 01/24/20 15:00 15:50 16:16 Temp 36.5 Pulse 28 Resp 19 B/P (MAP) 156/67 (96) Pulse Ox 96 O2 Delivery High Flow N/C O2 Flow Rate 4.00 Capillary Refill : Less Than 3 Seconds I&O Intake and Output 01/24/20 00:00 Intake Total 950 ml Output Total 550 ml Balance 400 ml Intake Oral 950 ml Output Urine Total 550 ml General: Alert, Cooperative HEENT: PERRLA Neck: Supple, No JVD Lungs: Other (bilateral rhonchi) Heart: Normal S1, Normal S2, Other (bradycardia) Abdomen: Normal Bowel Sounds Extremities: No Clubbing, No Cyanosis Skin: No Breakdown Neuro: Normal Speech Psych/Mental Status: Mental Status NL Results Lab Laboratory Tests 01/24/20 03:20 A/P-Cardiology Admission Diagnosis Bradycardia Chronic atrial fibrillation Hypertension Peripheral arterial disease Assessment/Plan Bradycardia, asymptomatic, underlying atrial fibrillation, patient will need a pacemaker implanted unless his overall prognosis is poor. We'll discuss with Dr. Santacruz Dyspnea, fatigue, pleural effusion, status post thoracentesis, removed 3 L of fluid. Awaiting cytology COVID tested negative on 01/23/2020 History of Peripheral arterial disease, currently asymptomatic, angiogram was done on September 07, 2018 showed total occlusion of the tibial peroneal trunk on the left with successful balloon angioplasty and reestablishing flow through the peroneal artery down to the foot, the posterior tibial artery is receiving collaterals and the anterior tibial artery has severe disease distally also receiving collateral from the peroneal artery. The SFA has severe stenosis at multiple segment underwent deployment of 2 overlapping SUPERA 6 x 150 and 5.5 x 100 with excellent results and excellent flow. Patient was noted to have on the right SFA multiple segment of moderate to moderately severe stenosis and disease below the trifurcation. Repeat FROY showed normal FROY on the right abnormal TBI. On the left FROY was abnormal and TBI was nondiagnostic, angiogram was done on October 20, 2018 and balloon angioplasty to the right SFA with Hinckley 5 and 6 mm balloon with excellent results, the right popliteal artery is totally occluded at the trifurcation with reconstruction by collateral with slow flow that improved after nitroglycerin injection, the wound has healed, his legs are feeling better, continue to monitor Cardiac catheterization done on October 19, 2018 showing multivessel coronary artery disease including calcified artery with moderate to severe stenosis at the mid LAD, moderate to severe stenosis at the distal LAD with severe stenosis at the distal circumflex artery and moderate stenosis at the midright coronary artery with severe stenosis at the distal right coronary artery, normal left ventricular size, he is currently asymptomatic. I will continue monitoring with consideration for high risk intervention on the LAD if needed in the future Paroxysmal atrial fibrillation, asymptomatic, still in atrial fibrillation, EKG was done today showing atrial fibrillation with occasional PVCs and right bundle branch block. Continue on Xarelto and continue to monitor Hypertension, blood pressure is elevated, continue to hold Norvasc and will restart losartan at this time and monitor Hyperlipidemia, continue to monitor lipids Bilateral carotid stenosis, ultrasound showed mild bilateral disease n onobstructive disease in August 2018. 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 Gonzalez. Diabetes mellitus, labile blood sugar and history of syncope secondary to hypoglycemia. Patient was seen and evaluated with Shalonda, examination performed, management plan was discussed, agree with the current scribed note, I made few changes to the note using Italic font Patient is laying down in bed, feeling better. Discussed with Dr. Santacruz regarding the possibility of pacemaker implant, I will wait for the cytology of his fluid and his overall prognosis. He is currently asymptomatic and if his long-term prognosis is good I recommend placement of a pacemaker. Still hypertensive at this time. Continue to monitor Clinical Quality Measures DVT/VTE Risk/Contraindication: Risk Factor Score Per Nursin RFS Level Per Nursing on Admit: 3=High Contraindications-Pharm: Other *list below* Other: planning on procedure on 01/23/2020 - holding lovenox until after procedure is done scd's have been ordered SAMANTHA CRAWLEY MD January 23, 2020 5:49 pm
[2020-01-24] VITALS (18 sets, daily range): BP systolic 93–180; BP diastolic 50–110
[2020-01-24 03:33] LABS: HEMOGLOBIN 13.4 G/DL (13.3-17.7); MEAN PLATELET VOLUME 10.6 FL (7.4-10.4); RED CELL DISTRIBUTION WIDTH 14.4 % (10.0-14.5); WHITE BLOOD COUNT 8.4 10^3/uL (4.3-11.0)
[2020-01-24 03:44] LABS: ALBUMIN 2.6 GM/DL (3.2-4.5); POTASSIUM 4.2 MMOL/L (3.6-5.0)
[2020-01-24 03:45] LABS: CALCIUM 7.7 MG/DL (8.5-10.1)
[2020-01-24 03:47] LABS: TOTAL PROTEIN 5.7 GM/DL (6.4-8.2)
[2020-01-24 03:48] LABS: BILIRUBIN,TOTAL 0.5 MG/DL (0.1-1.0)
[2020-01-24 03:50] LABS: CREATININE SERUM 1.41 MG/DL (0.60-1.30); PHOSPHORUS 3.8 MG/DL (2.3-4.7)
[2020-01-24 03:53] LABS: MAGNESIUM 2.4 MG/DL (1.6-2.4)
--- NOTE | 2020-01-24 05:00 | Pulmonary Consultation ---
History of Present Illness History of Present Illness Date Seen by Provider: January 24, 2020 Time Seen by Provider: 04:55 Date of Admission Reason for Visit: Bradycardia History of Present Illness 84yo with hx of Afib PVD, and stage IIIa GE cancer directly admitted from Dr. Santacruz's ofice secondary to worsening Dyspnea, and fatigue over the last 2-3 days. Found to have right pleural effusion. Dr. Paula asked me to see pt. Dr. Santacruz has already ordered thoracentesis per radiology. No prior episodes like this. Allergies and Home Medications Allergies Coded Allergies: latex (Verified Allergy, Unknown, 10/19/18) oxycodone (Verified Allergy, Unknown, 10/19/18) Home Medications Amlodipine Besylate 10 Mg Tablet, 10 MG PO DAILY, (Reported) Betamethasone Dipropionate 15 Gm Oint...g., 1 APPLIC TOP TID PRN for ITCHING, (Reported) Cefuroxime Axetil 500 Mg Tablet, 500 MG PO BID Prescribed by: SAMANTHA PAULA on 01/27/20 1128 Insulin Aspart 300 Units/3 Ml Solution, 5 UNITS SC TIDAC, (Reported) Insulin Detemir 100 Unit/1 Ml Insuln.pen, 15 UNIT SQ HS, (Reported) Losartan Potassium 25 Mg Tablet, 25 MG PO DAILY, (Reported) Metoprolol Succinate 25 Mg Tab.er.24h, 25 MG PO DAILY Prescribed by: SAMANTHA PAULA on 01/27/20 1128 Rivaroxaban 20 Mg Tablet, 20 MG PO DAILY W/ DINNER, (Reported) TAKES IN THE EVENING WITH A MEAL Past [id number]-Ghkwcd Hx Past Med/Social Hx: Reviewed Nursing Past Med/Soc Hx, Reviewed and Corrections made Patient Social History Alcohol Use: Occasionally Uses Recreational Drug Use: No Smoking Status: Former Smoker Type Used: Cigarettes Former Smoker, Quit: Sep 07, 1984 2nd Hand Smoke Exposure: No Recent Foreign Travel: No Contact w/Someone Who Travel: No Recent Infectious Disease Expo: No Recent Hopitalizations: No Immunizations Up To Date Tetanus Booster (TDap): Unknown Date of Pneumonia Vaccine: Nov 01, 2014 Date of Influenza Vaccine: Jul 14, 2017 Seasonal Allergies Seasonal Allergies: No Past Medical History Surgeries: Yes (EXC SKIN LESIONS, exc of lesion scrotum, artery in leg opened, arm & leg fx) Respiratory: No Currently Using CPAP: No Currently Using BIPAP: No Cardiac: Yes Hypertension, Peripheral Vascular Neurological: No Reproductive Disorders: No Sexually Transmitted Disease: No HIV/AIDS: No Genitourinary: No Kidney Stones 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 Reflux Musculoskeletal: Yes Arthritis Endocrine: Yes Diabetes, Insulin dep HEENT: Yes Cataract Hearing Impairment: Hard of Hearing, Bilateral Hearing Aide Cancer: Yes Esophageal Did You Recieve Any Treatments: Yes What Type of Treatment Did You: Chemotherapy, Radiation Psychosocial: No Integumentary: No Blood Disorders: No Adverse Reaction/Blood Tranf: No Family Medical History Reviewed Nursing Family Hx BONE CAN 19 FATHER Completed stroke 19 MOTHER G8 SISTER Dementia 19 MOTHER FH: lung cancer FH: malignant neoplasm of bone Myocardial infarction G8 BROTHER Heart Disease, Cancer, CAD Over 55 Years Old, Stroke Review of Systems Time Seen by Provider: 10:08 Constitutional: Chills, Sweats, Weakness, Malaise, Other; No: Fever Eyes: No: Pain, Vision change, Conjunctivae inflammation, Eyelid inflammation, Other, Redness ENT: Nose discharge, Nose congestion; No: Ear pain, Ear discharge, Nose pain, Mouth pain, Mouth swelling, Throat pain, Throat swelling, Other Respiratory: Cough, Dry, Shortness of breath, SOB with excertion, Wheezing; No: Hemoptysis, Pleuritic Pain Cardiovascular: Palpitations, Orthopnea, Paroxysmal Noc. Dyspnea; No: Chest Pain Gastrointestinal: No: Nausea, Vomiting, Abdominal Pain, Diarrhea, Constipation, Melena, Hematochezia, Other Sepsis Event Evaluation Height, Weight, BMI Height: 6'2.00" Weight: 240lbs. 0.0oz. 108.819808yj; 28.80 BMI Method:Stated Exam Exam Vital Signs Date Time Temp Pulse Resp B/P (MAP) Pulse Ox O2 Delivery O2 Flow Rate FiO2 01/24/20 04:00 31 22 154/99 (117) 97 Nasal Cannula 4.00 01/24/20 03:00 30 20 165/67 (99) 97 Nasal Cannula 4.00 01/24/20 02:00 30 17 163/62 (95) 97 Nasal Cannula 4.00 01/24/20 01:00 29 01/24/20 01:00 29 18 155/69 (97) 98 Nasal Cannula 4.00 01/24/20 00:00 High Flow N/C 4.00 01/24/20 00:00 31 25 170/63 (98) 96 Nasal Cannula 4.00 01/23/20 23:00 35 24 165/61 (95) 97 Nasal Cannula 4.00 01/23/20 22:37 40 24 190/109 (136) 96 Nasal Cannula 4.00 01/23/20 21:00 High Flow N/C 4.00 01/23/20 21:00 33 22 134/57 (82) 97 Nasal Cannula 4.00 01/23/20 20:32 36.6 01/23/20 20:00 High Flow N/C 4.00 01/23/20 20:00 30 21 139/65 (89) 98 Nasal Cannula 4.00 01/23/20 19:00 32 16 135/66 (89) 97 Nasal Cannula 4.00 01/23/20 19:00 32 01/23/20 16:00 32 19 175/66 (102) 98 Nasal Cannula 4.00 01/23/20 16:00 High Flow N/C 4.00 01/23/20 12:35 36 01/23/20 12:00 31 21 168/60 (96) 97 Nasal Cannula 4.00 01/23/20 12:00 High Flow N/C 4.00 01/23/20 10:36 Nasal Cannula 4.00 01/23/20 09:00 High Flow N/C 4.00 01/23/20 08:00 High Flow N/C 4.00 01/23/20 08:00 77 183/70 (107) 95 Nasal Cannula 4.00 01/23/20 07:00 37 I & O 01/24/20 07:00 Intake Total 650 ml Output Total 375 ml Balance 275 ml Height & Weight Height: 6'2.00" Weight: 240lbs. 0.0oz. 108.077878tq; 28.80 BMI Method:Stated General Appearance: No Apparent Distress, WD/WN HEENT: PERRL/EOMI, TMs Normal, Normal ENT Inspection, Pharynx Normal, Moist Mucous Membranes Neck: Full Range of Motion, Normal Inspection, Non Tender, Supple, Carotid Bruit Respiratory: Chest Non Tender, Normal Breath Sounds, No Accessory Muscle Use, Crackles, Decreased Breath Sounds Cardiovascular: Normal Peripheral Pulses, Bradycardia, Systolic Murmur, Irregularly Irregular Capillary Refill: Less Than 3 Seconds Extremity: Normal Capillary Refill, Normal Inspection, Normal Range of Motion, Non Tender, No Calf Tenderness, Pedal Edema Neurologic/Psychiatric: Alert, Oriented x3, No Motor/Sensory Deficits, Normal Mood/Affect Skin: Normal Color, Warm/Dry Lymphatic: No Adenopathy Results Lab Laboratory Tests 01/22/20 15:20 01/23/20 02:40 01/24/20 03:20 Assessment/Plan Assessment/Plan Large right pleural effusion with hx of esophageal cancer -Dr. Paula asked me to consult on pt -Dr. Santacruz has already scheduled thoracentesis with Dr. Grewal radiology -BNP is 697 -Check echo Acute on chronic Renal insufficiency -Monitor Bradycardia Chronic afib HTN PVD RAJNI SUH DO January 24, 2020 05:00
[2020-01-24] MEDS: POTASSIUM CL 10MEQ/50ML IVPB 50 ML IV SCH (06:42)
[2020-01-24] MEDS: MAGNESIUM 1 GM/100 ML IVPB 100 ML IV SCH (06:42)
[2020-01-24] MEDS: KCL 20 MEQ TAB (K-DUR) PO SCH (06:42)
[2020-01-24] MEDS: inSUlin ASPART (NovoLOG) 1 UNIT/0.01 ML (CHARGE PER UNIT) SC SCH ×4 (06:42→20:04)
[2020-01-24] MEDS: NS IV 1000 ML 1,000 ML IV SCH ×2 (06:53→22:10)
--- NOTE | 2020-01-24 08:30 | Progress Note ---
Subjective Subjective Date Seen by Provider: January 24, 2020 Time Seen by Provider: 08:30 PT REPORTS THAT HE IS "OKAY" BUT HE HAD A ROUGH NIGHT. HE REPORTS THAT HE DID NOT EAT HIS LAST 3 MEALS BECAUSE "IT WAS AWFUL". STAFF REPORTS THAT HE HAD A GOOD NIGHT, BUT HAS LOW URINE OUTPUT. PATIENT REPORTS NO CHEST PAIN, BUT HE IS SHORT OF BREATH WITH ANY ACTIVITY. HE NOTES SWELLING IN HIS ARMS THAT IS NOT USUAL FOR HIM. Review of Systems General: No Chills; Fatigue HEENT: No Visual Changes, No Dysphasia, No Sore Throat Pulmonary: Dyspnea, Cough Cardiovascular: No: Chest Pain, Palpitations Gastrointestinal: No: Nausea, Abdominal Pain Genitourinary: No Dysuria Neurological: Weakness; No: Confusion All Other Systems Reviewed All Other Systems Reviewed: Yes Objective Exam Vital Signs Vital Signs - First Documented 01/22/20 01/22/20 15:00 16:00 Temp 36.8 Pulse 39 Resp 20 B/P (MAP) 132/59 (83) Pulse Ox 99 O2 Delivery Nasal Cannula O2 Flow Rate 2.00 Capillary Refill : Less Than 3 Seconds General Appearance: No Apparent Distress, WD/WN Eyes: Bilateral Eye Normal Inspection, Bilateral Eye PERRL, Bilateral Eye EOMI HEENT: PERRL/EOMI, Pharynx Normal, Moist Mucous Membranes Neck: Full Range of Motion, Normal Inspection, Non Tender, Supple Respiratory: Crackles (LEFT BASE), Decreased Breath Sounds (ON RIGHT) Cardiovascular: Bradycardia, Systolic Murmur, Irregularly Irregular Gastrointestinal: Normal Bowel Sounds, No Organomegaly, No Pulsatile Mass, Non Tender, Soft Rectal: Deferred Extremity: Normal Capillary Refill, Non Tender, No Calf Tenderness, Pedal Edema, Other (EDEMA BILATERAL UPPER ARMS FROM ELBOW TO HANDS) Neurologic/Psychiatric: Alert, Oriented x3, No Motor/Sensory Deficits, Normal Mood/Affect Skin: Normal Color, Warm/Dry Lymphatic: No Adenopathy Results Lab Laboratory Tests 01/23/20 11:21: Glucometer 138H 01/23/20 16:10: Glucometer 116H 01/23/20 20:12: Glucometer 134H 01/24/20 03:20: White Blood Count 8.4, Red Blood Count 4.47, Hemoglobin 13.4, Hematocrit 41, Mean Corpuscular Volume 91, Mean Corpuscular Hemoglobin 30, Mean Corpuscular Hemoglobin Concent 33, Red Cell Distribution Width 14.4, Platelet Count 253, Mean Platelet Volume 10.6H, Sodium Level 141, Potassium Level 4.2, Chloride Level 115H, Carbon Dioxide Level 19L, Anion Gap 7, Blood Urea Nitrogen 27H, Creatinine 1.41H, Estimat Glomerular Filtration Rate 48, BUN/Creatinine Ratio 19, Glucose Level 105, Calcium Level 7.7L, Corrected Calcium 8.8, Phosphorus Level 3.8, Magnesium Level 2.4, Total Bilirubin 0.5, Aspartate Amino Transf (AST/SGOT) 17, Alanine Aminotransferase (ALT/SGPT) 15, Alkaline Phosphatase 130, B-Type Natriuretic Peptide 697.7H, Total Protein 5.7L, Albumin 2.6L Assessment/Plan Assessment/Plan Admission Dx MODERATE TO LARGE RIGHT PLEURAL EFFUSION BRADYCARDIA ATRIAL FIBRILLATION HX OF ESOPHAGEAL CARCINOMA HYPERTENSION DIABETES MELLITUS EDEMA MODERATE TO LARGE RIGHT PLEURAL EFFUSION WITH HX OF ESOPHAGEAL CARCINOMA - COVID-19 TESTING NEGATIVE - MODERATE TO LARGE PLEURAL EFFUSION I HAVE DISCUSSED HIS CASE WITH DR. DALEY IN RADIOLOGY, THE PLAN IS THAT TODAY PT WILL GO DOWN TO RADIOLOGY FOR THORACENTESIS AND WILL SEND FLUID FOR CHEMISTRIES WELL MICRO FOR BACTERIA, FUNGAL ORGANISMS AND ALSO FOR CYTOLOGICAL EVALUATION. - THORACENTESIS TO BE PERFORMED TODAY BY RADIOLOGIST. - OXYGEN VIA NASAL CANNULA BRADYCARDIA NEW ONSET WITH CHRONIC ATRIAL FIBRILLATION AND HYPERTENSION - CONSULT TO DR. CRAWLEY - MEDICATIONS WILL NEED ADJUSTED WELL MAY NEED PACEMAKER PLACEMENT. - DR. CRAWLEY WAITING ON PACE-MAKER PLACEMENT UNTIL AFTER WE DETERMINE IF MEDICATION ADJUSTMENT WILL IMPROVE HIS HEART RATE. DIABETES MELLITUS - RESTARTED LEVEMIR - INCREASE NEEDED AND STARTED SLIDING SCALE B ADVANCED AGE - PT REPORTED IN THE OFFICE THAT HE WANTS TO BE FULL CODE STATUS. DVT PROPHYLAXIS WITH LOVENOX AND SCD'S GI PROPHYLAXIS WITH PEPCID Admission Dx MODERATE TO LARGE RIGHT PLEURAL EFFUSION BRADYCARDIA ATRIAL FIBRILLATION HX OF ESOPHAGEAL CARCINOMA HYPERTENSION DIABETES MELLITUS MODERATE TO LARGE RIGHT PLEURAL EFFUSION WITH HX OF ESOPHAGEAL CARCINOMA - WORSENING SYMPTOMS OVERNIGHT - AND E-ICU ORDERED A COVID-19 TEST - MODERATE TO LARGE PLEURAL EFFUSION I HAVE DISCUSSED HIS CASE WITH DR. DALEY IN RADIOLOGY, THE PLAN IS THAT ON WEDNESDAY PT WILL GO DOWN TO RADIOLOGY FOR THORACENTESIS AND WILL SEND FLUID FOR CHEMISTRIES WELL MICRO FOR BACTERIA, FUNGAL ORGANISMS AND ALSO FOR CYTOLOGICAL EVALUATION. - OXYGEN VIA NASAL CANNULA BRADYCARDIA NEW ONSET WITH CHRONIC ATRIAL FIBRILLATION AND HYPERTENSION - CONSULT TO DR. CRAWLEY - MEDICATIONS WILL NEED ADJUSTED WELL MAY NEED PACEMAKER PLACEMENT. DIABETES MELLITUS - RESTARTED LEVEMIR - INCREASE NEEDED AND STARTED SLIDING SCALE B ADVANCED AGE - PT REPORTED IN THE OFFICE THAT HE WANTS TO BE FULL CODE STATUS. DVT PROPHYLAXIS WITH LOVENOX AND SCD'S GI PROPHYLAXIS WITH PEPCID Clinical Quality Measures Admission Status Admission Dx MODERATE TO LARGE RIGHT PLEURAL EFFUSION BRADYCARDIA ATRIAL FIBRILLATION HX OF ESOPHAGEAL CARCINOMA HYPERTENSION DIABETES MELLITUS MODERATE TO LARGE RIGHT PLEURAL EFFUSION WITH HX OF ESOPHAGEAL CARCINOMA - WORSENING SYMPTOMS OVERNIGHT - AND E-ICU ORDERED A COVID-19 TEST - MODERATE TO LARGE PLEURAL EFFUSION I HAVE DISCUSSED HIS CASE WITH DR. DALEY IN RADIOLOGY, THE PLAN IS THAT ON WEDNESDAY PT WILL GO DOWN TO RADIOLOGY FOR THORACENTESIS AND WILL SEND FLUID FOR CHEMISTRIES WELL MICRO FOR BACTERIA, FUNGAL ORGANISMS AND ALSO FOR CYTOLOGICAL EVALUATION. - OXYGEN VIA NASAL CANNULA BRADYCARDIA NEW ONSET WITH CHRONIC ATRIAL FIBRILLATION AND HYPERTENSION - CONSULT TO DR. CRAWLEY - MEDICATIONS WILL NEED ADJUSTED WELL MAY NEED PACEMAKER PLACEMENT. DIABETES MELLITUS - RESTARTED LEVEMIR - INCREASE NEEDED AND STARTED SLIDING SCALE B ADVANCED AGE - PT REPORTED IN THE OFFICE THAT HE WANTS TO BE FULL CODE STATUS. DVT PROPHYLAXIS WITH LOVENOX AND SCD'S GI PROPHYLAXIS WITH PEPCID DVT/VTE Risk/Contraindication: Risk Factor Score Per Nursin RFS Level Per Nursing on Admit: 3=High Contraindications-Pharm: Other *list below* Other: planning on procedure on 01/23/2020 - holding lovenox until after procedure is done scd's have been ordered LILLIAN LISA MD January 24, 2020 08:30
[2020-01-24] MEDS: FAMOTIDINE 20MG/2ML IV (PEPCID) IVP SCH (09:15)
[2020-01-24] MEDS: ENOXAPARIN 40 MG/0.4 ML (LOVENOX) SYR SC SCH (09:27)
[2020-01-24 09:31] LABS: INR 1.3 (0.8-1.4)
--- NOTE | 2020-01-24 11:01 | Cardiology Progress Note ---
Subjective Date Seen by Provider: January 24, 2020 Time Seen by Provider: 09:15 Subjective/Events-last exam Patient is in bed, denies any dizziness. Continues to be bradycardic with heart rate in the 30's. Objective-Cardiology Exam Last Set of Vital Signs Vital Signs 01/24/20 01/24/20 08:00 10:16 Temp 36.9 Pulse 33 Resp 21 B/P (MAP) 163/82 (109) Pulse Ox 97 O2 Delivery Nasal Cannula O2 Flow Rate 4.00 Capillary Refill : Less Than 3 Seconds I&O Intake and Output 01/24/20 00:00 Intake Total 950 ml Output Total 550 ml Balance 400 ml Intake Oral 950 ml Output Urine Total 550 ml General: Alert, Oriented X3, Cooperative HEENT: Atraumatic, PERRLA Neck: Supple, No JVD, No Thyromegaly Lungs: Clear to Auscultation, Other (decreased breath sounds rll) Heart: Other (bradycardic) Extremities: No Cyanosis, Other (trace edema) Skin: No Rashes, No Significant Lesion Neuro: Normal Speech, Cranial Nerves 3-12 NL Psych/Mental Status: Mental Status NL, Mood NL Results Lab Laboratory Tests 01/24/20 03:20 A/P-Cardiology Admission Diagnosis Bradycardia Chronic atrial fibrillation Hypertension Peripheral arterial disease Assessment/Plan Bradycardia, asymptomatic, underlying atrial fibrillation, may require a pacemaker implant, currently blood pressure is elevated, continue to monitor HR Dyspnea, fatigue, pleural effusion, for possible thoracenthesis later this week, possible secondary to malignancy COVID tested negative on 01/23/2020 History of Peripheral arterial disease, currently asymptomatic, angiogram was done on September 07, 2018 showed total occlusion of the tibial peroneal trunk on the left with successful balloon angioplasty and reestablishing flow through the peroneal artery down to the foot, the posterior tibial artery is receiving collaterals and the anterior tibial artery has severe disease distally also receiving collateral from the peroneal artery. The SFA has severe stenosis at multiple segment underwent deployment of 2 overlapping SUPERA 6 x 150 and 5.5 x 100 with excellent results and excellent flow. Patient was noted to have on the right SFA multiple segment of moderate to moderately severe stenosis and disease below the trifurcation. Repeat FROY showed normal FROY on the right abnormal TBI. On the left FROY was abnormal and TBI was nondiagnostic, angiogram was done on October 20, 2018 and balloon angioplasty to the right SFA with [place] 5 and 6 mm balloon with excellent results, the right popliteal artery is totally occluded at the trifurcation with reconstruction by collateral with slow flow that improved after nitroglycerin injection, the wound has healed, his legs are feel ing better, continue to monitor Cardiac catheterization done on October 19, 2018 showing multivessel coronary artery disease including calcified artery with moderate to severe stenosis at the mid LAD, moderate to severe stenosis at the distal LAD with severe stenosis at the distal circumflex artery and moderate stenosis at the midright coronary artery with severe stenosis at the distal right coronary artery, normal left ventricular size, he is currently asymptomatic. I will continue monitoring with consideration for high risk intervention on the LAD if needed in the future Paroxysmal atrial fibrillation, asymptomatic, still in atrial fibrillation, EKG was done today showing atrial fibrillation with occasional PVCs and right bundle branch block. Continue on Xarelto and continue to monitor Hypertension, blood pressure is elevated, continue to hold Norvasc and will consider starting Losartan if needed Hyperlipidemia, continue to monitor lipids Bilateral carotid stenosis, ultrasound showed mild bilateral disease nonobstructive disease in August 2018. 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 Gonzalez. Diabetes mellitus, labile blood sugar and history of syncope secondary to hypoglycemia. Clinical Quality Measures DVT/VTE Risk/Contraindication: Risk Factor Score Per Nursin RFS Level Per Nursing on Admit: 3=High Contraindications-Pharm: Other *list below* Other: planning on procedure on 01/23/2020 - holding lovenox until after procedure is done scd's have been ordered CHIDI BRODY January 24, 2020 11:01
--- NOTE | 2020-01-24 12:15 | NUR ---
CHECKED PT BLOOD SUGAR. 59. GAVE PT OJ AND RECHECKED LATER. NOW AT 81. PT A/OX4 THROUGHOUT.
--- NOTE | 2020-01-24 13:52 | Diagnostic Imaging Report ---
INDICATION: Pleural effusion, status post thoracentesis. TIME OF EXAM: 01:34 p.m. COMPARISON: Correlation is made with prior chest from 01/22/2020. FINDINGS: There has been significant reduction in right-sided pleural effusion, status post thoracentesis. No pneumothorax is identified. Lungs appear clear. The heart size is stable. Right-sided chest wall port has tip overlying the SVC. IMPRESSION: Reduction in right pleural fluid status post thoracentesis. No pneumothorax is detected. Dictated by: Dictated on workstation # [id number]
--- NOTE | 2020-01-24 13:54 | Diagnostic Imaging Report ---
INDICATION: Right-sided pleural effusion. Patient present for ultrasound-guided thoracentesis. DETAILS OF PROCEDURE: Patient was brought to the procedure room and placed on the bed in the sitting upright position. Ultrasound imaging over the right posterior thorax was performed to evaluate appropriate entry site. The right posterior thorax was then prepped and draped in usual sterile fashion. A small amount of 1% lidocaine was utilized for local anesthesia. A thoracentesis catheter was advanced into the posterior pleural space. A total of 3 L of fluid was removed. Catheter was withdrawn and hemostasis was obtained. Patient tolerated the procedure well. Postprocedure chest radiograph was obtained showing no complicating features. IMPRESSION: Ultrasound-guided thoracentesis on the right obtaining 3 L of fluid. Dictated by: Dictated on workstation # [id number]
[2020-01-24 14:08] LABS: GLUCOSE,BODY FLUID 107 MG/DL; TOTAL PROTEIN,BODY FLUID 1.9 G/DL
[2020-01-24 14:09] LABS: AMYLASE,BODY FLUID 58 U/L; LDH,BODY FLUID 148 U/L
[2020-01-24 14:44] LABS: BODY FLUID APPEARENCE MKD BLDY; BODY FLUID COLOR RED; BODY FLUID RBC COUNT 21250 /uL; BODY FLUID SOURCE PLEURAL; BODY FLUID WBC TOTAL COUNT 143 /uL; LYMPHOCYTES,BODY FLUID 32 %
[2020-01-24] MEDS: LOSARTAN 25 MG (COZAAR) TAB PO SCH (18:23)
[2020-01-25] VITALS (14 sets, daily range): BP systolic 104–199; BP diastolic 59–100
[2020-01-25 03:37] LABS: HEMOGLOBIN 13.2 G/DL (13.3-17.7); MEAN PLATELET VOLUME 10.7 FL (7.4-10.4); RED CELL DISTRIBUTION WIDTH 14.5 % (10.0-14.5); WHITE BLOOD COUNT 10.1 10^3/uL (4.3-11.0)
[2020-01-25 03:57] LABS: CALCIUM 7.6 MG/DL (8.5-10.1); CREATININE SERUM 1.34 MG/DL (0.60-1.30); MAGNESIUM 2.2 MG/DL (1.6-2.4); PHOSPHORUS 3.1 MG/DL (2.3-4.7); POTASSIUM 4.3 MMOL/L (3.6-5.0)
[2020-01-25] MEDS: MAGNESIUM 1 GM/100 ML IVPB 100 ML IV SCH (04:47)
[2020-01-25] MEDS: inSUlin ASPART (NovoLOG) 1 UNIT/0.01 ML (CHARGE PER UNIT) SC SCH ×4 (04:47→21:28)
[2020-01-25] MEDS: POTASSIUM CL 10MEQ/50ML IVPB 50 ML IV SCH (04:47)
[2020-01-25] MEDS: KCL 20 MEQ TAB (K-DUR) PO SCH (04:47)
--- NOTE | 2020-01-25 08:50 | Cardiology Progress Note ---
Subjective Date Seen by Provider: January 25, 2020 Time Seen by Provider: 08:47 Subjective/Events-last exam Patient is in bed, feeling better, asking to go home, no new complaint Review of Systems General: No Chills, No Night Sweats, No Fatigue, No Malaise, No Appetite, No Other HEENT: No Head Aches, No Visual Changes, No Eye Pain, No Ear Pain, No Dysphasia, No Sinus Congestion, No Post Nasal Drip, No Sore Throat, No Other Pulmonary: Dyspnea; No Cough, No Pleuritic Chest Pain, No Other Cardiovascular: Edema; No: Chest Pain, Palpitations, Orthopnea, Paroxysmal Noc. Dyspnea, Lt Headedness, Other Objective-Cardiology Exam Last Set of Vital Signs Vital Signs 01/24/20 01/25/20 16:16 06:00 Temp 36.5 Pulse 39 Resp 25 B/P (MAP) 156/100 (118) Pulse Ox 93 O2 Delivery Nasal Cannula O2 Flow Rate 2.00 Capillary Refill : Less Than 3 Seconds I&O Intake and Output 01/25/20 00:00 Intake Total 940 ml Output Total 675 ml Balance 265 ml Intake Oral 940 ml Output Urine Total 675 ml General: Alert, Cooperative HEENT: PERRLA Neck: Supple, No JVD Lungs: Other (bilateral rhonchi) Heart: Normal S1, Normal S2, Other (bradycardia) Abdomen: Normal Bowel Sounds Extremities: No Clubbing, No Cyanosis Skin: No Breakdown Neuro: Normal Speech Psych/Mental Status: Mental Status NL Results Lab Laboratory Tests 01/25/20 03:10 A/P-Cardiology Admission Diagnosis Bradycardia Chronic atrial fibrillation Hypertension Peripheral arterial disease Assessment/Plan Bradycardia, asymptomatic, underlying atrial fibrillation, patient will need a pacemaker implanted unless his overall prognosis is poor. I discussed the management plan with Dr. Gonzalez and Dr. Currie, awaiting cytology. Currently patient is asymptomatic, blood pressure is stable. Continue to monitor Dyspnea, fatigue, pleural effusion, status post thoracentesis, removed 3 L of fluid. Awaiting cytology COVID tested negative on 01/23/2020 History of Peripheral arterial disease, currently asymptomatic, angiogram was done on September 07, 2018 showed total occlusion of the tibial peroneal trunk on the left with successful balloon angioplasty and reestablishing flow through the peroneal artery down to the foot, the posterior tibial artery is receiving collaterals and the anterior tibial artery has severe disease distally also receiving collateral from the peroneal artery. The SFA has severe stenosis at multiple segment underwent deployment of 2 overlapping SUPERA 6 x 150 and 5.5 x 100 with excellent results and excellent flow. Patient was noted to have on the right SFA multiple segment of moderate to moderately severe stenosis and disease below the trifurcation. Repeat FROY showed normal FROY on the right abnormal TBI. On the left FROY was abnormal and TBI was nondiagnostic, angiogram was done on October 20, 2018 and balloon angioplasty to the right SFA with [place] 5 and 6 mm balloon with excellent results, the right popliteal artery is totally occluded at the trifurcation with reconstruction by collateral with slow flow that improved after nitroglycerin injection, the wound has healed, his legs are feeling better, continue to monitor Cardiac catheterization done on October 19, 2018 showing multivessel coronary artery disease including calcified artery with moderate to severe stenosis at the mid LAD, moderate to severe stenosis at the distal LAD with severe stenosis at the distal circumflex artery and moderate stenosis at the midright coronary artery with severe stenosis at the distal right coronary artery, normal left ventricular size, he is currently asymptomatic. I will continue monitoring with consideration for high risk intervention on the LAD if needed in the future Paroxysmal atrial fibrillation, asymptomatic, still in atrial fibrillation, EKG was done today showing atrial fibrillation with occasional PVCs and right bundle branch block. Continue on Xarelto and continue to monitor Hypertension, blood pressure is elevated, continue to hold Norvasc and will restart losartan at this time and monitor Hyperlipidemia, continue to monitor lipids Bilateral carotid stenosis, ultrasound showed mild bilateral disease nonobstructive disease in August 2018. 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 Gonzalez. Diabetes mellitus, labile blood sugar and history of syncope secondary to hypoglycemia. Clinical Quality Measures DVT/VTE Risk/Contraindication: Risk Factor Score Per Nursin RFS Level Per Nursing on Admit: 3=High Contraindications-Pharm: Other *list below* Other: planning on procedure on 01/23/2020 - holding lovenox until after procedure is done scd's have been ordered SAMANTHA CRAWLEY MD January 25, 2020 08:50
[2020-01-25] MEDS: NS IV 1000 ML 1,000 ML IV SCH ×2 (08:51→13:45)
--- NOTE | 2020-01-25 09:08 | Physician Query Clarification ---
"Physician Query-General Query to Physician: The medical record reflects the following clinical scenario: History/Risk factors: Chronic renal Insufficiency Clinical Findings: Cr up to 1.62, Documentation of Acute on chronic Renal insufficiency by Dr Parham Treatment: Medication adjustment and monitoring Question: What condition best reflects the above clinical scenario? Please document response in the Progress notes or Discharge Summary. 1. Acute Kidney Injury 2. Acute on chronic Renal insufficiency (As currently documented) 3. Other , with explanation of the clinical findings 4. Clinically undetermined, no explanation for the clinical findings Please remember a lack of response to the above will prompt a phone page by CDI/coding staff In responding to this query, please exercise your independent professional judgment. The purpose of this communication is to more accurately reflect the complexity of your patients condition. The fact that a question is asked does not imply that any particular answer is desired or expected. Thank you for timely response to this clarification. Zina Martínez, MSN, RN RN Specialist-Clinical Doc Improvement CD -Health Info Mgmt Operations [address] [facility] t: [phone] | f: [phone] If you are unable to reach me at my extension, I may be working from home. Please contact me at [phone] PHYSICIAN RESPONSE: Based on the clinical findings in the record, please respond to the query above on this document as an addendum. Physician Response: Physician Response 2. Acute on chronic Renal insufficiency (As currently documented) If you have questions please contact: Rubbish Collection Supervisor: Ext: Thank you for your time and cooperation. Clinical Mysql Developer/Rubbish Collection Supervisor This is a permanent part of the medical record ZINA MARTÍNEZ January 25, 2020 09:08 LILLIAN LISA MD February 02, 2020 10:24"
[2020-01-25] MEDS: LOSARTAN 25 MG (COZAAR) TAB PO SCH (10:07)
[2020-01-25] MEDS: FAMOTIDINE 20MG/2ML IV (PEPCID) IVP SCH (10:08)
[2020-01-25] MEDS: ENOXAPARIN 40 MG/0.4 ML (LOVENOX) SYR SC SCH (10:11)
--- NOTE | 2020-01-25 10:31 | Diagnostic Imaging Report ---
Indication: Pleural effusion. Time of exam 9:59 AM Correlation is made with prior chest one day earlier. Right IJ chest wall port does appear to be partially looped in the right IJ but tip continues to be antegrade and overlying the SVC. Small right effusion is unchanged. There is no pneumothorax. There is some infiltrate in the right base. IMPRESSION: Small right effusion and right basilar infiltrate. Dictated by: Dictated on workstation # [id number]
--- NOTE | 2020-01-25 12:03 | Physical Therapy Evaluation ---
PT Evaluation-General Medical Diagnosis Admission Date January 22, 2020 at 14:41 Medical Diagnosis: pleural effusion, weakness, bradycardia Onset Date: January 22, 2020 Therapy Diagnosis Therapy Diagnosis: decreased mobility Height/Weight Height (Feet): 6 Height (Inches): 2.00 Weight (Pounds): 240 Weight (Ounces): 0.0 Precautions Precautions/Isolations: Fall Prevention, Standard Precautions Weight Bear Status Right Lower Extremity: Right Full Weight Bearing Left Lower Extremity: Left Full Weight Bearing Referral Physician: Dr. Santacruz Reason for Referral: Evaluation/Treatment Medical History Pertinent Medical History: Arthritis, DM, GERD, HTN, OA Additional Medical History PVD, cataract, hard of hearing, esophageal cancer Current History Admitted for SOB due to pleural effusion, bradycardia. Reviewed History: Yes Social History Home: Single Level Current Living Status: Spouse Entry Into Home: Stairs With Railing PT Steps Into Home: 2 Prior Prior Level of Function SCALE: Activities may be completed with or without assistive devices. 2-[place]buz[place]-queccmf completes the activity by him/herself with no assistance from a helper. 5-Set-up or Clean-up Assistance-helper sets up or cleans up; patient completes activity. [place] assists only prior to or following the activity. 4-Supervision or Touching Assistance-helper provides verbal cues and/or touching/steadying and/or contact guard assistance as patient completes activit y. Assistance may be provided throughout the activity or intermittently. 3-Partial/Moderate Assistance-helper does LESS THAN HALF the effort. [place] lifts, holds or supports trunk or limbs, but provides less than half the effort. 2-Substantial/Maximal Assistance-helper does MORE THAN HALF the effort. [place] lifts or holds trunk or limbs and provides more than half the effort. 0-Nbfnkudfo-otwfhb does ALL the effort. Patient does none of the effort to complete the activity. Or, the assistance of 2 or more helpers is required for the patient to complete the activity. If activity was not attempted, code reason: 7-Patient Refused. 9-Not Applicable-not attempted and the patient did not perform the activity before the current illness, exacerbation or injury. 10-Not Attempted due to Environmental Limitations-(lack of equipment, weather restraints, etc.). 88-Not Attempted due to Medical Conditions or Safety Concerns. Bed Mobility: 6 Transfers (B,C,W/C): 6 Gait: 6 Stairs: 6 Indoor Mobility (Ambulation): Independent Stairs: Independent Prior Devices Use: Walker Prior Device Use: FWW PT Evaluation-Current Subjective Pt. in bed asleep, awakens to PT, agrees to therapy after encouragement. No c/o pain. Pt/Family Goals home with spouse Objective Patient Orientation: Person, Place, Time, Situation Attachments: Central Line, SCD's, Oxygen, Price Catheter ROM/Strength ROM Upper Extremities WNL ROM Lower Extremities WNL Strength Upper Extremities WNL Strength Lower Extremities Grossly 4/5 (B) Integumentary/Posture Integumentary grossly intact, see nursing notes Bowel Incontinence: No Bladder Incontinence: Price Cath Posture kyphotic Neuromuscular (Tone, Coordination, Reflexes) unremarkable Sensory Vision: Wears Glasses Hearing: Hearing Aid/Aides Sensation Right Upper Extremit: Intact Sensation Left Upper Extremity: Intact Sensation Right Lower Extremit: Intact Sensation Left Lower Extremity: Intact Transfers Roll Left to Right (QC): 4 Sit to Lying (QC): 3 Lying to Sitting/Side of Bed(Q: 3 Sit to Stand (QC): 4 Toilet Transfer (QC): 3 Gait Does the Patient Walk?: Yes Anticipated Mode of Locomotion: Walk Walk 10 feet (QC): 4 Distance: 2 x 15 ft Gait Assistive Device: FWW Comments/Gait Description impulsive movements, cues to keep walker close to self Balance Sitting Static: Good Sitting Dynamic: Good Standing Static: Fair Standing Dynamic: Fair Treatment toileting, dependent from nursing staff for pericare Assessment/Needs Pt. is an 84 y.o. male with decreased mobility and gait unsteadiness. Pt. would benefit from skilled PT to improve safety with mobility and strength for return home at prior level. Rehab Potential: Good PT Short Term Goals Short Term Goals Time Frame: February 03, 2020 Roll Left & Right: 6 Sit to lyin Lying to sitting on side of be: 6 Sit to stand: 6 Chair/gxh-hs-cixie transfer: 6 Toilet transfer: 6 Walk 10 feet: 6 Walk 50 feet with two turns: 6 Walk 150 feet: 6 PT Plan Problem List Problem List: Activity Tolerance, Functional Strength, Safety, Balance, Gait, Transfer, Bed Mobility, ROM Treatment/Plan Treatment Plan: Continue Plan of Care Treatment Plan: Bed Mobility, Concurrent Therapy, Education, Functional Activity Ivan, Functional Strength, Gait, Safety, Therapeutic Exercise, Transfers Treatment Duration: February 03, 2020 Frequency: 6 times per week Estimated Hrs Per Day: .25 hour per day Time/GCodes Time In: 1125 Time Out: 1150 Total Billed Treatment Time: 25 Total Billed Treatment 1, EVH 10', FA 15' DAVID HUMMEL PT January 25, 2020 12:03
--- NOTE | 2020-01-25 14:21 | NUR ---
"RD ASSESSMENT PMHx: CA(esophageal); HTN; GERD; DM; afib; HLD PT INTERACTION: Pt was awake and semi-pleasant during nutrition assessment. Pt states current appetite is good. Note pt has refused 4 meals since admit, and avg PO intake of meals consumed is 58% x3meal, per chart review. Pt states following a regular diet at home, and has no issues with chewing/swallowing food. Note pt has missing teeth, per visual assessment. Pt states no recent issues with nausea, vomiting, constipation, or diarrhea, and that his last BM was 01/24. Note pt not currently on bowel regimen, per chart review. Pt states no recent wt changes. Note unable to determine recent wt hx, per chart review. Pt states current DM management is pretty good, though he is unsure of recent blood glucose averages. Note unable to determine recent HbA1c, per chart review. ABNORMAL NUTRITION-RELATED LAB VALUES LOW: Ca 7.6 HIGH: Cl 115; BUN 25; cr 1.34; glu 165 Est. kcal needs: 5670-4094 kcal | 20-25 kcal/kg Est. Pro needs: 83-104 g Pro | 0.8-1.0 g Pro/kg PES STATEMENT: Inadequate oral intake (NI-2.1) related to loss of appetite as evidenced by pt interview | pt refusing meals | avg PO intake 58% x3meal INTERVENTION: Continue with current diet order of Regular diet. Pt may benefit from consistent CHO restriction if blood glucose levels become elevated. Add Glucerna (vary) to meals TID, for increased kcal intake. Provides 220 kcal and 10 g Pro per serving. Encouraged pt to eat when able. Offered dietary education on DM management, but pt declined at this time. Will attempt to offer again prior to discharge. Will continue to follow and reassess as pt needs, intake, and status change. MONITOR/EVALUATE: PO Intake; Plan of Care; Hydration Status; Weight Status; Lab Values Trace Middleton, MS, RD, LD"
[2020-01-25] MEDS ORDERED: FUROSEMIDE 40 MG/4 ML INJ (LASIX) IVP ONE (21:00)
[2020-01-26] VITALS (10 sets, daily range): BP systolic 127–198; BP diastolic 70–103
[2020-01-26 03:20] LABS: HEMOGLOBIN 14.5 G/DL (13.3-17.7); MEAN PLATELET VOLUME 10.9 FL (7.4-10.4); RED CELL DISTRIBUTION WIDTH 14.7 % (10.0-14.5); WHITE BLOOD COUNT 9.2 10^3/uL (4.3-11.0)
[2020-01-26] MEDS: NS IV 1000 ML 1,000 ML IV SCH (03:25)
[2020-01-26 03:38] LABS: ALBUMIN 2.3 GM/DL (3.2-4.5); BILIRUBIN,TOTAL 0.9 MG/DL (0.1-1.0); CALCIUM 7.7 MG/DL (8.5-10.1); CREATININE SERUM 1.24 MG/DL (0.60-1.30); MAGNESIUM 2.1 MG/DL (1.6-2.4); POTASSIUM 3.9 MMOL/L (3.6-5.0); TOTAL PROTEIN 5.2 GM/DL (6.4-8.2)
[2020-01-26] MEDS: POTASSIUM CL 10MEQ/50ML IVPB 50 ML IV SCH (06:28)
[2020-01-26] MEDS: MAGNESIUM 1 GM/100 ML IVPB 100 ML IV SCH (06:28)
[2020-01-26] MEDS: KCL 20 MEQ TAB (K-DUR) PO SCH (06:29)
[2020-01-26] MEDS: inSUlin ASPART (NovoLOG) 1 UNIT/0.01 ML (CHARGE PER UNIT) SC SCH ×4 (06:29→21:17)
--- NOTE | 2020-01-26 06:32 | Pulmonary Progress Note ---
Subjective Time Seen by a Provider: 06:32 Subjective/Events-last exam No complications noted. Sepsis Event Evaluation Height, Weight, BMI Height: 6'2.00" Weight: 240lbs. 0.0oz. 108.757520fy; 28.80 BMI Method:Stated Exam Exam Vital Signs Date Time Temp Pulse Resp B/P (MAP) Pulse Ox O2 Delivery O2 Flow Rate FiO2 01/26/20 04:00 Nasal Cannula 2.00 01/26/20 04:00 38 94 Nasal Cannula 2.00 01/26/20 03:10 38 20 161/92 (115) 95 Nasal Cannula 2.00 01/26/20 01:56 41 22 163/70 (101) 95 Nasal Cannula 2.00 01/26/20 01:00 40 01/26/20 00:00 36 21 96 Nasal Cannula 2.00 01/26/20 00:00 Nasal Cannula 2.00 01/25/20 22:26 39 10 97 Nasal Cannula 2.00 01/25/20 22:18 43 24 199/74 (115) 95 Room Air 01/25/20 21:00 Nasal Cannula 01/25/20 20:00 32 13 167/64 (98) 95 Room Air 01/25/20 20:00 Room Air 01/25/20 19:00 33 01/25/20 19:00 33 11 182/69 (106) 95 Room Air 01/25/20 16:00 33 16 167/65 (99) 96 Nasal Cannula 2.00 01/25/20 16:00 Nasal Cannula 1.00 01/25/20 15:29 37.2 30 14 160/61 (94) 96 01/25/20 15:29 37.0 01/25/20 12:32 33 01/25/20 12:00 37.4 01/25/20 12:00 Nasal Cannula 1.00 01/25/20 12:00 34 15 162/62 (95) 96 Nasal Cannula 2.00 01/25/20 10:34 Nasal Cannula 2.00 01/25/20 09:00 High Flow N/C 1.00 01/25/20 08:00 37.4 44 22 104/66 (79) 96 Nasal Cannula 2.00 01/25/20 08:00 Nasal Cannula 1.00 I & O 01/26/20 07:00 Intake Total 640 ml Output Total 1850 ml Balance -1210 ml Height & Weight Height: 6'2.00" Weight: 240lbs. 0.0oz. 108.971365wy; 28.80 BMI Method:Stated General Appearance: No Apparent Distress, WD/WN HEENT: PERRL/EOMI, Pharynx Normal, Moist Mucous Membranes Neck: Full Range of Motion, Normal Inspection, Non Tender, Supple Respiratory: Crackles (LEFT BASE), Decreased Breath Sounds (ON RIGHT) Cardiovascular: Bradycardia, Systolic Murmur, Irregularly Irregular Capillary Refill: Less Than 3 Seconds Extremity: Normal Capillary Refill, Non Tender, No Calf Tenderness, Pedal Edema, Other (EDEMA BILATERAL UPPER ARMS FROM ELBOW TO HANDS) Neurologic/Psychiatric: Alert, Oriented x3, No Motor/Sensory Deficits, Normal Mood/Affect Skin: Normal Color, Warm/Dry Lymphatic: No Adenopathy Results Lab Laboratory Tests 01/25/20 03:10 01/26/20 03:10 Assessment/Plan Assessment/Plan right pleural effusion with hx of esophageal cancer s/p thoracentesis -Await oncology Acute on chronic Renal insufficiency -Monitor Bradycardia Chronic afib HTN PVD RAJNI SUH DO January 26, 2020 06:32
[2020-01-26] MEDS ORDERED: HEParin (CATH LAB) 1,000 ML IV ONE (06:52)
[2020-01-26] MEDS ORDERED: ceFAZolin INJECTION 0 MG ONE (06:52)
[2020-01-26] MEDS ORDERED: LIDOCAINE 1% INJ 20 ML 20 ML VIAL ONE (06:52)
[2020-01-26] MEDS ORDERED: NS IV 1000 ML 1,000 ML IV ONE (06:52)
[2020-01-26] MEDS ORDERED: ceFAZolin INJECTION 1,000 MG VIAL IV ONE (07:00)
[2020-01-26] MEDS ORDERED: BACITRACIN INJECTION 50,000 UNIT, SODIUM CHLORIDE 0.9% IRRIGATIO 500 ML IR ONE ×2 (07:00)
[2020-01-26] MEDS: LOSARTAN 25 MG (COZAAR) TAB PO SCH (09:04)
[2020-01-26] MEDS: FAMOTIDINE 20MG/2ML IV (PEPCID) IVP SCH (09:04)
[2020-01-26] MEDS: ENOXAPARIN 40 MG/0.4 ML (LOVENOX) SYR SC SCH (09:46)
--- NOTE | 2020-01-26 10:09 | Diagnostic Imaging Report ---
Indication: Right pleural effusion Right IJ Port-A-Cath tip projects over the SVC. There is right pleural effusion. The effusion appears increased since the previous day. Lungs are clear. IMPRESSION: Increasing right pleural effusion since the previous day. Dictated by: Dictated on workstation # [id number]
[2020-01-26] MEDS ORDERED: ceFAZolin INJECTION 1,000 MG ONE (10:23)
[2020-01-26] MEDS ORDERED: WATER (STERILE) FOR INJECTION 10 ML ONE (10:23)
--- NOTE | 2020-01-26 10:30 | Physical Therapy Progress Note ---
Therapy Progress Note Dr. Santacruz reports to this PT that patient is to have a pacemaker placement on this date and to hold PT. Will resume in [place]. VALORIE SAENZ PT January 26, 2020 10:30
--- NOTE | 2020-01-26 10:37 | Progress Note ---
Subjective Subjective Date Seen by Provider: January 25, 2020 Time Seen by Provider: 08:30 LATE ENTRY NOTE PT REPORTS THAT HE IS FEELING LIKE HE IS BREATHING BETTER. HE STATES THAT HIS SHORTNESS OF BREATH IMPROVED FAIRLY QUICKLY AFTER HAVING THE THORACENTESIS. Review of Systems General: No Chills, No Night Sweats, No Fatigue, No Malaise, No Appetite, No Other HEENT: No Head Aches, No Visual Changes, No Eye Pain, No Ear Pain, No Dysphasia, No Sinus Congestion, No Post Nasal Drip, No Sore Throat, No Other Pulmonary: Dyspnea; No Cough, No Pleuritic Chest Pain, No Other Cardiovascular: Edema; No: Chest Pain, Palpitations, Orthopnea, Paroxysmal Noc. Dyspnea, Lt Headedness, Other Gastrointestinal: No: Nausea, Abdominal Pain Genitourinary: No Dysuria Neurological: Weakness; No: Confusion All Other Systems Reviewed All Other Systems Reviewed: Yes Objective Exam Vital Signs Vital Signs - First Documented 01/22/20 01/22/20 15:00 16:00 Temp 36.8 Pulse 39 Resp 20 B/P (MAP) 132/59 (83) Pulse Ox 99 O2 Delivery Nasal Cannula O2 Flow Rate 2.00 Capillary Refill : Less Than 3 Seconds General Appearance: No Apparent Distress, WD/WN Eyes: Bilateral Eye Normal Inspection, Bilateral Eye PERRL, Bilateral Eye EOMI HEENT: PERRL/EOMI, Pharynx Normal, Moist Mucous Membranes Neck: Full Range of Motion, Normal Inspection, Non Tender, Supple Respiratory: Crackles (LEFT BASE), Decreased Breath Sounds (ON RIGHT) Cardiovascular: Bradycardia, Systolic Murmur, Irregularly Irregular Gastrointestinal: Normal Bowel Sounds, No Organomegaly, No Pulsatile Mass, Non Tender, Soft Rectal: Deferred Extremity: Normal Capillary Refill, Non Tender, No Calf Tenderness, Pedal Edema, Other (EDEMA BILATERAL UPPER ARMS FROM ELBOW TO HANDS) Neurologic/Psychiatric: Alert, Oriented x3, No Motor/Sensory Deficits, Normal Mood/Affect Skin: Normal Color, Warm/Dry Lymphatic: No Adenopathy Results Lab Laboratory Tests 01/25/20 17:42: Glucometer 151H 01/25/20 20:36: Glucometer 140H 01/26/20 03:10: White Blood Count 9.2, Red Blood Count 4.74, Hemoglobin 14.5, Hematocrit 43, Mean Corpuscular Volume 90, Mean Corpuscular Hemoglobin 31, Mean Corpuscular Hemoglobin Concent 34, Red Cell Distribution Width 14.7H, Platelet Count 240, Mean Platelet Volume 10.9H, Sodium Level 140, Potassium Level 3.9, Chloride Level 114H, Carbon Dioxide Level 18L, Anion Gap 8, Blood Urea Nitrogen 22H, Creatinine 1.24, Estimat Glomerular Filtration Rate 56, BUN/Creatinine Ratio 18, Glucose Level 106H, Calcium Level 7.7L, Corrected Calcium 9.1, Phosphorus Level 3.0, Magnesium Level 2.1, Total Bilirubin 0.9, Aspartate Amino Transf (AST/SGOT) 18, Alanine Aminotransferase (ALT/SGPT) 19, Alkaline Phosphatase 125, Total Protein 5.2L, Albumin 2.3L Microbiology 01/24/20 Acid Fast Bacilli Culture (Ref Lab - Preliminary, Resulted Assessment/Plan Assessment/Plan Admission Dx MODERATE TO LARGE RIGHT PLEURAL EFFUSION BRADYCARDIA ATRIAL FIBRILLATION HX OF ESOPHAGEAL CARCINOMA HYPERTENSION DIABETES MELLITUS EDEMA MODERATE TO LARGE RIGHT PLEURAL EFFUSION WITH HX OF ESOPHAGEAL CARCINOMA - COVID-19 TESTING NEGATIVE - MODERATE TO LARGE PLEURAL EFFUSION I HAVE DISCUSSED HIS CASE WITH DR. DALEY IN RADIOLOGY, THORACENTESIS WAS PERFORMED WEDNESDAY BY RADIOLOGIST. - OXYGEN VIA NASAL CANNULA - WAITING ON PATHOLOGY REPORT BRADYCARDIA NEW ONSET WITH CHRONIC ATRIAL FIBRILLATION AND HYPERTENSION - CONSULT TO DR. CRAWLEY - MEDICATIONS WILL NEED ADJUSTED WELL MAY NEED PACEMAKER PLACEMENT. - DR. CRAWLEY WAITING ON PACE-MAKER PLACEMENT UNTIL AFTER WE DETERMINE IF MEDICATION ADJUSTMENT WILL IMPROVE HIS HEART RATE. DIABETES MELLITUS - RESTARTED LEVEMIR - INCREASE NEEDED AND STARTED SLIDING SCALE B ADVANCED AGE - PT REPORTED IN THE OFFICE THAT HE WANTS TO BE FULL CODE STATUS. DVT PROPHYLAXIS WITH LOVENOX AND SCD'S GI PROPHYLAXIS WITH PEPCID Admission Dx MODERATE TO LARGE RIGHT PLEURAL EFFUSION BRADYCARDIA ATRIAL FIBRILLATION HX OF ESOPHAGEAL CARCINOMA HYPERTENSION DIABETES MELLITUS EDEMA MODERATE TO LARGE RIGHT PLEURAL EFFUSION WITH HX OF ESOPHAGEAL CARCINOMA - COVID-19 TESTING NEGATIVE - MODERATE TO LARGE PLEURAL EFFUSION I HAVE DISCUSSED HIS CASE WITH DR. DALEY IN RADIOLOGY, THE PLAN IS THAT TODAY PT WILL GO DOWN TO RADIOLOGY FOR THORACENTESIS AND WILL SEND FLUID FOR CHEMISTRIES WELL MICRO FOR BACTERIA, FUNGAL ORGANISMS AND ALSO FOR CYTOLOGICAL EVALUATION. - THORACENTESIS TO BE PERFORMED TODAY BY RADIOLOGIST. - OXYGEN VIA NASAL CANNULA BRADYCARDIA NEW ONSET WITH CHRONIC ATRIAL FIBRILLATION AND HYPERTENSION - CONSULT TO DR. CRAWLEY - MEDICATIONS WILL NEED ADJUSTED WELL MAY NEED PACEMAKER PLACEMENT. - DR. CRAWLEY WAITING ON PACE-MAKER PLACEMENT UNTIL AFTER WE DETERMINE IF MEDICATION ADJUSTMENT WILL IMPROVE HIS HEART RATE. DIABETES MELLITUS - RESTARTED LEVEMIR - INCREASE NEEDED AND STARTED SLIDING SCALE B ADVANCED AGE - PT REPORTED IN THE OFFICE THAT HE WANTS TO BE FULL CODE STATUS. DVT PROPHYLAXIS WITH LOVENOX AND SCD'S GI PROPHYLAXIS WITH PEPCID Clinical Quality Measures Admission Status Admission Dx MODERATE TO LARGE RIGHT PLEURAL EFFUSION BRADYCARDIA ATRIAL FIBRILLATION HX OF ESOPHAGEAL CARCINOMA HYPERTENSION DIABETES MELLITUS EDEMA MODERATE TO LARGE RIGHT PLEURAL EFFUSION WITH HX OF ESOPHAGEAL CARCINOMA - COVID-19 TESTING NEGATIVE - MODERATE TO LARGE PLEURAL EFFUSION I HAVE DISCUSSED HIS CASE WITH DR. DALEY IN RADIOLOGY, THE PLAN IS THAT TODAY PT WILL GO DOWN TO RADIOLOGY FOR THO RACENTESIS AND WILL SEND FLUID FOR CHEMISTRIES WELL MICRO FOR BACTERIA, FUNGAL ORGANISMS AND ALSO FOR CYTOLOGICAL EVALUATION. - THORACENTESIS TO BE PERFORMED TODAY BY RADIOLOGIST. - OXYGEN VIA NASAL CANNULA BRADYCARDIA NEW ONSET WITH CHRONIC ATRIAL FIBRILLATION AND HYPERTENSION - CONSULT TO DR. CRAWLEY - MEDICATIONS WILL NEED ADJUSTED WELL MAY NEED PACEMAKER PLACEMENT. - DR. CRAWLEY WAITING ON PACE-MAKER PLACEMENT UNTIL AFTER WE DETERMINE IF MEDICATION ADJUSTMENT WILL IMPROVE HIS HEART RATE. DIABETES MELLITUS - RESTARTED LEVEMIR - INCREASE NEEDED AND STARTED SLIDING SCALE B ADVANCED AGE - PT REPORTED IN THE OFFICE THAT HE WANTS TO BE FULL CODE STATUS. DVT PROPHYLAXIS WITH LOVENOX AND SCD'S GI PROPHYLAXIS WITH PEPCID DVT/VTE Risk/Contraindication: Risk Factor Score Per Nursin RFS Level Per Nursing on Admit: 3=High Contraindications-Pharm: Other *list below* Other: planning on procedure on 01/23/2020 - holding lovenox until after procedure is done scd's have been ordered LILLIAN LISA MD January 26, 2020 10:37
--- NOTE | 2020-01-26 10:42 | Cardiology Progress Note ---
Subjective Date Seen by Provider: January 26, 2020 Time Seen by Provider: 10:40 Subjective/Events-last exam Patient is laying down in bed, feeling better. Denied any chest pain, still having fatigue Review of Systems General: No Chills, No Night Sweats; Fatigue, Malaise; No Appetite, No Other HEENT: No Head Aches, No Visual Changes, No Eye Pain, No Ear Pain, No Dysphas ia, No Sinus Congestion, No Post Nasal Drip, No Sore Throat, No Other Pulmonary: Dyspnea; No Cough, No Pleuritic Chest Pain, No Other Cardiovascular: No: Chest Pain, Palpitations, Orthopnea, Paroxysmal Noc. Dyspnea, Edema, Lt Headedness, Other Objective-Cardiology Exam Last Set of Vital Signs Vital Signs 01/26/20 01/26/20 08:00 10:00 Pulse 43 Resp 19 B/P (MAP) 127/74 (91) Pulse Ox 98 O2 Delivery Nasal Cannula O2 Flow Rate 2.00 Capillary Refill : Less Than 3 Seconds I&O Intake and Output 01/26/20 00:00 Intake Total 740 ml Output Total 600 ml Balance 140 ml Intake Oral 740 ml Output Urine Total 600 ml # Bowel Movements 1 General: Alert, Cooperative HEENT: PERRLA Neck: Supple, No JVD Lungs: Other (bilateral rhonchi) Heart: Normal S1, Normal S2, Other (bradycardia) Abdomen: Normal Bowel Sounds Extremities: No Clubbing, No Cyanosis Skin: No Breakdown Neuro: Normal Speech Psych/Mental Status: Mental Status NL Results Lab Laboratory Tests 01/26/20 03:10 A/P-Cardiology Admission Diagnosis Bradycardia Chronic atrial fibrillation Hypertension Peripheral arterial disease Assessment/Plan Chronic persistent atrial fibrillation with severe bradycardia, generalized wea kness, recurrent pleural effusion, cytology of the pleural fluid did not show any malignant cells, planning for single-chamber pacemaker implant today Dyspnea, fatigue, pleural effusion, status post thoracentesis, removed 3 L of fluid. Awaiting cytology COVID tested negative on 01/23/2020 History of Peripheral arterial disease, currently asymptomatic, angiogram was done on September 07, 2018 showed total occlusion of the tibial peroneal trunk on the left with successful balloon angioplasty and reestablishing flow through the peroneal artery down to the foot, the posterior tibial artery is receiving collaterals and the anterior tibial artery has severe disease distally also receiving collateral from the peroneal artery. The SFA has severe stenosis at multiple segment underwent deployment of 2 overlapping SUPERA 6 x 150 and 5.5 x 100 with excellent results and excellent flow. Patient was noted to have on the right SFA multiple segment of moderate to moderately severe stenosis and disease below the trifurcation. Repeat FROY showed normal FROY on the right abnormal TBI. On the left FROY was abnormal and TBI was nondiagnostic, angiogram was done on October 20, 2018 and balloon angioplasty to the right SFA with [place] 5 and 6 mm balloon with excellent results, the right popliteal artery is totally occluded at the trifurcation with reconstruction by collateral with slow flow that improved after nitroglycerin injection, the wound has healed, his legs are feeling better, continue to monitor Cardiac catheterization done on October 19, 2018 showing multivessel coronary artery disease including calcified artery with moderate to severe stenosis at the mid LAD, moderate to severe stenosis at the distal LAD with severe stenosis at the distal circumflex artery and moderate stenosis at the midright coronary artery with severe stenosis at the distal right coronary artery, normal left ventricular size, he is currently asymptomatic. I will continue monitoring with consideration for high risk intervention on the LAD if needed in the future Paroxysmal atrial fibrillation, asymptomatic, still in atrial fibrillation, EKG was done today showing atrial fibrillation with occasional PVCs and right bundle branch block. Continue on Xarelto and continue to monitor Hypertension, blood pressure is elevated, continue to hold Norvasc and will restart losartan at this time and monitor Hyperlipidemia, continue to monitor lipids Bilateral carotid stenosis, ultrasound showed mild bilateral disease nonobstructive disease in August 2018. 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 Gonzalez. Diabetes mellitus, labile blood sugar and history of syncope secondary to hypoglycemia. Clinical Quality Measures DVT/VTE Risk/Contraindication: Risk Factor Score Per Nursin RFS Level Per Nursing on Admit: 3=High Contraindications-Pharm: Other *list below* Other: planning on procedure on 01/23/2020 - holding lovenox until after procedure is done scd's have been ordered SAMANTHA CRAWLEY MD January 26, 2020 10:42
--- NOTE | 2020-01-26 10:42 | Cardiac Procedure Note-CS/ASA ---
Pre-Procedure Note Pre-Op Procedure Note H&P Reviewed The H&P was reviewed, patient examined and no changes noted. Date H&P Reviewed: January 26, 2020 Time H&P Reviewed: 10:42 Conscious Sedation Pre-Proced Time 10:42 ASA Score 3 For ASA 3 and 4: Consider anesthesia and medical clearance. Also, for patients with a history of failed moderate sedation consider anesthesia. Airway Lungs Heart ASA score ASA 1: a normal healthy patient ASA 2: a patient with a mild systemic disease (mid diabetes, controlled hypertension, obesity X ASA 3: a patient with a severe systemic disease that limits activity (angina, COPD, prior Myocardial infarction) ASA 4: a patient with an incapacitating disease that is a constant threat to life (CHF, renal failure) ASA 5: a moribund patient not expected to survive 24 hrs. (ruptured aneurysm) ASA 6: a declared brain- patient whose organs are being harvested. For emergent operations, add the letter E after the classification Mallampati Classification Grade 3 Sedation Plan Analgesia, Amnesia, Plan communicated to team members, Discussed options with patient/fam, Discussed risks with patient/fam The patient is an appropriate candidate to undergo the planned procedure, sedation, and anesthesia. The patient immediately re-assessed prior to indication. SAMANTHA CRAWLEY MD January 26, 2020 10:42
--- NOTE | 2020-01-26 10:42 | Progress Note ---
Subjective Subjective Date Seen by Provider: January 26, 2020 Time Seen by Provider: 09:40 PT REPORTS THAT HE IS FEELING BETTER. HE HAS AGREED TO PACEMAKER PLACEMENT WITH DR. CRAWLEY TODAY. THE PATIENT REPORTS THAT HIS SHORTNESS OF BREATH CONTINUES TO IMPROVE. HE DENIES CHEST PAIN, ABDOMINAL PAIN, NAUSEA. HE REPORTS THAT HIS APPETITE IS LOW BECAUSE HE DOES NOT LIKE HIS FOOD OR THE FACT THAT IT IS SOMETIMES COLD BY THE TIME IT GETS UP TO HIS ROOM Review of Systems General: No Chills, No Night Sweats; Fatigue; No Malaise; Appetite HEENT: No Head Aches, No Dysphasia Pulmonary: Dyspnea, Cough; No Pleuritic Chest Pain Cardiovascular: Edema; No: Chest Pain, Palpitations, Paroxysmal Noc. Dyspnea Gastrointestinal: No: Nausea, Abdominal Pain, Diarrhea, Constipation Genitourinary: No Dysuria, No Frequency; Other (BOLDEN IN PLACE) Musculoskeletal: No: back pain Neurological: Weakness; No: Confusion All Other Systems Reviewed All Other Systems Reviewed: Yes Objective Exam Vital Signs Vital Signs - First Documented 01/22/20 01/22/20 15:00 16:00 Temp 36.8 Pulse 39 Resp 20 B/P (MAP) 132/59 (83) Pulse Ox 99 O2 Delivery Nasal Cannula O2 Flow Rate 2.00 Capillary Refill : Less Than 3 Seconds General Appearance: No Apparent Distress, WD/WN Eyes: Bilateral Eye Normal Inspection, Bilateral Eye PERRL, Bilateral Eye EOMI HEENT: PERRL/EOMI, Pharynx Normal, Moist Mucous Membranes Neck: Full Range of Motion, Normal Inspection, Non Tender, Supple Respiratory: Decreased Breath Sounds (ON RIGHT) Cardiovascular: Bradycardia, Systolic Murmur, Irregularly Irregular Gastrointestinal: Normal Bowel Sounds, No Organomegaly, No Pulsatile Mass, Non Tender, Soft Rectal: Deferred Extremity: Normal Capillary Refill, Non Tender, No Calf Tenderness, Pedal Edema (TRACE) Neurologic/Psychiatric: Alert, Oriented x3, No Motor/Sensory Deficits, Normal Mood/Affect Skin: Normal Color, Warm/Dry Lymphatic: No Adenopathy Results Lab Laboratory Tests 01/25/20 17:42: Glucometer 151H 01/25/20 20:36: Glucometer 140H 01/26/20 03:10: White Blood Count 9.2, Red Blood Count 4.74, Hemoglobin 14.5, Hematocrit 43, Mean Corpuscular Volume 90, Mean Corpuscular Hemoglobin 31, Mean Corpuscular Hemoglobin Concent 34, Red Cell Distribution Width 14.7H, Platelet Count 240, Mean Platelet Volume 10.9H, Sodium Level 140, Potassium Level 3.9, Chloride Level 114H, Carbon Dioxide Level 18L, Anion Gap 8, Blood Urea Nitrogen 22H, Creatinine 1.24, Estimat Glomerular Filtration Rate 56, BUN/Creatinine Ratio 18, Glucose Level 106H, Calcium Level 7.7L, Corrected Calcium 9.1, Phosphorus Level 3.0, Magnesium Level 2.1, Total Bilirubin 0.9, Aspartate Amino Transf (AST/SGOT) 18, Alanine Aminotransferase (ALT/SGPT) 19, Alkaline Phosphatase 125, Total Protein 5.2L, Albumin 2.3L Microbiology 01/24/20 Acid Fast Bacilli Culture (Ref Lab - Preliminary, Resulted Assessment/Plan Assessment/Plan Admission Dx MODERATE TO LARGE RIGHT PLEURAL EFFUSION BRADYCARDIA ATRIAL FIBRILLATION HX OF ESOPHAGEAL CARCINOMA HYPERTENSION DIABETES MELLITUS EDEMA MODERATE TO LARGE RIGHT PLEURAL EFFUSION WITH HX OF ESOPHAGEAL CARCINOMA - COVID-19 TESTING NEGATIVE - MODERATE TO LARGE PLEURAL EFFUSION I HAVE DISCUSSED HIS CASE WITH DR. DALEY IN RADIOLOGY, THORACENTESIS WAS PERFORMED WEDNESDAY BY RADIOLOGIST. - OXYGEN VIA NASAL CANNULA - PATHOLOGY REPORT FOLLOWS: NO CYTOLOGICALLY MALIGNANT CELLS IDENTIFIED: REACTIVE MESOTHELIAL CELLS AND INFLAMMATORY CELLS. - CXR FROM TODAY FOLLOWS: Date of Exam:01/26/20 CHEST PA/LAT (2 VIEW) Indication: Right pleural effusion Right IJ Port-A-Cath tip projects over the SVC. There is right pleural effusion. The effusion appears increased since the previous day. Lungs are clear. IMPRESSION: Increasing right pleural effusion since the previous day. - MAY NEED TO CONSIDER REPEAT THORACENTESIS IF HIS PLEURAL EFFUSION CONTINUES TO INCREASE IN SIZE OVER THE NEXT FEW DAYS. - SERIAL CXR PA AND LATERAL TO BE ORDERED FOR THIS AND WEDNESDAY MORNING. BRADYCARDIA NEW ONSET WITH CHRONIC ATRIAL FIBRILLATION AND HYPERTENSION - CONSULT TO DR. CRAWLEY - MEDICATIONS HAVE BEEN ADJUSTED WITH NO REAL IMPROVEMENT IN HEART RATE. - PACEMAKER PLACEMENT SCHEDULED TO BE DONE 01/26/2020. DIABETES MELLITUS - RESTARTED LEVEMIR - INCREASE NEEDED AND STARTED SLIDING SCALE B ADVANCED AGE - PT REPORTED IN THE OFFICE THAT HE WANTS TO BE FULL CODE STATUS. DVT PROPHYLAXIS WITH LOVENOX AND SCD'S GI PROPHYLAXIS WITH PEPCID I HAVE TALKED TO PT'S TODAY - 01/26/2020 - PLAN WILL BE THAT PT IS LIKELY GOING TO STILL BE IN HOSPITAL THROUGH THE WEEKEND - IF NEEDED MAY HAVE TO REPEAT THORACENTESIS THIS OR WEDNESDAY MORNING. Admission Dx MODERATE TO LARGE RIGHT PLEURAL EFFUSION BRADYCARDIA ATRIAL FIBRILLATION HX OF ESOPHAGEAL CARCINOMA HYPERTENSION DIABETES MELLITUS EDEMA MODERATE TO LARGE RIGHT PLEURAL EFFUSION WITH HX OF ESOPHAGEAL CARCINOMA - COVID-19 TESTING NEGATIVE - MODERATE TO LARGE PLEURAL EFFUSION I HAVE DISCUSSED HIS CASE WITH DR. DALEY IN RADIOLOGY, THORACENTESIS WAS PERFORMED WEDNESDAY BY RADIOLOGIST. - OXYGEN VIA NASAL CANNULA - WAITING ON PATHOLOGY REPORT BRADYCARDIA NEW ONSET WITH CHRONIC ATRIAL FIBRILLATION AND HYPERTENSION - CONSULT TO DR. CRAWLEY - MEDICATIONS WILL NEED ADJUSTED WELL MAY NEED PACEMAKER PLACEMENT. - DR. CRAWLEY WAITING ON PACE-MAKER PLACEMENT UNTIL AFTER WE DETERMINE IF MEDICATION ADJUSTMENT WILL IMPROVE HIS HEART RATE. DIABETES MELLITUS - RESTARTED LEVEMIR - INCREASE NEEDED AND STARTED SLIDING SCALE B ADVANCED AGE - PT REPORTED IN THE OFFICE THAT HE WANTS TO BE FULL CODE STATUS. DVT PROPHYLAXIS WITH LOVENOX AND SCD'S GI PROPHYLAXIS WITH PEPCID Clinical Quality Measures Admission Status Admission Dx MODERATE TO LARGE RIGHT PLEURAL EFFUSION BRADYCARDIA ATRIAL FIBRILLATION HX OF ESOPHAGEAL CARCINOMA HYPERTENSION DIABETES MELLITUS EDEMA MODERATE TO LARGE RIGHT PLEURAL EFFUSION WITH HX OF ESOPHAGEAL CARCINOMA - COVID-19 TESTING NEGATIVE - MODERATE TO LARGE PLEURAL EFFUSION I HAVE DISCUSSED HIS CASE WITH DR. DALEY IN RADIOLOGY, THORACENTESIS WAS PERFORMED WEDNESDAY BY RADIOLOGIST. - OXYGEN VIA NASAL CANNULA - WAITING ON PATHOLOGY REPORT BRADYCARDIA NEW ONSET WITH CHRONIC ATRIAL FIBRILLATION AND HYPERTENSION - CONSULT TO DR. CRAWLEY - MEDICATIONS WILL NEED ADJUSTED WELL MAY NEED PACEMAKER PLACEMENT. - DR. CRAWLEY WAITING ON PACE-MAKER PLACEMENT UNTIL AFTER WE DETERMINE IF MEDICATION ADJUSTMENT WILL IMPROVE HIS HEART RATE. DIABETES MELLITUS - RESTARTED LEVEMIR - INCREASE NEEDED AND STARTED SLIDING SCALE B ADVANCED AGE - PT REPORTED IN THE OFFICE THAT HE WANTS TO BE FULL CODE STATUS. DVT PROPHYLAXIS WITH LOVENOX AND SCD'S GI PROPHYLAXIS WITH PEPCID DVT/VTE Risk/Contraindication: Risk Factor Score Per Nursin RFS Level Per Nursing on Admit: 3=High Contraindications-Pharm: Other *list below* Other: planning on procedure on 01/23/2020 - holding lovenox until after procedure is done scd's have been ordered LILLIAN LISA MD January 26, 2020 10:42
[2020-01-26] MEDS ORDERED: MIDAZOLAM 5 MG/5 ML (VERSED) VIAL ONE (11:10)
[2020-01-26] MEDS ORDERED: fentaNYL INJECTION 100 MCG/2 ML AMP ONE (11:10)
--- NOTE | 2020-01-26 11:13 | NUR ---
PT TO RUBBER COVERING MACHINE OPERATOR FOR PACEMAKER AT THIS TIME.
[2020-01-26] MEDS ORDERED: NEO/POLY/BAC (NEOSPORIN) OINT 15 GM TUBE ONE (12:09)
[2020-01-26] MEDS ORDERED: NS IV 1000 ML 1,000 ML IV SCH (12:21)
--- NOTE | 2020-01-26 12:28 | Permanent Pacemaker Implant ---
Dual Chamber Pacemaker Implant PROCEDURE PHYSICIAN: Samantha Paula DUAL CHAMBER PACEMAKER IMPLANTATION: DATE OF PROCEDURE: 01/26/20 INDICATION: Sinus node dysfunction, bradycardia PREOPERATIVE DIAGNOSIS: Severe bradycardia POSTOPERATIVE DIAGNOSIS: Severe bradycardia HISTORY: Single-chamber permanent pacemaker was recommended. PROCEDURE PERFORMED: 1. Single-chamber permanent pacemaker implantation. 2. Fluoroscopy. 3. Central venous access. ANESTHESIA: Local anesthesia, conscious sedation. COMPLICATIONS: None. ESTIMATED BLOOD LOSS:20 mL. SPECIMENS: None. ORAL ANTICOAGULATION: None. FLUOROSCOPY TIME: FLUOROSCOPY DOSE: CONTRAST DOSE: PROCEDURE DETAILS: The patient is a 84 male with severe bradycardia, chronic persistent atrial fibrillation, having multiple admission for recurrent pleural effusion, heart rate ranging between 25 and 40, decided to proceed with single-chamber pacemaker implant, procedure was explained to the patient and after all of the patients questions were answered, the patient was brought to the EP Lab. The patient's left chest was prepped and draped in sterile fashion. A 2 inch horizontal incision was made 1 cm below the clavicle and dissection carried down to the pectoralis fascia. Using the modified Seldinger technique and under fluoroscopy guidance, the anterior aspect of the left axillary vein was accessed. The J wires were secured to the drapes with a mosquito clamp. A 7-Bulgarian sheath was introduced over one of the J-wires. The RV lead was then inserted. The RV lead was directed across the tricuspid valve to the apical septal portion of the right ventricle. The position was checked in [place] and BEAN views. The screw was deployed and the lead connected to the linux programmer. Close sensing and pacing thresholds were obtained. Diaphragmatic pacing was ruled out. The lead was secured with 2-0 silk ties to the underlying muscle and fascia. The lead was connected to the device in a hermetic fashion. The device and leads were placed in the pocket. Aggressive irrigation with saline solution was done. The device was secured to the underlying muscle and fascia with a 2-0 silk tie. The wound was then closed using 2 layers. The first layer was interrupted 2-0 absorbable Vicryl suture. The last layer was a single subcuticular layer with 4- 0 Vicryl suture. Half inch Steri-Strips and a small dressing were then applied to the wound. The patient tolerated the procedure well and was returned to the recovery room in stable condition with stable vital signs. DEVICE INFORMATION: [employer] [facility] S MRI [id number] RV LEAD: [id number] PER-OPERATIVE DEVICE INTERROGATION: Good sensing and capture activity IMMEDIATE POSTOPERATIVE DEVICE INTERROGATION: Stimulation threshold bipolar was pulse width 0.4 ms, voltage 0.71, impedance 703, R-wave measure 9 mV PLAN: The patient transferred to the ICU. We will continue with two more doses of IV antibiotics. We will check a chest x-ray and interrogate the device in the morning. The patient will continue on oral antibiotics for 5 days. CONCLUSION: Successful single-chamber pacemaker implantation with no complication SAMANTHA PAULA MD January 26, 2020 12:28
[2020-01-26] MEDS ORDERED: PATIENT MAY USE OWN MEDS, ALL PO SCH (12:30)
--- NOTE | 2020-01-26 13:34 | Diagnostic Imaging Report ---
INDICATION: Pacemaker placement. TIME OF EXAM 1:45 PM COMPARISON is made with prior chest earlier the same day. Cardiac pacemaker has been placed. No pneumothorax is seen. Right chest wall port has tip overlying the SVC. Right basilar infiltrate and small right effusion persists. IMPRESSION: Pacemaker placement. No pneumothorax is identified. Dictated by: Dictated on workstation # [id number]
[2020-01-26] MEDS: ceFAZolin INJECTION 1,000 MG in WATER (STERILE) FOR INJECTION 10 ML IV SCH ×2 (15:54→21:11)
--- NOTE | 2020-01-26 21:00 | NUR ---
PT'S BLOOD SUGAR 68, AWAKE AND ORIENTED. GIVEN DINNER TRAY AND HE EATS 90% AND 2 ICE CREAMS. RE-CHECK OF SUGAR WAS 84.
[2020-01-27] VITALS (11 sets, daily range): BP systolic 137–193; BP diastolic 67–108
[2020-01-27 03:11] LABS: HEMOGLOBIN 13.7 G/DL (13.3-17.7); MEAN PLATELET VOLUME 10.2 FL (7.4-10.4); RED CELL DISTRIBUTION WIDTH 14.4 % (10.0-14.5); WHITE BLOOD COUNT 8.8 10^3/uL (4.3-11.0)
[2020-01-27 03:18] LABS: ALBUMIN 2.1 GM/DL (3.2-4.5); CHLORIDE 112 MMOL/L (98-107); POTASSIUM 4.2 MMOL/L (3.6-5.0); SODIUM 139 MMOL/L (135-145)
[2020-01-27 03:19] LABS: CALCIUM 7.4 MG/DL (8.5-10.1)
[2020-01-27 03:20] LABS: GLUCOSE 182 MG/DL (70-105); TOTAL PROTEIN 4.7 GM/DL (6.4-8.2)
[2020-01-27 03:21] LABS: CARBON DIOXIDE 19 MMOL/L (21-32)
[2020-01-27 03:22] LABS: BILIRUBIN,TOTAL 0.5 MG/DL (0.1-1.0)
[2020-01-27 03:24] LABS: ALKALINE PHOSPHATASE 118 U/L (40-136); CREATININE SERUM 1.11 MG/DL (0.60-1.30); GFR ESTIMATED > 60
[2020-01-27 03:25] LABS: BUN/CREATININE RATIO 18
[2020-01-27 03:27] LABS: ALANINE AMINOTRANSFERASE 20 U/L (0-55)
[2020-01-27] MEDS: ceFAZolin INJECTION 1,000 MG in WATER (STERILE) FOR INJECTION 10 ML IV SCH (05:59)
[2020-01-27] MEDS: inSUlin ASPART (NovoLOG) 1 UNIT/0.01 ML (CHARGE PER UNIT) SC SCH ×4 (06:00→20:25)
--- NOTE | 2020-01-27 06:41 | Pulmonary Progress Note ---
Subjective Time Seen by a Provider: 06:39 Subjective/Events-last exam No complications noted. Sepsis Event Evaluation Height, Weight, BMI Height: 6'2.00" Weight: 240lbs. 0.0oz. 108.923233ds; 28.80 BMI Method:Stated Exam Exam Vital Signs Date Time Temp Pulse Resp B/P (MAP) Pulse Ox O2 Delivery O2 Flow Rate FiO2 01/27/20 04:00 60 15 176/99 (124) 98 Nasal Cannula 2.00 01/27/20 04:00 Nasal Cannula 2.00 01/27/20 03:00 60 20 163/74 (103) 93 Nasal Cannula 2.00 01/27/20 02:00 60 22 182/72 (108) 95 Nasal Cannula 2.00 01/27/20 01:00 60 01/27/20 01:00 60 22 155/81 (105) 98 Nasal Cannula 2.00 01/27/20 00:00 Nasal Cannula 2.00 01/27/20 00:00 60 25 158/108 (125) 97 Nasal Cannula 2.00 01/27/20 00:00 36.9 01/26/20 23:00 61 26 159/75 (103) 97 Nasal Cannula 2.00 01/26/20 22:00 60 20 160/71 (100) 97 Nasal Cannula 2.00 01/26/20 21:00 61 17 185/103 (130) 97 Nasal Cannula 2.00 01/26/20 21:00 96 Room Air 01/26/20 20:00 60 17 155/75 (101) 99 Nasal Cannula 2.00 01/26/20 20:00 Nasal Cannula 2.00 01/26/20 19:31 37.0 01/26/20 19:00 60 01/26/20 19:00 60 19 145/70 (95) 98 Nasal Cannula 2.00 01/26/20 16:10 Nasal Cannula 2.00 01/26/20 16:00 59 12 154/71 (98) 98 Nasal Cannula 2.00 01/26/20 15:13 37.0 01/26/20 13:15 36.3 01/26/20 13:00 65 01/26/20 12:10 Nasal Cannula 2.00 01/26/20 12:00 Nasal Cannula 01/26/20 10:00 43 19 98 Nasal Cannula 2.00 01/26/20 08:30 96 Room Air 01/26/20 08:00 41 23 127/74 (91) 94 Nasal Cannula 2.00 01/26/20 07:00 43 I & O 01/27/20 07:00 Intake Total 1080 ml Output Total 1670 ml Balance -590 ml Height & Weight Height: 6'2.00" Weight: 240lbs. 0.0oz. 108.951755ze; 28.80 BMI Method:Stated General Appearance: No Apparent Distress, WD/WN HEENT: PERRL/EOMI, Pharynx Normal, Moist Mucous Membranes Neck: Full Range of Motion, Normal Inspection, Non Tender, Supple Respiratory: Decreased Breath Sounds (ON RIGHT) Cardiovascular: Bradycardia, Systolic Murmur, Irregularly Irregular Capillary Refill: Less Than 3 Seconds Extremity: Normal Capillary Refill, Non Tender, No Calf Tenderness, Pedal Edema (TRACE) Neurologic/Psychiatric: Alert, Oriented x3, No Motor/Sensory Deficits, Normal Mood/Affect Skin: Normal Color, Warm/Dry Lymphatic: No Adenopathy Results Lab Laboratory Tests 01/26/20 03:10 01/27/20 03:00 Assessment/Plan Assessment/Plan right pleural effusion with hx of esophageal cancer s/p thoracentesis -Cytology is negative on pleural fluid Acute on chronic Renal insufficiency -Monitor Bradycardia s/p pacmaker Chronic afib HTN PVD RAJNI SUH DO January 27, 2020 06:40
--- NOTE | 2020-01-27 09:33 | Physical Therapy Daily Note ---
PT Daily Note-Current Subjective Patient in bed pre tx, agrees to PT reluctantly, states he has pain in his bones but when asked to rate pain from 0-10 he says he has none. Appearance Patient in recliner post tx with nurse call, phone, tray, nurse notified. Mental Status Patient Orientation: Person, Confused, Mumbles Attachments: Oxygen, Price Catheter Patient seems oriented but acts strangely and is borderline sexually inappropriate with a female PT tech. Transfers SCALE: Activities may be completed with or without assistive devices. 4-Nvithmthip-zynytjm completes the activity by him/herself with no assistance from a helper. 5-Set-up or Clean-up Assistance-helper sets up or cleans up; patient completes activity. [place] assists only prior to or following the activity. 4-Supervision or Touching Assistance-helper provides verbal cues and/or touching/steadying and/or contact guard assistance as patient completes activity. Assistance may be provided throughout the activity or intermittently. 3-Partial/Moderate Assistance-helper does LESS THAN HALF the effort. [place] lifts, holds or supports trunk or limbs, but provides less than half the effort. 2-Substantial/Maximal Assistance-helper does MORE THAN HALF the effort. [place] lifts or holds trunk or limbs and provides more than half the effort. 1-Khpaxmpyg-lmpkos does ALL the effort. Patient does none of the effort to complete the activity. Or, the assistance of 2 or more helpers is required for the patient to complete the activity. If activity was not attempted, code reason: 7-Patient Refused. 9-Not Applicable-not attempted and the patient did not perform the activity before the current illness, exacerbation or injury. 10-Not Attempted due to Environmental Limitations-(lack of equipment, weather restraints, etc.). 88-Not Attempted due to Medical Conditions or Safety Concerns. Roll Left & Right (QC): 3 Lying to Sitting/Side of Bed(Q: 3 Sit to Stand (QC): 3 Chair/Ebj-kd-Njahs Xfer(QC): 3 Patient responds poorly to instructions on how to perform supine to sit, insists on doing it his own way which requires much more effort. Weight Bearing Right Lower Extremity: Right Full Weight Bearing Left Lower Extremity: Left Full Weight Bearing Gait Training Distance: 10' Walk 10 feet (QC): 3 Gait Persons Needed: 1 Gait Assistive Device: FWW Slow, wide MEGAN, slightly unsteady Exercises Seated Therapy Exercises: Ankle pumps, Long arc quads Seated Reps: 20 Treatments bed mobility and transfers, ambulation, functional strengthening Assessment Current Status: Poor Progress Patient had more difficulty with general mobility this morning. PT Short Term Goals Short Term Goals Time Frame: February 03, 2020 Roll Left & Right: 6 Sit to lyin Lying to sitting on side of be: 6 Sit to stand: 6 Chair/ewb-he-pumat transfer: 6 Toilet transfer: 6 Walk 10 feet: 6 Walk 50 feet with two turns: 6 Walk 150 feet: 6 PT Plan Problem List Problem List: Activity Tolerance, Functional Strength, Safety, Balance, Gait, Transfer, Bed Mobility, ROM Treatment/Plan Treatment Plan: Continue Plan of Care Treatment Plan: Bed Mobility, Concurrent Therapy, Education, Functional Activity Ivan, Functional Strength, Gait, Safety, Therapeutic Exercise, Transfers Treatment Duration: February 03, 2020 Frequency: 6 times per week Estimated Hrs Per Day: .25 hour per day Safety Risks/Education Patient Education: Gait Training, Transfer Techniques, Correct Positioning, Safety Issues Teaching Recipient: Patient Teaching Methods: Demonstration, Discussion Response to Teaching: Reinforcement Needed Time/GCodes Time In: 912 Time Out: 925 Total Billed Treatment Time: 13 Total Billed Treatment 1 visit FA MARK GARDUNO PT January 27, 2020 09:33
--- NOTE | 2020-01-27 10:00 | Diagnostic Imaging Report ---
INDICATION: Pleural effusion. TECHNIQUE: Two view chest 9:43 AM CORRELATION STUDY: 01/26/2020 FINDINGS: Right IJ Xiqobq-k-Tmjh catheter and left-sided pacemaker unchanged. Heart size and mediastinum are stable. Moderate sized right pleural effusion with consolidation in the right lung base does persist. Overall may be slightly increased from previous study. Trace left pleural effusion, left lung otherwise clear. IMPRESSION: 1. Right pleural effusion along with consolidation right lung base, perhaps slightly increased in size. Small left pleural effusion. Dictated by: Dictated on workstation # [id number]
--- NOTE | 2020-01-27 10:01 | Cardiology Progress Note ---
Subjective Date Seen by Provider: January 27, 2020 Time Seen by Provider: 10:00 Subjective/Events-last exam Patient is sitting in a chair, feeling better, no new complaint. Site is healing well Review of Systems General: No Chills, No Night Sweats, No Fatigue, No Malaise, No Appetite, No Other HEENT: No Head Aches, No Visual Changes, No Eye Pain, No Ear Pain, No Dyspha robyn, No Sinus Congestion, No Post Nasal Drip, No Sore Throat, No Other Pulmonary: No Dyspnea, No Cough, No Pleuritic Chest Pain, No Other Cardiovascular: No: Chest Pain, Palpitations, Orthopnea, Paroxysmal Noc. Dyspnea, Edema, Lt Headedness, Other Objective-Cardiology Exam Last Set of Vital Signs Vital Signs 01/27/20 01/27/20 01/27/20 07:12 08:00 09:29 Temp 37.0 Pulse 60 Resp 25 B/P (MAP) 146/81 (102) Pulse Ox 94 O2 Delivery Room Air O2 Flow Rate 2.00 Capillary Refill : Less Than 3 Seconds I&O Intake and Output 01/27/20 00:00 Intake Total 980 ml Output Total 3950 ml Balance -2970 ml Intake Oral 980 ml Output Urine Total 3950 ml General: Alert, Cooperative HEENT: PERRLA Neck: Supple, No JVD Lungs: Other (bilateral rhonchi) Heart: Normal S1, Normal S2, Other (bradycardia) Abdomen: Normal Bowel Sounds Extremities: No Clubbing, No Cyanosis Skin: No Breakdown Neuro: Normal Speech Psych/Mental Status: Mental Status NL Results Lab Laboratory Tests 01/27/20 03:00 A/P-Cardiology Admission Diagnosis Bradycardia Chronic atrial fibrillation Hypertension Peripheral arterial disease Assessment/Plan Chronic persistent atrial fibrillation with severe bradycardia, generalized weakness, recurrent pleural effusion, cytology of the pleural fluid did not show any malignant cells, status post single-chamber pacemaker implantation with no complication, good sensing and capture activity Dyspnea, fatigue, pleural effusion, status post thoracentesis, removed 3 L of fluid. Feeling better. Asking to go home COVID tested negative on 01/23/2020 History of Peripheral arterial disease, currently asymptomatic, angiogram was done on September 07, 2018 showed total occlusion of the tibial peroneal trunk on the left with successful balloon angioplasty and reestablishing flow through the peroneal artery down to the foot, the posterior tibial artery is receiving collaterals and the anterior tibial artery has severe disease distally also receiving collateral from the peroneal artery. The SFA has severe stenosis at multiple segment underwent deployment of 2 overlapping SUPERA 6 x 150 and 5.5 x 100 with excellent results and excellent flow. Patient was noted to have on the right SFA multiple segment of moderate to moderately severe stenosis and disease below the trifurcation. Repeat FROY showed normal FROY on the right abnormal TBI. On the left FROY was abnormal and TBI was nondiagnostic, angiogram was done on October 20, 2018 and balloon angioplasty to the right SFA with [place] 5 and 6 mm balloon with excellent results, the right popliteal artery is totally occluded at the trifurcation with reconstruction by collateral with slow flow that improved after nitroglycerin injection, the wound has healed, his legs are feeling better, continue to monitor Cardiac catheterization done on October 19, 2018 showing multivessel coronary artery disease including calcified artery with moderate to severe stenosis at the mid LAD, moderate to severe stenosis at the distal LAD with severe stenosis at the distal circumflex artery and moderate stenosis at the midright coronary artery with severe stenosis at the distal right coronary artery, normal left ventricular size, he is currently asymptomatic. I will continue monitoring with consideration for high risk intervention on the LAD if needed in the future Paroxysmal atrial fibrillation, asymptomatic, still in atrial fibrillation, EKG was done today showing atrial fibrillation with occasional PVCs and right bundle branch block. Continue on Xarelto and continue to monitor Hypertension, blood pressure is elevated, continue to hold Norvasc and will restart losartan at this time and monitor Hyperlipidemia, continue to monitor lipids Bilateral carotid stenosis, ultrasound showed mild bilateral disease nonobstructive disease in August 2018. 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 Gonzalez. Diabetes mellitus, labile blood sugar and history of syncope secondary to h ypoglycemia. Clinical Quality Measures DVT/VTE Risk/Contraindication: Risk Factor Score Per Nursin RFS Level Per Nursing on Admit: 3=High Contraindications-Pharm: Other *list below* Other: planning on procedure on 01/23/2020 - holding lovenox until after procedure is done scd's have been ordered SAMANTHA CRAWLEY MD January 27, 2020 10:01
[2020-01-27] MEDS ORDERED: METO-351 PO (10:03)
[2020-01-27] MEDS ORDERED: CEFU500T63 PO (10:03)
[2020-01-27] MEDS: ENOXAPARIN 40 MG/0.4 ML (LOVENOX) SYR SC SCH (10:10)
[2020-01-27] MEDS: LOSARTAN 25 MG (COZAAR) TAB PO SCH (10:10)
[2020-01-27] MEDS: FAMOTIDINE 20MG/2ML IV (PEPCID) IVP SCH (10:10)
[2020-01-27] MEDS ORDERED: polyethylene glycoL POWDER 17 GM (MIRALAX) PACK PO PRN (11:15)
[2020-01-27] MEDS ORDERED: ACETAMINOPHEN 325 MG TABLET PO PRN (11:15)
[2020-01-27] MEDS ORDERED: ONDANSETRON 4 MG/2 ML (SDV) Z0FRAN IV PRN (11:15)
[2020-01-27] MEDS ORDERED: MELATONIN 3 MG TABLET PO PRN (11:15)
[2020-01-27] MEDS ORDERED: ONDANSETRON 4 MG (ZOFRAN) ORAL DISSOLVE TAB PO PRN (11:15)
[2020-01-27] MEDS ORDERED: ANTACID SUSP 30 ML UDC (MYLANTA) PO PRN (11:15)
--- NOTE | 2020-01-27 11:27 | Progress Note - Hospitalist ---
Subjective HPI/CC On Admission Date Seen by Provider: January 27, 2020 Time Seen by Provider: 09:20 Subjective/Events-last exam He reports feeling well this morning. He is still feeling weak. He denies any shortness of breath. He denies any cough. He denies any fevers or chills. He denies any abdominal lying, nausea, or vomiting. He denies any chest pain. Objective Exam Vital Signs Vital Signs Date Time Temp Pulse Resp B/P (MAP) Pulse Ox O2 Delivery O2 Flow Rate FiO2 01/27/20 09:29 Room Air 01/27/20 08:00 60 25 146/81 (102) 94 2.00 01/27/20 07:12 37.0 Capillary Refill : Less Than 3 Seconds General Appearance: No Apparent Distress, Chronically ill Respiratory: Lungs Clear, Normal Breath Sounds, No Respiratory Distress Cardiovascular: Regular Rate, Rhythm, No Murmur Gastrointestinal: Normal Bowel Sounds, Non Tender, Soft Extremity: Normal Inspection, Non Tender, Pedal Edema Neurologic/Psychiatric: Alert, Oriented x3, No Motor/Sensory Deficits, Normal Mood/Affect Skin: Normal Color, Warm/Dry Results/Procedures Lab Laboratory Tests 01/27/20 03:00 Patient resulted labs reviewed. Imaging: Reviewed Imaging Report Assessment/Plan Assessment and Plan Assess & Plan/Chief Complaint Right-sided pleural effusion Hemothorax History of esophageal carcinoma Thoracentesis performed by radiology 01/23, markedly bloody Cytology negative for malignant cells Chest x-ray appears to be slightly worsening Repeat chest x-ray tomorrow morning Pulmonology following, appreciate assistance May need repeat thoracentesis Sinus node dysfunction Status post pacemaker placement Atrial fibrillation Cardiology consulted, appreciate assistance Pacemaker placed 01/25 Therapeutic anticoagulation held due to hemothorax and possible repeat thoracentesis Type II diabetes mellitus Continue Levemir Sliding scale insulin Hypertension Continue home meds DVT prophylaxis: Lovenox Diagnosis/Problems Diagnosis/Problems (1) Hemothorax on right Status: Acute (2) Pleural effusion on right Status: Acute (3) Sick sinus syndrome due to SA node dysfunction Status: Acute (4) S/P placement of cardiac pacemaker Status: Acute (5) History of esophageal cancer Status: Chronic (6) T2DM (type 2 diabetes mellitus) Status: Chronic Qualifiers: Diabetes mellitus intermediate designer insulin use: with intermediate use Diabetes mellitus complication status: without complication Qualified Codes: E11.9 - Type 2 diabetes mellitus without complications; Z79.4 - [facility] (current) use of insulin (7) HTN (hypertension) Status: Chronic Qualifiers: Hypertension type: essential hypertension Qualified Codes: I10 - Essential (primary) hypertension Clinical Quality Measures DVT/VTE Risk/Contraindication: Risk Factor Score Per Nursin RFS Level Per Nursing on Admit: 3=High Contraindications-Pharm: Other *list below* Other: planning on procedure on 01/23/2020 - holding lovenox until after procedure is done scd's have been ordered TRANG ERVIN MD January 27, 2020 11:27
--- NOTE | 2020-01-27 12:20 | NUR ---
AFTER REPORT GIVEN TO LUCY JONES. PT TRANSPORTED VIA W/C TO ROOM 421 WITHOUT DIFFICULTIES. PT REQUESTED OXYGEN FOR INCREASED SOA WITH MOVEMENT, APPLIED AT 2 L NC. ALL PERSONAL BELONGINGS SENT WITH PATIENT. PT CALLED HIS AND UPDATED ON MOVE.
--- NOTE | 2020-01-27 12:30 | NUR ---
Pt arrived on floor with ICU staff. No issues. Agree with previous RN"s assessment.
[2020-01-27] MEDS ORDERED: hydrALAZINE (APESOLINE) 20 MG/ML VIAL IV PRN (12:45)
[2020-01-27] MEDS ORDERED: FUROSEMIDE 40 MG/4 ML INJ (LASIX) IVP ONE (18:00)
[2020-01-27] MEDS: DOCUSATE SODIUM 100 MG (COLACE) CAP PO SCH (20:23)
[2020-01-27] MEDS: SENNOSIDES 8.6 MG (SENOKOT) TAB PO SCH (20:23)
[2020-01-28 04:00] VITALS: BP 174/81
[2020-01-28 05:57] LABS: BUN/CREATININE RATIO 18; CALCIUM 8.1 MG/DL (8.5-10.1); CARBON DIOXIDE 19 MMOL/L (21-32); CHLORIDE 114 MMOL/L (98-107); CREATININE SERUM 1.08 MG/DL (0.60-1.30); GFR ESTIMATED > 60; POTASSIUM 3.8 MMOL/L (3.6-5.0); SODIUM 143 MMOL/L (135-145)
[2020-01-28 06:03] LABS: GLUCOSE 60 MG/DL (70-105)
[2020-01-28] MEDS: inSUlin ASPART (NovoLOG) 1 UNIT/0.01 ML (CHARGE PER UNIT) SC SCH ×4 (06:46→21:03)
[2020-01-28] MEDS: FAMOTIDINE 20MG/2ML IV (PEPCID) IVP SCH (08:27)
[2020-01-28] MEDS: DOCUSATE SODIUM 100 MG (COLACE) CAP PO SCH ×2 (08:27→20:51)
[2020-01-28] MEDS: ENOXAPARIN 40 MG/0.4 ML (LOVENOX) SYR SC SCH (08:27)
[2020-01-28] MEDS: SENNOSIDES 8.6 MG (SENOKOT) TAB PO SCH ×2 (08:27→21:00)
[2020-01-28] MEDS: LOSARTAN 25 MG (COZAAR) TAB PO SCH (08:27)
[2020-01-28 08:37] VITALS: BP 143/80
--- NOTE | 2020-01-28 09:46 | Diagnostic Imaging Report ---
INDICATION: Pleural effusion. TECHNIQUE: Two view chest 9:05 AM CORRELATION STUDY: 01/27/2020 FINDINGS: Right IJ Dzdzbq-Z-Dhth catheter tip over the high svc. There is some redundancy and looping of the catheter in the neck. Left-sided unipolar pacemaker unchanged. Heart size and mediastinum are stable. There has been some change in the distribution of the fluid. The overall amount of fluid perhaps slightly increased. Left lung remains relatively clear. Slight accentuated thoracic kyphosis. IMPRESSION: 1. Moderate right pleural effusion persisting stable to perhaps slightly increased. Associated consolidation the right lung base. Dictated by: Dictated on workstation # [id number]
--- NOTE | 2020-01-28 10:42 | Cardiology Progress Note ---
Subjective Date Seen by Provider: January 28, 2020 Time Seen by Provider: 10:41 Subjective/Events-last exam Patient is laying down in bed, feeling better, reported that he felt tired and had no energy yesterday evening Review of Systems General: No Chills, No Night Sweats; Fatigue, Malaise; No Appetite, No Other HEENT: No Head Aches, No Visual Changes, No Eye Pain, No Ear Pain, No Dysphasia, No Sinus Congestion, No Post Nasal Drip, No Sore Throat, No Other Pulmonary: Dyspnea; No Cough, No Pleuritic Chest Pain, No Other Cardiovascular: No: Chest Pain, Palpitations, Orthopnea, Paroxysmal Noc. Dyspnea, Edema, Lt Headedness, Other Objective-Cardiology Exam Last Set of Vital Signs Vital Signs 01/28/20 08:37 Temp 36.6 Pulse 60 Resp 18 B/P (MAP) 143/80 (101) Pulse Ox 97 O2 Delivery Nasal Cannula O2 Flow Rate 2.00 Capillary Refill : Less Than 3 SecondsLess Than 3 Seconds I&O Intake and Output 01/28/20 00:00 Intake Total 1190 ml Output Total 1770 ml Balance -580 ml Intake Oral 1180 ml IV Total 10 ml Output Urine Total 1770 ml General: Alert, Cooperative HEENT: PERRLA Neck: Supple, No JVD Lungs: Other (bilateral rhonchi) Heart: Regular Rate, Normal S1, Normal S2 Abdomen: Normal Bowel Sounds Extremities: No Clubbing, No Cyanosis Skin: No Breakdown Neuro: Normal Speech Psych/Mental Status: Mental Status NL Results Lab Laboratory Tests 01/28/20 05:30 A/P-Cardiology Admission Diagnosis Bradycardia Chronic atrial fibrillation Hypertension Peripheral arterial disease Assessment/Plan Chronic persistent atrial fibrillation with severe bradycardia, status post single-chamber pacemaker implantation VVI mode, heart rate is better, blood pre ssure is stable Recurrent right-sided pleural effusion status post thoracentesis, managed by primary care team Dyspnea, fatigue, some improvement. Managed by primary care team COVID tested negative on 01/23/2020 History of Peripheral arterial disease, currently asymptomatic, angiogram was done on September 07, 2018 showed total occlusion of the tibial peroneal trunk on the left with successful balloon angioplasty and reestablishing flow through the peroneal artery down to the foot, the posterior tibial artery is receiving collaterals and the anterior tibial artery has severe disease distally also receiving collateral from the peroneal artery. The SFA has severe stenosis at multiple segment underwent deployment of 2 overlapping SUPERA 6 x 150 and 5.5 x 100 with excellent results and excellent flow. Patient was noted to have on the right SFA multiple segment of moderate to moderately severe stenosis and disease below the trifurcation. Repeat FROY showed normal FROY on the right abnormal TBI. On the left FROY was abnormal and TBI was nondiagnostic, angiogram was done on October 20, 2018 and balloon angioplasty to the right SFA with [place] 5 and 6 mm balloon with excellent results, the right popliteal artery is totally occluded at the trifurcation with reconstruction by collateral with slow flow that improved after nitroglycerin injection, the wound has healed, his legs are feeling better, continue to monitor Cardiac catheterization done on October 19, 2018 showing multivessel coronary artery disease including calcified artery with moderate to severe stenosis at the mid LAD, moderate to severe stenosis at the distal LAD with severe stenosis at the distal circumflex artery and moderate stenosis at the midright coronary artery with severe stenosis at the distal right coronary artery, normal left ventricular size, he is currently asymptomatic. I will continue monitoring with consideration for high risk intervention on the LAD if needed in the future Paroxysmal atrial fibrillation, asymptomatic, still in atrial fibrillation, EKG was done today showing atrial fibrillation with occasional PVCs and right bundle branch block. Continue on Xarelto and continue to monitor Hypertension, blood pressure is elevated, continue to hold Norvasc and will restart losartan at this time and monitor Hyperlipidemia, continue to monitor lipids Bilateral carotid stenosis, ultrasound showed mild bilateral disease nonobstructive disease in August 2018. 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 Gonzalez. Diabetes mellitus, labile blood sugar and history of syncope secondary to hypoglycemia. Clinical Quality Measures DVT/VTE Risk/Contraindication: Risk Factor Score Per Nursin RFS Level Per Nursing on Admit: 3=High Contraindications-Pharm: Other *list below* Other: planning on procedure on 01/23/2020 - holding lovenox until after procedure is done scd's have been ordered SAMANTHA CRAWLEY MD January 28, 2020 10:42
[2020-01-28 11:58] VITALS: BP 147/69
--- NOTE | 2020-01-28 14:14 | Progress Note - Hospitalist ---
Subjective HPI/CC On Admission Date Seen by Provider: January 28, 2020 Time Seen by Provider: 10:30 Subjective/Events-last exam he has no complaints or concerns this morning. He denies any shortness of breath. He denies any cough. He denies any fevers or chills. He denies any abdominal pain, nausea, or vomiting. Objective Exam Vital Signs Vital Signs Date Time Temp Pulse Resp B/P (MAP) Pulse Ox O2 Delivery O2 Flow Rate FiO2 01/28/20 12:16 67 01/28/20 11:58 37.1 18 147/69 (95) 97 Nasal Cannula 2.00 Capillary Refill : Less Than 3 SecondsLess Than 3 Seconds General Appearance: No Apparent Distress, Chronically ill Respiratory: Lungs Clear, Normal Breath Sounds, No Respiratory Distress Cardiovascular: Regular Rate, Rhythm, No Murmur Gastrointestinal: Normal Bowel Sounds, Non Tender, Soft Extremity: Normal Inspection, Non Tender, Pedal Edema Neurologic/Psychiatric: Alert, Oriented x3, No Motor/Sensory Deficits, Normal Mood/Affect Skin: Normal Color, Warm/Dry Results/Procedures Lab Laboratory Tests 01/28/20 05:30 Patient resulted labs reviewed. Imaging: Reviewed Imaging Report Assessment/Plan Assessment and Plan Assess & Plan/Chief Complaint Right-sided pleural effusion Hemothorax History of esophageal carcinoma Thoracentesis performed by radiology 01/23, markedly bloody Cytology negative for malignant cells Chest x-ray appears to be slightly worsening with moderate right pleural effusion Repeat chest x-ray tomorrow morning Pulmonology following, appreciate assistance May need repeat thoracentesis Sinus node dysfunction Status post pacemaker placement Atrial fibrillation Cardiology consulted, appreciate assistance Pacemaker placed 01/25 Therapeutic anticoagulation held due to hemothorax and possible repeat thoracentesis Type II diabetes mellitus with hypoglycemia decrease Levemir Sliding scale insulin Hypertension Continue home meds DVT prophylaxis: Lovenox Diagnosis/Problems Diagnosis/Problems (1) Hemothorax on right Status: Acute (2) Pleural effusion on right Status: Acute (3) Sick sinus syndrome due to SA node dysfunction Status: Acute (4) S/P placement of cardiac pacemaker Status: Acute (5) History of esophageal cancer Status: Chronic (6) T2DM (type 2 diabetes mellitus) Status: Chronic Qualifiers: Diabetes mellitus machine long goods helper insulin use: with machine long goods helper use Diabetes mellitus complication status: without complication Qualified Codes: E11.9 - Type 2 diabetes mellitus without complications; Z79.4 - [employer] (current) use of insulin (7) HTN (hypertension) Status: Chronic Qualifiers: Hypertension type: essential hypertension Qualified Codes: I10 - Essential (primary) hypertension Clinical Quality Measures DVT/VTE Risk/Contraindication: Risk Factor Score Per Nursin RFS Level Per Nursing on Admit: 3=High Contraindications-Pharm: Other *list below* Other: planning on procedure on 01/23/2020 - holding lovenox until after procedure is done scd's have been ordered TRANG ERVIN MD January 28, 2020 14:13
[2020-01-28 16:31] VITALS: BP 170/74
[2020-01-28 20:30] VITALS: BP 187/82
[2020-01-29 00:49] VITALS: BP 170/60
[2020-01-29 04:00] VITALS: BP 170/62
[2020-01-29] MEDS: inSUlin ASPART (NovoLOG) 1 UNIT/0.01 ML (CHARGE PER UNIT) SC SCH ×4 (05:31→20:40)
--- NOTE | 2020-01-29 07:02 | Pulmonary Progress Note ---
Subjective Time Seen by a Provider: 07:01 Subjective/Events-last exam No complications noted. Sepsis Event Evaluation Height, Weight, BMI Height: 6'2.00" Weight: 240lbs. 0.0oz. 108.368970lt; 28.80 BMI Method:Stated Exam Exam Vital Signs Date Time Temp Pulse Resp B/P (MAP) Pulse Ox O2 Delivery O2 Flow Rate FiO2 01/29/20 04:00 37.2 62 20 170/62 (98) 96 01/29/20 01:00 60 01/29/20 00:49 36.6 61 20 170/60 (96) 96 01/28/20 20:30 96 Room Air 2.00 01/28/20 20:30 36.5 60 20 187/82 (117) 94 Room Air 01/28/20 19:00 60 01/28/20 16:31 36.1 61 20 170/74 (106) 95 Room Air 01/28/20 12:16 67 01/28/20 11:58 37.1 62 18 147/69 (95) 97 Nasal Cannula 2.00 01/28/20 08:37 36.6 60 18 143/80 (101) 97 Nasal Cannula 2.00 01/28/20 07:30 Nasal Cannula 2.00 I & O 01/29/20 07:00 Intake Total 1854 ml Output Total 1350 ml Balance 504 ml Height & Weight Height: 6'2.00" Weight: 240lbs. 0.0oz. 108.805727ca; 28.80 BMI Method:Stated General Appearance: No Apparent Distress, Chronically ill HEENT: PERRL/EOMI, Pharynx Normal, Moist Mucous Membranes Neck: Full Range of Motion, Normal Inspection, Non Tender, Supple Respiratory: Lungs Clear, Normal Breath Sounds, No Respiratory Distress Cardiovascular: Regular Rate, Rhythm, No Murmur Capillary Refill: Less Than 3 Seconds Extremity: Normal Inspection, Non Tender, Pedal Edema Neurologic/Psychiatric: Alert, Oriented x3, No Motor/Sensory Deficits, Normal Mood/Affect Skin: Normal Color, Warm/Dry Lymphatic: No Adenopathy Results Lab Laboratory Tests 01/28/20 05:30 Assessment/Plan Assessment/Plan right pleural effusion with hx of esophageal cancer s/p thoracentesis -Cytology is negative on pleural fluid -Repeat Labs with BNP -CXR reviewed Acute on chronic Renal insufficiency -Monitor Bradycardia s/p pacmaker Chronic afib HTN PVD DM RAJNI MARINELLI DO January 29, 2020 07:02
[2020-01-29 07:33] LABS: BASOPHILS % (AUTO) 0 % (0-10); EOSINOPHILS # (AUTO) 0.7 10^3/uL (0.0-0.3); EOSINOPHILS % (AUTO) 7 % (0-10); HEMATOCRIT 43 % (40-54); HEMOGLOBIN 14.6 G/DL (13.3-17.7); LYMPHOCYTES # (AUTO) 1.4 X 10^3 (1.0-4.0); LYMPHOCYTES % (AUTO) 14 % (12-44); MEAN CORPUSCULAR HEMOGLOBIN 30 PG (25-34); MEAN CORPUSCULAR HGB CONC 34 G/DL (32-36); MEAN CORPUSCULAR VOLUME 89 FL (80-99); MEAN PLATELET VOLUME 10.1 FL (7.4-10.4); MONOCYTES # (AUTO) 1.2 X 10^3 (0.0-1.0); MONOCYTES % (AUTO) 12 % (0-12); NEUTROPHILS # (AUTO) 6.4 X 10^3 (1.8-7.8); NEUTROPHILS % (AUTO) 66 % (42-75); PLATELET COUNT 252 10^3/uL (130-400); RED CELL DISTRIBUTION WIDTH 14.6 % (10.0-14.5); WHITE BLOOD COUNT 9.8 10^3/uL (4.3-11.0)
[2020-01-29 07:47] LABS: ALBUMIN 2.3 GM/DL (3.2-4.5); CHLORIDE 111 MMOL/L (98-107); POTASSIUM 4.1 MMOL/L (3.6-5.0); SODIUM 141 MMOL/L (135-145)
[2020-01-29 07:48] LABS: CALCIUM 8.3 MG/DL (8.5-10.1)
[2020-01-29 07:49] LABS: GLUCOSE 102 MG/DL (70-105)
[2020-01-29 07:50] LABS: TOTAL PROTEIN 5.4 GM/DL (6.4-8.2)
[2020-01-29 07:51] LABS: BILIRUBIN,TOTAL 0.6 MG/DL (0.1-1.0); CARBON DIOXIDE 23 MMOL/L (21-32)
[2020-01-29 07:53] LABS: ALKALINE PHOSPHATASE 147 U/L (40-136); CREATININE SERUM 1.12 MG/DL (0.60-1.30); GFR ESTIMATED > 60; PHOSPHORUS 2.9 MG/DL (2.3-4.7)
[2020-01-29 07:54] LABS: BUN/CREATININE RATIO 16
[2020-01-29 07:56] LABS: ALANINE AMINOTRANSFERASE 23 U/L (0-55)
[2020-01-29 08:00] VITALS: BP 178/83
--- NOTE | 2020-01-29 08:37 | Diagnostic Imaging Report ---
INDICATION: Pleural effusion and cough. PA and lateral chest obtained at 0824 a.m. compared to 01/28/2020. Heart is normal in size. Port-A-Cath is unchanged. Pacemaker is unchanged. There is no change in moderate to large right pleural effusion with some passive atelectasis versus infiltrate in the right base. The left lung is clear except for calcified granuloma in the left base. IMPRESSION: Stable right pleural effusion and stable bibasilar atelectatic change versus infiltrate. No new abnormality compared to yesterday. Dictated by: Dictated on workstation # [id number]
--- NOTE | 2020-01-29 08:59 | Progress Note ---
Subjective Subjective Date Seen by Provider: January 29, 2020 Time Seen by Provider: 08:40 PT REPORTS THAT HE IS STILL A LITTLE SHORT OF BREATH - HE STATES THAT HE HAS PROGRESSIVE WEAKNESS BUT HE FEELS LIKE IT IS BECAUSE HE HAS BEEN IN THE HOSPITAL BED FOR DAYS. HE REPORTS THAT HE WOULD LIKE A BATH, BUT HAS NOT BEEN OFFERED ONE SINCE ADMISSION. Review of Systems General: No Chills, No Night Sweats; Fatigue, Malaise; No Appetite, No Other HEENT: No Head Aches, No Visual Changes, No Eye Pain, No Ear Pain, No Dysphasia , No Sinus Congestion, No Post Nasal Drip, No Sore Throat, No Other Pulmonary: Dyspnea; No Cough, No Pleuritic Chest Pain, No Other Cardiovascular: No: Chest Pain, Palpitations, Orthopnea, Paroxysmal Noc. Dyspnea, Edema, Lt Headedness, Other Gastrointestinal: No: Nausea, Abdominal Pain, Diarrhea, Constipation Genitourinary: No Dysuria, No Frequency; Other (BOLDEN IN PLACE) Musculoskeletal: No: back pain Neurological: Weakness; No: Confusion All Other Systems Reviewed All Other Systems Reviewed: Yes Objective Exam Vital Signs Vital Signs - First Documented 01/23/20 01/23/20 04:00 20:32 Temp 36.6 B/P (MAP) 148/58 (88) Capillary Refill : Less Than 3 SecondsLess Than 3 Seconds General Appearance: No Apparent Distress, Chronically ill Eyes: Bilateral Eye Normal Inspection, Bilateral Eye PERRL, Bilateral Eye EOMI HEENT: PERRL/EOMI, Pharynx Normal, Moist Mucous Membranes Neck: Full Range of Motion, Normal Inspection, Non Tender, Supple Respiratory: Lungs Clear, Normal Breath Sounds, No Respiratory Distress Cardiovascular: Regular Rate, Rhythm, No Murmur Gastrointestinal: Normal Bowel Sounds, Non Tender, Soft Rectal: Deferred Extremity: Normal Inspection, Non Tender, Pedal Edema Neurologic/Psychiatric: Alert, Oriented x3, No Motor/Sensory Deficits, Normal Mood/Affect Skin: Normal Color, Warm/Dry Lymphatic: No Adenopathy Results Lab Laboratory Tests 01/28/20 11:33: Glucometer 59*L 01/28/20 12:15: Glucometer 84 01/28/20 16:10: Glucometer 195H 01/28/20 20:50: Glucometer 238H 01/29/20 05:10: Glucometer 118H 01/29/20 07:20: White Blood Count 9.8, Red Blood Count 4.82, Hemoglobin 14.6, Hematocrit 43, Mean Corpuscular Volume 89, Mean Corpuscular Hemoglobin 30, Mean Corpuscular Hemoglobin Concent 34, Red Cell Distribution Width 14.6H, Platelet Count 252, Mean Platelet Volume 10.1, Neutrophils (%) (Auto) 66, Lymphocytes (%) (Auto) 14, Monocytes (%) (Auto) 12, Eosinophils (%) (Auto) 7, Basophils (%) (Auto) 0, Neutrophils # (Auto) 6.4, Lymphocytes # (Auto) 1.4, Monocytes # (Auto) 1.2H, Eosinophils # (Auto) 0.7H, Basophils # (Auto) 0.0, Sodium Level 141, Potassium Level 4.1, Chloride Level 111H, Carbon Dioxide Level 23, Anion Gap 7, Blood Urea Nitrogen 18, Creatinine 1.12, Estimat Glomerular Filtration Rate > 60, BUN/Creatinine Ratio 16, Glucose Level 102, Calcium Level 8.3L, Corrected Calcium 9.7, Phosphorus Level 2.9, Total Bilirubin 0.6, Aspartate Amino Transf (AST/SGOT) 29, Alanine Aminotransferase (ALT/SGPT) 23, Alkaline Phosphatase 147H , B-Type Natriuretic Peptide 414.5H, Total Protein 5.4L, Albumin 2.3L, Procalcitonin 0.10H Microbiology 01/24/20 Acid Fast Bacilli Culture (Ref Lab - Preliminary, Resulted Assessment/Plan Assessment/Plan Admission Dx MODERATE TO LARGE RIGHT PLEURAL EFFUSION BRADYCARDIA ATRIAL FIBRILLATION HX OF ESOPHAGEAL CARCINOMA HYPERTENSION DIABETES MELLITUS EDEMA MODERATE TO LARGE RIGHT PLEURAL EFFUSION WITH HX OF ESOPHAGEAL CARCINOMA - COVID-19 TESTING NEGATIVE - MODERATE TO LARGE PLEURAL EFFUSION I HAVE DISCUSSED HIS CASE WITH DR. DALEY IN RADIOLOGY, THORACENTESIS WAS PERFORMED WEDNESDAY BY RADIOLOGIST. - OXYGEN VIA NASAL CANNULA - PATHOLOGY REPORT FOLLOWS: NO CYTOLOGICALLY MALIGNANT CELLS IDENTIFIED: REACTIVE MESOTHELIAL CELLS AND INFLAMMATORY CELLS. - CXR FROM TODAY FOLLOWS: Date of Exam:01/26/20 CHEST PA/LAT (2 VIEW) Indication: Right pleural effusion Right IJ Port-A-Cath tip projects over the SVC. There is right pleural effusion. The effusion appears increased since the previous day. Lungs are clear. IMPRESSION: Increasing right pleural effusion since the previous day. - MAY NEED TO CONSIDER REPEAT THORACENTESIS IF HIS PLEURAL EFFUSION CONTINUES TO INCREASE IN SIZE OVER THE NEXT FEW DAYS. - SERIAL CXR PA AND LATERAL TO BE ORDERED FOR THIS AND WEDNESDAY MORN ING. - REPEAT CXR - WILL GIVE LASIX TODAY AND MONITOR SYMPTOMS AND CHEST XRAY TOMORROW. BRADYCARDIA NEW ONSET WITH CHRONIC ATRIAL FIBRILLATION AND HYPERTENSION - CONSULT TO DR. CRAWLEY - MEDICATIONS HAVE BEEN ADJUSTED WITH NO REAL IMPROVEMENT IN HEART RATE. - PACEMAKER PLACEMENT SCHEDULED TO BE DONE 01/26/2020. DIABETES MELLITUS - RESTARTED LEVEMIR - INCREASE NEEDED AND STARTED SLIDING SCALE B ADVANCED AGE - PT REPORTED IN THE OFFICE THAT HE WANTS TO BE FULL CODE STATUS. 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 (4) S/P placement of cardiac pacemaker (5) History of esophageal cancer (6) T2DM (type 2 diabetes mellitus) Qualifiers: Qualified Codes: E11.9 - Type 2 diabetes mellitus without complications; Z79.4 - longterm (current) use of insulin (7) HTN (hypertension) Qualifiers: Qualified Codes: I10 - Essential (primary) hypertension Admission Dx MODERATE TO LARGE RIGHT PLEURAL EFFUSION BRADYCARDIA ATRIAL FIBRILLATION HX OF ESOPHAGEAL CARCINOMA HYPERTENSION DIABETES MELLITUS EDEMA MODERATE TO LARGE RIGHT PLEURAL EFFUSION WITH HX OF ESOPHAGEAL CARCINOMA - COVID-19 TESTING NEGATIVE - MODERATE TO LARGE PLEURAL EFFUSION I HAVE DISCUSSED HIS CASE WITH DR. DALEY IN RADIOLOGY, THORACENTESIS WAS PERFORMED WEDNESDAY BY RADIOLOGIST. - OXYGEN VIA NASAL CANNULA - PATHOLOGY REPORT FOLLOWS: NO CYTOLOGICALLY MALIGNANT CELLS IDENTIFIED: REACTIVE MESOTHELIAL CELLS AND INFLAMMATORY CELLS. - CXR FROM TODAY FOLLOWS: Date of Exam:01/26/20 CHEST PA/LAT (2 VIEW) Indication: Right pleural effusion Right IJ Port-A-Cath tip projects over the SVC. There is right pleural effusion. The effusion appears increased since the previous day. Lungs are clear. IMPRESSION: Increasing right pleural effusion since the previous day. - MAY NEED TO CONSIDER REPEAT THORACENTESIS IF HIS PLEURAL EFFUSION CONTINUES TO INCREASE IN SIZE OVER THE NEXT FEW DAYS. - SERIAL CXR PA AND LATERAL TO BE ORDERED FOR THIS AND WEDNESDAY MORNING. BRADYCARDIA NEW ONSET WITH CHRONIC ATRIAL FIBRILLATION AND HYPERTENSION - CONSULT TO DR. CRAWLEY - MEDICATIONS HAVE BEEN ADJUSTED WITH NO REAL IMPROVEMENT IN HEART RATE. - PACEMAKER PLACEMENT SCHEDULED TO BE DONE 01/26/2020. DIABETES MELLITUS - RESTARTED LEVEMIR - INCREASE NEEDED AND STARTED SLIDING SCALE B ADVANCED AGE - PT REPORTED IN THE OFFICE THAT HE WANTS TO BE FULL CODE STATUS. DVT PROPHYLAXIS WITH LOVENOX AND SCD'S GI PROPHYLAXIS WITH PEPCID I HAVE TALKED TO PT'S TODAY - 01/26/2020 - PLAN WILL BE THAT PT IS LIKELY GOING TO STILL BE IN HOSPITAL THROUGH THE WEEKEND - IF NEEDED MAY HAVE TO REPEAT THORACENTESIS THIS OR WEDNESDAY MORNING. Clinical Quality Measures Admission Status Admission Dx MODERATE TO LARGE RIGHT PLEURAL EFFUSION BRADYCARDIA ATRIAL FIBRILLATION HX OF ESOPHAGEAL CARCINOMA HYPERTENSION DIABETES MELLITUS EDEMA MODERATE TO LARGE RIGHT PLEURAL EFFUSION WITH HX OF ESOPHAGEAL CARCINOMA - COVID-19 TESTING NEGATIVE - MODERATE TO LARGE PLEURAL EFFUSION I HAVE DISCUSSED HIS CASE WITH DR. DALEY IN RADIOLOGY, THORACENTESIS WAS PERFORMED WEDNESDAY BY RADIOLOGIST. - OXYGEN VIA NASAL CANNULA - PATHOLOGY REPORT FOLLOWS: NO CYTOLOGICALLY MALIGNANT CELLS IDENTIFIED: REACTIVE MESOTHELIAL CELLS AND INFLAMMATORY CELLS. - CXR FROM TODAY FOLLOWS: Date of Exam:01/26/20 CHEST PA/LAT (2 VIEW) Indication: Right pleural effusion Right IJ Port-A-Cath tip projects over the SVC. There is right pleural effusion. The effusion appears increased since the previous day. Lungs are clear. IMPRESSION: Increasing right pleural effusion since the previous day. - MAY NEED TO CONSIDER REPEAT THORACENTESIS IF HIS PLEURAL EFFUSION CONTINUES TO INCREASE IN SIZE OVER THE NEXT FEW DAYS. - SERIAL CXR PA AND LATERAL TO BE ORDERED FOR THIS AND WEDNESDAY MORNING. BRADYCARDIA NEW ONSET WITH CHRONIC ATRIAL FIBRILLATION AND HYPERTENSION - CONSULT TO DR. CRAWLEY - MEDICATIONS HAVE BEEN ADJUSTED WITH NO REAL IMPROVEMENT IN HEART RATE. - PACEMAKER PLACEMENT SCHEDULED TO BE DONE 01/26/2020. DIABETES MELLITUS - RESTARTED LEVEMIR - INCREASE NEEDED AND STARTED SLIDING SCALE B ADVANCED AGE - PT REPORTED IN THE OFFICE THAT HE WANTS TO BE FULL CODE STATUS. DVT PROPHYLAXIS WITH LOVENOX AND SCD'S GI PROPHYLAXIS WITH PEPCID I HAVE TALKED TO PT'S TODAY - 01/26/2020 - PLAN WILL BE THAT PT IS LIKELY G OING TO STILL BE IN HOSPITAL THROUGH THE WEEKEND - IF NEEDED MAY HAVE TO REPEAT THORACENTESIS THIS OR WEDNESDAY MORNING. DVT/VTE Risk/Contraindication: Risk Factor Score Per Nursin RFS Level Per Nursing on Admit: 3=High Contraindications-Pharm: Other *list below* Other: planning on procedure on 01/23/2020 - holding lovenox until after procedure is done scd's have been ordered LILLIAN ILSA MD January 29, 2020 08:58
[2020-01-29] MEDS: ENOXAPARIN 40 MG/0.4 ML (LOVENOX) SYR SC SCH (09:37)
[2020-01-29] MEDS: DOCUSATE SODIUM 100 MG (COLACE) CAP PO SCH ×2 (09:38→20:40)
[2020-01-29] MEDS: FUROSEMIDE 40 MG/4 ML INJ (LASIX) IVP SCH ×2 (09:38→17:42)
[2020-01-29] MEDS: KCL 10 MEQ TAB (MICRO K) PO SCH (09:38)
[2020-01-29] MEDS: LOSARTAN 25 MG (COZAAR) TAB PO SCH (09:38)
[2020-01-29] MEDS: FAMOTIDINE 20MG/2ML IV (PEPCID) IVP SCH (09:38)
[2020-01-29] MEDS: SENNOSIDES 8.6 MG (SENOKOT) TAB PO SCH ×2 (09:39→20:40)
--- NOTE | 2020-01-29 11:34 | Cardiology Progress Note ---
Subjective Date Seen by Provider: January 29, 2020 Time Seen by Provider: 11:33 Subjective/Events-last exam Patient is laying down in bed, feeling better, still having some shortness of breath Review of Systems General: No Chills, No Night Sweats; Fatigue; No Malaise, No Appetite, No Other HEENT: No Head Aches, No Visual Changes, No Eye Pain, No Ear Pain, No Dysphasia, No Sinus Congestion, No Post Nasal Drip, No Sore Throat, No Other Pulmonary: Dyspnea; No Cough, No Pleuritic Chest Pain, No Other Cardiovascular: Edema; No: Chest Pain, Palpitations, Orthopnea, Paroxysmal Noc. Dyspnea, Lt Headedness, Other Objective-Cardiology Exam Last Set of Vital Signs Vital Signs 01/29/20 08:00 Temp 37.0 Pulse 61 Resp 20 B/P (MAP) 178/83 (114) Pulse Ox 96 O2 Delivery Room Air O2 Flow Rate 0.00 Capillary Refill : Less Than 3 SecondsLess Than 3 Seconds I&O Intake and Output 01/29/20 00:00 Intake Total 1554 ml Output Total 1675 ml Balance -121 ml Intake Oral 1554 ml Output Urine Total 1675 ml # Bowel Movements 2 General: Alert, Cooperative HEENT: PERRLA Neck: Supple, No JVD Lungs: Other (bilateral rhonchi) Heart: Regular Rate, Normal S1, Normal S2 Abdomen: Normal Bowel Sounds Extremities: No Clubbing, No Cyanosis Skin: No Breakdown Neuro: Normal Speech Psych/Mental Status: Mental Status NL Results Lab Laboratory Tests 01/29/20 07:20 A/P-Cardiology Admission Diagnosis Bradycardia Chronic atrial fibrillation Hypertension Peripheral arterial disease Assessment/Plan Chronic persistent atrial fibrillation with severe bradycardia, status post si ngle-chamber pacemaker implantation VVI mode, heart rate is better, blood pressure is stable Recurrent right-sided pleural effusion status post thoracentesis, currently chest x-ray showed moderate to large size right sided effusion. Maintained on diuretics. Continue to monitor Dyspnea, fatigue, some improvement. Managed by primary care team COVID tested negative on 01/23/2020 History of Peripheral arterial disease, currently asymptomatic, angiogram was done on September 07, 2018 showed total occlusion of the tibial peroneal trunk on the left with successful balloon angioplasty and reestablishing flow through the peroneal artery down to the foot, the posterior tibial artery is receiving collaterals and the anterior tibial artery has severe disease distally also r eceiving collateral from the peroneal artery. The SFA has severe stenosis at multiple segment underwent deployment of 2 overlapping SUPERA 6 x 150 and 5.5 x 100 with excellent results and excellent flow. Patient was noted to have on the right SFA multiple segment of moderate to moderately severe stenosis and disease below the trifurcation. Repeat FROY showed normal FROY on the right abnormal TBI. On the left FROY was abnormal and TBI was nondiagnostic, angiogram was done on October 20, 2018 and balloon angioplasty to the right SFA with [place] 5 and 6 mm balloon with excellent results, the right popliteal artery is totally occluded at the trifurcation with reconstruction by collateral with slow flow that improved after nitroglycerin injection, the wound has healed, his legs are feeling better, continue to monitor Cardiac catheterization done on October 19, 2018 showing multivessel coronary artery disease including calcified artery with moderate to severe stenosis at the mid LAD, moderate to severe stenosis at the distal LAD with severe stenosis at the distal circumflex artery and moderate stenosis at the midright coronary artery with severe stenosis at the distal right coronary artery, normal left ventricular size, he is currently asymptomatic. I will continue monitoring with consideration for high risk intervention on the LAD if needed in the future Paroxysmal atrial fibrillation, asymptomatic, still in atrial fibrillation, EKG was done today showing atrial fibrillation with occasional PVCs and right bundle branch block. Continue on Xarelto and continue to monitor Hypertension, blood pressure is elevated, continue to hold Norvasc and will restart losartan at this time and monitor Hyperlipidemia, continue to monitor lipids Bilateral carotid stenosis, ultrasound showed mild bilateral disease nonobstructive disease in August 2018. 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 Gonzalez. Diabetes mellitus, labile blood sugar and history of syncope secondary to hypoglycemia. Clinical Quality Measures DVT/VTE Risk/Contraindication: Risk Factor Score Per Nursin RFS Level Per Nursing on Admit: 3=High Contraindications-Pharm: Other *list below* Other: planning on procedure on 01/23/2020 - holding lovenox until after procedure is done scd's have been ordered SAMANTHA CRAWLEY MD January 29, 2020 11:34
--- NOTE | 2020-01-29 11:49 | Physical Therapy Daily Note ---
PT Daily Note-Current Subjective Patient agrees to PT on his terms. Patient refused up in recliner and demanded back to bed and to be left alone after treatment. Mental Status Patient Orientation: Normal For Age Attachments: Price Catheter Transfers SCALE: Activities may be completed with or without assistive devices. 4-Kmloldxomy-hqtqrjs completes the activity by him/herself with no assistance from a helper. 5-Set-up or Clean-up Assistance-helper sets up or cleans up; patient completes activity. [place] assists only prior to or following the activity. 4-Supervision or Touching Assistance-helper provides verbal cues and/or touching /steadying and/or contact guard assistance as patient completes activity. Assistance may be provided throughout the activity or intermittently. 3-Partial/Moderate Assistance-helper does LESS THAN HALF the effort. [place] lifts, holds or supports trunk or limbs, but provides less than half the effort. 2-Substantial/Maximal Assistance-helper does MORE THAN HALF the effort. [place] lifts or holds trunk or limbs and provides more than half the effort. 9-Rlnlcsgmj-xufqkx does ALL the effort. Patient does none of the effort to complete the activity. Or, the assistance of 2 or more helpers is required for the patient to complete the activity. If activity was not attempted, code reason: 7-Patient Refused. 9-Not Applicable-not attempted and the patient did not perform the activity before the current illness, exacerbation or injury. 10-Not Attempted due to Environmental Limitations-(lack of equipment, weather restraints, etc.). 88-Not Attempted due to Medical Conditions or Safety Concerns. Roll Left & Right (QC): 5 Sit to Lying (QC): 5 Sit to Stand (QC): 4 Weight Bearing Right Lower Extremity: Right Full Weight Bearing Left Lower Extremity: Left Full Weight Bearing Gait Training Does the Patient Walk?: Yes Distance: 225' Walk 10 feet (QC): 4 Walk 50 ft with 2 Turns(QC): 4 Walk 150 ft (QC): 4 Gait Assistive Device: FWW trunk flexed posture with FWW use and VC's for body placement in FWW Assessment Patient is adamant about returning to bed and refused OOB activity. Patient is modified independent with bed mobility. Patient ceased treatment. PT Short Term Goals Short Term Goals Time Frame: February 03, 2020 Roll Left & Right: 6 Sit to lyin Lying to sitting on side of be: 6 Sit to stand: 6 Chair/pji-uh-wcoyh transfer: 6 Toilet transfer: 6 Walk 10 feet: 6 Walk 50 feet with two turns: 6 Walk 150 feet: 6 PT Plan Treatment/Plan Treatment Plan: Continue Plan of Care Treatment Plan: Bed Mobility, Concurrent Therapy, Education, Functional Activity Ivan, Functional Strength, Gait, Safety, Therapeutic Exercise, Transfers Treatment Duration: February 03, 2020 Frequency: 6 times per week Estimated Hrs Per Day: .25 hour per day Time/GCodes Time In: 1056 Time Out: 1109 Total Billed Treatment Time: 13 Total Billed Treatment 1 visit GT 13 min VALORIE SAENZ PT January 29, 2020 11:49
[2020-01-29 12:00] VITALS: BP 119/66
[2020-01-29 16:58] VITALS: BP 171/81
[2020-01-29 19:17] VITALS: BP 174/79
--- NOTE | 2020-01-29 21:00 | NUR ---
Notified Dr. Santacruz that pt blood sugar is 145 and has scheduled Levemir 10 units for the night. Dr. Santacruz ordered to give just 5 units of Levemir.
[2020-01-30 00:33] VITALS: BP 163/78
[2020-01-30 03:40] VITALS: BP 143/72
[2020-01-30 05:42] LABS: HEMOGLOBIN 14.6 G/DL (13.3-17.7); MEAN PLATELET VOLUME 10.3 FL (7.4-10.4); RED CELL DISTRIBUTION WIDTH 14.5 % (10.0-14.5); WHITE BLOOD COUNT 9.1 10^3/uL (4.3-11.0)
[2020-01-30 06:01] LABS: ALBUMIN 2.2 GM/DL (3.2-4.5); BILIRUBIN,TOTAL 0.7 MG/DL (0.1-1.0); CALCIUM 8.2 MG/DL (8.5-10.1); CREATININE SERUM 1.28 MG/DL (0.60-1.30); TOTAL PROTEIN 5.4 GM/DL (6.4-8.2)
[2020-01-30] MEDS: inSUlin ASPART (NovoLOG) 1 UNIT/0.01 ML (CHARGE PER UNIT) SC SCH ×5 (06:16→20:42)
[2020-01-30] MEDS: FUROSEMIDE 40 MG/4 ML INJ (LASIX) IVP SCH ×2 (06:16→17:32)
--- NOTE | 2020-01-30 06:59 | Pulmonary Progress Note ---
Subjective Time Seen by a Provider: 06:58 Sepsis Event Evaluation Height, Weight, BMI Height: 6'2.00" Weight: 240lbs. 0.0oz. 108.254408zo; 28.80 BMI Method:Stated Exam Exam Vital Signs Date Time Temp Pulse Resp B/P (MAP) Pulse Ox O2 Delivery O2 Flow Rate FiO2 01/30/20 03:40 36.8 60 22 143/72 (95) 95 Room Air 01/30/20 01:00 61 01/30/20 00:33 36.8 60 22 163/78 (106) 94 Room Air 01/29/20 20:00 98 Room Air 01/29/20 19:17 37.4 60 18 174/79 (110) 96 Room Air 01/29/20 19:00 60 01/29/20 16:58 37.7 60 18 171/81 (111) 96 Room Air 01/29/20 12:11 63 01/29/20 12:00 37.1 84 20 119/66 (83) 93 Room Air 01/29/20 08:00 96 Room Air 0.00 01/29/20 08:00 37.0 61 20 178/83 (114) 96 01/29/20 07:00 59 I & O 01/30/20 07:00 Intake Total 850 ml Output Total 2500 ml Balance -1650 ml Height & Weight Height: 6'2.00" Weight: 240lbs. 0.0oz. 108.463528zd; 28.80 BMI Method:Stated General Appearance: No Apparent Distress, Chronically ill HEENT: PERRL/EOMI, Pharynx Normal, Moist Mucous Membranes Neck: Full Range of Motion, Normal Inspection, Non Tender, Supple Respiratory: Lungs Clear, Normal Breath Sounds, No Respiratory Distress Cardiovascular: Regular Rate, Rhythm, No Murmur Capillary Refill: Less Than 3 Seconds Extremity: Normal Inspection, Non Tender, Pedal Edema Neurologic/Psychiatric: Alert, Oriented x3, No Motor/Sensory Deficits, Normal Mood/Affect Skin: Normal Color, Warm/Dry Lymphatic: No Adenopathy Results Lab Laboratory Tests 01/29/20 07:20 01/30/20 05:30 Assessment/Plan Assessment/Plan right pleural effusion with hx of esophageal cancer s/p thoracentesis -Cytology is negative on pleural fluid -Repeat Labs with BNP -CXR- repeat CXR pending -Continue Lasix Acute on chronic Renal insufficiency -Monitor Bradycardia s/p pacmaker Chronic afib HTN PVD DM RAJNI MARINELLI DO January 30, 2020 06:59
--- NOTE | 2020-01-30 08:29 | Physical Therapy Progress Note ---
Therapy Progress Note Patient refuses physical therapy this morning. He says he just doesn't feel like participating. He declines to participate several times. Patient educated on the benefits of physical therapy but he continues to refuse. Will check back later today and give him another opportunity to participate. MARK DAWKINS PT January 30, 2020 08:29
--- NOTE | 2020-01-30 08:32 | Cardiology Progress Note ---
Subjective Date Seen by Provider: January 30, 2020 Time Seen by Provider: 08:30 Subjective/Events-last exam Patient is laying down in bed, feeling better today. No new complaint Review of Systems General: No Chills, No Night Sweats; Fatigue; No Malaise, No Appetite, No Other HEENT: No Head Aches, No Visual Changes, No Eye Pain, No Ear Pain, No Dysphasia, No Sinus Congestion, No Post Nasal Drip, No Sore Throat, No Other Pulmonary: Dyspnea; No Cough, No Pleuritic Chest Pain, No Other Cardiovascular: Edema; No: Chest Pain, Palpitations, Orthopnea, Paroxysmal Noc. Dyspnea, Lt Headedness, Other Objective-Cardiology Exam Last Set of Vital Signs Vital Signs 01/30/20 01/30/20 03:40 07:00 Temp 36.8 Pulse 68 Resp 22 B/P (MAP) 143/72 (95) Pulse Ox 95 O2 Delivery Room Air Capillary Refill : Less Than 3 SecondsLess Than 3 Seconds I&O Intake and Output 01/30/20 00:00 Intake Total 1350 ml Output Total 2900 ml Balance -1550 ml Intake Oral 1350 ml Output Urine Total 2900 ml General: Alert, Cooperative HEENT: PERRLA Neck: Supple, No JVD Lungs: Other (bilateral rhonchi) Heart: Regular Rate, Normal S1, Normal S2 Abdomen: Normal Bowel Sounds Extremities: No Clubbing, No Cyanosis Skin: No Breakdown Neuro: Normal Speech Psych/Mental Status: Mental Status NL Results Lab Laboratory Tests 01/30/20 05:30 A/P-Cardiology Admission Diagnosis Bradycardia Chronic atrial fibrillation Hypertension Peripheral arterial disease Assessment/Plan Chronic persistent atrial fibrillation with severe bradycardia, status post single-chamber pacemaker implantation VVI mode, heart rate is better, blood pressure is stable Recurrent right-sided pleural effusion status post thoracentesis, currently chest x-ray showed moderate to large size right sided effusion. Maintained on diuretics. Continue to monitor Dyspnea, fatigue, some improvement. Managed by primary care team COVID tested negative on 01/23/2020 History of Peripheral arterial disease, currently asymptomatic, angiogram was done on September 07, 2018 showed total occlusion of the tibial peroneal trunk on the left with successful balloon angioplasty and reestablishing flow through the peroneal artery down to the foot, the posterior tibial artery is receiving collaterals and the anterior tibial artery has severe disease distally also receiving collateral from the peroneal artery. The SFA has severe stenosis at multiple segment underwent deployment of 2 overlapping SUPERA 6 x 150 and 5.5 x 100 with excellent results and excellent flow. Patient was noted to have on the right SFA multiple segment of moderate to moderately severe stenosis and disease below the trifurcation. Repeat FROY showed normal FROY on the right abnormal TBI. On the left FROY was abnormal and TBI was nondiagnostic, angiogram was done on October 20, 2018 and balloon angioplasty to the right SFA with [place] 5 and 6 mm balloon with excellent results, the right popliteal artery is totally occluded at the trifurcation with reconstruction by collateral with slow flow that i mproved after nitroglycerin injection, the wound has healed, his legs are feeling better, continue to monitor Cardiac catheterization done on October 19, 2018 showing multivessel coronary artery disease including calcified artery with moderate to severe stenosis at the mid LAD, moderate to severe stenosis at the distal LAD with severe stenosis at the distal circumflex artery and moderate stenosis at the midright coronary artery with severe stenosis at the distal right coronary artery, normal left ventricular size, he is currently asymptomatic. I will continue monitoring with consideration for high risk intervention on the LAD if needed in the future Paroxysmal atrial fibrillation, asymptomatic, still in atrial fibrillation, EKG was done today showing atrial fibrillation with occasional PVCs and right bundle branch block. Continue on Xarelto and continue to monitor Hypertension, blood pressure is elevated, continue to hold Norvasc and will restart losartan at this time and monitor Hyperlipidemia, continue to monitor lipids Bilateral carotid stenosis, ultrasound showed mild bilateral disease nonobstructive disease in August 2018. 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 Gonzalez. Diabetes mellitus, labile blood sugar and history of syncope secondary to hypoglycemia. Clinical Quality Measures DVT/VTE Risk/Contraindication: Risk Factor Score Per Nursin RFS Level Per Nursing on Admit: 3=High Contraindications-Pharm: Other *list below* Other: planning on procedure on 01/23/2020 - holding lovenox until after procedure is done scd's have been ordered SAMANTHA CRAWLEY MD January 30, 2020 08:32
[2020-01-30 08:48] VITALS: BP 160/74
[2020-01-30] MEDS: LOSARTAN 25 MG (COZAAR) TAB PO SCH (08:49)
[2020-01-30] MEDS: SENNOSIDES 8.6 MG (SENOKOT) TAB PO SCH ×2 (08:49→20:42)
[2020-01-30] MEDS: DOCUSATE SODIUM 100 MG (COLACE) CAP PO SCH ×2 (08:49→20:42)
[2020-01-30] MEDS: FAMOTIDINE 20 MG (PEPCID) TABLET PO SCH (08:49)
[2020-01-30] MEDS: KCL 10 MEQ TAB (MICRO K) PO SCH (08:49)
[2020-01-30] MEDS: ENOXAPARIN 40 MG/0.4 ML (LOVENOX) SYR SC SCH (08:50)
--- NOTE | 2020-01-30 08:58 | NUR ---
PER DR. LISA GIVE METOPROLOL THIS A.M.
--- NOTE | 2020-01-30 09:25 | Progress Note ---
Subjective Subjective Date Seen by Provider: January 30, 2020 Time Seen by Provider: 09:00 PT REPORTS THAT HE IS STILL A LITTLE SHORT OF BREATH - HE STATES THAT HE HAS PROGRESSIVE WEAKNESS BUT HE FEELS LIKE IT IS BECAUSE HE HAS BEEN IN THE HOSPITAL BED FOR DAYS. PHYSICAL THERAPY STAFF REPORTS THAT ALEXIS HAS BEEN REFUSING TO PARTICIPATE WITH THERAPY - HE STATES THAT HE HAS BEEN NAUSEATED Review of Systems General: No Chills, No Night Sweats; Fatigue; No Malaise, No Appetite, No Other HEENT: No Head Aches, No Visual Changes, No Eye Pain, No Ear Pain, No Dysphasia, No Sinus Congestion, No Post Nasal Drip, No Sore Throat, No Other Pulmonary: Dyspnea; No Cough, No Pleuritic Chest Pain, No Other Cardiovascular: Edema; No: Chest Pain, Palpitations, Orthopnea, Paroxysmal Noc. Dyspnea, Lt Headedness, Other Gastrointestinal: Nausea; No: Abdominal Pain, Diarrhea, Constipation Genitourinary: No Dysuria, No Frequency; Other (BOLDEN IN PLACE) Musculoskeletal: No: back pain Neurological: Weakness; No: Confusion All Other Systems Reviewed All Other Systems Reviewed: Yes Objective Exam Vital Signs Vital Signs - First Documented Capillary Refill : Less Than 3 SecondsLess Than 3 Seconds General Appearance: No Apparent Distress, Chronically ill Eyes: Bilateral Eye Normal Inspection, Bilateral Eye PERRL, Bilateral Eye EOMI HEENT: PERRL/EOMI, Pharynx Normal, Moist Mucous Membranes Neck: Full Range of Motion, Normal Inspection, Non Tender, Supple Respiratory: Lungs Clear, Normal Breath Sounds, No Respiratory Distress Cardiovascular: Regular Rate, Rhythm, No Murmur Gastrointestinal: Normal Bowel Sounds, Non Tender, Soft Rectal: Deferred Extremity: Normal Inspection, Non Tender, Pedal Edema Neurologic/Psychiatric: Alert, Oriented x3, No Motor/Sensory Deficits, Normal Mood/Affect Skin: Normal Color, Warm/Dry Lymphatic: No Adenopathy Results Lab Laboratory Tests 01/29/20 11:22: Glucometer 100 01/29/20 16:57: Glucometer 158H 01/29/20 20:13: Glucometer 145H 01/30/20 05:30: White Blood Count 9.1, Red Blood Count 4.78, Hemoglobin 14.6, Hematocrit 43, Mean Corpuscular Volume 89, Mean Corpuscular Hemoglobin 31, Mean Corpuscular Hemoglobin Concent 34, Red Cell Distribution Width 14.5, Platelet Count 264, Mean Platelet Volume 10.3, Sodium Level 143, Potassium Level 4.0, Chloride Level 111H, Carbon Dioxide Level 22, Anion Gap 10, Blood Urea Nitrogen 19H, Creatinine 1.28, Estimat Glomerular Filtration Rate 54, BUN/Creatinine Ratio 15, Glucose Level 71, Calcium Level 8.2L, Corrected Calcium 9.6, Magnesium Level 2.0, Total Bilirubin 0.7, Aspartate Amino Transf (AST/SGOT) 52H, Alanine Aminotransferase (ALT/SGPT) 35, Alkaline Phosphatase 167H, B-Type Natriuretic Peptide 249.4H, Total Protein 5.4L, Albumin 2.2L Microbiology 01/24/20 Acid Fast Bacilli Culture (Ref Lab - Preliminary, Resulted Assessment/Plan Assessment/Plan Admission Dx MODERATE TO LARGE RIGHT PLEURAL EFFUSION BRADYCARDIA ATRIAL FIBRILLATION HX OF ESOPHAGEAL CARCINOMA HYPERTENSION DIABETES MELLITUS EDEMA MODERATE TO LARGE RIGHT PLEURAL EFFUSION WITH HX OF ESOPHAGEAL CARCINOMA - COVID-19 TESTING NEGATIVE - MODERATE TO LARGE PLEURAL EFFUSION I HAVE DISCUSSED HIS CASE WITH DR. DALEY IN RADIOLOGY, THORACENTESIS WAS PERFORMED WEDNESDAY BY RADIOLOGIST. - OXYGEN VIA NASAL CANNULA - PATHOLOGY REPORT FOLLOWS: NO CYTOLOGICALLY MALIGNANT CELLS IDENTIFIED: REACTIVE MESOTHELIAL CELLS AND INFLAMMATORY CELLS. - REPEAT CXR - SHOWS IMPROVEMENT OF FLUID WITH LASIX. BRADYCARDIA NEW ONSET WITH CHRONIC ATRIAL FIBRILLATION AND HYPERTENSION - CONSULT TO DR. CRAWLEY - MEDICATIONS HAVE BEEN ADJUSTED WITH NO REAL IMPROVEMENT IN HEART RATE. - PACEMAKER PLACEMENT SCHEDULED TO BE DONE 01/26/2020. DIABETES MELLITUS - RESTARTED LEVEMIR - INCREASE NEEDED AND STARTED SLIDING SCALE B ADVANCED AGE - PT REPORTED IN THE OFFICE THAT HE WANTS TO BE FULL CODE STATUS. 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 DALEY IN RADIOLOGY, THORACENTESIS WAS PERFORMED WEDNESDAY BY RADIOLOGIST. - OXYGEN VIA NASAL CANNULA - PATHOLOGY REPORT FOLLOWS: NO CYTOLOGICALLY MALIGNANT CELLS IDENTIFIED: REACTIVE MESOTHELIAL CELLS AND INFLAMMATORY CELLS. - CXR FROM TODAY FOLLOWS: Date of Exam:01/26/20 CHEST PA/LAT (2 VIEW) Indication: Right pleural effusion Right IJ Port-A-Cath tip projects over the SVC. There is right pleural effusion. The effusion appears increased since the previous day. Lungs are clear. IMPRESSION: Increasing right pleural effusion since the previous day. - MAY NEED TO CONSIDER REPEAT THORACENTESIS IF HIS PLEURAL EFFUSION CONTINUES TO INCREASE IN SIZE OVER THE NEXT FEW DAYS. - SERIAL CXR PA AND LATERAL TO BE ORDERED FOR THIS AND WEDNESDAY MORNING. - REPEAT CXR - WILL GIVE LASIX TODAY AND MONITOR SYMPTOMS AND CHEST XRAY TOMORROW. BRADYCARDIA NEW ONSET WITH CHRONIC ATRIAL FIBRILLATION AND HYPERTENSION - CONSULT TO DR. CRAWLEY - MEDICATIONS HAVE BEEN ADJUSTED WITH NO REAL IMPROVEMENT IN HEART RATE. - PACEMAKER PLACEMENT SCHEDULED TO BE DONE 01/26/2020. DIABETES MELLITUS - RESTARTED LEVEMIR - INCREASE NEEDED AND STARTED SLIDING SCALE B ADVANCED AGE - PT REPORTED IN THE OFFICE THAT HE WANTS TO BE FULL CODE STATUS. DVT PROPHYLAXIS WITH LOVENOX AND SCD'S GI PROPHYLAXIS WITH PEPCID Clinical Quality Measures Admission Status Admission Dx MODERATE TO LARGE RIGHT PLEURAL EFFUSION BRADYCARDIA ATRIAL FIBRILLATION HX OF ESOPHAGEAL CARCINOMA HYPERTENSION DIABETES MELLITUS EDEMA MODERATE TO LARGE RIGHT PLEURAL EFFUSION WITH HX OF ESOPHAGEAL CARCINOMA - COVID-19 TESTING NEGATIVE - MODERATE TO LARGE PLEURAL EFFUSION I HAVE DISCUSSED HIS CASE WITH DR. DALEY IN RADIOLOGY, THORACENTESIS WAS PERFORMED WEDNESDAY BY RADIOLOGIST. - OXYGEN VIA NASAL CANNULA - PATHOLOGY REPORT FOLLOWS: NO CYTOLOGICALLY MALIGNANT CELLS IDENTIFIED: REACTIVE MESOTHELIAL CELLS AND INFLAMMATORY CELLS. - CXR FROM TODAY FOLLOWS: Date of Exam:01/26/20 CHEST PA/LAT (2 VIEW) Indication: Right pleural effusion Right IJ Port-A-Cath tip projects over the SVC. There is right pleural effusion. The effusion appears increased since the previous day. Lungs are clear. IMPRESSION: Increasing right pleural effusion since the previous day. - MAY NEED TO CONSIDER REPEAT THORACENTESIS IF HIS PLEURAL EFFUSION CONTINUES TO INCREASE IN SIZE OVER THE NEXT FEW DAYS. - SERIAL CXR PA AND LATERAL TO BE ORDERED FOR THIS AND WEDNESDAY MORNING. - REPEAT CXR - WILL GIVE LASIX TODAY AND MONITOR SYMPTOMS AND CHEST XRAY TOMORROW. BRADYCARDIA NEW ONSET WITH CHRONIC ATRIAL FIBRILLATION AND HYPERTENSION - CONSULT TO DR. CRAWLEY - MEDICATIONS HAVE BEEN ADJUSTED WITH NO REAL I MPROVEMENT IN HEART RATE. - PACEMAKER PLACEMENT SCHEDULED TO BE DONE 01/26/2020. DIABETES MELLITUS - RESTARTED LEVEMIR - INCREASE NEEDED AND STARTED SLIDING SCALE B ADVANCED AGE - PT REPORTED IN THE OFFICE THAT HE WANTS TO BE FULL CODE STATUS. DVT PROPHYLAXIS WITH LOVENOX AND SCD'S GI PROPHYLAXIS WITH PEPCID DVT/VTE Risk/Contraindication: Risk Factor Score Per Nursin RFS Level Per Nursing on Admit: 3=High Contraindications-Pharm: Other *list below* Other: planning on procedure on 01/23/2020 - holding lovenox until after procedure is done scd's have been ordered LILLIAN LISA MD January 30, 2020 09:25
--- NOTE | 2020-01-30 10:56 | NUR ---
patient to x-ray via w/c at this time.
--- NOTE | 2020-01-30 11:03 | NUR ---
"RD ASSESSMENT PMHx: CA(esophagus); HTN; GERD; DM; afib; HLD PT INTERACTION: Pt was awake and semi-pleasant during nutrition follow-up. Pt states he has not been pleased with the food and has refused meals. Note avg PO intake of 42% x3d, and pt has refused several meals, per chart review. Pt states no issues with nausea or vomiting since last assessment. Pt states some issues with constipation since last assessment. Note last BM was 01/27 and pt currently on bowel regimen of colace BID, and senna BID, per chart review. ABNORMAL NUTRITION-RELATED LAB VALUES LOW: Ca 8.2; Pro 5.4; alb 2.2 HIGH: Cl 111; BUN 19; AST 52; alkphos 167 Est. kcal needs: 8786-3601 kcal | 20-25 kcal/kg Est. Pro needs: 82-102 g Pro | 0.8-1.0 g Pro/kg PES STATEMENT: Inadequate oral intake (NI-2.1) related to loss of appetite | constipation as evidenced by pt interview | pt refusing meals | avg PO intake 42% x3d INTERVENTION: Continue with current diet order of 2000mg Na diet. Add Glucerna (vary) to meals TID, for increased kcal intake. Provides 220 kcal and 10 g Pro per serving. Encouraged pt to eat when able. Attempted to offer dietary education on DM management, pt declined a second time. Will attempt to offer again prior to discharge. Will continue to follow and reassess as pt needs, intake, and status change. MONITOR/EVALUATE: PO Intake; Plan of Care; Hydration Status; Weight Status; Lab Values Trace Middleton, MS, RD, LD"
--- NOTE | 2020-01-30 11:04 | NUR ---
patient back from x-ray at this time accompanied by x-ray tech.
--- NOTE | 2020-01-30 11:47 | Physical Therapy Daily Note ---
PT Daily Note-Current Subjective Patient agrees to PT. Mental Status Patient Orientation: Person, Time, Situation Transfers SCALE: Activities may be completed with or without assistive devices. 8-[id number]-[id number] completes the activity by him/herself with no assistance from a helper. 5-Set-up or Clean-up Assistance-helper sets up or cleans up; patient completes activity. [place] assists only prior to or following the activity. 4-Supervision or Touching Assistance-helper provides verbal cues and/or touching/steadying and/or contact guard assistance as patient completes activity. Assistance may be provided throughout the activity or intermittently. 3-Partial/Moderate Assistance-helper does LESS THAN HALF the effort. [place] lifts, holds or supports trunk or limbs, but provides less than half the effort. 2-Substantial/Maximal Assistance-helper does MORE THAN HALF the effort. [place] lifts or holds trunk or limbs and provides more than half the effort. 4-Msmaigquo-kyhmzf does ALL the effort. Patient does none of the effort to c omplete the activity. Or, the assistance of 2 or more helpers is required for the patient to complete the activity. If activity was not attempted, code reason: 7-Patient Refused. 9-Not Applicable-not attempted and the patient did not perform the activity before the current illness, exacerbation or injury. 10-Not Attempted due to Environmental Limitations-(lack of equipment, weather restraints, etc.). 88-Not Attempted due to Medical Conditions or Safety Concerns. Roll Left & Right (QC): 6 Sit to Lying (QC): 6 Lying to Sitting/Side of Bed(Q: 6 Sit to Stand (QC): 6 Weight Bearing Right Lower Extremity: Right Full Weight Bearing Left Lower Extremity: Left Full Weight Bearing Gait Training Does the Patient Walk?: Yes Distance: 200' Walk 10 feet (QC): 5 Walk 50 ft with 2 Turns(QC): 5 Walk 150 ft (QC): 5 Gait Assistive Device: FWW trunk flexed posture and extended UE's Assessment Patient ceases treatment and returns to bed with needs met. PT attempted to e ncourage patient to increase activity and to perform OOB and up in chair activity, however, patient continued to decline. PT Short Term Goals Short Term Goals Time Frame: February 03, 2020 Roll Left & Right: 6 Sit to lyin Lying to sitting on side of be: 6 Sit to stand: 6 Chair/hyf-mv-xfohf transfer: 6 Toilet transfer: 6 Walk 10 feet: 6 Walk 50 feet with two turns: 6 Walk 150 feet: 6 PT Plan Treatment/Plan Treatment Plan: Continue Plan of Care Treatment Plan: Bed Mobility, Concurrent Therapy, Education, Functional Activity Ivan, Functional Strength, Gait, Safety, Therapeutic Exercise, Transfers Treatment Duration: February 03, 2020 Frequency: 6 times per week Estimated Hrs Per Day: .25 hour per day Time/GCodes Time In: 1115 Time Out: 1130 Total Billed Treatment Time: 15 Total Billed Treatment 1 visit FA 15 min VALORIE SAENZ PT January 30, 2020 11:47
--- NOTE | 2020-01-30 11:55 | Diagnostic Imaging Report ---
INDICATION: Follow-up. COMPARISON: Exam compared to 01/29/2020. FINDINGS: Right pleural effusion, subpulmonic, has mildly decreased. There is improvement in subjacent passive atelectasis with no adverse development or pneumothorax. IMPRESSION: Mild reduction in right pleural fluid and improvement in lower lobe expansion with no adverse development. Dictated by: Dictated on workstation # [id number]
[2020-01-30 12:00] VITALS: BP 145/75
[2020-01-30 15:26] VITALS: BP 138/73
--- NOTE | 2020-01-30 15:27 | NUR ---
Met with pt to discuss continued care needs such as Home Health Nursing and therapies. He instructed me to ask his . Did discuss discharge with his Marlene and states he needs therapy because refuses to walk at home and rarely leaves his recliner. She would like him to have Physical therapy at home and thinks he may be better about doing it at home if someone besides her encouraged him. will discuss with Dr. Santacruz. He has a front wheel walker and cane at home. Pt states he feels the same as he did prior to hospitalization but he was interested in talking for a long time giving some of his history.
[2020-01-30 19:31] VITALS: BP 172/68
[2020-01-31] VITALS: BP 144/72
[2020-01-31 04:00] VITALS: BP 140/75
[2020-01-31] MEDS: inSUlin ASPART (NovoLOG) 1 UNIT/0.01 ML (CHARGE PER UNIT) SC SCH (06:00)
[2020-01-31 06:32] LABS: ALBUMIN 2.3 GM/DL (3.2-4.5)
[2020-01-31 06:33] LABS: POTASSIUM 3.9 MMOL/L (3.6-5.0)
[2020-01-31 06:34] LABS: CALCIUM 8.1 MG/DL (8.5-10.1)
[2020-01-31 06:35] LABS: TOTAL PROTEIN 5.4 GM/DL (6.4-8.2)
[2020-01-31 06:37] LABS: BILIRUBIN,TOTAL 0.6 MG/DL (0.1-1.0)
[2020-01-31 06:38] LABS: CREATININE SERUM 1.28 MG/DL (0.60-1.30)
--- NOTE | 2020-01-31 07:46 | Pulmonary Progress Note ---
Subjective Time Seen by a Provider: 07:44 Subjective/Events-last exam Pt appears to be doing better. Sepsis Event Evaluation Height, Weight, BMI Height: 6'2.00" Weight: 240lbs. 0.0oz. 108.884094hp; 28.80 BMI Method:Stated Exam Exam Vital Signs Date Time Temp Pulse Resp B/P (MAP) Pulse Ox O2 Delivery O2 Flow Rate FiO2 01/31/20 04:00 37.2 56 20 140/75 (96) 92 Room Air 01/31/20 01:00 62 01/31/20 00:00 37.1 60 20 144/72 (96) 93 Room Air 01/30/20 20:00 Room Air 01/30/20 19:31 37.4 63 18 172/68 (102) 92 Room Air 01/30/20 19:00 61 01/30/20 19:00 61 01/30/20 15:26 37.0 60 18 138/73 (94) 95 Room Air 01/30/20 13:00 60 01/30/20 12:00 37.2 60 20 145/75 (98) 92 Room Air 01/30/20 08:48 36.5 59 20 160/74 (102) 95 Room Air 01/30/20 08:00 95 Room Air 0.00 I & O 01/31/20 07:00 Intake Total 1126 ml Output Total 1350 ml Balance -224 ml Height & Weight Height: 6'2.00" Weight: 240lbs. 0.0oz. 108.605604ep; 28.80 BMI Method:Stated General Appearance: No Apparent Distress, Chronically ill HEENT: PERRL/EOMI, Pharynx Normal, Moist Mucous Membranes Neck: Full Range of Motion, Normal Inspection, Non Tender, Supple Respiratory: Lungs Clear, Normal Breath Sounds, No Respiratory Distress Cardiovascular: Regular Rate, Rhythm, No Murmur Capillary Refill: NONE Extremity: Normal Inspection, Non Tender, Pedal Edema Neurologic/Psychiatric: Alert, Oriented x3, No Motor/Sensory Deficits, Normal Mood/Affect Skin: Normal Color, Warm/Dry Lymphatic: No Adenopathy Results Lab Laboratory Tests 01/30/20 05:30 01/31/20 06:09 Assessment/Plan Assessment/Plan right pleural effusion with hx of esophageal cancer s/p thoracentesis -- improving -Cytology is negative on pleural fluid -BNP is high however improving with lasix -CXR- repeat CXR - shows ;improvement after lasix -Continue Lasix Acute on chronic Renal insufficiency -Monitor Bradycardia s/p pacmaker Chronic afib HTN PVD DM RAJNI MARINELLI DO January 31, 2020 07:46
[2020-01-31 08:00] VITALS: BP 155/68
[2020-01-31] MEDS: LOSARTAN 25 MG (COZAAR) TAB PO SCH (08:15)
[2020-01-31] MEDS: FUROSEMIDE 40 MG/4 ML INJ (LASIX) IVP SCH (08:15)
[2020-01-31] MEDS: SENNOSIDES 8.6 MG (SENOKOT) TAB PO SCH (08:15)
[2020-01-31] MEDS: DOCUSATE SODIUM 100 MG (COLACE) CAP PO SCH (08:15)
[2020-01-31] MEDS: KCL 10 MEQ TAB (MICRO K) PO SCH (08:15)
[2020-01-31] MEDS: ENOXAPARIN 40 MG/0.4 ML (LOVENOX) SYR SC SCH (08:15)
[2020-01-31] MEDS: FAMOTIDINE 20 MG (PEPCID) TABLET PO SCH (08:15)
--- NOTE | 2020-01-31 08:43 | Discharge Summary ---
Diagnosis/Chief Complaint Date of Admission January 22, 2020 at 14:41 Date of Discharge Discharge Date: January 31, 2020 Discharge Time: 08:40 Admission Diagnosis Admission Diagnosis MODERATE TO LARGE RIGHT PLEURAL EFFUSION BRADYCARDIA ATRIAL FIBRILLATION HX OF ESOPHAGEAL CARCINOMA HYPERTENSION DIABETES MELLITUS EDEMA Discharge Diagnosis MODERATE TO LARGE RIGHT PLEURAL EFFUSION BRADYCARDIA ATRIAL FIBRILLATION HX OF ESOPHAGEAL CARCINOMA HYPERTENSION DIABETES MELLITUS EDEMA Reason Hospital Visit PT IS AN 84 Y/O MALE WHO IS A NEW PATIENT IN MY PRACTICE. HE HAS HISTORY OF ESOPHAGEAL CARCINOMA, HAS BEEN TREATED BY DR. JOHNSON. THE PATIENT PRESENTED TO CLINIC TODAY WITH SIGNIFICANT SHORTNESS OF BREATH - HE HAD A CT SCAN WHICH SHOWED PLEURAL EFFUSION - MODERATE PER RADIOLOGY REPORT ON 01/15/2020. THE PT REPORTS PROGRESSIVE SHORTNESS OF BREATH. ON EVAL IN THE OFFICE, NOTE WAS MADE OF SEVERE BRADYCARDIA WELL DOWN IN THE 30'S. PT WAS ADMITTED FOR SHORTNESS OF BREATH DUE TO PLEURAL EFFUSION, BRADYCARDIA. Discharge Summary Consultations PULMONOLOGY CARDIOLOGY Discharge Physical Examination Allergies: Coded Allergies: latex (Verified Allergy, Unknown, 10/19/18) oxycodone (Verified Allergy, Unknown, 10/19/18) Vitals & I&Os Vital Signs Date Time Temp Pulse Resp B/P (MAP) Pulse Ox O2 Delivery O2 Flow Rate FiO2 01/31/20 08:21 Room Air 01/31/20 08:00 36.7 61 16 155/68 (97) 92 01/30/20 08:00 0.00 General Appearance: Alert, Oriented X3, Cooperative, No Acute Distress HEENT: Atraumatic, PERRLA Respiratory: Clear to Auscultation (LEFT SIDE WITH IMPROVED AIR MOVEMENT THROUGHOUT EXCEPT FOR RIGHT BASE) Cardiovascular: Regular Rate Abdominal: Normal Bowel Sounds, Soft, No Tenderness Extremities: No Clubbing Neuro: Strength at 5/5 X4 Ext, Cranial Nerves 3-12 NL Psych/Mental Status: Mental Status NL, Mood NL Hospital Course Was the Problem List Reviewed?: Yes MODERATE TO LARGE RIGHT PLEURAL EFFUSION BRADYCARDIA ATRIAL FIBRILLATION HX OF ESOPHAGEAL CARCINOMA HYPERTENSION DIABETES MELLITUS EDEMA MODERATE TO LARGE RIGHT PLEURAL EFFUSION WITH HX OF ESOPHAGEAL CARCINOMA - COVID-19 TESTING NEGATIVE - MODERATE TO LARGE PLEURAL EFFUSION I HAVE DISCUSSED HIS CASE WITH DR. DALEY IN RADIOLOGY, THORACENTESIS WAS PERFORMED WEDNESDAY BY RADIOLOGIST. - OXYGEN VIA NASAL CANNULA - PATHOLOGY REPORT FOLLOWS: NO CYTOLOGICALLY MALIGNANT CELLS IDENTIFIED: REACTIVE MESOTHELIAL CELLS AND INFLAMMATORY CELLS. - REPEAT CXR - SHOWS IMPROVEMENT OF FLUID WITH LASIX. BRADYCARDIA NEW ONSET WITH CHRONIC ATRIAL FIBRILLATION AND HYPERTENSION - CONSULT TO DR. CRAWLEY - MEDICATIONS HAVE BEEN ADJUSTED WITH NO REAL IMPROVEMENT IN HEART RATE. - PACEMAKER PLACEMENT SCHEDULED TO BE DONE 01/26/2020. DIABETES MELLITUS - RESTARTED LEVEMIR - INCREASE NEEDED AND STARTED SLIDING SCALE B ADVANCED AGE - PT REPORTED IN THE OFFICE THAT HE WANTS TO BE FULL CODE STATUS. DVT PROPHYLAXIS WITH LOVENOX AND SCD'S GI PROPHYLAXIS WITH PEPCID Pending Labs Discharge Condition at discharge IMPROVING Instructions to patient/family Please see electronic discharge instructions given to patient. Discharge Medications Reviewed and agree with Discharge Medication list on patient's Discharge Instruction sheet Clinical Quality Measures DVT/VTE Risk/Contraindication: Risk Factor Score Per Nursin RFS Level Per Nursing on Admit: 3=High Contraindications-Pharm: Other *list below* Other: planning on procedure on 01/23/2020 - holding lovenox until after procedure is done scd's have been ordered LILLIAN LISA MD January 31, 2020 08:43
[2020-01-31] MEDS ORDERED: ONDA4TAB11 PO (08:47)
[2020-01-31] MEDS ORDERED: FAMO20TA5 PO (08:47)
[2020-01-31] MEDS ORDERED: MTP25TSR PO (08:47)
[2020-01-31] MEDS ORDERED: FURO-125 PO (08:47)
[2020-01-31] MEDS ORDERED: POTA10TA6 PO (08:47)
--- NOTE | 2020-01-31 08:51 | D/C HH Face to Face Order ---
D/C Face to Face Orders Reconcile Patient Problems Problems Reviewed?: Yes Instructions for Patient [facility] [employer], Patient Instructions/FollowUp: 1 WK FOLLOW UP WITH [facility] Physician to follow Patient: [facility] Dis[facility] Diet for Home: ADA Diet Patient Problems: PLEURAL EFFUSION, HYPERTENSION, PACEMAKER, DIABETES, WEAKNESS, GAIT INSTABILITY Goals for Patient: RESOLVED SHORTNESS OF BREATH, IMPROVED STRENGTH Patient Data-Allergies,Ht & Wt Patient Allergies: Coded Allergies: latex (Verified Allergy, Unknown, 10/19/18) oxycodone (Verified Allergy, Unknown, 10/19/18) Height (Feet): 6 Height (Inches): 2.00 Weight (Pounds): 240 Weight (Ounces): 0.0 Home Health Need/Face to Face Date of Face to Face: January 31, 2020 Clinical Findings: Generalized weakness and fatigue, Muscle weakness, Shortness of breath I have seen Pt xkrv-it-[id number]: Yes Discharged To: Home Diagnosis/Conditions: PLEURAL EFFUSION, HYPERTENSION, PACEMAKER, DIABETES, WEAKNESS, GAIT INSTABILITY Patient is Homebound due to: Jesus fall risk due to instabilty, Muscle weakness Homebound Status Due to the above stated illness, injury or surgical procedure (medical condition or diagnosis) and associated clinical findings, the patient is homebound because of his/her inability to leave home except with aid of a supportive device and/or person AND leaving the home requires a considerable and taxing effort or is medically contraindicated. Pt req the following assistanc: [facility] Nursing Orders Home Health Services Order: Nursing Services, Physical Therapy-Evaluate & Treat CHECK CBC, CMP, MAG ON 02/06/2020 Therapy Orders Therapy Orders: Physical Therapy, PT to assess for OT Therapy Specific Orders: Eval assistive deivces, Teach enviro modifications/safety, Increase strength/endurance, Provider maintenance therapy Certify Stmt I certify that this patient is under my care and that I, a nurse practitioner or a physician; a personal banking assistant working with me, had a face to face encounter that - meets the physician face to face encounter requirements with this patient as dated. LILLIAN LISA MD January 31, 2020 08:50
--- NOTE | 2020-01-31 09:24 | NUR ---
Elver completed for pt discharge home. Dr. Santacruz did order Home Health Care for follow-up and pt chose [facility] as states he has had them before and liked them. Attempting to contact pt's for transportation home.
--- NOTE | 2020-01-31 09:34 | Physical Therapy Daily Note ---
PT Daily Note-Current Subjective Patient in bed pre tx, agrees to PT, has no complaints of pain. Patient has urinated and soaked the bed, nurse aide will assist with cleaning and changing brief and gown. Appearance Patient in recliner post tx with nurse call, phone, tray, all needs met, legs elevated. Mental Status Patient Orientation: Person, Place, Situation Transfers SCALE: Activities may be completed with or without assistive devices. 1-Twsevknbdu-tfxzxrq completes the activity by him/herself with no assistance from a helper. 5-Set-up or Clean-up Assistance-helper sets up or cleans up; patient completes activity. Sprague assists only prior to or following the activity. 4-Supervision or Touching Assistance-helper provides verbal cues and/or touching/steadying and/or contact guard assistance as patient completes activity. Assistance may be provided throughout the activity or intermittently. 3-Partial/Moderate Assistance-helper does LESS THAN HALF the effort. Sprague lifts, holds or supports trunk or limbs, but provides less than half the effort. 2-Substantial/Maximal Assistance-helper does MORE THAN HALF the effort. Sprague lifts or holds trunk or limbs and provides more than half the effort. 8-Vszpbuigj-ruiixc does ALL the effort. Patient does none of the effort to complete the activity. Or, the assistance of 2 or more helpers is required for the patient to complete the activity. If activity was not attempted, code reason: 7-Patient Refused. 9-Not Applicable-not attempted and the patient did not perform the activity before the current illness, exacerbation or injury. 10-Not Attempted due to Environmental Limitations-(lack of equipment, weather restraints, etc.). 88-Not Attempted due to Medical Conditions or Safety Concerns. Roll Left & Right (QC): 3 Lying to Sitting/Side of Bed(Q: 3 Sit to Stand (QC): 4 Chair/Ffp-pe-Ibftj Xfer(QC): 4 Weight Bearing Right Lower Extremity: Right Full Weight Bearing Left Lower Extremity: Left Full Weight Bearing Gait Training Distance: 60' Walk 10 feet (QC): 4 Walk 50 ft with 2 Turns(QC): 4 Gait Persons Needed: 1 Gait Assistive Device: FWW Slow but steady ambulation, patient states suddenly during ambulation that he cannot do any more and he is going back. Exercises Seated Therapy Exercises: Ankle pumps, Long arc quads Seated Reps: 20 Treatments bed mobility and transfers, ambulation, functional strengthening Assessment Current Status: Poor Progress decline in endurance PT Short Term Goals Short Term Goals Time Frame: February 03, 2020 Roll Left & Right: 6 Sit to lyin Lying to sitting on side of be: 6 Sit to stand: 6 Chair/cfk-ci-oyxjj transfer: 6 Toilet transfer: 6 Walk 10 feet: 6 Walk 50 feet with two turns: 6 Walk 150 feet: 6 PT Plan Problem List Problem List: Activity Tolerance, Functional Strength, Safety, Balance, Gait, Transfer, Bed Mobility, ROM Treatment/Plan Treatment Plan: Continue Plan of Care Treatment Plan: Bed Mobility, Concurrent Therapy, Education, Functional Activity Ivan, Functional Strength, Gait, Safety, Therapeutic Exercise, Transfers Treatment Duration: February 03, 2020 Frequency: 6 times per week Estimated Hrs Per Day: .25 hour per day Safety Risks/Education Patient Education: Gait Training, Transfer Techniques, Correct Positioning, Safety Issues Teaching Recipient: Patient Teaching Methods: Demonstration, Discussion Response to Teaching: Reinforcement Needed Time/GCodes Time In: 0843 Time Out: 09 Total Billed Treatment Time: 21 Total Billed Treatment 1 visit FA 21' MARK DAWKINS PT January 31, 2020 09:34
--- NOTE | 2020-01-31 10:26 | Cardiology Progress Note ---
Subjective Date Seen by Provider: January 31, 2020 Time Seen by Provider: 08:55 Subjective/Events-last exam Patient sitting up in bed, no new complaints. Denies any chest pain or increased dyspnea. Asking to go home. Objective-Cardiology Exam Last Set of Vital Signs Vital Signs 01/30/20 01/31/20 01/31/20 08:00 08:00 08:21 Temp 36.7 Pulse 61 Resp 16 B/P (MAP) 155/68 (97) Pulse Ox 92 O2 Delivery Room Air O2 Flow Rate 0.00 Capillary Refill : Less Than 3 SecondsNONE I&O Intake and Output 01/31/20 00:00 Intake Total 1276 ml Output Total 1525 ml Balance -249 ml Intake Oral 1276 ml Output Urine Total 1525 ml # Voids 2 General: Alert, Cooperative HEENT: PERRLA Neck: Supple, No JVD Lungs: Other (bilateral rhonchi) Heart: Regular Rate, Normal S1, Normal S2 Abdomen: Normal Bowel Sounds Extremities: No Clubbing, No Cyanosis Skin: No Breakdown Neuro: Normal Speech Psych/Mental Status: Mental Status NL Results Lab Laboratory Tests 01/31/20 06:09 A/P-Cardiology Admission Diagnosis Bradycardia Chronic atrial fibrillation Hypertension Peripheral arterial disease Assessment/Plan Chronic persistent atrial fibrillation with severe bradycardia, status post single-chamber pacemaker implantation VVI mode, heart rate is better, blood pres sure is stable Recurrent right-sided pleural effusion status post thoracentesis. Maintained on diuretics. Continue to monitor Dyspnea, fatigue, some improvement. Managed by primary care team COVID tested negative on 01/23/2020 History of Peripheral arterial disease, currently asymptomatic, angiogram was done on September 07, 2018 showed total occlusion of the tibial peroneal trunk on the left with successful balloon angioplasty and reestablishing flow through the peroneal artery down to the foot, the posterior tibial artery is receiving collaterals and the anterior tibial artery has severe disease distally also receiving collateral from the peroneal artery. The SFA has severe stenosis at multiple segment underwent deployment of 2 overlapping SUPERA 6 x 150 and 5.5 x 100 with excellent results and excellent flow. Patient was noted to have on the right SFA multiple segment of moderate to moderately severe stenosis and disease below the trifurcation. Repeat FROY showed normal FROY on the right abnormal TBI. On the left FROY was abnormal and TBI was nondiagnostic, angiogram was done on October 20, 2018 and balloon angioplasty to the right SFA with Lima 5 and 6 mm balloon with excellent results, the right popliteal artery is totally occluded at the trifurcation with reconstruction by collateral with slow flow that improved after nitroglycerin injection, the wound has healed, his legs are feeling better, continue to monitor Cardiac catheterization done on October 19, 2018 showing multivessel coronary artery disease including calcified artery with moderate to severe stenosis at the mid LAD, moderate to severe stenosis at the distal LAD with severe stenosis at the distal circumflex artery and moderate stenosis at the midright coronary artery with severe stenosis at the distal right coronary artery, normal left ventricular size, he is currently asymptomatic. I will continue monitoring with consideration for high risk intervention on the LAD if needed in the future Paroxysmal atrial fibrillation, asymptomatic, still in atrial fibrillation, EKG was done today showing atrial fibrillation with occasional PVCs and right bundle branch block. Continue on Xarelto and continue to monitor Hypertension, controlled, continue to monitor blood pressure. Hyperlipidemia, continue to monitor lipids Bilateral carotid stenosis, ultrasound showed mild bilateral disease nonobstructive disease in August 2018. 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 Gonzalez. Diabetes mellitus, labile blood sugar and history of syncope secondary to hypoglycemia. Clinical Quality Measures DVT/VTE Risk/Contraindication: Risk Factor Score Per Nursin RFS Level Per Nursing on Admit: 3=High Contraindications-Pharm: Other *list below* Other: planning on procedure on 01/23/2020 - holding lovenox until after procedure is done scd's have been ordered CHIDI BRODY January 31, 2020 10:26
--- NOTE | 2020-01-31 10:45 | NUR ---
ALEXIS CARPIO JR demonstrates understanding of discharge instructions and accurately returns instructions upon questioning. Copy of Post-Discharge Instructions and Medication Discharge Instructions given to patient. ALEXIS CARPIO JR is able to manage continuing needs after discharge. Patients belongings returned to patient. Skin dry and intact; no breakdown noted. Patient discharged from [facility] on 01/30/10 at 1045 . ALEXIS CARPIO JR left floor via wheel chair , accompanied by staff and waiting at the ER entrance
== END 2020-01-31 11:37 | disposition home health service (06) | DRG 243 ==
LOC: ICU 14:41 → 4TH 01-27 12:25
PROVIDERS: ADMIT Family Medicine; ATTEND Family Medicine
PROC: 0W993ZX Drainage of Right Pleural Cavity, Percutaneous Approach, Diagnostic (ICD-10-PCS; 2020-01-24)
PROC: 02HK3JZ Insertion of Pacemaker Lead into Right Ventricle, Percutaneous Approach (ICD-10-PCS; principal; 2020-01-26)
PROC: 0JH605Z Insertion of Pacemaker, Single Chamber Rate Responsive into Chest Subcutaneous Tissue and Fascia, Open Approach (ICD-10-PCS; 2020-01-26)
DX: I49.5 Sick sinus syndrome (principal); J90 Pleural effusion, not elsewhere classified; J94.2 Hemothorax; I48.0 Paroxysmal atrial fibrillation; C15.9 Malignant neoplasm of esophagus, unspecified; N28.9 Disorder of kidney and ureter, unspecified; R06.00 Dyspnea, unspecified; R53.83 Other fatigue; I25.10 Atherosclerotic heart disease of native coronary artery without angina pectoris; I49.3 Ventricular premature depolarization; I45.10 Unspecified right bundle-branch block; E11.51 Type 2 diabetes mellitus with diabetic peripheral angiopathy without gangrene; N18.9 Chronic kidney disease, unspecified; I12.9 Hypertensive chronic kidney disease with stage 1 through stage 4 chronic kidney disease, or unspecified chronic kidney disease; K21.9 Gastro-esophageal reflux disease without esophagitis; I65.23 Occlusion and stenosis of bilateral carotid arteries; E78.5 Hyperlipidemia, unspecified; M19.91 Primary osteoarthritis, unspecified site; H91.93 Unspecified hearing loss, bilateral; Z87.891 Personal history of nicotine dependence; Z79.4 Long term (current) use of insulin; Z92.21 Personal history of antineoplastic chemotherapy; Z92.3 Personal history of irradiation; Z87.442 Personal history of urinary calculi; Z97.4 Presence of external hearing-aid; Z20.828 Contact with and (suspected) exposure to other viral communicable diseases; I70.203 Unspecified atherosclerosis of native arteries of extremities, bilateral legs
CPT/HCPCS: 32555; 33207; 36415; 36600; 71045; 71046; 80048; 80053; 82150; 82438; 82570; 82805; 82945; 82962; 83615; 83735; 83880; 84100; 84145; 84157; 84315; 85025; 85027; 85610; 87070; 87075; 87101; 87116; 87205; 87206; 87581; 87635; 88112; 88305; 89051; 89060; 93005; 93306; 94640; 94664

== ENCOUNTER 2020-06-14 15:30 | Inpatient (IN) | payer MEDICARE ==
[2020-06-14] VITALS (7 sets, daily range): BP systolic 148–177; BP diastolic 71–106
[~2020-06-14] VITALS: Ht 180 cm; Wt 89.0 kg
[~2020-06-14 15:30] MED LIST changes: +AMLO10TA7 PO; +ATOR10TA66 PO; +BETA15OI3 TOP; +CEFU500T63 PO; -ENAL10TA PO; +ENAL10TA16 PO; +FAMO20TA5 PO; +FURO-125 PO; +LOSA25TA41 PO; +MTP25TSR PO; +ONDA4TAB11 PO; +POTA10TA6 PO; +RIVA20TA PO
[2020-06-14 16:01] LABS: BASOPHILS # (AUTO) 0.1 10^3/uL (0.0-0.1); BASOPHILS % (AUTO) 1 % (0-10); EOSINOPHILS # (AUTO) 0.6 10^3/uL (0.0-0.3); EOSINOPHILS % (AUTO) 6 % (0-10); HEMATOCRIT 38 % (40-54); HEMOGLOBIN 12.3 g/dL (13.3-17.7); LYMPHOCYTES # (AUTO) 1.7 10^3/uL (1.0-4.0); LYMPHOCYTES % (AUTO) 16 % (12-44); MEAN CORPUSCULAR HEMOGLOBIN 29 pg (25-34); MEAN CORPUSCULAR HGB CONC 33 g/dL (32-36); MEAN CORPUSCULAR VOLUME 89 fL (80-99); MEAN PLATELET VOLUME 10.1 fL (9.0-12.2); MONOCYTES % (AUTO) 10 % (0-12); NEUTROPHILS # (AUTO) 7.3 10^3/uL (1.8-7.8); NEUTROPHILS % (AUTO) 68 % (42-75); PLATELET COUNT 375 10^3/uL (130-400); WHITE BLOOD COUNT 10.6 10^3/uL (4.3-11.0)
[2020-06-14] MEDS ORDERED: HEParin (CATH LAB) 1,000 ML IV ONE (16:04)
[2020-06-14] MEDS ORDERED: LIDOCAINE 1% INJ 20 ML 20 ML VIAL ONE (16:04)
--- NOTE | 2020-06-14 16:05 | ED Cardiac General ---
History of Present Illness General Chief Complaint: Cardiac/General Problems Stated Complaint: LOW PULSE Source: patient Exam Limitations: no limitations History of Present Illness Date Seen by Provider: Jun 14, 2020 Time Seen by Provider: 15:34 Initial Comments Patient is an 84-year-old male who presents to the emergency room transferred from his primary care physician's office for profound bradycardia. Patient has a history of chronic persistent atrial fibrillation status post single-chamber pacemaker placed in January of this year. Patient states that he has had a couple of episodes of syncope throughout the week. He went to the doctor's office today for generalized weakness. Patient states that he can feel when he is about to have a syncopal event. He goes "numb" from the legs down and goes out onto the floor. Patient denies any recent complaints of illness. No shortness of breath, cough or URI symptoms. 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 Patient denies any GI or symptoms other than his chronic persistent issues. No sick contacts. All other review of systems reviewed negative except as stated above. Timing/Duration: 1 week Severity: severe Activities at Onset: none Prior CP/Workup: cardiac cath, other (pacemaker for chronic a fib) Allergies and Home Medications Allergies Coded Allergies: latex (Verified Allergy, Unknown, 10/19/18) oxycodone (Verified Allergy, Unknown, 10/19/18) Home Medications Betamethasone Dipropionate 15 Gm Oint...g., 1 APPLIC TOP TID PRN for ITCHING, (Reported) Cefuroxime Axetil 500 Mg Tablet, 500 MG PO BID Prescribed by: SAMANTHA PAULA on 01/27/20 1128 Famotidine 20 Mg Tablet, 20 MG PO DAILY Prescribed by: LILLIAN SANTACRUZ on 01/31/20 0847 Furosemide 20 Mg Tablet, 20 MG PO BID Prescribed by: LILLIAN SANTACRUZ on 01/31/20 0847 Insulin Aspart 300 Units/3 Ml Solution, 5 UNITS SC TIDAC, (Reported) Insulin Detemir 100 Unit/1 Ml Insuln.pen, 15 UNIT SQ HS, (Reported) Losartan Potassium 25 Mg Tablet, 25 MG PO DAILY, (Reported) Metoprolol Succinate 25 Mg Tab.er.24h, 25 MG PO DAILY Prescribed by: SAMANTHA PAULA on 01/27/20 1128 Metoprolol Succinate 25 Mg Tab.er.24h, 25 MG PO DAILY Prescribed by: LILLIAN SANTACRUZ on 01/31/20 0847 Ondansetron 4 Mg Tab.rapdis, 4 MG PO Q6H PRN for NAUSEA/VOMITING-1ST LINE Prescribed by: LILLIAN SANTACRUZ on 01/31/20846 Potassium Chloride 10 Meq Tablet.er, 10 MEQ PO DAILY@0900 Prescribed by: LILLIAN SANTACRUZ on 01/31/20 08 Rivaroxaban 20 Mg Tablet, 20 MG PO DAILY W/ DINNER, (Reported) TAKES IN THE EVENING WITH A MEAL Patient Home Medication List Home Medication List Reviewed: Yes Review of Systems Review of Systems Constitutional: weakness EENTM: No Symptoms Reported Respiratory: Cough (chronic) Cardiovascular: Syncope Gastrointestinal: No Symptoms Reported Genitourinary: No Symptoms Reported Musculoskeletal: no symptoms reported Skin: no symptoms reported Psychiatric/Neurological: Denies Numbness, Denies Weakness All Other Systems Reviewed Negative Unless Noted: Yes Past Xhydkot-Sfvmbo-Lkxozp Hx Patient Social History Alcohol Use: Denies Use Recreational Drug Use: No Smoking Status: Former Smoker Type Used: Cigarettes Former Smoker, Quit: Sep 07, 1984 2nd Hand Smoke Exposure: No Recent Hopitalizations: No Physical Abuse: No Sexual Abuse: No Immunizations Up To Date Tetanus Booster (TDap): Unknown Date of Pneumonia Vaccine: Nov 01, 2014 Date of Influenza Vaccine: Jul 14, 2017 Seasonal Allergies Seasonal Allergies: No Past Medical History Surgeries: Yes (EXC SKIN LESIONS, exc of lesion scrotum, artery in leg opened, arm & leg fx) Pacemaker Respiratory: No Currently Using CPAP: No Currently Using BIPAP: No Cardiac: Yes Hypertension, Peripheral Vascular Neurological: No Reproductive Disorders: No Sexually Transmitted Disease: No HIV/AIDS: No Genitourinary: No Kidney Stones 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 Reflux Musculoskeletal: Yes Arthritis Endocrine: Yes Diabetes, Insulin dep HEENT: Yes Cataract Hearing Impairment: Hard of Hearing, Bilateral Hearing Aide Cancer: Yes Esophageal Did You Recieve Any Treatments: Yes What Type of Treatment Did You: Chemotherapy, Radiation Psychosocial: No Integumentary: No Blood Disorders: No Adverse Reaction/Blood Tranf: No Family Medical History BONE CAN 19 FATHER Completed stroke 19 MOTHER G8 SISTER Dementia 19 MOTHER FH: lung cancer FH: malignant neoplasm of bone Myocardial infarction G8 BROTHER Heart Disease, Cancer, CAD Over 55 Years Old, Stroke Physical Exam Vital Signs Vital Signs - First Documented 06/14/20 15:30 Temp 37.1 Pulse 37 Resp 24 B/P (MAP) 169/70 (103) Pulse Ox 98 Capillary Refill : NONE Height, Weight, BMI Height: 6'2.00" Weight: 240lbs. 0.0oz. [id number]; 28.80 BMI Method:Stated General Appearance: No Apparent Distress, WD/WN HEENT: PERRL/EOMI Respiratory: Chest Non Tender, Lungs Clear, No Accessory Muscle Use, No Respiratory Distress Cardiovascular: No Murmur, Bradycardia Gastrointestinal: Normal Bowel Sounds, Non Tender Extremity: Normal Capillary Refill, Normal Inspection, Normal Range of Motion, Non Tender Neurologic/Psychiatric: Alert, Oriented x3, No Motor/Sensory Deficits, Normal Mood/Affect Skin: Normal Color, Warm/Dry Progress/Results/Core Measures Results/Orders Lab Results Laboratory Tests Test 06/14/20 15:45 Range/Units White Blood Count 10.6 4.3-11.0 10^3/uL Red Blood Count 4.24 L 4.30-5.52 10^6/uL Hemoglobin 12.3 L 13.3-17.7 g/dL Hematocrit 38 L 40-54 % Mean Corpuscular Volume 89 80-99 fL Mean Corpuscular Hemoglobin 29 25-34 pg Mean Corpuscular Hemoglobin Concent 33 32-36 g/dL Red Cell Distribution Width 13.6 10.0-14.5 % Platelet Count 375 130-400 10^3/uL Mean Platelet Volume 10.1 9.0-12.2 fL Immature Granulocyte % (Auto) 1 % Neutrophils (%) (Auto) 68 42-75 % Lymphocytes (%) (Auto) 16 12-44 % Monocytes (%) (Auto) 10 0-12 % Eosinophils (%) (Auto) 6 0-10 % Basophils (%) (Auto) 1 0-10 % Neutrophils # (Auto) 7.3 1.8-7.8 10^3/uL Lymphocytes # (Auto) 1.7 1.0-4.0 10^3/uL Monocytes # (Auto) 1.0 0.0-1.0 10^3/uL Eosinophils # (Auto) 0.6 H 0.0-0.3 10^3/uL Basophils # (Auto) 0.1 0.0-0.1 10^3/uL Immature Granulocyte # (Auto) 0.1 0.0-0.1 10^3/uL Sodium Level 138 135-145 MMOL/L Potassium Level 4.4 3.6-5.0 MMOL/L Chloride Level 107 98-107 MMOL/L Carbon Dioxide Level 20 L 21-32 MMOL/L Anion Gap 11 5-14 MMOL/L Blood Urea Nitrogen 28 H 7-18 MG/DL Creatinine 1.30 0.60-1.30 MG/DL Estimat Glomerular Filtration Rate 53 BUN/Creatinine Ratio 22 Glucose Level 224 H 70-105 MG/DL Calcium Level 8.4 L 8.5-10.1 MG/DL Corrected Calcium 9.4 8.5-10.1 MG/DL Total Bilirubin 0.6 0.1-1.0 MG/DL Aspartate Amino Transf (AST/SGOT) 31 5-34 U/L Alkaline Phosphatase 143 H 40-136 U/L Total Protein 6.5 6.4-8.2 GM/DL Albumin 2.8 L 3.2-4.5 GM/DL My Orders Orders - KATHLEEN BARR MD Cbc With Automated Diff (06/14/20 15:50) Magnesium (06/14/20 15:50) Chest 1 View, Ap/Pa Only (06/14/20 15:50) Ekg Tracing (06/14/20 15:50) Comprehensive Metabolic Panel (06/14/20 15:50) Myoglobin Serum (06/14/20 15:50) Protime With Inr (06/14/20 15:50) Partial Thromboplastin Time (06/14/20 15:50) O2 (06/14/20 15:50) Monitor-Rhythm Ecg Trace Only (06/14/20 15:50) Ed Iv/Invasive Line Start (06/14/20 15:50) Troponin I (06/14/20 15:50) Lidocaine 1% Inj 20 Ml (Xylocaine 1% Inj (06/14/20 16:04) Heparin (Isotope Technologist) (Heparin (Isotope Technologist)) (06/14/20 16:04) Fentanyl Injection (Sublimaze Injection (06/14/20 16:09) Midazolam Injection (Versed Injection) (06/14/20 16:09) Vital Signs/I&O 06/14/20 15:30 Temp 37.1 Pulse 37 Resp 24 B/P (MAP) 169/70 (103) Pulse Ox 98 Progress Progress Note : Time: 16:09 Progress Note Patient seen and examined, 84-year-old male with a history of syncope over the c ourse of the last week and generalized weakness. He was sent by his primary care for symptomatic bradycardia. Evaluation today includes a physical exam, EKG, chest x-ray, basic laboratory evaluation. Patient is noted to be profoundly bradycardic with a rate in the mid 30s in atrial fibrillation. Blood pressure is adequate, 169/70. Chest x-ray shows migration of the patient's p acemaker lead supporting the case for failure of the pacemaker. Case is discussed with Dr. Gramajo who is on for the patient's primary embedded firmware developer Dr. Paula. Case is also discussed with Dr. GOLDEN who is on for the patient's primary care physician, Dr. Santacruz. Dr. Gramajo will take the patient in primary admission with Dr. GOLDEN as a oracle bpm consultant. Patient is otherwise in no acute distress. Laboratory studies are pending at the time of admission. Diagnostic Imaging Diagonstic Imaging: Xray Plain Films/CT/US/NM/MRI: chest Comments Single view chest x-ray shows pacemaker in the left upper chest with migration of the lead wire out of the pocket and up into the left neck as well as dislodgment of the end of the pacemaker lead towards the patient's right side, no infiltrates or effusions are noted; otherwise normal mediastinal structures Departure Communication (Admissions) Time/Spoke to Admitting Phy: 16:02 Dr Gramajo for Cardiology accepts patient for admission Time/Spoke to Consulting Phy: 16:[address] Golden accepts patient in consult Impression Primary Impression: Pacemaker lead malfunction Qualified Codes: T82.110A - Breakdown (mechanical) of cardiac electrode, initial encounter Additional Impression: Symptomatic bradycardia Disposition: ADMITTED INPATIENT Condition: Stable Admissions Decision to Admit Reason: Admit from ER (General) Decision to Admit/Date: Jun 14, 2020 Time/Decision to Admit Time: 16:05 Departure-Patient Inst. Referrals: LILLIAN SANTACRUZ MD (PCP/Family) Primary Care Physician KATHLEEN BARR MD Jun 14, 2020 16:05
[2020-06-14 16:09] LABS: ALBUMIN 2.8 GM/DL (3.2-4.5); POTASSIUM 4.4 MMOL/L (3.6-5.0)
[2020-06-14] MEDS ORDERED: fentaNYL INJECTION 100 MCG/2 ML AMP ONE (16:09)
[2020-06-14] MEDS ORDERED: MIDAZOLAM 2 MG/2 ML (VERSED) VIAL ONE (16:09)
[2020-06-14 16:10] LABS: CALCIUM 8.4 MG/DL (8.5-10.1)
[2020-06-14 16:12] LABS: TOTAL PROTEIN 6.5 GM/DL (6.4-8.2)
[2020-06-14 16:13] LABS: BILIRUBIN,TOTAL 0.6 MG/DL (0.1-1.0)
--- NOTE | 2020-06-14 16:13 | Diagnostic Imaging Report ---
INDICATION: Chest pain COMPARISON: 01/30/2020 TECHNIQUE: Single radiograph of the chest dated 06/14/2020 FINDINGS: A left-sided pacer device is present. This appears to have been altered since the prior examination as the lead which is now present extends into the left neck, superior to the [id number]. Right-sided Port-A-Cath is in place. The cardiac silhouette is mildly enlarged, appearing more prominent than on the prior examination. No significant pulmonary vascular congestion. Worsening moderate sized right-sided pleural parenchymal opacity. The left lung appears clear. No significant left pleural effusion. No pneumothorax. Chronic left clavicular fracture and multiple chronic left-sided rib fractures are present. No new acute osseous abnormality. IMPRESSION: Worsening moderate sized right basilar pleural-parenchymal opacity, which is felt to relate to a combination of pleural fluid with adjacent infiltrate and/or atelectasis. Interval revision of the lead associated with the pacer device. Mild enlargement of the cardiac silhouette. Dictated by: Dictated on workstation # [id number]
[2020-06-14 16:15] LABS: CREATININE SERUM 1.3 MG/DL (0.60-1.30)
[2020-06-14 16:19] LABS: MAGNESIUM 1.9 MG/DL (1.6-2.4)
--- NOTE | 2020-06-14 16:19 | Consultation-Cardiology ---
HPI-Cardiology Cardiology Consultation: Date of Consultation 06/14/20 Time Seen by a Provider: 16:15 Date of Admission Attending Physician Admitting Physician Lillian Santacruz MD Consulting Physician CHARLA GALLARDO MD, MA, FACP, FACC, [facility] [place], CCDS Primary jv baseball coach: Dr Paula HPI: Chief Complaint: CC: Dizziness and weakness HPI 84 yo man with dizziness and weakness for a week or two. No velma syncope. No cp or palp or leg swelling. Shortness of breath with activity. Went to see his pcp today for these symptoms. Found to have a heart rate in the 30s. Sent to ER. Found to have pacemaker intermittent noncapture despite high output from the lead. Review of Systems-Cardiology Review of Systems Constitutional: malaise, tiredness; No weight loss, No weight gain Eyes: No vision change Ears/Nose/Throat: No ear discharge, No recent hearing loss Respiratory: As described under HPI Cardiovascular: As described under HPI Gastrointestinal: No diarrhea, No nausea, No vomiting Musculoskeletal: back pain (chronic), joint pain (chronic) Skin: No rash, No ulcerations Psychiatric/Neurological: No focal weakness, No syncope Hematologic: No bleeding abnormalities All Other Systems Reviewed Negative Unless Noted: Yes WON-Lhizvd-Uqgcrm Hx Patient Social History Alcohol Use: Denies Use Recreational Drug Use: No Smoking Status: Former Smoker Type Used: Cigarettes 2nd Hand Smoke Exposure: No Recent Foreign Travel: No Recent Infectious Disease Expo: No Immunizations Up To Date Tetanus Booster (TDap): Unknown Date of Pneumonia Vaccine: Nov 01, 2014 Date of Influenza Vaccine: Jul 14, 2017 Past Medical History PMH As described under Assessment. Family Medical History Family History: BONE CAN 19 FATHER Completed stroke 19 MOTHER G8 SISTER Dementia 19 MOTHER FH: lung cancer FH: malignant neoplasm of bone Myocardial infarction G8 BROTHER Allergies and Home Medications Allergies Coded Allergies: latex (Verified Allergy, Unknown, 10/19/18) oxycodone (Verified Allergy, Unknown, 10/19/18) Home Medications Betamethasone Dipropionate 15 Gm Oint...g., 1 APPLIC TOP TID PRN for ITCHING, (Reported) Cefuroxime Axetil 500 Mg Tablet, 500 MG PO BID Prescribed by: SAMANTHA PAULA on 01/27/20 1128 Famotidine 20 Mg Tablet, 20 MG PO DAILY Prescribed by: LILLIAN SANTACRUZ on 01/31/20846 Furosemide 20 Mg Tablet, 20 MG PO BID Prescribed by: LILLIAN SANTACRUZ on 01/31/20 08 Insulin Aspart 300 Units/3 Ml Solution, 5 UNITS SC TIDAC, (Reported) Insulin Detemir 100 Unit/1 Ml Insuln.pen, 15 UNIT SQ HS, (Reported) Losartan Potassium 25 Mg Tablet, 25 MG PO DAILY, (Reported) Metoprolol Succinate 25 Mg Tab.er.24h, 25 MG PO DAILY Prescribed by: SAMANTHA PAULA on 01/27/20 1128 Metoprolol Succinate 25 Mg Tab.er.24h, 25 MG PO DAILY Prescribed by: LILLIAN SANTACRUZ on 01/31/20 08 Ondansetron 4 Mg Tab.rapdis, 4 MG PO Q6H PRN for NAUSEA/VOMITING-1ST LINE Prescribed by: LILLIAN SANTACRUZ on 01/31/20846 Potassium Chloride 10 Meq Tablet.er, 10 MEQ PO DAILY@0900 Prescribed by: LILLIAN SANTACRUZ on 01/31/20846 Rivaroxaban 20 Mg Tablet, 20 MG PO DAILY W/ DINNER, (Reported) TAKES IN THE EVENING WITH A MEAL Patient Home Medication List Home Medication List Reviewed: Yes Physical Exam-Cardiology Physical Exam Vital Signs/I&O 06/14/20 15:30 Temp 37.1 Pulse 37 Resp 24 B/P (MAP) 169/70 (103) Pulse Ox 98 Capillary Refill : Less Than 3 Seconds Constitutional: AAO x 3, well-developed, well-nourished HEENT: EOMI, hearing is well preserved Neck: carotid pulses are 2 + bilaterally, with good upstrokes Respiratory: No accessory muscle use; other (good air entry that is diminished at the bases, more so on the R base) Cardiovascular: irregularly irregular, S1 and S2, systolic murmur (soft PENELOPE at card base) Gastrointestinal: No tender; soft; No guarding, No rebound; audible bowel sounds Extremities: No clubbing, No cyanosis, No significant edema Neurologic/Psychiatric: oriented x 3, other (moves all limbs equally) Skin: No rash on exposed areas, No ulcerations on exposed areas Data Review Labs Laboratory Tests 06/14/20 15:45: White Blood Count 10.6, Red Blood Count 4.24L, Hemoglobin 12.3L, Hematocrit 38L, Mean Corpuscular Volume 89, Mean Corpuscular Hemoglobin 29, Mean Corpuscular Hemoglobin Concent 33, Red Cell Distribution Width 13.6, Platelet Count 375, Mean Platelet Volume 10.1, Immature Granulocyte % (Auto) 1, Neutrophils (%) (Auto) 68, Lymphocytes (%) (Auto) 16, Monocytes (%) (Auto) 10, Eosinophils (%) (Auto) 6, Basophils (%) (Auto) 1, Neutrophils # (Auto) 7.3, Lymphocytes # (Auto) 1.7, Monocytes # (Auto) 1.0, Eosinophils # (Auto) 0.6H, Basophils # (Auto) 0.1, Immature Granulocyte # (Auto) 0.1, Sodium Level 138, Potassium Level 4.4, Chloride Level 107, Carbon Dioxide Level 20L, Anion Gap 11, Blood Urea Nitrogen 28H, Creatinine 1.30, Estimat Glomerular Filtration Rate 53, BUN/Creatinine Ra eula 22, Glucose Level 224H, Calcium Level 8.4L, Corrected Calcium 9.4, Magnesium Level 1.9, Total Bilirubin 0.6, Aspartate Amino Transf (AST/SGOT) 31, Alanine Aminotransferase (ALT/SGPT) 25, Alkaline Phosphatase 143H, Myoglobin 72.8, Tro ponin I < 0.028, Total Protein 6.5, Albumin 2.8L Laboratory Tests 06/14/20 15:45 A/P-Cardiology Assessment/Admission Diagnosis Pacemaker nonfunction, apparently due to lead displacement. CXR shows RV lead tip in RV but apparently pulled back and part of the lead appears coiled in the L int jugular vein Chronic atrial fibrillation with severe bradycardia, s/p PPM by Dr Paula on 01/26/2020 [employer] HERON S SR MRI [id number], RV Lead [id number]. Chronic stroke prophylaxis with Xarelto H/o R pleural effusion. CXR on 06/14/20 shows R pleural/parenchymal opacity PAD and h/o multiple interventions: angiogram was done on September 07, 2018 showed total occlusion of the tibial peroneal trunk on the left with successful balloon angioplasty and reestablishing flow through the peroneal artery down to the foot, the posterior tibial artery is receiving collaterals and the anterior tibial artery has severe disease distally also receiving collateral from the peroneal artery. The SFA has severe stenosis at multiple segment underwent deployment of 2 overlapping SUPERA 6 x 150 and 5.5 x 100 with excellent results and excellent flow. Patient was noted to have on the right SFA multiple segment of moderate to moderately severe stenosis and disease below the trifurcation. Fe bruary 2018 had balloon angioplasty to the right SFA with [place] 5 and 6 mm balloon with excellent results, the right popliteal artery is totally occluded at the trifurcation with reconstruction by collateral with slow flow that improved after nitroglycerin injection Cardiac cath on October 19, 2018 showing multivessel coronary artery disease including calcified artery with moderate to severe stenosis at the mid LAD, moderate to severe stenosis at the distal LAD with severe stenosis at the distal circumflex artery and moderate stenosis at the midright coronary artery with severe stenosis at the distal right coronary artery, normal left ventricular size, managed medically Hypertension Hyperlipidemia Limited ambulation (uses a walker) Mild bilateral disease nonobstructive on carotid u/s of August 2018 Adenocarcinoma of the GE junction, 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 Gonzalez. Diabetes mellitus, labile blood sugar Discussion and Recomendations * Complex management due to multiple comorbidities * Plan temp pacemaker because perm pacemaker noncapturing * Perm pacemaker lead would need extraction or may need to be abandoned and a new lead placed. D/c Xarelto in anticipation of surgery needed for perm pacemaker. Provide stroke and DVT prophylaxis with enoxaparin * Monitor labs * I discussed his CV issues with him. He understands the temp pacemaker procedure and provides informed consent CHARLA GALLARDO MD [facility] Jun 14, 2020 16:19
[2020-06-14] MEDS ORDERED: NS IV 1000 ML 1,000 ML ONE (16:37)
[2020-06-14 16:57] LABS: INR 2.1 (0.8-1.4); PROTHROMBIN TIME PATIENT 24.3 SEC (12.2-14.7)
[2020-06-14] MEDS ORDERED: ACETAMINOPHEN 325 MG TABLET PO PRN (17:15)
[2020-06-14] MEDS ORDERED: NS IV 1000 ML 1,000 ML IV SCH (17:15)
[2020-06-14] MEDS ORDERED: CATHETER FLUSH 10 ML SYR IV PRN (18:15)
[2020-06-14] MEDS: NS IV 1000 ML 1,000 ML IV SCH ×2 (18:31→18:38)
[2020-06-14] MEDS: ENOXAPARIN 40 MG/0.4 ML (LOVENOX) SYR SC SCH (18:35)
[2020-06-14] MEDS: inSUlin ASPART (NovoLOG) 1 UNIT/0.01 ML (CHARGE PER UNIT) SC SCH (21:03)
[2020-06-15] VITALS (18 sets, daily range): BP systolic 145–175; BP diastolic 62–89
[2020-06-15 04:20] LABS: BASOPHILS # (AUTO) 0.1 10^3/uL (0.0-0.1); BASOPHILS % (AUTO) 1 % (0-10); EOSINOPHILS # (AUTO) 0.7 10^3/uL (0.0-0.3); EOSINOPHILS % (AUTO) 9 % (0-10); HEMATOCRIT 35 % (40-54); HEMOGLOBIN 11.5 g/dL (13.3-17.7); LYMPHOCYTES # (AUTO) 1.5 10^3/uL (1.0-4.0); LYMPHOCYTES % (AUTO) 18 % (12-44); MEAN CORPUSCULAR HEMOGLOBIN 29 pg (25-34); MEAN CORPUSCULAR HGB CONC 33 g/dL (32-36); MEAN CORPUSCULAR VOLUME 89 fL (80-99); MONOCYTES % (AUTO) 12 % (0-12); NEUTROPHILS # (AUTO) 5.1 10^3/uL (1.8-7.8); NEUTROPHILS % (AUTO) 61 % (42-75); PLATELET COUNT 340 10^3/uL (130-400); WHITE BLOOD COUNT 8.3 10^3/uL (4.3-11.0)
--- NOTE | 2020-06-15 04:26 | OPERATIVE REPORT ---
DATE OF SERVICE: 06/14/2020 PREOPERATIVE DIAGNOSIS: Malfunction of a permanent pacemaker resulting in bradycardia. PROCEDURE: Temporary pacemaker implantation. The patient has a single-chamber permanent pacemaker, which is capturing only intermittently and he has had symptomatic bradycardia. Accordingly, we obtained a consent from him to proceed with a temporary pacemaker. This was done via the right femoral venous approach. DESCRIPTION OF PROCEDURE: The groin was prepared and draped in the usual sterile fashion. Lidocaine 1% was used for local anesthesia. Modified Seldinger technique was used to advance a 6-Greek sheath into the right femoral vein. We then used a balloon-floatation pacemaker catheter and the tip of which was placed at the right ventricular apex. Good capture and sensing thresholds were obtained. He tolerated the procedure well. Capture threshold was less than 0.5 volts. Sensing threshold was 8 millivolts. The temporary settings were 60 beats per minute, 5-volt output, sensing was set at 2 millivolts. Job ID: [id number] DocumentID: [id number] Dictated Date: 06/14/2020 17:36:37 Victim Advocate Date: 06/15/2020 04:25:36 Dictated By: CHARLA GALLARDO MD, MA, FACP, FACC,
[2020-06-15 04:31] LABS: CREATININE SERUM 1.16 MG/DL (0.60-1.30); MAGNESIUM 1.9 MG/DL (1.6-2.4); PHOSPHORUS 3.4 MG/DL (2.3-4.7); POTASSIUM 4.6 MMOL/L (3.6-5.0)
[2020-06-15] MEDS: inSUlin ASPART (NovoLOG) 1 UNIT/0.01 ML (CHARGE PER UNIT) SC SCH ×4 (05:32→21:03)
[2020-06-15] MEDS: FUROSEMIDE 20 MG (LASIX) TAB PO SCH ×2 (05:58→17:36)
[2020-06-15] MEDS: CLOPIDOGREL 75 MG (PLAVIX) TABLET PO SCH (08:27)
[2020-06-15] MEDS: LOSARTAN 25 MG (COZAAR) TAB PO SCH (08:27)
[2020-06-15] MEDS: amLODIPine 5 MG (NORVASC) TAB PO SCH (08:28)
--- NOTE | 2020-06-15 12:36 | History & Physical ---
History of Present Illness History of Present Illness Reason for visit/HPI This is a 84 year old male with a history of chronic atrial fibrillation with severe bradycardia who had a pacemaker placed by Dr. Paula in January of 2020. He presented to Dr. Santacruz's office with complaint of dizziness and shortness of air for at least the past one to two weeks. He was found to have a heart rate in the 30s. He was sent to the emergency room and it was found that his pace maker was not capturing and his lead appeared to be misplaced. He will be admitted for temporary pacemaker placement by Dr. Gramajo and then consideration for fixing his permanent pacemaker. Date of Admission Jun 14, 2020 at 17:26 Date Seen by a Provider: Jun 15, 2020 Time Seen by a Provider: 12:29 I consulted on this patient on 06/15/20 12:29 Attending Physician Joy Gramajo MD Facp [facility] Ccds Admitting Physician Lillian Santacruz MD Consult Allergies and Home Medications Allergies Coded Allergies: latex (Verified Allergy, Unknown, 10/19/18) oxycodone (Verified Allergy, Unknown, 10/19/18) Home Medications Betamethasone Dipropionate 15 Gm Oint...g., 1 APPLIC TOP TID PRN for ITCHING, (Reported) Cefuroxime Axetil 500 Mg Tablet, 500 MG PO BID Prescribed by: SAMANTHA PAULA on 01/27/208 Famotidine 20 Mg Tablet, 20 MG PO DAILY Prescribed by: LILLIAN SANTACRUZ on 01/31/20 0847 Furosemide 20 Mg Tablet, 20 MG PO BID Prescribed by: LILLIAN SANTACRUZ on 01/31/20 0847 Insulin Aspart 300 Units/3 Ml Solution, 5 UNITS SC TIDAC, (Reported) Insulin Detemir 100 Unit/1 Ml Insuln.pen, 15 UNIT SQ HS, (Reported) Losartan Potassium 25 Mg Tablet, 25 MG PO DAILY, (Reported) Metoprolol Succinate 25 Mg Tab.er.24h, 25 MG PO DAILY Prescribed by: SAMANTHA PAULA on 01/27/201127 Metoprolol Succinate 25 Mg Tab.er.24h, 25 MG PO DAILY Prescribed by: LILLIAN SANTACRUZ on 01/31/20 0847 Ondansetron 4 Mg Tab.rapdis, 4 MG PO Q6H PRN for NAUSEA/VOMITING-1ST LINE Prescribed by: LILLIAN SANTACRUZ on 01/31/20 0847 Potassium Chloride 10 Meq Tablet.er, 10 MEQ PO DAILY@0900 Prescribed by: LILLIAN SANTACRUZ on 01/31/20 0847 Rivaroxaban 20 Mg Tablet, 20 MG PO DAILY W/ DINNER, (Reported) TAKES IN THE EVENING WITH A MEAL Patient Home Medication List Home Medication List Reviewed: Yes Past Zswxlyw-Wnluug-Pqmpnd Hx Past Med/Social Hx: Reviewed Nursing Past Med/Soc Hx Patient Social History Marrital Status: Alcohol Use: Denies Use Recreational Drug Use: No Smoking Status: Former Smoker Former Smoker, Quit: Sep 07, 1984 Type Used: Cigarettes 2nd Hand Smoke Exposure: No Recent Foreign Travel: No Contact w/other who traveled: No Recent Hopitalizations: No Recent Infectious Disease Expo: No Immunizations Up To Date Tetanus Booster (TDap): Unknown Date of Pneumonia Vaccine: Nov 01, 2014 Date of Influenza Vaccine: Jul 14, 2017 Seasonal Allergies Seasonal Allergies: No Past Medical History Surgeries: Pacemaker port Currently Using CPAP: No Currently Using BIPAP: No Cardiac: Hypertension, Peripheral Vascular Reproductive: No Sexually Transmitted Disease: No HIV/AIDS: No Genitourinary: Kidney Stones Gastrointestinal: Gastroesophageal Reflux Musculoskeletal: Arthritis Endocrine: Diabetes, Insulin dep HEENT: Cataract Hearing Impairment: Hard of Hearing, Bilateral Hearing Aide Cancer: Esophageal Did You Recieve Any Treatments: Yes What Type of Treatment Did You: Chemotherapy, Radiation History of Blood Disorders: No Adverse Reaction to Blood Ace: No Family History BONE CAN 19 FATHER Completed stroke 19 MOTHER G8 SISTER Dementia 19 MOTHER FH: lung cancer FH: malignant neoplasm of bone Myocardial infarction G8 BROTHER Heart Disease, Cancer, CAD Over 55 Years Old, Stroke Review of Systems Constitutional: weakness EENTM: No see HPI, No no symptoms reported, No ear discharge, No hearing loss, No ear pain, No blurred vision, No double vision, No eye pain, No tearing, No vision loss, No dental problems, No hoarseness, No mouth pain, No mouth swelling, No epistaxis, No nose congestion, No nose pain, No throat pain, No throat swelling, No other Respiratory: short of breath Cardiovascular: No no symptoms reported, No see HPI, No chest pain, No edema, No Hx of Intervention, No palpitations, No syncope, No vascular heart diseas, No other Gastrointestinal: No RUQ, No LUQ, No RLQ, No LLQ, No no symptoms reported, No see HPI, No abdominal pain, No constipation, No diarrhea, No dysphagia, No hematemesis, No heartburn, No jaundice, No loss of appetite, No melena, No nausea, No vomiting, No other Genitourinary: No no symptoms reported, No see HPI, No decreased output, No discharge, No dysuria, No frequency, No hematuria, No hesitancy, No incontinence, No nocturia, No pain, No other Musculoskeletal: muscle weakness Skin: No no symptoms reported, No see HPI, No change in color, No change in hair/nails, No dryness, No hx of skin cancer, No lesions, No lumps, No pruritus, No rash, No other Psychiatric/Neurological: Weakness, Other (dizziness) Physical Exam Vital Signs Vital Signs - First Documented 06/14/20 06/14/20 15:30 17:50 Temp 37.1 Pulse 37 Resp 24 B/P (MAP) 169/70 (103) Pulse Ox 98 O2 Delivery Room Air Capillary Refill : Less Than 3 SecondsLess Than 3 Seconds Height, Weight, BMI Height: 6'2.00" Weight: 240lbs. 0.0oz. [id number]; 28.00 BMI Method:Stated General Appearance: No Apparent Distress HEENT: Normal ENT Inspection Neck: Supple Respiratory: Lungs Clear, Decreased Breath Sounds Cardiovascular: Systolic Murmur, Gallop/S4, Irregularly Irregular Gastrointestinal: Normal Bowel Sounds, Non Tender, Soft Rectal: Deferred Back: No CVA Tenderness Extremity: Non Tender, No Calf Tenderness, No Pedal Edema Neurologic/Psychiatric: Alert, Oriented x3 Skin: Warm/Dry Comments Laboratory Tests 06/14/20 15:45: White Blood Count 10.6, Red Blood Count 4.24L, Hemoglobin 12.3L, Hematocrit 38L, Mean Corpuscular Volume 89, Mean Corpuscular Hemoglobin 29, Mean Corpuscular Hemoglobin Concent 33, Red Cell Distribution Width 13.6, Platelet Count 375, Mean Platelet Volume 10.1, Immature Granulocyte % (Auto) 1, Neutrophils (%) (Auto) 68, Lymphocytes (%) (Auto) 16, Monocytes (%) (Auto) 10, Eosinophils (%) (Auto) 6, Basophils (%) (Auto) 1, Neutrophils # (Auto) 7.3, Lymphocytes # (Auto) 1.7, Monocytes # (Auto) 1.0, Eosinophils # (Auto) 0.6H, Basophils # (Auto) 0.1, Immature Granulocyte # (Auto) 0.1, Sodium Level 138, Potassium Level 4.4, Chloride Level 107, Carbon Dioxide Level 20L, Anion Gap 11, Blood Urea Nitrogen 28H, Creatinine 1.30, Estimat Glomerular Filtration Rate 53, BUN/Creatinine Ratio 22, Glucose Level 224H, Calcium Level 8.4L, Corrected Calcium 9.4, Magnesium Level 1.9, Total Bilirubin 0.6, Aspartate Amino Transf (AST/SGOT) 31, Alanine Aminotransferase (ALT/SGPT) 25, Alkaline Phosphatase 143H, Myoglobin 72.8, Troponin I < 0.028, Total Protein 6.5, Albumin 2.8L 06/14/20 16:33: Prothrombin Time 24.3H, INR Comment 2.1H, Activated Partial Thromboplast Time 156*H 06/14/20 20:51: Glucometer 143H 06/15/20 04:00: White Blood Count 8.3, Red Blood Count 3.96L, Hemoglobin 11.5L, Hematocrit 35L, Mean Corpuscular Volume 89, Mean Corpuscular Hemoglobin 29, Mean Corpuscular Hemoglobin Concent 33, Red Cell Distribution Width 13.8, Platelet Count 340, Mean Platelet Volume 10.0, Immature Granulocyte % (Auto) 1, Neutrophils (%) (Auto) 61, Lymphocytes (%) (Auto) 18, Monocytes (%) (Auto) 12, Eosinophils (%) (Auto) 9, Basophils (%) (Auto) 1, Neutrophils # (Auto) 5.1, Lymphocytes # (Auto) 1.5, Monocytes # (Auto) 1.0, Eosinophils # (Auto) 0.7H, Basophils # (Auto) 0.1, Immature Granulocyte # (Auto) 0.0, Sodium Level 140, Potassium Level 4.6, Chloride Level 111H, Carbon Dioxide Level 19L, Anion Gap 10, Blood Urea Nitrogen 25H, Creatinine 1.16, Estimat Glomerular Filtration Rate 60, BUN/Creatinine Ratio 22, Glucose Level 142H, Calcium Level 8.0L, Magnesium Level 1.9, Phosphorus Level 3.4 06/15/20 11:07: Glucometer 174H Assessment/Plan Assessment and Plan 1. Chronic Atrial Fibrillation with Severe Bradycardia--S/P pacemaker placement which is currently not capturing, admit to ICU, temporary pacemaker placed, will need permanent pacemaker fixed per cardiology 2. Hypertension--resume home meds 3. 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 PAD--has had numerous interventions in the past Admission Diagnosis Admission Status: Inpatient Order (span 2 midnights) Reason for Inpatient Admission: Will need temporary pacemaker followed by permanent pacemaking Clinical Quality Measures DVT/VTE Risk/Contraindication: Risk Factor Score Per Nursin RFS Level Per Nursing on Admit: 4+=Very High JEF MILLER DO Jun 15, 2020 12:36
--- NOTE | 2020-06-15 15:08 | Progress Note - Cardiology ---
Cardiology SOAP Progress Note Subjective: Dizziness better No syncope No cp or palp or shortness of breath at rest No focal weakness No n/v/d Objective: I&O/Vital Signs 06/15/20 06/15/20 06/15/20 06/15/20 04:00 04:00 04:18 05:00 Temp 36.8 Pulse 60 60 Resp 26 30 B/P (MAP) 159/62 (94) 162/64 (96) Pulse Ox 95 96 95 O2 Delivery Room Air Room Air Room Air 06/15/20 06/15/20 06/15/20 06/15/20 06:00 07:00 07:00 08:00 Pulse 60 60 60 Resp 20 35 B/P (MAP) 172/66 (101) 159/76 (103) Pulse Ox 95 94 96 O2 Delivery Room Air Room Air Room Air 06/15/20 06/15/20 06/15/20 06/15/20 08:00 09:00 10:00 11:00 Pulse 60 60 60 60 Resp 11 11 33 24 B/P (MAP) 169/68 (101) 175/70 (105) 165/68 (100) 161/66 (97) Pulse Ox 96 96 95 94 O2 Delivery Room Air Room Air Room Air Room Air 06/15/20 06/15/20 06/15/20 06/15/20 11:50 12:00 12:00 12:48 Temp 37.1 Pulse 60 60 Resp 29 B/P (MAP) 145/69 (94) Pulse Ox 96 96 O2 Delivery Room Air Room Air 06/15/20 06/15/20 13:00 14:00 Pulse 60 60 Resp 14 22 B/P (MAP) 154/67 (96) 164/69 (100) Pulse Ox 96 95 O2 Delivery Room Air Room Air 06/14/20 23:59 Intake Total 0 ml Output Total 300 ml Balance -300 ml Weight (Pounds): 240 Weight (Ounces): 0.0 Weight (Calculated Kilograms): 108.565691 Constitutional: AAO x 3, well-developed, well-nourished Respiratory: No accessory muscle use; other (good air entry that is diminished at the bases, more so on the R base) Cardiovascular: irregularly irregular, S1 and S2, systolic murmur (soft PENELOPE at card base) Gastrointestional: No tender; soft; No guarding, No rebound; audible bowel sounds Extremities: No clubbing, No cyanosis, No significant edema Neurologic/Psychiatric: oriented x 3, other (moves all limbs equally) Skin: No rash on exposed areas, No ulcerations on exposed areas Results/Procedures: Labs Laboratory Tests 06/14/20 15:45: White Blood Count 10.6, Red Blood Count 4.24L, Hemoglobin 12.3L, Hematocrit 38L, Mean Corpuscular Volume 89, Mean Corpuscular Hemoglobin 29, Mean Corpuscular Hemoglobin Concent 33, Red Cell Distribution Width 13.6, Platelet Count 375, Mean Platelet Volume 10.1, Immature Granulocyte % (Auto) 1, Neutrophils (%) (Auto) 68, Lymphocytes (%) (Auto) 16, Monocytes (%) (Auto) 10, Eosinophils (%) (Auto) 6, Basophils (%) (Auto) 1, Neutrophils # (Auto) 7.3, Lymphocytes # (Auto) 1.7, Monocytes # (Auto) 1.0, Eosinophils # (Auto) 0.6H, Basophils # (Auto) 0.1, Immature Granulocyte # (Auto) 0.1, Sodium Level 138, Potassium Level 4.4, Chloride Level 107, Carbon Dioxide Level 20L, Anion Gap 11, Blood Urea Nitrogen 28H, Creatinine 1.30, Estimat Glomerular Filtration Rate 53, BUN/Creatinine Ratio 22, Glucose Level 224H, Calcium Level 8.4L, Corrected Calcium 9.4, Magnesium Level 1.9, Total Bilirubin 0.6, Aspartate Amino Transf (AST/SGOT) 31, Alanine Aminotransferase (ALT/SGPT) 25, Alkaline Phosphatase 143H, Myoglobin 72.8, Troponin I < 0.028, Total Protein 6.5, Albumin 2.8L 06/14/20 16:33: Prothrombin Time 24.3H, INR Comment 2.1H, Activated Partial Thromboplast Time 156*H 06/14/20 20:51: Glucometer 143H 06/15/20 04:00: White Blood Count 8.3, Red Blood Count 3.96L, Hemoglobin 11.5L, Hematocrit 35L, Mean Corpuscular Volume 89, Mean Corpuscular Hemoglobin 29, Mean Corpuscular Hemoglobin Concent 33, Red Cell Distribution Width 13.8, Platelet Count 340, Mean Platelet Volume 10.0, Immature Granulocyte % (Auto) 1, Neutrophils (%) (Auto) 61, Lymphocytes (%) (Auto) 18, Monocytes (%) (Auto) 12, Eosinophils (%) (Auto) 9, Basophils (%) (Auto) 1, Neutrophils # (Auto) 5.1, Lymphocytes # (Auto) 1.5, Monocytes # (Auto) 1.0, Eosinophils # (Auto) 0.7H, Basophils # (Auto) 0.1, Immature Granulocyte # (Auto) 0.0, Sodium Level 140, Potassium Level 4.6, Chloride Level 111H, Carbon Dioxide Level 19L, Anion Gap 10, Blood Urea Nitrogen 25H, Creatinine 1.16, Estimat Glomerular Filtration Rate 60, BUN/Creatinine Ratio 22, Glucose Level 142H, Calcium Level 8.0L, Magnesium Level 1.9, Phosphorus Level 3.4 06/15/20 11:07: Glucometer 174H Microbiology 06/14/20 MRSA Screen - Final, Complete MRSA not isolated A/P: Assessment: Pacemaker nonfunction, apparently due to lead displacement. CXR shows RV lead tip in RV but apparently pulled back and part of the lead appears coiled in the L int jugular vein. Currently, paced via temp pacemaker that was place on 06/15/20 Chronic atrial fibrillation with severe bradycardia, s/p PPM by Dr Paula on 01/26/2020 TrutapURE S SR MRI [id number], RV Lead [id number]. Chronic stroke prophylaxis with Xarelto, held beginning 06/15/20 H/o R pleural effusion. CXR on 06/14/20 shows R pleural/parenchymal opacity PAD and h/o multiple interventions: angiogram was done on September 07, 2018 showed total occlusion of the tibial peroneal trunk on the left with successful balloon angioplasty and reestablishing flow through the peroneal artery down to the foot, the posterior tibial artery is receiving collaterals and the anterior tibial artery has severe disease distally also receiving collateral from the peroneal artery. The SFA has severe stenosis at multiple segment underwent deployment of 2 overlapping SUPERA 6 x 150 and 5.5 x 100 with excellent results and excellent flow. Patient was noted to have on the right SFA multiple segment of moderate to moderately severe stenosis and disease below the trifurcation. October 20, 2018 had balloon angioplasty to the right SFA with [place] 5 and 6 mm balloon with excellent results, the right popliteal artery is totally occluded at the trifurcation with reconstruction by collateral with slow flow that improved after nitroglycerin injection Cardiac cath on October 19, 2018 showing multivessel coronary artery disease in cluding calcified artery with moderate to severe stenosis at the mid LAD, moderate to severe stenosis at the distal LAD with severe stenosis at the distal circumflex artery and moderate stenosis at the midright coronary artery with severe stenosis at the distal right coronary artery, normal left ventricular size, managed medically Hypertension Hyperlipidemia Limited ambulation (uses a walker) Mild bilateral disease nonobstructive on carotid u/s of August 2018 Adenocarcinoma of the GE junction, 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 Gonzalez. Diabetes mellitus, labile blood sugar Plan: * Complex management due to multiple comorbidities * Continue temp pm * Hold Xarelto * Lead extraction/replacement planned for Wednesday CHARLA GALLARDO MD FACP FAC CCDS Jun 15, 2020 15:08
[2020-06-15] MEDS: ENOXAPARIN 40 MG/0.4 ML (LOVENOX) SYR SC SCH (17:36)
[2020-06-16] VITALS (24 sets, daily range): BP systolic 123–172; BP diastolic 57–92
[2020-06-16 04:23] LABS: BASOPHILS # (AUTO) 0.1 10^3/uL (0.0-0.1); BASOPHILS % (AUTO) 1 % (0-10); EOSINOPHILS # (AUTO) 0.6 10^3/uL (0.0-0.3); EOSINOPHILS % (AUTO) 7 % (0-10); HEMATOCRIT 36 % (40-54); HEMOGLOBIN 11.6 g/dL (13.3-17.7); LYMPHOCYTES # (AUTO) 1.7 10^3/uL (1.0-4.0); LYMPHOCYTES % (AUTO) 18 % (12-44); MEAN CORPUSCULAR HEMOGLOBIN 29 pg (25-34); MEAN CORPUSCULAR HGB CONC 32 g/dL (32-36); MEAN CORPUSCULAR VOLUME 89 fL (80-99); MEAN PLATELET VOLUME 9.9 fL (9.0-12.2); MONOCYTES # (AUTO) 1.1 10^3/uL (0.0-1.0); MONOCYTES % (AUTO) 12 % (0-12); NEUTROPHILS # (AUTO) 5.7 10^3/uL (1.8-7.8); NEUTROPHILS % (AUTO) 62 % (42-75); PLATELET COUNT 345 10^3/uL (130-400); WHITE BLOOD COUNT 9.2 10^3/uL (4.3-11.0)
[2020-06-16 04:34] LABS: CHLORIDE 109 MMOL/L (98-107); POTASSIUM 4.2 MMOL/L (3.6-5.0); SODIUM 139 MMOL/L (135-145)
[2020-06-16 04:35] LABS: CALCIUM 8.4 MG/DL (8.5-10.1)
[2020-06-16 04:36] LABS: GLUCOSE 157 MG/DL (70-105)
[2020-06-16 04:37] LABS: CARBON DIOXIDE 19 MMOL/L (21-32)
[2020-06-16 04:40] LABS: CREATININE SERUM 1.07 MG/DL (0.60-1.30); GFR ESTIMATED > 60; PHOSPHORUS 2.9 MG/DL (2.3-4.7)
[2020-06-16 04:41] LABS: BUN/CREATININE RATIO 21
[2020-06-16 04:42] LABS: MAGNESIUM 1.9 MG/DL (1.6-2.4)
[2020-06-16] MEDS: inSUlin ASPART (NovoLOG) 1 UNIT/0.01 ML (CHARGE PER UNIT) SC SCH ×4 (06:27→21:56)
[2020-06-16] MEDS: FUROSEMIDE 20 MG (LASIX) TAB PO SCH ×2 (06:27→16:05)
[2020-06-16] MEDS: amLODIPine 5 MG (NORVASC) TAB PO SCH (07:57)
[2020-06-16] MEDS: CLOPIDOGREL 75 MG (PLAVIX) TABLET PO SCH (07:57)
[2020-06-16] MEDS: LOSARTAN 25 MG (COZAAR) TAB PO SCH (07:57)
--- NOTE | 2020-06-16 09:46 | Progress Note ---
Subjective Date Seen by a Provider: Jun 16, 2020 Time Seen by a Provider: 09:40 Subjective/Events-last exam Fwup malfunctioning pacemaker, chronic atrial fibrillation with severe b radycardia, HTN, uncontrolled DMII, PAD, pleural effusion. Still with temporary pacemaker. Refusing medications this morning. Objective Exam Vital Signs Date Time Temp Pulse Resp B/P (MAP) Pulse Ox O2 Delivery O2 Flow Rate FiO2 06/16/20 09:00 60 13 137/62 (87) 92 Room Air 06/16/20 08:00 59 24 166/92 (116) 95 Room Air 06/16/20 08:00 37.1 Room Air 06/16/20 08:00 Room Air 06/16/20 07:00 60 06/16/20 07:00 60 20 159/76 (103) 92 Room Air 06/16/20 06:00 60 24 136/57 (83) 92 Room Air 06/16/20 05:00 52 25 158/63 (94) 91 Room Air 06/16/20 04:00 96 Room Air 06/16/20 04:00 55 24 160/74 (102) 94 Room Air 06/16/20 03:00 60 21 167/70 (102) 94 Room Air 06/16/20 02:00 60 20 164/75 (104) 94 Room Air 06/16/20 01:00 60 22 135/80 (98) 94 Room Air 06/16/20 01:00 60 06/16/20 00:00 37.5 59 19 162/68 (99) 94 Room Air 06/16/20 00:00 96 Room Air 06/15/20 20:00 96 Room Air 06/15/20 20:00 60 15 167/67 (100) 96 Room Air 06/15/20 19:00 60 06/15/20 18:00 60 14 159/89 (112) 95 Room Air 06/15/20 17:00 60 25 168/75 (106) 95 Room Air 06/15/20 16:00 59 16 96 Room Air 06/15/20 15:49 96 Room Air 06/15/20 15:34 36.9 06/15/20 15:00 60 18 96 Room Air 06/15/20 14:00 60 22 164/69 (100) 95 Room Air 06/15/20 13:00 60 14 154/67 (96) 96 Room Air 06/15/20 12:48 60 06/15/20 12:00 60 29 145/69 (94) 96 Room Air 06/15/20 12:00 96 Room Air 06/15/20 11:50 37.1 06/15/20 11:00 60 24 161/66 (97) 94 Room Air 06/15/20 10:00 60 33 165/68 (100) 95 Room Air I & O 06/16/20 07:00 Intake Total 1360 ml Output Total 1650 ml Balance -290 ml Capillary Refill : Less Than 3 SecondsLess Than 3 Seconds General Appearance: No Apparent Distress Respiratory: Decreased Breath Sounds Cardiovascular: Systolic Murmur, Irregularly Irregular Gastrointestinal: normal bowel sounds, non tender, soft Extremity: Non Tender, No Calf Tenderness, No Pedal Edema Neurologic/Psychiatric: Alert, Oriented x3 Skin: Warm/Dry Results Lab Laboratory Tests 06/15/20 11:07: Glucometer 174H 06/15/20 16:40: Glucometer 213H 06/15/20 20:55: Glucometer 252H 06/16/20 04:11: White Blood Count 9.2, Red Blood Count 4.06L, Hemoglobin 11.6L, Hematocrit 36L, Mean Corpuscular Volume 89, Mean Corpuscular Hemoglobin 29, Mean Corpuscular Hemoglobin Concent 32, Red Cell Distribution Width 13.8, Platelet Count 345, Mean Platelet Volume 9.9, Immature Granulocyte % (Auto) 1, Neutrophils (%) (Auto) 62, Lymphocytes (%) (Auto) 18, Monocytes (%) (Auto) 12, Eosinophils (%) (Auto) 7, Basophils (%) (Auto) 1, Neutrophils # (Auto) 5.7, Lymphocytes # (Auto) 1.7, Monocytes # (Auto) 1.1H, Eosinophils # (Auto) 0.6H, Basophils # (Auto) 0.1, Immature Granulocyte # (Auto) 0.1, Sodium Level 139, Potassium Level 4.2, Chloride Level 109H, Carbon Dioxide Level 19L, Anion Gap 11, Blood Urea Nitrogen 22H, Creatinine 1.07, Estimat Glomerular Filtration Rate > 60, BUN/Creatinine Ratio 21, Glucose Level 157H, Calcium Level 8.4L, Phosphorus Level 2.9, Magnesium Level 1.9 06/16/20 05:56: Glucometer 156H Microbiology 06/14/20 MRSA Screen - Final, Complete MRSA not isolated Assessment/Plan Assessment/Plan Assess & Plan/Chief Complaint 1. Nonfunctioning Pacemaker--on temporary pacemaker with plan for permanent pacemaker tomorrow 2. Chronic Atrial Fibrillation with Severe Bradycardia--needs permanent pacemaker fixed 3. Hypertension--resumed some home meds but patient refusing medications this morning 4. Uncontrolled DMII--on SSI 5. GE junction adenocarcinoma--following with oncology, patient told me this morning that he did not want to take any meds until Dr. Gonzalez okayed them--I explained to him that his problem right now is cardiac and that Dr. Gonzalez would agree with the cardiologists treatment plan for his heart Clinical Quality Measures Admission Status Admission Dx 1. Chronic Atrial Fibrillation with Severe Bradycardia--S/P pacemaker placement which is currently not capturing, admit to ICU, temporary pacemaker placed, will need permanent pacemaker fixed per cardiology 2. Hypertension--resume home meds 3. 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 PAD--has had numerous interventions in the past DVT/VTE Risk/Contraindication: Risk Factor Score Per Nursin RFS Level Per Nursing on Admit: 4+=Very High JEF MILLER DO Jun 16, 2020 09:46
[2020-06-16] MEDS: FAMOTIDINE 20 MG (PEPCID) TABLET PO SCH ×2 (10:50→21:00)
--- NOTE | 2020-06-16 13:44 | Progress Note - Cardiology ---
Cardiology SOAP Progress Note Subjective: No cp or palp or syncope or shortness of breath at rest Malaise improved No focal weakness No n/v/d Objective: I&O/Vital Signs 06/16/20 06/16/20 06/16/20 06/16/20 02:00 03:00 04:00 04:00 Pulse 60 60 55 Resp 20 21 24 B/P (MAP) 164/75 (104) 167/70 (102) 160/74 (102) Pulse Ox 94 94 94 96 O2 Delivery Room Air Room Air Room Air Room Air 06/16/20 06/16/20 06/16/20 06/16/20 05:00 06:00 07:00 07:00 Pulse 52 60 60 60 Resp 25 24 20 B/P (MAP) 158/63 (94) 136/57 (83) 159/76 (103) Pulse Ox 91 92 92 O2 Delivery Room Air Room Air Room Air 06/16/20 06/16/20 06/16/20 06/16/20 08:00 08:00 08:00 09:00 Temp 37.1 Pulse 59 60 Resp 24 13 B/P (MAP) 166/92 (116) 137/62 (87) Pulse Ox 95 92 O2 Delivery Room Air Room Air Room Air Room Air 06/16/20 06/16/20 06/16/20 06/16/20 10:00 11:00 11:00 12:00 Temp 36.5 Pulse 60 60 60 Resp 32 19 27 B/P (MAP) 167/72 (103) 150/73 (98) 155/59 (91) Pulse Ox 94 95 95 O2 Delivery Room Air Room Air Room Air 06/16/20 06/16/20 06/16/20 12:00 13:00 13:00 Pulse 60 60 Resp 30 B/P (MAP) 135/70 (91) Pulse Ox 97 O2 Delivery Room Air Room Air 06/16/20 00:00 Intake Total 850 ml Output Total 850 ml Balance 0 ml Weight (Pounds): 240 Weight (Ounces): 0.0 Weight (Calculated Kilograms): [id number] Constitutional: AAO x 3, well-developed, well-nourished Respiratory: No accessory muscle use; other (good air entry that is diminished at the bases, more so on the R base) Cardiovascular: irregularly irregular, S1 and S2, systolic murmur (soft PENELOPE at card base) Gastrointestional: No tender; soft; No guarding, No rebound; audible bowel sounds Extremities: No clubbing, No cyanosis, No significant edema Neurologic/Psychiatric: oriented x 3, other (moves all limbs equally) Skin: No rash on exposed areas, No ulcerations on exposed areas Results/Procedures: Labs Laboratory Tests 06/15/20 16:40: Glucometer 213H 06/15/20 20:55: Glucometer 252H 06/16/20 04:11: White Blood Count 9.2, Red Blood Count 4.06L, Hemoglobin 11.6L, Hematocrit 36L, Mean Corpuscular Volume 89, Mean Corpuscular Hemoglobin 29, Mean Corpuscular Hemoglobin Concent 32, Red Cell Distribution Width 13.8, Platelet Count 345, Mean Platelet Volume 9.9, Immature Granulocyte % (Auto) 1, Neutrophils (%) (Auto) 62, Lymphocytes (%) (Auto) 18, Monocytes (%) (Auto) 12, Eosinophils (%) (Auto) 7, Basophils (%) (Auto) 1, Neutrophils # (Auto) 5.7, Lymphocytes # (Auto) 1.7, Monocytes # (Auto) 1.1H, Eosinophils # (Auto) 0.6H, Basophils # (Auto) 0.1, Immature Granulocyte # (Auto) 0.1, Sodium Level 139, Potassium Level 4.2, Chloride Level 109H, Carbon Dioxide Level 19L, Anion Gap 11, Blood Urea Nitrogen 22H, Creatinine 1.07, Estimat Glomerular Filtration Rate > 60, BUN/Creatinine Ratio 21, Glucose Level 157H, Calcium Level 8.4L, Phosphorus Level 2.9, Magnesium Level 1.9 06/16/20 05:56: Glucometer 156H 06/16/20 11:16: Glucometer 259H Microbiology 06/14/20 MRSA Screen - Final, Complete MRSA not isolated A/P: Assessment: Pacemaker nonfunction, apparently due to lead displacement. CXR shows RV lead tip in RV but apparently pulled back and part of the lead appears coiled in the L int jugular vein. Currently, paced via temp pacemaker that was placed on 06/15/20 Chronic atrial fibrillation with severe bradycardia, s/p PPM by Dr Paula on 01/26/2020 [facility] S SR MRI [id number], RV Lead [id number]. Chronic stroke prophylaxis with Xarelto, held beginning 06/15/20 H/o R pleural effusion. CXR on 06/14/20 shows R pleural/parenchymal opacity PAD and h/o multiple interventions: angiogram was done on September 07, 2018 showed total occlusion of the tibial peroneal trunk on the left with successful balloon angioplasty and reestablishing flow through the peroneal artery down to the foot, the posterior tibial artery is receiving collaterals and the anterior tibial artery has severe disease distally also receiving collateral from the peroneal artery. The SFA has severe stenosis at multiple segment underwent deployment of 2 overlapping SUPERA 6 x 150 and 5.5 x 100 with excellent results and excellent flow. Patient was noted to have on the right SFA multiple segment of moderate to moderately severe stenosis and disease below the trifurcation. October 20, 2018 had balloon angioplasty to the right SFA with [place] 5 and 6 mm balloon with excellent results, the right popliteal artery is totally occluded at the trifurcation with reconstruction by collateral with slow flow that improved after nitroglycerin injection Cardiac cath on October 19, 2018 showing multivessel coronary artery disease including calcified artery with moderate to severe stenosis at the mid LAD, moderate to severe stenosis at the distal LAD with severe stenosis at the distal circumflex artery and moderate stenosis at the midright coronary artery with severe stenosis at the distal right coronary artery, normal left ventricular size, managed medically Hypertension Hyperlipidemia Limited ambulation (uses a walker) Mild bilateral disease nonobstructive on carotid u/s of August 2018 Adenocarcinoma of the GE junction, 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 Gonzalez. Diabetes mellitus, labile blood sugar Plan: * Complex management due to multiple comorbidities * Continue temp pm * Hold Xarelto (being held since admission on 06/15/20) * Lead extraction/replacement planned for Wednesday. I discussed this with him. He understands and wishes to proceed CHARLA GALLARDO MD FACP [facility] CCDS Jun 16, 2020 13:44
[2020-06-16] MEDS: ENOXAPARIN 40 MG/0.4 ML (LOVENOX) SYR SC SCH (16:05)
[2020-06-17] VITALS (16 sets, daily range): BP systolic 132–181; BP diastolic 56–88
[2020-06-17 02:58] LABS: BASOPHILS % (AUTO) 0 % (0-10); EOSINOPHILS # (AUTO) 0.6 10^3/uL (0.0-0.3); EOSINOPHILS % (AUTO) 7 % (0-10); HEMATOCRIT 37 % (40-54); HEMOGLOBIN 11.9 g/dL (13.3-17.7); LYMPHOCYTES # (AUTO) 1.7 10^3/uL (1.0-4.0); LYMPHOCYTES % (AUTO) 19 % (12-44); MEAN CORPUSCULAR HEMOGLOBIN 29 pg (25-34); MEAN CORPUSCULAR HGB CONC 32 g/dL (32-36); MEAN CORPUSCULAR VOLUME 89 fL (80-99); MEAN PLATELET VOLUME 9.8 fL (9.0-12.2); MONOCYTES # (AUTO) 1.1 10^3/uL (0.0-1.0); MONOCYTES % (AUTO) 13 % (0-12); NEUTROPHILS # (AUTO) 5.4 10^3/uL (1.8-7.8); NEUTROPHILS % (AUTO) 61 % (42-75); PLATELET COUNT 335 10^3/uL (130-400); WHITE BLOOD COUNT 8.9 10^3/uL (4.3-11.0)
[2020-06-17 03:16] LABS: CHLORIDE 107 MMOL/L (98-107); POTASSIUM 4.1 MMOL/L (3.6-5.0); SODIUM 138 MMOL/L (135-145)
[2020-06-17 03:17] LABS: CALCIUM 8.4 MG/DL (8.5-10.1)
[2020-06-17 03:18] LABS: GLUCOSE 148 MG/DL (70-105)
[2020-06-17 03:19] LABS: CARBON DIOXIDE 21 MMOL/L (21-32)
[2020-06-17 03:22] LABS: BUN/CREATININE RATIO 18; GFR ESTIMATED > 60
[2020-06-17 03:24] LABS: MAGNESIUM 1.9 MG/DL (1.6-2.4)
[2020-06-17] MEDS: inSUlin ASPART (NovoLOG) 1 UNIT/0.01 ML (CHARGE PER UNIT) SC SCH ×4 (06:48→21:45)
[2020-06-17] MEDS: FUROSEMIDE 20 MG (LASIX) TAB PO SCH ×2 (06:48→19:00)
--- NOTE | 2020-06-17 08:38 | Progress Note ---
Subjective Subjective Date Seen by Provider: Jun 17, 2020 Time Seen by Provider: 08:38 All Other Systems Reviewed All Other Systems Reviewed: Yes Objective Exam Vital Signs Vital Signs - First Documented 06/14/20 06/14/20 15:30 17:50 Temp 37.1 Pulse 37 Resp 24 B/P (MAP) 169/70 (103) Pulse Ox 98 O2 Delivery Room Air Capillary Refill : Less Than 3 SecondsLess Than 3 Seconds General Appearance: No Apparent Distress HEENT: Normal ENT Inspection Neck: Supple Respiratory: Decreased Breath Sounds Cardiovascular: Systolic Murmur, Irregularly Irregular Gastrointestinal: Normal Bowel Sounds, Non Tender, Soft Rectal: Deferred Back: No CVA Tenderness Extremity: Non Tender, No Calf Tenderness, No Pedal Edema Neurologic/Psychiatric: Alert, Oriented x3 Skin: Warm/Dry Results Lab Laboratory Tests 06/16/20 11:16: Glucometer 259H 06/16/20 16:02: Glucometer 135H 06/16/20 20:58: Glucometer 254H 06/17/20 02:48: White Blood Count 8.9, Red Blood Count 4.14L, Hemoglobin 11.9L, Hematocrit 37L, Mean Corpuscular Volume 89, Mean Corpuscular Hemoglobin 29, Mean Corpuscular Hemoglobin Concent 32, Red Cell Distribution Width 13.7, Platelet Count 335, Mean Platelet Volume 9.8, Immature Granulocyte % (Auto) 1, Neutrophils (%) (Auto) 61, Lymphocytes (%) (Auto) 19, Monocytes (%) (Auto) 13H, Eosinophils (%) (Auto) 7, Basophils (%) (Auto) 0, Neutrophils # (Auto) 5.4, Lymphocytes # (Auto) 1.7, Monocytes # (Auto) 1.1H, Eosinophils # (Auto) 0.6H, Basophils # (Auto) 0.0, Immature Granulocyte # (Auto) 0.1, Sodium Level 138, Potassium Level 4.1, Chloride Level 107, Carbon Dioxide Level 21, Anion Gap 10, Blood Urea Nitrogen 20H, Creatinine 1.10, Estimat Glomerular Filtration Rate > 60, BUN/Creatinine Ratio 18, Glucose Level 148H, Calcium Level 8.4L, Phosphorus Level 3.0, Magnesium Level 1.9 06/17/20 06:45: Glucometer 160H Microbiology 06/14/20 MRSA Screen - Final, Complete MRSA not isolated Clinical Quality Measures DVT/VTE Risk/Contraindication: Risk Factor Score Per Nursin RFS Level Per Nursing on Admit: 4+=Very High LILLIAN LISA MD Jun 17, 2020 08:38
--- NOTE | 2020-06-17 09:37 | Electrophysiology Consultation ---
HPI-Cardiology Cardiology Consultation: Date of Consultation 06/17/20 Date of Admission Attending Physician Joy Gramajo MD [facility] Admitting Physician Lillian Santacruz MD Consulting Physician Cherrie ALLEN MD HPI: Time Seen by a Provider: 12:00 Chief Complaint: Dizziness, syncope This is a 83-year-old gentleman. Cardiac electrophysiology consultation is requested by Dr. Gramajo. The patient has chronic atrial fibrillation and severe bradycardia requiring single-chamber permanent pacemaker done by Dr. Paula in January 2020. Patient presented with syncope and dizziness and was found to be significantly bradycardic. Device interrogation showed non-capture despite high output. Chest x-ray showed significant curling and kinking of the lead and prolapse in the left internal jugular. Patient denies active smoking. Pertinent family history is negative. Review of Systems-Cardiology Review of Systems Constitutional: lightheadedness, malaise, tiredness; No weight loss, No weight gain Eyes: No vision change Ears/Nose/Throat: No ear discharge, No recent hearing loss Respiratory: As described under HPI Cardiovascular: As described under HPI, syncope Gastrointestinal: No diarrhea, No nausea, No vomiting Musculoskeletal: back pain (chronic), joint pain (chronic) Skin: No rash, No ulcerations Psychiatric/Neurological: No focal weakness, No syncope Hematologic: No bleeding abnormalities All Other Systems Reviewed Negative Unless Noted: Yes LWA-Loxaef-Invkvg Hx Patient Social History Marrital Status: Alcohol Use: Denies Use Recreational Drug Use: No Smoking Status: Former Smoker Type Used: Cigarettes 2nd Hand Smoke Exposure: No Recent Foreign Travel: No Recent Infectious Disease Expo: No Immunizations Up To Date Tetanus Booster (TDap): Unknown Date of Pneumonia Vaccine: Nov 01, 2014 Date of Influenza Vaccine: Jul 14, 2017 Past Medical History PMH As described under Assessment. Family Medical History Family History: BONE CAN 19 FATHER Completed stroke 19 MOTHER G8 SISTER Dementia 19 MOTHER FH: lung cancer FH: malignant neoplasm of bone Myocardial infarction G8 BROTHER Allergies and Home Medications Allergies Coded Allergies: latex (Verified Allergy, Unknown, 10/19/18) oxycodone (Verified Allergy, Unknown, 10/19/18) Home Medications Amlodipine Besylate 5 Mg Tablet, 5 MG PO DAILY Prescribed by: LILLIAN SANTACRUZ on 06/19/20 0902 Betamethasone Dipropionate 15 Gm Oint...g., 1 APPLIC TOP TID PRN for ITCHING, (Reported) Cefuroxime Axetil 500 Mg Tablet, 500 MG PO BID Prescribed by: LILLIAN SANTACRUZ on 06/19/20901 Clopidogrel Bisulfate 75 Mg Tablet, 75 MG PO DAILY Prescribed by: LILLIAN SANTACRUZ on 06/19/20901 Famotidine 20 Mg Tablet, 20 MG PO DAILY Prescribed by: LILLIAN SANTACRUZ on 01/31/20846 Furosemide 20 Mg Tablet, 20 MG PO BID Prescribed by: LILLIAN SANTACRUZ on 01/31/20846 Insulin Aspart 300 Units/3 Ml Solution, 5 UNITS SC TIDAC, (Reported) Insulin Detemir 100 Unit/1 Ml Insuln.pen, 15 UNIT SQ HS, (Reported) Losartan Potassium 50 Mg Tablet, 50 MG PO DAILY Prescribed by: LILLIAN SANTACRUZ on 06/19/20901 Ondansetron 4 Mg Tab.rapdis, 4 MG PO Q6H PRN for NAUSEA/VOMITING-1ST LINE Prescribed by: LILLIAN SANTACRUZ on 01/31/20846 Potassium Chloride 10 Meq Tablet.er, 10 MEQ PO BID Prescribed by: LILLIAN SANTACRUZ on 06/19/20901 Rivaroxaban 20 Mg Tablet, 20 MG PO DAILY W/ DINNER, (Reported) TAKES IN THE EVENING WITH A MEAL Patient Home Medication List Home Medication List Reviewed: Yes Physical Exam-Cardiology Physical Exam Vital Signs/I&O Capillary Refill : Less Than 3 SecondsLess Than 3 Seconds Constitutional: AAO x 3, well-developed, well-nourished HEENT: EOMI, hearing is well preserved Neck: carotid pulses are 2 + bilaterally, with good upstrokes Respiratory: No accessory muscle use; other (good air entry that is diminished at the bases, more so on the R base) Cardiovascular: irregularly irregular, S1 and S2, systolic murmur (soft PENELOPE at card base) Gastrointestinal: No tender; soft; No guarding, No rebound; audible bowel sounds Extremities: No clubbing, No cyanosis, No significant edema Neurologic/Psychiatric: oriented x 3, other (moves all limbs equally) Skin: No rash on exposed areas, No ulcerations on exposed areas Data Review Labs Microbiology 06/14/20 MRSA Screen - Final, Complete MRSA not isolated ECG Impression ECG Comment Chronic atrial fibrillation, paced rhythm. A/P-Cardiology Assessment/Admission Diagnosis Chronic atrial fibrillation, Syncope, Pacemaker dysfunction, Twiddler's syndrome Plan Pacemaker lead revision, possible lead extraction and implantation of a new lead is recommended I discussed at length with the patient and 1 percent risk of major complication was discussed. Patient accepted all risks and consented to the procedure. Patient has a temporary pacemaker which was done by Dr. Gramajo. Thank you for your consultation. Please call me if you have any questions. Terrell Allen MD, FACP, FACC, FSCAI, FHRS, CCDS Interventional Cardiology Cardiac Electrophysiology Vascular Medicine and Endovascular Interventions Clinical Quality Measures DVT/VTE Risk/Contraindication: Risk Factor Score Per Nursin RFS Level Per Nursing on Admit: 4+=Very High Cherrie ALLEN MD Jun 17, 2020 09:37
[2020-06-17] MEDS: CLOPIDOGREL 75 MG (PLAVIX) TABLET PO SCH (10:26)
[2020-06-17] MEDS: amLODIPine 5 MG (NORVASC) TAB PO SCH (10:26)
[2020-06-17] MEDS: LOSARTAN 25 MG (COZAAR) TAB PO SCH (10:26)
[2020-06-17] MEDS: FAMOTIDINE 20 MG (PEPCID) TABLET PO SCH ×2 (10:26→21:45)
[2020-06-17] MEDS ORDERED: LIDOCAINE 1% INJ 20 ML 20 ML VIAL ONE (13:05)
[2020-06-17] MEDS ORDERED: HEParin (CATH LAB) 1,000 ML IV ONE (13:05)
[2020-06-17] MEDS ORDERED: NS IV 1000 ML 1,000 ML ONE (13:05)
[2020-06-17] MEDS ORDERED: ceFAZolin INJECTION 2,000 MG ONE (13:05)
[2020-06-17] MEDS ORDERED: NS IV 1000 ML 1,000 ML IV ONE (13:06)
[2020-06-17] MEDS ORDERED: NS (IVPB) 100 ML ONE (13:12)
[2020-06-17] MEDS ORDERED: MIDAZOLAM 5 MG/5 ML (VERSED) VIAL ONE (13:13)
[2020-06-17] MEDS ORDERED: fentaNYL INJECTION 100 MCG/2 ML AMP ONE ×2 (13:13→15:59)
[2020-06-17] MEDS ORDERED: ceFAZolin INJECTION 1,000 MG VIAL IV ONE (13:15)
[2020-06-17] MEDS ORDERED: BACITRACIN INJECTION 50,000 UNIT, SODIUM CHLORIDE 0.9% IRRIGATIO 500 ML IR ONE ×2 (13:15)
[2020-06-17 14:04] LABS: INR 1.3 (0.8-1.4); PROTHROMBIN TIME PATIENT 16.4 SEC (12.2-14.7)
--- NOTE | 2020-06-17 14:34 | NUR ---
"RD ASSESSMENT PMHx: HTN; DM; GERD; CA(esophageal) PT INTERACTION: Patient was awake and pleasant during nutrition assessment. Pt states current appetite is not good, and has been this way for the last 3mon. Note avg PO intake 58% x1d, per chart review. Pt states following a regular diet at home, and has no issues with chewing/swallowing food. Pt states no recent issues with nausea, vomiting, constipation, or diarrhea, and that his last BM was 10/3. Note pt not currently on bowel regimen per chart review. Pt states no recent wt changes. Note recent 6# wt loss x5mon, per chart review. Pt states current DM management is pretty good, but would not elaborate when redirected. Note unable to determine recent HbA1c, per chart review. ABNORMAL NUTRITION-RELATED LAB VALUES LOW: Ca 8.4; HIGH: BUN 20; glu 148 Est. kcal needs: 1925 kcal | 20 kcal/kg Est. Pro needs: 77 g Pro | 0.8 g Pro/kg PES STATEMENT: Inadequate oral intake (NI-2.1) related to loss of appetite | NPO status as evidenced by pt interview | chart review | avg PO intake 58% x1d INTERVENTION: Note pt is current NPO, pending procedure. Would recommend diet advancement to consistent CHO diet when medically able and as tolerated. Offered diet education on DM management, but pt declined at this time. Will attempt to offer again prior to discharge. Will continue to follow and reassess as pt needs, intake, and status change. Trace Middleton, MS RD LD"
[2020-06-17] MEDS ORDERED: MIDAZOLAM 2 MG/2 ML (VERSED) VIAL ONE (16:17)
--- NOTE | 2020-06-17 17:06 | Cardiac Procedure Note-CS/ASA ---
Pre-Procedure Note Pre-Op Procedure Note H&P Reviewed The H&P was reviewed, patient examined and no changes noted. Date H&P Reviewed: Jun 17, 2020 Time H&P Reviewed: 09:30 Conscious Sedation Pre-Proced Time 09:30 ASA Score 3 For ASA 3 and 4: Consider anesthesia and medical clearance. Also, for patients with a history of failed moderate sedation consider anesthesia. Airway Lungs Heart ASA score ASA 1: a normal healthy patient ASA 2: a patient with a mild systemic disease (mid diabetes, controlled hypertension, obesity ASA 3: a patient with a severe systemic disease that limits activity (angina, COPD, prior Myocardial infarction) ASA 4: a patient with an incapacitating disease that is a constant threat to life (CHF, renal failure) ASA 5: a moribund patient not expected to survive 24 hrs. (ruptured aneurysm) ASA 6: a declared brain- patient whose organs are being harvested. For emergent operations, add the letter E after the classification Mallampati Classification Grade 1 Sedation Plan Analgesia, Amnesia, Plan communicated to team members, Discussed options with patient/fam, Discussed risks with patient/fam The patient is an appropriate candidate to undergo the planned procedure, sedation, and anesthesia. The patient immediately re-assessed prior to indication. Cherrie LANDRUM MD Jun 17, 2020 17:06
[2020-06-17] MEDS ORDERED: NS IV 1000 ML 1,000 ML IV SCH (17:12)
--- NOTE | 2020-06-17 17:12 | Permanent Pacemaker Implant ---
Dual Chamber Pacemaker Implant RV PACEMAKER LEAD EXTRACTION and NEW RV PACEMAKER LEAD IMPLANTATION DATE OF PROCEDURE: 06/17/20 PROCEDURE PHYSICIAN: Terrell Allen MD INDICATION: PREOPERATIVE DIAGNOSIS: POSTOPERATIVE DIAGNOSIS: HISTORY: Dual-chamber permanent pacemaker was recommended. PROCEDURE PERFORMED: 1. Attempted RV lead revision. 2. Fluoroscopy. 3. Central venous access. 4. Pocket revision. 5. RV lead extraction. 6. New RV lead implantation. ANESTHESIA: Local anesthesia, conscious sedation. COMPLICATIONS: None. ESTIMATED BLOOD LOSS:20 mL. SPECIMENS: None. ORAL ANTICOAGULATION: None. FLUOROSCOPY TIME: 18.4 min FLUOROSCOPY DOSE: 341 mgy. CONTRAST DOSE: none. PROCEDURE DETAILS: The patient is a 84 male and after all of the patients questions were answered, the patient was brought to the EP Lab. The patient's left chest was prepped and draped in sterile fashion. A 2 inch horizontal incision was made 1 cm below the clavicle and dissection carried down to the pectoralis fascia. Using the modified Seldinger technique and under fluoroscopy guidance, the anterior aspect of the left axillary vein was accessed 2 times. The J wires were secured to the drapes with a mosquito clamp. A 7-Lao sheath was introduced over one of the J-wires. The RV lead was then inserted. The RV lead was directed across the tricuspid valve to the apical septal portion of the right ventricle. The position was checked in KILO and BEAN views. The screw was deployed and the lead connected to the programmer analyst health it. Close sensing and pacing thresholds were obta ined. Diaphragmatic pacing was ruled out. The lead was secured with 2-0 silk ties to the underlying muscle and fascia. Next, a 7-Lao sheath was introduced through the remaining J-wire. An atrial lead was then introduced and guided to the level of the right appendage. The screw was deployed and the lead was connected to the interrogator. Good sensing and pacing thresholds were obtained. Diaphragmatic pacing was ruled out. The leads were secured with 2-0 silk ties to the underlying muscle and fascia. The leads were connected to the device in a hermetic fashion. The device and leads were placed in the pocket. Aggressive irrigation with saline solution was done. The device was secured to the underlying muscle and fascia with a 2-0 silk tie. interrogation of the device revealed good integrity of all the leads and good connections. The wound was then closed using 2 layers. The first layer was interrupted 2-0 absorbable Vicryl suture. The last layer was a single subcuticular layer with 4- 0 Vicryl suture. Half inch Steri-Strips and a small dressing were then applied to the wound. The patient tolerated the procedure well and was returned to the recovery room in stable condition with stable vital signs. DEVICE INFORMATION: RA LEAD: RV LEAD: PER-OPERATIVE DEVICE INTERROGATION: IMMEDIATE POSTOPERATIVE DEVICE INTERROGATION: PLAN: The patient transferred to the ICU. We will continue with two more doses of IV antibiotics. We will check a chest x-ray and interrogate the device in the morning. The patient will continue on oral antibiotics for 5 days. Terrell Allen MD, [facility] Cardiac Electrophysiology Cherrie ALLEN MD Jun 17, 2020 17:12
[2020-06-17] MEDS ORDERED: PATIENT MAY USE OWN MEDS, ALL PO SCH (17:15)
--- NOTE | 2020-06-17 17:50 | Diagnostic Imaging Report ---
EXAMINATION: Chest 1 view HISTORY: Post right ventricular lead extraction and new right ventricular lead implant. COMPARISON: 06/14/2020. FINDINGS: A left pectoral pacemaker is visualized with a right ventricular lead in place. The previously visualized lead is coiled within a vessel on the left neck has been removed. There may be looping of the new lead versus additional wire overlying the patient. The right internal jugular central line is stable in configuration. Decreased small right pleural effusion is seen. Hazy opacities are seen throughout the lungs. The heart size is prominent. No evidence of pneumothorax. No acute osseous abnormalities. IMPRESSION: 1. Replacement of the left pectoral pacemaker right ventricular lead with the tip overlying the right ventricle. There is possible looping of the distal aspect of this lead versus additional wiring overlying the patient. Consider repeat radiograph ensuring that all additional wiring is removed overlying the patient. 2. Decreased small right pleural effusion with continued hazy opacities throughout the lungs likely representing edema. Dictated by: Dictated on workstation # [id number]
[2020-06-17] MEDS: ENOXAPARIN 40 MG/0.4 ML (LOVENOX) SYR SC SCH (18:03)
--- NOTE | 2020-06-17 18:15 | Progress Note - Cardiology ---
Cardiology SOAP Progress Note Subjective: Pt somnolent after procedure. Difficult to awaken. Does not report any symptoms Objective: I&O/Vital Signs 06/17/20 06/17/20 06/17/20 06/17/20 06:41 07:00 08:00 08:30 Temp 37.4 Pulse 60 60 60 Resp 21 25 B/P (MAP) 164/69 (100) 151/74 (99) Pulse Ox 95 94 O2 Delivery Room Air Room Air 06/17/20 06/17/20 06/17/20 06/17/20 09:00 10:00 11:00 11:41 Temp 36.7 Pulse 65 59 69 Resp 29 28 19 B/P (MAP) 181/77 (111) 169/88 (115) 167/72 (103) Pulse Ox 96 94 O2 Delivery Room Air Room Air Room Air 06/17/20 06/17/20 06/17/20 06/17/20 12:00 12:53 13:00 14:00 Pulse 64 65 59 71 Resp 19 24 27 B/P (MAP) 161/77 (105) 151/69 (96) 159/72 (101) Pulse Ox 97 93 96 O2 Delivery Room Air Room Air Room Air 06/17/20 00:00 Intake Total 680 ml Output Total 700 ml Balance -20 ml Weight (Pounds): 240 Weight (Ounces): 0.0 Weight (Calculated Kilograms): 108.661317 Constitutional: well-developed, well-nourished Respiratory: No accessory muscle use; other (good air entry that is diminished at the bases, more so on the R base) Cardiovascular: irregularly irregular, S1 and S2, systolic murmur (soft PENELOPE at card base) Gastrointestional: No tender; soft; No guarding, No rebound; audible bowel sounds Extremities: No clubbing, No cyanosis, No significant edema Neurologic/Psychiatric: other (moves all limbs equally) Skin: No rash on exposed areas, No ulcerations on exposed areas Results/Procedures: Labs Laboratory Tests 06/16/20 20:58: Glucometer 254H 06/17/20 02:48: White Blood Count 8.9, Red Blood Count 4.14L, Hemoglobin 11.9L, Hematocrit 37L, Mean Corpuscular Volume 89, Mean Corpuscular Hemoglobin 29, Mean Corpuscular Hemoglobin Concent 32, Red Cell Distribution Width 13.7, Platelet Count 335, Mean Platelet Volume 9.8, Immature Granulocyte % (Auto) 1, Neutrophils (%) (Auto) 61, Lymphocytes (%) (Auto) 19, Monocytes (%) (Auto) 13H, Eosinophils (%) (Auto) 7, Basophils (%) (Auto) 0, Neutrophils # (Auto) 5.4, Lymphocytes # (Auto) 1.7, Monocytes # (Auto) 1.1H, Eosinophils # (Auto) 0.6H, Basophils # (Auto) 0.0, Immature Granulocyte # (Auto) 0.1, Sodium Level 138, Potassium Level 4.1, Chloride Level 107, Carbon Dioxide Level 21, Anion Gap 10, Blood Urea Nitrogen 20H, Creatinine 1.10, Estimat Glomerular Filtration Rate > 60, BUN/Creatinine Ratio 18, Glucose Level 148H, Calcium Level 8.4L, Phosphorus Level 3.0, Magnesium Level 1.9 06/17/20 06:45: Glucometer 160H 06/17/20 13:21: Glucometer 177H 06/17/20 13:40: Prothrombin Time 16.4H, INR Comment 1.3, Activated Partial Thromboplast Time 53H 06/17/20 17:55: Glucometer 146H Microbiology 06/14/20 MRSA Screen - Final, Complete MRSA not isolated Laboratory Tests 06/16/20 04:11 06/17/20 02:48 Laboratory Tests 06/16/20 04:11 06/17/20 02:48 A/P: Assessment: 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 Temp pacemaked placed on 06/14/20. Lead extraction and new lead placement by Dr Allen on 06/17/20 Chronic atrial fibrillation with severe bradycardia, s/p PPM (Medtronic) by Dr Paula on 01/26/2020. Lead replacement by Dr Allen on 06/17/20 Chronic stroke prophylaxis with Xarelto, held beginning 06/15/20 H/o R pleural effusion. CXR on 06/14/20 shows R pleural/parenchymal opacity PAD and h/o multiple interventions: angiogram was done on September 07, 2018 showed total occlusion of the tibial peroneal trunk on the left with successful balloon angioplasty and reestablishing flow through the peroneal artery down to the foot, the posterior tibial artery is receiving collaterals and the anterior tibial artery has severe disease distally also receiving collateral from the peroneal artery. The SFA has severe stenosis at multiple segment underwent deployment of 2 overlapping SUPERA 6 x 150 and 5.5 x 100 with excellent results and excellent flow. Patient was noted to have on the right SFA multiple segment of moderate to moderately severe stenosis and disease below the trifurcation. October 20, 2018 had balloon angioplasty to the right SFA with Turrell 5 and 6 mm balloon with excellent results, the right popliteal artery is totally occluded at the trifurcation with reconstruction by collateral with slow flow that improved after nitroglycerin injection Cardiac cath on October 19, 2018 showing multivessel coronary artery disease including calcified artery with moderate to severe stenosis at the mid LAD, mode rate to severe stenosis at the distal LAD with severe stenosis at the distal circumflex artery and moderate stenosis at the midright coronary artery with severe stenosis at the distal right coronary artery, normal left ventricular size, managed medically Hypertension Hyperlipidemia Limited ambulation (uses a walker) Mild bilateral disease nonobstructive on carotid u/s of August 2018 Adenocarcinoma of the GE junction, 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 Gonzalez. Diabetes mellitus, labile blood sugar Plan: * Resume Xarelto probably tomorrow if no bleeding at site of new implant * Continue previous regimen * Monitor labs CHARLA GALLARDO MD FACP [facility] CCDS Jun 17, 2020 18:15
[2020-06-17] MEDS: ceFAZolin INJECTION 1,000 MG in WATER (STERILE) FOR INJECTION 10 ML IV SCH (22:56)
[2020-06-17] MEDS ORDERED: morphine INJ 4 MG/ML 1 ML (VIAL/SYRINGE) ONE (23:51)
[2020-06-18] VITALS (23 sets, daily range): BP systolic 141–183; BP diastolic 60–91
[2020-06-18] MEDS ORDERED: morphine INJ 4 MG/ML 1 ML (VIAL/SYRINGE) IVP PRN
[2020-06-18 04:04] LABS: BASOPHILS # (AUTO) 0.1 10^3/uL (0.0-0.1); BASOPHILS % (AUTO) 1 % (0-10); EOSINOPHILS # (AUTO) 0.3 10^3/uL (0.0-0.3); EOSINOPHILS % (AUTO) 3 % (0-10); HEMATOCRIT 38 % (40-54); HEMOGLOBIN 11.9 g/dL (13.3-17.7); LYMPHOCYTES # (AUTO) 1.3 10^3/uL (1.0-4.0); LYMPHOCYTES % (AUTO) 14 % (12-44); MEAN CORPUSCULAR HEMOGLOBIN 28 pg (25-34); MEAN CORPUSCULAR HGB CONC 32 g/dL (32-36); MEAN CORPUSCULAR VOLUME 90 fL (80-99); MEAN PLATELET VOLUME 9.7 fL (9.0-12.2); MONOCYTES % (AUTO) 11 % (0-12); NEUTROPHILS # (AUTO) 6.7 10^3/uL (1.8-7.8); NEUTROPHILS % (AUTO) 72 % (42-75); PLATELET COUNT 325 10^3/uL (130-400); WHITE BLOOD COUNT 9.4 10^3/uL (4.3-11.0)
[2020-06-18 04:25] LABS: CHLORIDE 108 MMOL/L (98-107); POTASSIUM 4.3 MMOL/L (3.6-5.0); SODIUM 137 MMOL/L (135-145)
[2020-06-18 04:27] LABS: GLUCOSE 184 MG/DL (70-105)
[2020-06-18 04:28] LABS: CARBON DIOXIDE 20 MMOL/L (21-32)
[2020-06-18 04:30] LABS: PHOSPHORUS 3.2 MG/DL (2.3-4.7)
[2020-06-18 04:31] LABS: CREATININE SERUM 0.98 MG/DL (0.60-1.30); GFR ESTIMATED > 60
[2020-06-18 04:32] LABS: BUN/CREATININE RATIO 18
[2020-06-18 04:33] LABS: MAGNESIUM 1.8 MG/DL (1.6-2.4)
[2020-06-18] MEDS: inSUlin ASPART (NovoLOG) 1 UNIT/0.01 ML (CHARGE PER UNIT) SC SCH ×4 (05:26→20:21)
[2020-06-18] MEDS: ceFAZolin INJECTION 1,000 MG in WATER (STERILE) FOR INJECTION 10 ML IV SCH (05:36)
--- NOTE | 2020-06-18 08:10 | Progress Note ---
Subjective All Other Systems Reviewed All Other Systems Reviewed: Yes Objective Exam Vital Signs Vital Signs - First Documented 06/14/20 06/14/20 15:30 17:50 Temp 37.1 Pulse 37 Resp 24 B/P (MAP) 169/70 (103) Pulse Ox 98 O2 Delivery Room Air Capillary Refill : Less Than 3 SecondsLess Than 3 Seconds General Appearance: No Apparent Distress HEENT: Normal ENT Inspection Neck: Supple Respiratory: Decreased Breath Sounds Cardiovascular: Systolic Murmur, Irregularly Irregular Gastrointestinal: Normal Bowel Sounds, Non Tender, Soft Rectal: Deferred Back: No CVA Tenderness Extremity: Non Tender, No Calf Tenderness, No Pedal Edema Neurologic/Psychiatric: Alert, Oriented x3 Skin: Warm/Dry Results Lab Laboratory Tests 06/17/20 13:21: Glucometer 177H 06/17/20 13:40: Prothrombin Time 16.4H, INR Comment 1.3, Activated Partial Thromboplast Time 53H 06/17/20 17:55: Glucometer 146H 06/17/20 21:09: Glucometer 166H 06/18/20 03:46: White Blood Count 9.4, Red Blood Count 4.20L, Hemoglobin 11.9L, Hematocrit 38L, Mean Corpuscular Volume 90, Mean Corpuscular Hemoglobin 28, Mean Corpuscular Hemoglobin Concent 32, Red Cell Distribution Width 13.4, Platelet Count 325, Suzanne n Platelet Volume 9.7, Immature Granulocyte % (Auto) 1, Neutrophils (%) (Auto) 72, Lymphocytes (%) (Auto) 14, Monocytes (%) (Auto) 11, Eosinophils (%) (Auto) 3, Basophils (%) (Auto) 1, Neutrophils # (Auto) 6.7, Lymphocytes # (Auto) 1.3, Monocytes # (Auto) 1.0, Eosinophils # (Auto) 0.3, Basophils # (Auto) 0.1, Immature Granulocyte # (Auto) 0.1, Sodium Level 137, Potassium Level 4.3, Chloride Level 108H, Carbon Dioxide Level 20L, Anion Gap 9, Blood Urea Nitrogen 18, Creatinine 0.98, Estimat Glomerular Filtration Rate > 60, BUN/Creatinine Ratio 18, Glucose Level 184H, Calcium Level 8.0L, Phosphorus Level 3.2, Magnesium Level 1.8 Microbiology 06/14/20 MRSA Screen - Final, Complete MRSA not isolated Clinical Quality Measures DVT/VTE Risk/Contraindication: Risk Factor Score Per Nursin RFS Level Per Nursing on Admit: 4+=Very High LILLIAN LISA MD Jun 18, 2020 08:10
--- NOTE | 2020-06-18 09:23 | Diagnostic Imaging Report ---
EXAMINATION: Chest 1 view HISTORY: Pacemaker COMPARISON: 06/17/2020 FINDINGS: Pacemaker is present. There appears to be a single lead projecting over the right ventricle. Another lead projecting over the heart appears to be placed from an inferior approach. Right internal jugular central venous catheter tip terminates in the superior vena cava. There is moderate right pleural effusion. No left pleural effusion. No pneumothorax. Heart size is normal. IMPRESSION: 1. Moderate right pleural effusion with overlying atelectasis. Dictated by: Dictated on workstation # [id number]
--- NOTE | 2020-06-18 09:50 | NUR ---
DR LANDRUM REMOVED TEMPORARY PACEMAKER. THIS NURSE AT BEDSIDE. DR LANDRUM REMOVED SHEATH. THIS RN HELD PRESSURE. PT IS TO BE ON BEDREST FOR ONE MORE HOUR THEN HE MAY GET UP. DRESSING CLEAN DRY AND INTACT. WILL CONTINUE TO MONITOR.
[2020-06-18] MEDS: FUROSEMIDE 20 MG (LASIX) TAB PO SCH ×2 (10:01→16:54)
[2020-06-18] MEDS: CLOPIDOGREL 75 MG (PLAVIX) TABLET PO SCH (10:01)
[2020-06-18] MEDS: FAMOTIDINE 20 MG (PEPCID) TABLET PO SCH ×2 (10:01→20:21)
[2020-06-18] MEDS: LOSARTAN 25 MG (COZAAR) TAB PO SCH (10:01)
[2020-06-18] MEDS: amLODIPine 5 MG (NORVASC) TAB PO SCH (10:04)
--- NOTE | 2020-06-18 10:33 | Cardiology Post Procedure Note ---
Post-Procedure Note Physician (s)/Sports Clerk (s) Physician Cherrie LANDRUM MD Pre-Procedure Diagnosis Pre-Procedure Diagnosis: chronic atrial fibrillation, severe bradycardia Post-Procedure Note Procedure Start Date: Jun 20, 2020 Procedure Start Time: 09:30 Name of Procedure: Temporary pacemaker removal. Findings/Procedure Note Under sterile condition the temporary pacemaker was taken out. Patient has a permanent pacemaker with RV lead which continued to pace at 60 BPM. Venous sheath taken out and pressure held. Estimated blood loss (mL): 0 Contrast Amount: none Post-Procedure Diagnosis Post-operative diagnosis: 1. Chronic atrial fibrillation 2. Severe bradycardia 3. Temporary pacemaker removal. Cherrie LANDRUM MD Jun 18, 2020 10:33
[2020-06-18] MEDS ORDERED: ceFAZolin INJECTION 1,000 MG in WATER (STERILE) FOR INJECTION 10 ML IV SCH (12:00)
--- NOTE | 2020-06-18 12:01 | Progress Note - Cardiology ---
Cardiology SOAP Progress Note Subjective: Lying in bed. Denies any c/o pain, CP, palpitations or shortness of breath. Objective: I&O/Vital Signs 06/18/20 06/18/20 06/18/20 06/18/20 20:00 20:00 20:13 21:00 Temp 37.3 Pulse 76 60 Resp 18 15 B/P (MAP) 183/85 (117) 141/67 (91) Pulse Ox 96 99 O2 Delivery Room Air Room Air Room Air 06/18/20 06/18/20 06/19/20 06/19/20 22:00 23:00 00:00 00:00 Temp 36.9 Pulse 63 59 67 Resp 14 24 18 B/P (MAP) 167/74 (105) 161/64 (96) Pulse Ox 100 97 97 O2 Delivery Room Air Room Air Room Air 06/19/20 06/19/20 06/19/20 06/19/20 00:00 01:00 01:00 02:00 Pulse 70 70 66 Resp 18 14 B/P (MAP) 163/87 (112) Pulse Ox 97 96 96 O2 Delivery Room Air Room Air Room Air 06/19/20 06/19/20 06/19/20 06/19/20 03:00 04:00 04:00 04:00 Temp 37.1 Pulse 71 63 Resp 22 13 B/P (MAP) 155/74 (101) 143/74 (97) Pulse Ox 92 95 95 O2 Delivery Room Air Room Air Room Air 06/19/20 05:00 Pulse 60 Resp 14 B/P (MAP) Pulse Ox 91 O2 Delivery Room Air 06/19/20 00:00 Intake Total 435 ml Output Total 1350 ml Balance -915 ml Weight (Pounds): 240 Weight (Ounces): 0.0 Weight (Calculated Kilograms): 108.415578 Side: left Device Insertion Site: without hematoma, no signs of inflammation Swelling: without swelling Bruising: moderated bruising Constitutional: well-developed, well-nourished Respiratory: No accessory muscle use; other (good air entry that is diminished at the bases, more so on the R base) Cardiovascular: irregularly irregular, S1 and S2, systolic murmur (soft PENELOPE at card base) Gastrointestional: No tender; soft; No guarding, No rebound; audible bowel sounds Extremities: No clubbing, No cyanosis, No significant edema Neurologic/Psychiatric: other (moves all limbs equally) Skin: No rash on exposed areas, No ulcerations on exposed areas Results/Procedures: Labs Laboratory Tests 06/18/20 11:16: Glucometer 147H 06/18/20 15:34: Glucometer 202H 06/18/20 20:16: Glucometer 156H 06/19/20 03:06: White Blood Count 8.8, Red Blood Count 4.01L, Hemoglobin 11.5L, Hematocrit 36L, Mean Corpuscular Volume 89, Mean Corpuscular Hemoglobin 29, Mean Corpuscular He moglobin Concent 32, Red Cell Distribution Width 13.2, Platelet Count 316, Mean Platelet Volume 9.8, Immature Granulocyte % (Auto) 1, Neutrophils (%) (Auto) 64, Lymphocytes (%) (Auto) 16, Monocytes (%) (Auto) 12, Eosinophils (%) (Auto) 7, Basophils (%) (Auto) 1, Neutrophils # (Auto) 5.6, Lymphocytes # (Auto) 1.4, Monocytes # (Auto) 1.1H, Eosinophils # (Auto) 0.6H, Basophils # (Auto) 0.1, Immature Granulocyte # (Auto) 0.0, Sodium Level 135, Potassium Level 3.8, Chlor regan Level 104, Carbon Dioxide Level 22, Anion Gap 9, Blood Urea Nitrogen 16, Creatinine 1.08, Estimat Glomerular Filtration Rate > 60, BUN/Creatinine Ratio 15, Glucose Level 245H, Calcium Level 8.0L, Phosphorus Level 2.4, Magnesium Level 1.6 Microbiology 06/14/20 MRSA Screen - Final, Complete MRSA not isolated A/P: Assessment: 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 Temp pacemaked placed on . Lead extraction and new lead placement by Dr Allen on 06/17/20 Chronic atrial fibrillation with severe bradycardia, s/p PPM (Medtronic) by Dr Paula on 01/26/2020. Lead replacement by Dr Allen on 06/17/20 Chronic stroke prophylaxis with Xarelto, held beginning 06/15/20 H/o R pleural effusion. CXR on 06/14/20 shows R pleural/parenchymal opacity PAD and h/o multiple interventions: angiogram was done on September 07, 2018 showed total occlusion of the tibial peroneal trunk on the left with successful balloon angioplasty and reestablishing flow through the peroneal artery down to the foot, the posterior tibial artery is receiving collaterals and the anterior tibial artery has severe disease distally also receiving collateral from the peroneal artery. The SFA has severe stenosis at multiple segment underwent deployment of 2 overlapping SUPERA 6 x 150 and 5.5 x 100 with excellent results and excellent flow. Patient was noted to have on the right SFA multiple segment of moderate to moderately severe stenosis and disease below the trifurcation. October 20, 2018 had balloon angioplasty to the right SFA with Broadbent 5 and 6 mm balloon with excellent results, the right popliteal artery is totally occluded at the trifurcation with reconstruction by collateral with slow flow that improved after nitroglycerin injection Cardiac cath on October 19, 2018 showing multivessel coronary artery disease including calcified artery with moderate to severe stenosis at the mid LAD, moderate to severe stenosis at the distal LAD with severe stenosis at the distal circumflex artery and moderate stenosis at the midright coronary artery with severe stenosis at the distal right coronary artery, normal left ventricular size, managed medically Hypertension Hyperlipidemia Limited ambulation (uses a walker) Mild bilateral disease nonobstructive on carotid u/s of August 2018 Adenocarcinoma of the GE junction, 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 Gonzalez. Diabetes mellitus, labile blood sugar Plan: * Resume Xarelto today * BP not well controlled, increase Losartan * Continue previous regimen * Monitor labs MILADYS MAIER Jun 18, 2020 12:01
[2020-06-18] MEDS ORDERED: LOSARTAN 25 MG (COZAAR) TAB PO NR (12:15)
--- NOTE | 2020-06-18 14:16 | NUR ---
pt lives with his Marlene rao. He is a retired [employer] but has been chronically for some time. In the past, he has received home health services from [facility]. He liked the home health nurse but didn't want to work with therapies. Recommend resumption of Home Health Nursing upon discharge tos assist in his continued care.
--- NOTE | 2020-06-18 15:38 | Progress Note - Cardiology ---
Cardiology SOAP Progress Note Subjective: Feels well today No cp or palp or syncope or shortness of breath at rest Gen weakness No focal weakness Objective: I&O/Vital Signs 06/18/20 06/18/20 06/18/20 06/18/20 04:00 04:00 05:00 06:00 Pulse 65 59 60 Resp 9 15 16 B/P (MAP) 170/68 (102) 165/86 (112) 162/83 (109) Pulse Ox 96 98 90 O2 Delivery Room Air Room Air Room Air Room Air 06/18/20 06/18/20 06/18/20 06/18/20 06:36 07:41 08:00 11:15 Temp 36.6 36.8 Pulse 61 O2 Delivery Room Air 06/18/20 06/18/20 12:00 15:30 O2 Delivery Room Air Room Air 06/18/20 00:00 Intake Total 0 ml Output Total 250 ml Balance -250 ml Weight (Pounds): 240 Weight (Ounces): 0.0 Weight (Calculated Kilograms): 108.464402 Side: left Device Insertion Site: without hematoma, no signs of inflammation Swelling: without swelling Bruising: moderated bruising Constitutional: well-developed, well-nourished Respiratory: other Cardiovascular: irregularly irregular, S1 and S2, systolic murmur Gastrointestional: soft, audible bowel sounds Extremities: No clubbing, No cyanosis, No significant edema Neurologic/Psychiatric: other Skin: No rash on exposed areas, No ulcerations on exposed areas Results/Procedures: Labs Laboratory Tests 06/17/20 17:55: Glucometer 146H 06/17/20 21:09: Glucometer 166H 06/18/20 03:46: White Blood Count 9.4, Red Blood Count 4.20L, Hemoglobin 11.9L, Hematocrit 38L, Mean Corpuscular Volume 90, Mean Corpuscular Hemoglobin 28, Mean Corpuscular Hemoglobin Concent 32, Red Cell Distribution Width 13.4, Platelet Count 325, Mean Platelet Volume 9.7, Immature Granulocyte % (Auto) 1, Neutrophils (%) (Auto) 72, Lymphocytes (%) (Auto) 14, Monocytes (%) (Auto) 11, Eosinophils (%) (Auto) 3, Basophils (%) (Auto) 1, Neutrophils # (Auto) 6.7, Lymphocytes # (Auto) 1.3, Monocytes # (Auto) 1.0, Eosinophils # (Auto) 0.3, Basophils # (Auto) 0.1, Immature Granulocyte # (Auto) 0.1, Sodium Level 137, Potassium Level 4.3, Chloride Level 108H, Carbon Dioxide Level 20L, Anion Gap 9, Blood Urea Nitrogen 18, Creatinine 0.98, Estimat Glomerular Filtration Rate > 60, BUN/Creatinine Ratio 18, Glucose Level 184H, Calcium Level 8.0L, Phosphorus Level 3.2, Magnesium Level 1.8 06/18/20 11:16: Glucometer 147H Microbiology 06/14/20 MRSA Screen - Final, Complete MRSA not isolated A/P: Assessment: 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 Temp pacemaked placed on 06/14/20. Lead extraction and new lead placement by Dr Allen on 06/17/20 Chronic atrial fibrillation with severe bradycardia, s/p PPM (Dis[employer]) by Dr Paula on 01/26/2020. Lead replacement by Dr Allen on 06/17/20 Chronic stroke prophylaxis with Xarelto, held beginning 06/15/20 H/o R pleural effusion. CXR on 06/14/20 shows R pleural/parenchymal opacity PAD and h/o multiple interventions: angiogram was done on September 07, 2018 showed total occlusion of the tibial peroneal trunk on the left with successful balloon angioplasty and reestablishing flow through the peroneal artery down to the foot, the posterior tibial artery is receiving collaterals and the anterior tibial artery has severe disease distally also receiving collateral from the peroneal artery. The SFA has severe stenosis at multiple segment underwent deployment of 2 overlapping SUPERA 6 x 150 and 5.5 x 100 with excellent results and excellent flow. Patient was noted to have on the right SFA multiple segment of moderate to moderately severe stenosis and disease below the trifurcation. October 20, 2018 had balloon angioplasty to the right SFA with Spring 5 and 6 mm balloon with excellent results, the right popliteal artery is totally occluded at the trifurcation with reconstruction by collateral with slow flow that improved after nitroglycerin injection Cardiac cath on October 19, 2018 showing multivessel coronary artery disease including calcified artery with moderate to severe stenosis at the mid LAD, moderate to severe stenosis at the distal LAD with severe stenosis at the distal circumflex artery and moderate stenosis at the midright coronary artery with severe stenosis at the distal right coronary artery, normal left ventricular size, managed medically Hypertension Hyperlipidemia Limited ambulation (uses a walker) Mild bilateral disease nonobstructive on carotid u/s of August 2018 Adenocarcinoma of the GE junction, 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 Gonzalez. Diabetes mellitus, labile blood sugar Plan: * Resume Xarelto today * BP not well controlled, increase Losartan * Advised not to play with or twiddle the pacemaker * Monitor labs CHARLA GALLARDO MD FACP [facility] CCDS Jun 18, 2020 15:38
[2020-06-18] MEDS: ENOXAPARIN 40 MG/0.4 ML (LOVENOX) SYR SC SCH (16:54)
[2020-06-18] MEDS ORDERED: RIVAROXABAN 20 MG TABLET (XARELTO) PO SCH (17:00)
--- NOTE | 2020-06-18 18:00 | Cardiology Progress Note ---
Cardiology SOAP Progress Note Subjective: No cardiac complaints. Objective: I&O/Vital Signs Weight (Pounds): 240 Weight (Ounces): 0.0 Weight (Calculated Kilograms): 108.219988 Side: left Device Insertion Site: without hematoma, no signs of inflammation Swelling: without swelling Bruising: moderated bruising Constitutional: well-developed, well-nourished Respiratory: other Cardiovascular: irregularly irregular, S1 and S2, systolic murmur Gastrointestional: soft, audible bowel sounds Extremities: No clubbing, No cyanosis, No significant edema Neurologic/Psychiatric: other Skin: No rash on exposed areas, No ulcerations on exposed areas Results/Procedures: Labs Microbiology 06/14/20 MRSA Screen - Final, Complete MRSA not isolated A/P: Assessment/Dx: Pacemaker lead dysfunction, Syncope, Twiddler syndrome, Chronic atrial fibrillation Plan: RV lead extraction, new lead implantation. Temporary pacemaker to be taken out. Thank you for your consultation. Please call me if you have any questions. Terrell Allen MD, FACP, FACC, FSCAI, FHRS, CCDS Interventional Cardiology Cardiac Electrophysiology Vascular Medicine and Endovascular Interventions Cherrie ALLEN MD Jun 18, 2020 18:00
[2020-06-19 01:00] VITALS: BP 163/87
[2020-06-19 03:00] VITALS: BP 155/74
[2020-06-19 03:17] LABS: BASOPHILS # (AUTO) 0.1 10^3/uL (0.0-0.1); BASOPHILS % (AUTO) 1 % (0-10); EOSINOPHILS # (AUTO) 0.6 10^3/uL (0.0-0.3); EOSINOPHILS % (AUTO) 7 % (0-10); HEMATOCRIT 36 % (40-54); HEMOGLOBIN 11.5 g/dL (13.3-17.7); LYMPHOCYTES # (AUTO) 1.4 10^3/uL (1.0-4.0); LYMPHOCYTES % (AUTO) 16 % (12-44); MEAN CORPUSCULAR HEMOGLOBIN 29 pg (25-34); MEAN CORPUSCULAR HGB CONC 32 g/dL (32-36); MEAN CORPUSCULAR VOLUME 89 fL (80-99); MEAN PLATELET VOLUME 9.8 fL (9.0-12.2); MONOCYTES # (AUTO) 1.1 10^3/uL (0.0-1.0); MONOCYTES % (AUTO) 12 % (0-12); NEUTROPHILS # (AUTO) 5.6 10^3/uL (1.8-7.8); NEUTROPHILS % (AUTO) 64 % (42-75); PLATELET COUNT 316 10^3/uL (130-400); WHITE BLOOD COUNT 8.8 10^3/uL (4.3-11.0)
[2020-06-19 03:26] LABS: CHLORIDE 104 MMOL/L (98-107); POTASSIUM 3.8 MMOL/L (3.6-5.0); SODIUM 135 MMOL/L (135-145)
[2020-06-19 03:28] LABS: GLUCOSE 245 MG/DL (70-105)
[2020-06-19 03:29] LABS: CARBON DIOXIDE 22 MMOL/L (21-32)
[2020-06-19 03:31] LABS: PHOSPHORUS 2.4 MG/DL (2.3-4.7)
[2020-06-19 03:32] LABS: BUN/CREATININE RATIO 15; CREATININE SERUM 1.08 MG/DL (0.60-1.30); GFR ESTIMATED > 60
[2020-06-19 03:34] LABS: MAGNESIUM 1.6 MG/DL (1.6-2.4)
[2020-06-19] MEDS ORDERED: MAGNESIUM 1 GM/100 ML IVPB 200 ML IV ONE (03:35)
[2020-06-19] MEDS: MAGNESIUM 1 GM/100 ML IVPB 100 ML IV SCH ×2 (03:46→06:10)
[2020-06-19 04:00] VITALS: BP 143/74
[2020-06-19] MEDS ORDERED: MAGNESIUM 1 GM/100 ML IVPB 100 ML IV SCH (06:00)
[2020-06-19] MEDS ORDERED: POTASSIUM CL 10MEQ/50ML IVPB 50 ML IV SCH (06:00)
[2020-06-19] MEDS ORDERED: KCL 20 MEQ TAB (K-DUR) PO SCH (06:00)
[2020-06-19] MEDS: inSUlin ASPART (NovoLOG) 1 UNIT/0.01 ML (CHARGE PER UNIT) SC SCH ×2 (06:09→11:12)
[2020-06-19] MEDS: FUROSEMIDE 20 MG (LASIX) TAB PO SCH (06:13)
[2020-06-19] MEDS ORDERED: LOSARTAN 50 MG (COZAAR) TAB PO SCH (09:00)
[2020-06-19] MEDS ORDERED: CLOP75TA28 PO (09:02)
[2020-06-19] MEDS ORDERED: POTA10TA6 PO (09:02)
[2020-06-19] MEDS ORDERED: AMLO5TAB9 PO (09:02)
[2020-06-19] MEDS ORDERED: LOSA50TA63 PO (09:02)
[2020-06-19] MEDS ORDERED: CEFU500T63 PO (09:02)
--- NOTE | 2020-06-19 09:07 | D/C HH Face to Face Order ---
D/C Face to Face Orders Reconcile Patient Problems Problems Reviewed?: Yes Instructions for Patient [facility] Patient Instructions/FollowUp: 1 wk follow up with [facility] 1 wk follow up with clinical rehabilitation aide do not raise arm above head or above surgical site on left side - see cardiology discharge instructions on arm use and advancement of use of left arm Physician to follow Patient: [facility] Discharge Diet for Home: ADA Diet Patient Problems: sick sinus syndrome hypertension diabetes mellitus pleural effusion advanced age generalized weakness falling episodes at home Goals for Patient: improved strength, ambulation with walker Patient Data-Allergies,Ht & Wt Patient Allergies: Coded Allergies: latex (Verified Allergy, Unknown, 10/19/18) oxycodone (Verified Allergy, Unknown, 10/19/18) Height (Feet): 6 Height (Inches): 2.00 Weight (Pounds): 240 Weight (Ounces): 0.0 Home Health Need/Face to Face Date of Face to Face: Jun 19, 2020 Clinical Findings: Generalized weakness and fatigue, Shortness of breath, Unsteady gait, Other-list in note I have seen Pt [id number]: Yes Discharged To: Home Diagnosis/Conditions: sick sinus syndrome hypertension diabetes mellitus pleural effusion advanced age generalized weakness falling episodes at home Patient is Homebound due to: Jesus fall risk due to instabilty, Muscle weakness Homebound Status Due to the above stated illness, injury or surgical procedure (medical condition or diagnosis) and associated clinical findings, the patient is homebound because of his/her inability to leave home except with aid of a supportive device and/or person AND leaving the home requires a considerable and taxing effort or is medically contraindicated. Pt req the following assistanc: Aid of another person, Walker Home Health Nursing Orders Home Health Services Order: Nursing Services, Physical Therapy-Evaluate & Treat cbc, cmp, mag due on 06/27/2020 pt to eval and treat, eval for need for occupational therapy nursing to check bp and call physician if bp is greater than 170 systolic Home Health Infusion Therapy Line Start Date: Jun 14, 2020 Therapy Orders Therapy Orders: Physical Therapy, PT to assess for OT Therapy Specific Orders: Eval assistive deivces, Gait training, Increase strength/endurance Certify Stmt I certify that this patient is under my care and that I, a nurse practitioner or a physician; a glass ribbon machine operator assistant working with me, had a face to face encounter that - meets the physician face to face encounter requirements with this patient as dated. LILLIAN LISA MD Jun 19, 2020 09:06
--- NOTE | 2020-06-19 09:07 | Discharge Summary ---
Diagnosis/Chief Complaint Date of Admission Jun 14, 2020 at 17:26 Date of Discharge Discharge Date: Jun 19, 2020 Discharge Time: 1000 Discharge Summary Discharge Physical Examination Allergies: Coded Allergies: latex (Verified Allergy, Unknown, 10/19/18) oxycodone (Verified Allergy, Unknown, 10/19/18) Vitals & I&Os Vital Signs Date Time Temp Pulse Resp B/P (MAP) Pulse Ox O2 Delivery O2 Flow Rate FiO2 06/19/20 07:58 36.7 06/19/20 05:00 60 14 91 Room Air Hospital Course Pending Labs Laboratory Tests 06/19/20 03:06: White Blood Count 8.8, Red Blood Count 4.01, Hemoglobin 11.5, Hematocrit 36, Mean Corpuscular Volume 89, Mean Corpuscular Hemoglobin 29, Mean Corpuscular Hemoglobin Concent 32, Red Cell Distribution Width 13.2, Platelet Count 316, Mean Platelet Volume 9.8, Immature Granulocyte % (Auto) 1, Neutrophils (%) (Auto) 64, Lymphocytes (%) (Auto) 16, Monocytes (%) (Auto) 12, Eosinophils (%) (Auto) 7, Basophils (%) (Auto) 1, Neutrophils # (Auto) 5.6, Lymphocytes # (Auto) 1.4, Monocytes # (Auto) 1.1, Eosinophils # (Auto) 0.6, Basophils # (Auto) 0.1, Immature Granulocyte # (Auto) 0.0, Sodium Level 135, Potassium Level 3.8, Chloride Level 104, Carbon Dioxide Level 22, Anion Gap 9, Blood Urea Nitrogen 16, Creatinine 1.08, Estimat Glomerular Filtration Rate > 60, BUN/Creatinine Ratio 15, Glucose Level 245, Calcium Level 8.0, Phosphorus Level 2.4, Magnesium Level 1.6 Discharge Instructions to patient/family Please see electronic discharge instructions given to patient. Discharge Medications Reviewed and agree with Discharge Medication list on patient's Discharge Instruction sheet Clinical Quality Measures DVT/VTE Risk/Contraindication: Risk Factor Score Per Nursin RFS Level Per Nursing on Admit: 4+=Very High LILLIAN LISA MD Jun 19, 2020 09:07
[2020-06-19] MEDS: CLOPIDOGREL 75 MG (PLAVIX) TABLET PO SCH (09:58)
[2020-06-19] MEDS: amLODIPine 5 MG (NORVASC) TAB PO SCH (09:58)
[2020-06-19] MEDS: FAMOTIDINE 20 MG (PEPCID) TABLET PO SCH (09:58)
--- NOTE | 2020-06-19 11:56 | Cardiology Progress Note ---
Subjective Date Seen by Provider: Jun 19, 2020 Time Seen by Provider: 11:55 Subjective/Events-last exam Patient sitting up in bed, no new complaint, denies any chest pain or dyspnea. Review of Systems General: No Chills, No Night Sweats, No Fatigue, No Malaise, No Appetite, No Other HEENT: No Head Aches, No Visual Changes, No Eye Pain, No Ear Pain, No Dysphasia, No Sinus Congestion, No Post Nasal Drip, No Sore Throat, No Other Pulmonary: No Dyspnea, No Cough, No Pleuritic Chest Pain, No Other Cardiovascular: No: Chest Pain, Palpitations, Orthopnea, Paroxysmal Noc. Dyspnea, Edema, Lt Headedness, Other Objective-Cardiology Exam Last Set of Vital Signs Vital Signs 06/19/20 06/19/20 06/19/20 06/19/20 05:00 06:42 11:58 12:00 Temp 36.7 Pulse 60 Resp 14 Pulse Ox 96 O2 Delivery Room Air Capillary Refill : Less Than 3 SecondsLess Than 3 Seconds I&O Intake and Output 06/19/20 00:00 Intake Total 1555 ml Output Total 2075 ml Balance -520 ml Intake Oral 525 ml IV Total 1030 ml Output Urine Total 2075 ml General: Alert, Oriented X3, Cooperative HEENT: Atraumatic, PERRLA Neck: Supple, No JVD, No Thyromegaly Lungs: Clear to Auscultation, Normal Air Movement Heart: Regular Rate, Normal S1, Normal S2, No Murmurs Abdomen: Normal Bowel Sounds, Soft, No Tenderness, No Hepatosplenomegaly, No Masses Extremities: No Clubbing, No Cyanosis, No Edema, Normal Pulses, No Tenderness/Swelling Skin: No Rashes, No Breakdown, No Significant Lesion Neuro: Normal Gait, Normal Speech, Strength at 5/5 X4 Ext, Normal Tone, Sensation Intact Psych/Mental Status: Mental Status NL, Mood NL Results Lab Laboratory Tests 06/19/20 03:06 A/P-Cardiology Admission Diagnosis SSS, PPM nonfunction PAD HTN HLP Assessment/Plan 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 Temp pacemaked placed on 06/14/20. Lead extraction and new lead placement by Dr Allen on 06/17/20 Chronic atrial fibrillation with severe bradycardia, s/p PPM ([employer]) by Dr Paula on 01/26/2020. Lead replacement by Dr Allen on 06/17/20 Chronic stroke prophylaxis with Xarelto, held beginning 06/15/20 H/o R pleural effusion. CXR on 06/14/20 shows R pleural/parenchymal opacity PAD and h/o multiple interventions: angiogram was done on September 07, 2018 showed total occlusion of the tibial peroneal trunk on the left with successful balloon angioplasty and reestablishing flow through the peroneal artery down to the foot, the posterior tibial artery is receiving collaterals and the anterior tibial artery has severe disease distally also receiving collateral from the peroneal artery. The SFA has severe stenosis at multiple segment underwent deployment of 2 overlapping SUPERA 6 x 150 and 5.5 x 100 with excellent results and excellent flow. Patient was noted to have on the right SFA multiple segment of moderate to moderately severe stenosis and disease below the trifurcation. October 20, 2018 had balloon angioplasty to the right SFA with [place] 5 and 6 mm balloon with excellent results, the right popliteal artery is totally occluded at the trifurcation with reconstruction by collateral with slow flow that improved after nitroglycerin injection Cardiac cath on October 19, 2018 showing multivessel coronary artery disease including calcified artery with moderate to severe stenosis at the mid LAD, moderate to severe stenosis at the distal LAD with severe stenosis at the distal circumflex artery and moderate stenosis at the midright coronary artery with severe stenosis at the distal right coronary artery, normal left ventricular size, managed medically Hypertension Hyperlipidemia Limited ambulation (uses a walker) Mild bilateral disease nonobstructive on carotid u/s of August 2018 Adenocarcinoma of the GE junction, 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 Gonzalez. Diabetes mellitus, labile blood sugar OK for discharge from cardiology standpoint. F/u next week in our office. Patient was seen and evaluated with Shalonda, examination performed, management plan was discussed, agree with the current scribed note, I made few changes to the note using Italic font Visit with patient today, pacemaker site is healing well We'll arrange for follow-up as an outpatient, started with Ceftin for 5 days. Clinical Quality Measures DVT/VTE Risk/Contraindication: Risk Factor Score Per Nursin RFS Level Per Nursing on Admit: 4+=Very High SHALONDA BRODY Jun 19, 2020 11:56 am SAMANTHA PAULA MD Jun 19, 2020 12:40 pm
--- NOTE | 2020-06-19 13:09 | NUR ---
Arrangements completed for pt discharge. Dr. Santacruz ordered Home Health Care for pt but he adamantly refused Home Health and advised [facility] of his refusal. Dr. Santacruz was also advised. Pt's Marlene is his primary caregiver and she understands his fear of having people in his home currently due to Co-VID crisis. Dr. Santacruz will be following him on out-pt basis.
--- NOTE | 2020-06-19 14:37 | Cardiology Progress Note ---
Cardiology SOAP Progress Note Subjective: No cardiac complaints. Objective: I&O/Vital Signs Weight (Pounds): 240 Weight (Ounces): 0.0 Weight (Calculated Kilograms): 108.268164 Side: left Device Insertion Site: without hematoma, no signs of inflammation Swelling: without swelling Bruising: moderated bruising Constitutional: well-developed, well-nourished Respiratory: other Cardiovascular: irregularly irregular, S1 and S2, systolic murmur Gastrointestional: soft, audible bowel sounds Extremities: No clubbing, No cyanosis, No significant edema Neurologic/Psychiatric: other Skin: No rash on exposed areas, No ulcerations on exposed areas Results/Procedures: Labs Microbiology 06/14/20 MRSA Screen - Final, Complete MRSA not isolated A/P: Assessment/Dx: Pacemaker dysfunction, Twiddler's syndrome, Syncope, Chronic atrial fibrillation Plan: We tried to salvage the RV lead however even after taking out all the kinks and placing it at a different spot, the capture threshold continued to be very high especially when the stylette was taken out. When the stylette was taken out and the lead will get kinked. Therefore after trying numerous times we decided to extract the lead and implant a new lead with excellent results. Temporary pacemaker was left overnight as a backup. Device interrogation this morning showed excellent lead function. We will take out the temporary pacemaker later today. Oral anticoagulation is recommended for chronic atrial fibrillation. Thank you for your consultation. Please call me if you have any questions. Terrell Allen MD, FACP, FACC, FSCAI, FHRS, CCDS Interventional Cardiology Cardiac Electrophysiology Vascular Medicine and Endovascular Interventions Cherrie ALLEN MD Jun 19, 2020 14:37
[2020-06-19 17:01] VITALS: BP 143/74
== END 2020-06-19 12:55 | disposition home health service (06) | DRG 261 ==
LOC: EDUNIT# 15:33 → ER 15:34 → CATH 16:22 → ER 16:29 → CATH 17:25 → ICU 17:26
PROVIDERS: ADMIT Internal Medicine Cardiovascular Disease; ATTEND Internal Medicine Cardiovascular Disease
PROC: 5A1213Z Performance of Cardiac Pacing, Intermittent (ICD-10-PCS; 2020-06-14)
PROC: 02WA3MZ Revision of Cardiac Lead in Heart, Percutaneous Approach (ICD-10-PCS; principal; 2020-06-17)
DX: T82.120A Displacement of cardiac electrode, initial encounter (principal); I48.19 Other persistent atrial fibrillation; C16.0 Malignant neoplasm of cardia; J90 Pleural effusion, not elsewhere classified; I10 Essential (primary) hypertension; K21.9 Gastro-esophageal reflux disease without esophagitis; I73.9 Peripheral vascular disease, unspecified; I25.10 Atherosclerotic heart disease of native coronary artery without angina pectoris; E78.5 Hyperlipidemia, unspecified; I65.23 Occlusion and stenosis of bilateral carotid arteries; E11.65 Type 2 diabetes mellitus with hyperglycemia; M19.91 Primary osteoarthritis, unspecified site; H91.93 Unspecified hearing loss, bilateral; M54.9 Dorsalgia, unspecified; Z79.01 Long term (current) use of anticoagulants; Z95.820 Peripheral vascular angioplasty status with implants and grafts; Z87.891 Personal history of nicotine dependence; Z92.21 Personal history of antineoplastic chemotherapy; Z92.3 Personal history of irradiation; Z87.442 Personal history of urinary calculi
CPT/HCPCS: 33210; 33215; 33222; 36415; 71045; 80048; 80053; 82962; 83735; 83874; 84100; 84484; 85025; 85610; 85730; 87081; 93005; 93041; 99291

== ENCOUNTER 2020-06-19 13:20 | Emergency (ER) | payer MEDICARE ==
[~2020-06-19] VITALS: Ht 182 cm; Wt 95.0 kg
[~2020-06-19 13:20] MED LIST changes: +AMLO5TAB9 PO; +LOSA50TA63 PO
--- NOTE | 2020-06-19 14:26 | ED Trauma-Multisystem ---
General Chief Complaint: Trauma-Non Activation Stated Complaint: FALL Nursing Triage Note: PATIENT WAS BEING D/C'D FROM UPSTAIRS. HE WAS GETTING INTO HIS CAR WITH HIS AND THE NURSE FROM AND HE SAID HE LOST FEELING IN HIS LEFT LEG AND FELL BACKWARDS AND HIT HIS HEAD ON THE GROUND AT THE ER DOORS. WE WERE NOTIFIED AND WENT OUTSIDE WITH A STRETCHER AND A BACK BOARD. HE WAS ALSO PUT IN A C COLLAR. LUCY DAVID WAS HOLDING HIS HEAD UNTIL THE C COLLAR ARRIVES. PT WAS BLEEDING FROM THE BACK OF HIS HEAD WELL AND IS ON BLOOD THINNERS Source of Information: Patient Exam Limitations: No Limitations History of Present Illness Date Seen by Provider: Jun 19, 2020 Time Seen by Provider: 13:30 Initial Comments 84-year-old male who presents to the emergency room after a fall in the hospital parking lot. He was being discharged from inpatient status post pacemaker placement when he was getting into his 's vehicle and lost his footing falling backwards striking his head on the ground. The patient was backboard and transferred to Hospital stretcher. Patient does have bleeding from a 1.5 cm laceration to his posterior scalp. He is on blood thinners. There was no LOC. He denies any head or neck pain. He does complain of right ankle pain. He reports that this was caught in the vehicle when he fell. Occurred: Just Prior to Arrival Pain/Injury Location: Head, Lower Extremity Loss of Consciousness: No Loss of Consciousness Associated Symptoms (Fall): Denies Symptoms Allergies and Home Medications Allergies Coded Allergies: latex (Verified Allergy, Unknown, 10/19/18) oxycodone (Verified Allergy, Unknown, 10/19/18) Home Medications Amlodipine Besylate 5 Mg Tablet, 5 MG PO DAILY Prescribed by: LILLIAN LISA on 06/19/20901 Betamethasone Dipropionate 15 Gm Oint...g., 1 APPLIC TOP TID PRN for ITCHING, (Reported) Cefuroxime Axetil 500 Mg Tablet, 500 MG PO BID Prescribed by: LILLIAN LISA on 06/19/20901 Clopidogrel Bisulfate 75 Mg Tablet, 75 MG PO DAILY Prescribed by: LILLIAN LISA on 06/19/20901 Famotidine 20 Mg Tablet, 20 MG PO DAILY Prescribed by: LILLIAN LISA on 01/31/20 08 Furosemide 20 Mg Tablet, 20 MG PO BID Prescribed by: LILLIAN LISA on 01/31/20846 Insulin Aspart 300 Units/3 Ml Solution, 5 UNITS SC TIDAC, (Reported) Insulin Detemir 100 Unit/1 Ml Insuln.pen, 15 UNIT SQ HS, (Reported) Losartan Potassium 50 Mg Tablet, 50 MG PO DAILY Prescribed by: LILLIAN LISA on 06/19/20901 Ondansetron 4 Mg Tab.rapdis, 4 MG PO Q6H PRN for NAUSEA/VOMITING-1ST LINE Prescribed by: LILLIAN LISA on 01/31/20846 Potassium Chloride 10 Meq Tablet.er, 10 MEQ PO BID Prescribed by: LILLIAN LISA on 06/19/20901 Rivaroxaban 20 Mg Tablet, 20 MG PO DAILY W/ DINNER, (Reported) TAKES IN THE EVENING WITH A MEAL Patient Home Medication List Home Medication List Reviewed: Yes Review of Systems Review of Systems Constitutional: see HPI; No chills, No fever Musculoskeletal: see HPI, joint pain (right ankle pain) Skin: see HPI, other (scalp laceration) All Other Systems Reviewed Negative Unless Noted: Yes Past Wzpczvj-Ejnwsg-Dmhflb Hx Past Med/Social Hx: Reviewed Nursing Past Med/Soc Hx Patient Social History Type Used: Cigarettes Former Smoker, Quit: Sep 07, 1984 2nd Hand Smoke Exposure: No Recent Foreign Travel: No Contact w/Someone Who Travel: No Recent Infectious Disease Expo: No Recent Hopitalizations: No Immunizations Up To Date Tetanus Booster (TDap): Unknown Date of Pneumonia Vaccine: Nov 01, 2014 Date of Influenza Vaccine: Jul 14, 2017 Seasonal Allergies Seasonal Allergies: No Past Medical History Surgeries: Yes (EXC SKIN LESIONS, exc of lesion scrotum, artery in leg opened, arm & leg fx) Pacemaker Respiratory: No Currently Using CPAP: No Currently Using BIPAP: No Cardiac: Yes Hypertension, Peripheral Vascular Neurological: No Reproductive Disorders: No Sexually Transmitted Disease: No HIV/AIDS: No Genitourinary: No Kidney Stones 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 Reflux Musculoskeletal: Yes Arthritis Endocrine: Yes Diabetes, Insulin dep HEENT: Yes Cataract Hearing Impairment: Hard of Hearing, Bilateral Hearing Aide Cancer: Yes Esophageal Did You Recieve Any Treatments: Yes What Type of Treatment Did You: Chemotherapy, Radiation Psychosocial: No Integumentary: No Blood Disorders: No Adverse Reaction/Blood Tranf: No Family Medical History Reviewed Nursing Family Hx BONE CAN 19 FATHER Completed stroke 19 MOTHER G8 SISTER Dementia 19 MOTHER FH: lung cancer FH: malignant neoplasm of bone Myocardial infarction G8 BROTHER Heart Disease, Cancer, CAD Over 55 Years Old, Stroke Physical Exam Vital Signs Vital Signs - First Documented 06/19/20 13:20 Temp 36.8 Pulse 92 Resp 17 B/P (MAP) 150/88 (108) Pulse Ox 95 Height, Weight, BMI Height: 6'2.00" Weight: 240lbs. 0.0oz. 108.014536fz; 28.00 BMI Method:Stated General Appearance: No Apparent Distress, WD/WN Head: Other; No Watson's Sign, No Contusions, No Ecchymosis, No Lacerations, No Raccoon Eyes Eyes: Bilateral Eye Normal Inspection, Bilateral Eye PERRL, Bilateral Eye EOMI Ears, Nose, Throat: Hearing Grossly Normal, No Evidence of ENT Injury, No Dental Injury Neck: Full Range of Motion, Normal Inspection, Non Tender, Supple Cardiovascular: Regular Rate, Rhythm, No Edema, No Gallop, No JVD, No Murmur, Normal Peripheral Pulses Respiratory: Chest Non Tender, Lungs Clear, Normal Breath Sounds, No Accessory Muscle Use, No Respiratory Distress Extremity: Normal Capillary Refill, Other (no deformity or focal point of tenderness to the right ankle.) Neurologic/Psychiatric: Alert, Oriented x3, Normal Mood/Affect Skin: Normal Color, Warm/Dry, Other (1.5 cm laceration to his posterior scalp.) Jose Coma Score Best Eye Response (Jose): (4) Open Spontaneously Best Verbal Response ([place]): (5) Oriented Best Motor Response ([place]): (6) Obeys Commands [place] Total: 15 Progress/Results/Core Measures Results/Orders My Orders Orders - SINA SHEARER Ct Head/Cervical Spine Wo (06/19/20 13:30) Ankle, Right, 3 Views (06/19/20 13:37) Vital Signs/I&O 06/19/20 06/19/20 13:20 14:32 Temp 36.8 Pulse 92 80 Resp 17 17 B/P (MAP) 150/88 (108) 0/0 Pulse Ox 95 97 Blood Pressure Mean: 108 Progress Progress Note : Time: 14:50 Progress Note I have seen and evaluated the patient. I had ordered the patient CT of head and neck and plain film of the ankle and in transportation down to the CT scanner the patient decided he did not want anything in his is feeling better would like to go home. It was advised for him to complete the imaging studies and he adamantly refused. He refuses to have his laceration repaired. He was able to ambulate without difficulty. C-collar was removed. AMA papers were signed. Return precautions were given. Departure Impression Primary Impression: Left against medical advice Additional Impressions: Head injury Right ankle pain Disposition: 07 AGAINST MEDICAL ADVICE Condition: Against Medical Advice Departure-Patient Inst. Referrals: LILLIAN LISA MD (PCP/Family) Primary Care Physician Patient Instructions: Leaving Against Medical Advice Add. Discharge Instructions: All discharge instructions reviewed with patient and/or family. Voiced understanding. SINA SHEARER Jun 19, 2020 14:26
[2020-06-19 14:32] VITALS: BP 0/0
== END 2020-06-19 14:32 | disposition left against medical advice (07) ==
LOC: ER 13:20 → EDUNIT# 13:27 → ER 14:32
DX: S09.90XA Unspecified injury of head, initial encounter (principal); M25.571 Pain in right ankle and joints of right foot; I10 Essential (primary) hypertension; E11.9 Type 2 diabetes mellitus without complications; K21.9 Gastro-esophageal reflux disease without esophagitis; Z95.0 Presence of cardiac pacemaker; Z91.040 Latex allergy status; Z88.5 Allergy status to narcotic agent; Z79.02 Long term (current) use of antithrombotics/antiplatelets; Z79.4 Long term (current) use of insulin; Z79.01 Long term (current) use of anticoagulants; Z87.891 Personal history of nicotine dependence; Z85.01 Personal history of malignant neoplasm of esophagus; Z80.1 Family history of malignant neoplasm of trachea, bronchus and lung; Z82.49 Family history of ischemic heart disease and other diseases of the circulatory system; W18.39XA Other fall on same level, initial encounter; W22.8XXA Striking against or struck by other objects, initial encounter; Y92.481 Parking lot as the place of occurrence of the external cause

== ENCOUNTER 2020-07-22 14:12 | Outpatient (RCR) | payer MEDICARE ==
[2020-04-24 15:35] LABS: BASOPHILS % (AUTO) 0 % (0-10); EOSINOPHILS # (AUTO) 0.4 10^3/uL (0.0-0.3); EOSINOPHILS % (AUTO) 3 % (0-10); HEMATOCRIT 41 % (40-54); HEMOGLOBIN 13.8 G/DL (13.3-17.7); LYMPHOCYTES # (AUTO) 2.6 X 10^3 (1.0-4.0); LYMPHOCYTES % (AUTO) 24 % (12-44); MEAN CORPUSCULAR HEMOGLOBIN 29 PG (25-34); MEAN CORPUSCULAR HGB CONC 33 G/DL (32-36); MEAN CORPUSCULAR VOLUME 88 FL (80-99); MEAN PLATELET VOLUME 10.3 FL (7.4-10.4); MONOCYTES # (AUTO) 1.1 X 10^3 (0.0-1.0); MONOCYTES % (AUTO) 10 % (0-12); NEUTROPHILS # (AUTO) 6.8 X 10^3 (1.8-7.8); NEUTROPHILS % (AUTO) 62 % (42-75); PLATELET COUNT 357 10^3/uL (130-400); WHITE BLOOD COUNT 10.9 10^3/uL (4.3-11.0)
[2020-04-24 15:54] LABS: ALBUMIN 3.1 GM/DL (3.2-4.5); BILIRUBIN,TOTAL 0.5 MG/DL (0.1-1.0); CALCIUM 8.5 MG/DL (8.5-10.1); CREATININE SERUM 1.3 MG/DL (0.60-1.30); POTASSIUM 4.3 MMOL/L (3.6-5.0); TOTAL PROTEIN 7.1 GM/DL (6.4-8.2)
[2020-06-10 14:39] LABS: BASOPHILS % (AUTO) 0 % (0-10); EOSINOPHILS # (AUTO) 0.4 10^3/uL (0.0-0.3); EOSINOPHILS % (AUTO) 5 % (0-10); HEMATOCRIT 38 % (40-54); HEMOGLOBIN 12.6 g/dL (13.3-17.7); LYMPHOCYTES # (AUTO) 1.6 10^3/uL (1.0-4.0); LYMPHOCYTES % (AUTO) 17 % (12-44); MEAN CORPUSCULAR HEMOGLOBIN 29 pg (25-34); MEAN CORPUSCULAR HGB CONC 33 g/dL (32-36); MEAN CORPUSCULAR VOLUME 90 fL (80-99); MEAN PLATELET VOLUME 9.7 fL (9.0-12.2); MONOCYTES # (AUTO) 0.8 10^3/uL (0.0-1.0); MONOCYTES % (AUTO) 9 % (0-12); NEUTROPHILS # (AUTO) 6.4 10^3/uL (1.8-7.8); NEUTROPHILS % (AUTO) 69 % (42-75); PLATELET COUNT 385 10^3/uL (130-400); WHITE BLOOD COUNT 9.4 10^3/uL (4.3-11.0)
[2020-06-10 15:04] LABS: ALBUMIN 2.7 GM/DL (3.2-4.5); BILIRUBIN,TOTAL 0.6 MG/DL (0.1-1.0); CALCIUM 8.1 MG/DL (8.5-10.1); CREATININE SERUM 1.2 MG/DL (0.60-1.30); POTASSIUM 4.3 MMOL/L (3.6-5.0); TOTAL PROTEIN 6.4 GM/DL (6.4-8.2)
[~2020-07-22 14:12] MED LIST changes: +AMLO-250 PO; +AMLO-251 PO; -AMLO10TA7 PO; -AMLO5TAB9 PO
== END 2020-07-23 | disposition home or self-care (01) ==
LOC: ONC 14:12
PROVIDERS: ATTEND Internal Medicine Hematology & Oncology
DX: C15.5 Malignant neoplasm of lower third of esophagus (principal); R91.1 Solitary pulmonary nodule; E11.319 Type 2 diabetes mellitus with unspecified diabetic retinopathy without macular edema; I10 Essential (primary) hypertension; E78.2 Mixed hyperlipidemia; J90 Pleural effusion, not elsewhere classified; Z79.899 Other long term (current) drug therapy; Z87.891 Personal history of nicotine dependence; Z79.4 Long term (current) use of insulin
CPT/HCPCS: 36591; 80053; 82378; 85025; 96523

== ENCOUNTER 2020-09-02 14:05 | Outpatient (RCR) | payer MEDICARE | END 2020-10-09 16:55 | disposition home or self-care (01) | LOC: ONC 14:05 | PROVIDERS: ATTEND Internal Medicine Hematology & Oncology | DX: Z45.2 Encounter for adjustment and management of vascular access device (principal); C15.5 Malignant neoplasm of lower third of esophagus; E11.319 Type 2 diabetes mellitus with unspecified diabetic retinopathy without macular edema; I10 Essential (primary) hypertension; E78.2 Mixed hyperlipidemia; J90 Pleural effusion, not elsewhere classified; R91.1 Solitary pulmonary nodule; Z87.891 Personal history of nicotine dependence; Z79.4 Long term (current) use of insulin; Z79.899 Other long term (current) drug therapy | CPT/HCPCS: 96523 ==

== ENCOUNTER → 2020-12-03 | Outpatient (CLI) | payer MEDICARE ==
--- NOTE | 2020-12-03 14:03 | Diagnostic Imaging Report ---
INDICATION: Esophageal cancer. Serum blood glucose level at the time of injection is 86 mg/dL . Patient was administered 14.9 mCi F-18 FDG intravenously in the right hand and PET imaging was performed from the top of the skull to mid thighs. Noncontrast CT was also performed for attenuation correction and anatomic correlation. Correlation is made with prior PET/CT study from 05/18/2017 [address] as conventional CT chest and abdomen study from 01/15/2020. There is symmetric activity throughout the brain. Normal physiologic activity throughout the soft tissues of the neck is noted. No definite mediastinal or hilar hypermetabolism is identified. No pulmonary parenchymal hypermetabolism is seen. Previously noted area of uptake involving the left pectoralis muscle is no longer visualized. There is no abnormal uptake in the region of the distal esophagus. Patient does have a moderate-sized right pleural effusion. There is also some right basilar consolidation. Physiologic activity throughout the gastrointestinal and genitourinary tracts of abdomen and pelvis are noted. No suspicious hypermetabolism is seen. Note is made of significant prostatomegaly. IMPRESSION: Essentially unremarkable PET/CT study. No suspicious region of hypermetabolism is identified. Patient does have a moderate right pleural effusion with right basilar consolidation. Dictated by: Dictated on workstation # [id number]
== END ==
LOC: RAD 08:15
PROVIDERS: ATTEND Internal Medicine Hematology & Oncology
DX: C15.5 Malignant neoplasm of lower third of esophagus (principal)
CPT/HCPCS: 78815; A9552

== ENCOUNTER → 2021-01-03 | Outpatient (CLI) | payer MEDICARE | LOC: CARD 14:45 | PROVIDERS: ATTEND Internal Medicine Cardiovascular Disease | DX: I11.9 Hypertensive heart disease without heart failure (principal); Z85.01 Personal history of malignant neoplasm of esophagus | CPT/HCPCS: 93306 ==

== ENCOUNTER 2021-01-06 14:45 | Outpatient (RCR) | payer MEDICARE ==
[2020-11-25 13:44] LABS: BASOPHILS % (AUTO) 1 % (0-10); EOSINOPHILS # (AUTO) 0.1 10^3/uL (0.0-0.3); EOSINOPHILS % (AUTO) 2 % (0-10); HEMATOCRIT 44 % (40-54); HEMOGLOBIN 13.8 g/dL (13.3-17.7); LYMPHOCYTES # (AUTO) 2.6 10^3/uL (1.0-4.0); LYMPHOCYTES % (AUTO) 31 % (12-44); MEAN CORPUSCULAR HEMOGLOBIN 27 pg (25-34); MEAN CORPUSCULAR HGB CONC 31 g/dL (32-36); MEAN CORPUSCULAR VOLUME 86 fL (80-99); MEAN PLATELET VOLUME 9.8 fL (9.0-12.2); MONOCYTES # (AUTO) 0.6 10^3/uL (0.0-1.0); MONOCYTES % (AUTO) 7 % (0-12); NEUTROPHILS % (AUTO) 60 % (42-75); PLATELET COUNT 337 10^3/uL (130-400); WHITE BLOOD COUNT 8.4 10^3/uL (4.3-11.0)
[2020-11-25 14:08] LABS: ALANINE AMINOTRANSFERASE 12 U/L (0-55); ALBUMIN 2.9 GM/DL (3.2-4.5); ALKALINE PHOSPHATASE 99 U/L (40-136); BILIRUBIN,TOTAL 0.7 MG/DL (0.1-1.0); BUN/CREATININE RATIO 19; CALCIUM 8.6 MG/DL (8.5-10.1); CARBON DIOXIDE 21 MMOL/L (21-32); CHLORIDE 108 MMOL/L (98-107); CREATININE SERUM 1.07 MG/DL (0.60-1.30); GFR ESTIMATED > 60; GLUCOSE 129 MG/DL (70-105); POTASSIUM 3.9 MMOL/L (3.6-5.0); SODIUM 138 MMOL/L (135-145)
== END 2021-01-12 | disposition home or self-care (01) ==
LOC: ONC 14:45
PROVIDERS: ATTEND Internal Medicine Hematology & Oncology
DX: Z45.2 Encounter for adjustment and management of vascular access device (principal); Z51.11 Encounter for antineoplastic chemotherapy; C15.5 Malignant neoplasm of lower third of esophagus; E11.319 Type 2 diabetes mellitus with unspecified diabetic retinopathy without macular edema; I10 Essential (primary) hypertension; E78.2 Mixed hyperlipidemia; J90 Pleural effusion, not elsewhere classified; R91.1 Solitary pulmonary nodule; Z87.891 Personal history of nicotine dependence; Z79.4 Long term (current) use of insulin; Z79.899 Other long term (current) drug therapy
CPT/HCPCS: 36591; 80053; 82378; 85025; 96375; 96413; 96523

== ENCOUNTER 2021-05-12 13:24 | Outpatient (RCR) | payer MEDICARE ==
[~2021-05-12 13:24] MED LIST changes: -OXYC-464 PO; +OXYC1TAB15 PO
[2021-05-12 13:46] LABS: BASOPHILS % (AUTO) 1 % (0-10); EOSINOPHILS # (AUTO) 0.2 10^3/uL (0.0-0.3); EOSINOPHILS % (AUTO) 2 % (0-10); HEMATOCRIT 48 % (40-54); HEMOGLOBIN 15.5 g/dL (13.3-17.7); LYMPHOCYTES # (AUTO) 2.4 10^3/uL (1.0-4.0); LYMPHOCYTES % (AUTO) 31 % (12-44); MEAN CORPUSCULAR HEMOGLOBIN 29 pg (25-34); MEAN CORPUSCULAR HGB CONC 32 g/dL (32-36); MEAN CORPUSCULAR VOLUME 91 fL (80-99); MEAN PLATELET VOLUME 9.7 fL (9.0-12.2); MONOCYTES # (AUTO) 0.6 10^3/uL (0.0-1.0); MONOCYTES % (AUTO) 8 % (0-12); NEUTROPHILS # (AUTO) 4.5 10^3/uL (1.8-7.8); NEUTROPHILS % (AUTO) 58 % (42-75); PLATELET COUNT 276 10^3/uL (130-400); WHITE BLOOD COUNT 7.7 10^3/uL (4.3-11.0)
[2021-05-12 14:23] LABS: BILIRUBIN,TOTAL 0.6 MG/DL (0.1-1.0); CREATININE SERUM 1.09 MG/DL (0.60-1.30); POTASSIUM 3.9 MMOL/L (3.6-5.0); TOTAL PROTEIN 6.9 GM/DL (6.4-8.2)
== END 2021-05-18 | disposition home or self-care (01) ==
LOC: ONC 13:24
PROVIDERS: ATTEND Internal Medicine Hematology & Oncology
DX: Z45.2 Encounter for adjustment and management of vascular access device (principal); C15.5 Malignant neoplasm of lower third of esophagus; E11.319 Type 2 diabetes mellitus with unspecified diabetic retinopathy without macular edema; I10 Essential (primary) hypertension; E78.2 Mixed hyperlipidemia; J90 Pleural effusion, not elsewhere classified; I25.10 Atherosclerotic heart disease of native coronary artery without angina pectoris; R91.1 Solitary pulmonary nodule; Z87.891 Personal history of nicotine dependence; Z79.4 Long term (current) use of insulin; Z79.899 Other long term (current) drug therapy
CPT/HCPCS: 36591; 80053; 82378; 85025; 96523

== ENCOUNTER 2021-08-05 14:43 | Outpatient (RCR) | payer MEDICARE ==
[~2021-08-05 14:43] MED LIST changes: +POTA-160 PO; -POTA10TA6 PO
== END 2021-09-12 | disposition home or self-care (01) ==
LOC: ONC 14:43
PROVIDERS: ATTEND Internal Medicine Hematology & Oncology
DX: Z45.2 Encounter for adjustment and management of vascular access device (principal); C15.5 Malignant neoplasm of lower third of esophagus; I10 Essential (primary) hypertension; E11.9 Type 2 diabetes mellitus without complications; E78.2 Mixed hyperlipidemia; I48.20 Chronic atrial fibrillation, unspecified; J90 Pleural effusion, not elsewhere classified; I25.10 Atherosclerotic heart disease of native coronary artery without angina pectoris; R91.1 Solitary pulmonary nodule; Z87.891 Personal history of nicotine dependence; Z79.4 Long term (current) use of insulin; Z79.899 Other long term (current) drug therapy
CPT/HCPCS: 96523

== ENCOUNTER 2021-09-15 13:43 | Outpatient (RCR) | payer MEDICARE | END 2021-10-13 | disposition home or self-care (01) | LOC: ONC 13:43 | PROVIDERS: ATTEND Internal Medicine Hematology & Oncology | DX: Z45.2 Encounter for adjustment and management of vascular access device (principal); M62.81 Muscle weakness (generalized) | CPT/HCPCS: 96523 ==

== ENCOUNTER → 2022-05-20 | Outpatient (CLI) | payer MEDICARE | LOC: CARD 13:09 | PROVIDERS: ATTEND Internal Medicine Cardiovascular Disease | DX: I11.9 Hypertensive heart disease without heart failure (principal) | CPT/HCPCS: 93306 ==

== ENCOUNTER → 2022-05-20 | Outpatient (CLI) | payer MEDICARE ==
--- NOTE | 2022-05-20 14:03 | Diagnostic Imaging Report ---
INDICATION: Shoulder pain status post fall. COMPARISON: None FINDINGS: Multiple radiographic views of bilateral shoulders were obtained. Left shoulder: There is chronic appearing deformity of the clavicle consistent with old fracture. Complete healing is difficult to assess given limited projection of the deformity. Included portions of proximal humerus are intact. Glenohumeral joint space is maintained, although there is narrowing of the acromiohumeral joint space. Findings do raise suspicion for chronic rotator cuff tear. Advanced osteoarthritic changes of the AC joint are also present. Left-sided single lead pacemaker is noted. Included portions of the left hemithorax are clear. Right shoulder: There is no acute fracture or dislocation of the right shoulder. Joint spaces are maintained. Osseous structures are intact. No unexpected radiopaque foreign bodies are seen. Included portions of the lungs show scattered patchy airspace opacities. Small right effusion is also noted. IMPRESSION: 1. No acute fracture or dislocation of either shoulder. 2. Probable old fracture of the left clavicle. 3. Findings suggestive of chronic rotator cuff tear on the left. 4. Small right effusion with scattered alveolar opacities of the included portions of the right lung. Pulmonary neoplasm cannot be excluded. Further characterization with dedicated CT of the chest is recommended. Faxed and called to [facility] at 2:01 p.m. by cvb. Dictated by: Dictated on workstation # [id number]
== END ==
LOC: RAD 13:18
PROVIDERS: ATTEND Nurse Practitioner Family
DX: M25.511 Pain in right shoulder (principal); M25.512 Pain in left shoulder; J90 Pleural effusion, not elsewhere classified; R91.8 Other nonspecific abnormal finding of lung field

== ENCOUNTER → 2022-06-11 | Outpatient (CLI) | payer MEDICARE ==
[2022-06-11 14:44] LABS: CREATININE SERUM 1.18 MG/DL (0.60-1.30)
--- NOTE | 2022-06-11 14:57 | Diagnostic Imaging Report ---
EXAMINATION: CT chest without contrast. TECHNIQUE: Multiple contiguous axial images were obtained through the chest without the use of intravenous contrast. All CT scans use one or more of the following dose optimizing techniques: automated exposure control, MA and/or KvP adjustment based on patient size and exam type or iterative reconstruction. HISTORY: Esophageal cancer COMPARISON: 01/15/2020 FINDINGS: Lungs are emphysematous. There is a small right pleural effusion with a small amount of pleural gas on the right. There is right base atelectasis and bronchial wall thickening. No suspicious nodules. There is no axillary or supraclavicular lymphadenopathy. There is no mediastinal lymphadenopathy. Right-sided portacatheter is present. A pacemaker is present. The esophagus is dilated. There is mild wall thickening of the distal esophagus which may be related to history of esophageal cancer versus treated disease. Heart size is normal. There are severe coronary artery calcifications. No pericardial effusion. Aorta is normal in caliber. Limited views of the upper abdomen are unremarkable. There are no suspicious osseus lesions. IMPRESSION: 1. Small right pleural effusion with a small amount of pleural gas that appears loculated. 2. Dilated esophagus with mild wall thickening distally which may related to history of esophageal cancer versus treated disease. Dictated by: Dictated on workstation # [id number]
== END ==
LOC: RAD 13:45
PROVIDERS: ATTEND Family Medicine
DX: C15.9 Malignant neoplasm of esophagus, unspecified (principal); J90 Pleural effusion, not elsewhere classified
CPT/HCPCS: 36415; 71250; 82565; 84520

== ENCOUNTER 2023-02-23 05:38 | Outpatient (CLI) | payer MEDICARE ==
[~2023-02-23] VITALS: Ht 187.9 cm; Wt 85.3 kg
[~2023-02-23 05:38] MED LIST changes: +CLOP-31 PO; -CLOP75TA69 PO; -ENAL10TA16 PO; +ENLP10T PO; -INSU100I29 SC; -INSU100I29 SQ; +INSU100I30 SC; +INSU100I30 SQ
[2023-02-23] MEDS ORDERED: LIOT5TAB10 PO (14:53)
[2023-02-23] MEDS ORDERED: INSU100V6 SQ (14:53)
[2023-02-23] MEDS ORDERED: TR1C15 TP (14:53)
== END 2023-02-23 15:27 | disposition home or self-care (01) ==
LOC: PREOP 05:38
PROVIDERS: ATTEND Surgery
DX: Z01.818 Encounter for other preprocedural examination (principal)

== ENCOUNTER 2023-02-25 09:13 | Day surgery (SDC) | payer MEDICARE ==
[~2023-02-25] VITALS: Ht 187.9 cm; Wt 85.3 kg
[2023-02-25] VITALS (8 sets, daily range): BP systolic 106–160; BP diastolic 51–91
[~2023-02-25 09:13] MED LIST changes: +INSU100V6 SQ; +LIOT5TAB10 PO; +TR1C15 TP
[2023-02-25] MEDS ORDERED: LACTATED RINGERS 1,000 ML IV PRN (09:30)
[2023-02-25] MEDS ORDERED: fentaNYL INJ 100 MCG/2 ML AMP ONE (09:50)
[2023-02-25] MEDS ORDERED: PROPOFOL INJECTION 50 ML IV ONE (09:50)
[2023-02-25] MEDS ORDERED: LIDOCAINE/EPI 1%-1:100,000 (XYLOCAINE) 20ML ONE (10:08)
[2023-02-25] MEDS ORDERED: ceFAZolin INJECTION 2,000 MG in NS (IVPB) 50 ML IV ONE (10:45)
--- NOTE | 2023-02-25 10:57 | Progress Note-Pre Operative ---
Pre-Operative Progress Note Date H&P Reviewed: Feb 25, 2023 Time H&P Reviewed: 10:56 History & Physical: H&P Reviewed, Patient Examed, No changes noted Pre-Operative Diagnosis: hx esophageal cancer, malfunctioning port JOSE JOHNSON DO Feb 25, 2023 10:57
[2023-02-25] MEDS ORDERED: LIDOCAINE/EPI 1%-1:100,000 (XYLOCAINE) 20ML INJ ONE (11:13)
--- NOTE | 2023-02-25 11:28 | Anesthesia-General Post-Op ---
MAC Patient Condition Mental Status/LOC: Same as Preop Cardiovascular: Satisfactory Nausea/Vomiting: Absent Respiratory: Satisfactory Pain: Controlled Complications: Absent Post Op Complications Complications None Follow Up Care/Instructions Patient Instructions None needed. Anesthesiology Discharge Order Discharge Order Patient is doing well, no complaints, stable vital signs, no apparent adverse anesthesia problems. No complications reported per nursing. FRANKIE MUKHERJEE CRNA Feb 25, 2023 11:28
[2023-02-25] MEDS ORDERED: ONDANSETRON 4 MG/2 ML (SDV) Z0FRAN IVP PRN (11:30)
[2023-02-25] MEDS ORDERED: morphine INJ 10 MG/ML 1ML (SYR OR VIAL) IVP ONE (11:30)
[2023-02-25] MEDS ORDERED: MEPERIDINE (DEMEROL) INJ 50 MG/ML IVP ONE (11:30)
--- NOTE | 2023-02-25 12:15 | Discharge Inst-Simple/Standard ---
Discharge Inst-Standard Patient Instructions/Follow Up Plan of Care/Instructions/FU: 2 weeks Arnaud Activity as Tolerated: No Discharge Diet: Regular Diet Other Inst to Patient Follow up Appt: Make appointment for 2 week. Instructions: No lifting greater than 10 pounds. No strenuous activity. May shower in 24 hours, no tub bath or soaking. Use incentive spirometer at home as directed. No Smoking Skin/Wound Care: You have special glue over your incision that will fall off on it's own. Symptoms to Report: Appetite Changes, Extremity Discoloration, Numbness/Tingling, Swelling Increased, Bleeding Excessive, Eyesight Changes, Pain Increased, Urine Color Change, Constipation(Persistent), Fever over 101 degree F, Pain/Pressure in chest, Urinating Difficulty, Cough Up/Vomit Blood, Heart Beat Irreg/Pounding, Pain/Pressure in jaw, Vaginal Bleeding Increase, Cramps in feet or legs, Lightheadedness, Pain/Pressure in shoulder, Diarrhea(Persistent), Memory Changes Suddenly, Questions/Concerns, Weight gain consecutive days, Dizziness/Fainting, Nausea/Vomiting, Shortness of Breath, Weight gain over 2 pounds If questions or concerns contact your physician Or seek help at emergency department. JOSE JOHNSON DO Feb 25, 2023 12:15
--- NOTE | 2023-02-25 12:16 | Progress Note-Post Operative ---
Post-Operative Progess Note Surgeon (s)/Heater Planer Operator (s) Surgeon JOSE JOHNSON DO Heater Planer Operator: na Pre-Operative Diagnosis hx esophageal cancer, malfunctioning port Post-Operative Diagnosis same Procedure & Operative Findings Date of Procedure 02/25/23 Procedure Performed/Findings PROCEDURE: Removal of port, COMPLICATIONS: None. INDICATIONS: The patient is a 87 year-old male who had a port previously placed. Patient is ok to have port removed it has malfunctioned and not needing any more. The patient was explained risk and benefits of the procedure and wished to proceed with procedure. Consent was signed on the chart. PROCEDURE: The patient was taken to the operating suite and was prepped and draped in sterile fashion. A surgical pause was performed. Local anesthetic was infiltrated to the area around the port. A number 15 blade scalpel was used to make an incision. Cautery was used to dissect down to the port which was then grasped and then dissected around. The catheter was removed in its entirety. The port was then able to be dissected out of the pocket and elevated. The wound was then irrigated with copious amounts of irrigation. Hemostasis had been achieved. The subcutaneous tissues were then reapproximated using 3-0 Vicryl. Skin was then closed using Skin Affix placed over the incision. The patient tolerated the procedure well without complication and was taken to recovery room in stable condition. Anesthesia Type mac c local Estimated Blood Loss Estimated blood loss (mL): minimal Specimens/Packing Specimens Removed JOSE Milligan DO Feb 25, 2023 12:16
== END 2023-02-25 13:10 | disposition home or self-care (01) ==
LOC: SDC 09:13
PROVIDERS: ATTEND Surgery
DX: T82.514A Breakdown (mechanical) of infusion catheter, initial encounter (principal); E66.9 Obesity, unspecified; Z68.24 Body mass index [BMI] 24.0-24.9, adult; Z85.01 Personal history of malignant neoplasm of esophagus; Z87.891 Personal history of nicotine dependence; Z79.01 Long term (current) use of anticoagulants
CPT/HCPCS: 82947; 87081